=== PATIENT | female | born 1955 | race Caucasian/White ===

== ENCOUNTER → 2017-02-24 | Outpatient (CLI) | payer BC ==
[2017-02-24 14:37] LABS: BLOOD UREA NITROGEN 15 MG/DL (7-18); BUN/CREATININE RATIO 18; CREATININE SERUM 0.82 MG/DL (0.60-1.30); GFR ESTIMATED > 60
== END ==
LOC: LAB 13:50
PROVIDERS: ATTEND Nurse Practitioner Family
DX: D49.2 Neoplasm of unspecified behavior of bone, soft tissue, and skin (principal)
CPT/HCPCS: 36415; 82565; 84520

== ENCOUNTER → 2017-02-25 | Outpatient (CLI) | payer BC ==
[~2017-02-25] MED LIST: IOHEXOL 350 MG/ML 100 ML (OMNIPAQUE 350) VIAL IV ONE; NS 100 ML (IVPB) BAG IV ONE
[2017-02-25] MEDS: CATHETER FLUSH 10 ML SYR IV PRN ×2 (11:09→12:24)
--- NOTE | 2017-02-25 14:45 | Diagnostic Imaging Report ---
PROCEDURE: CT chest, abdomen, and pelvis with contrast. TECHNIQUE: Multiple contiguous axial images were obtained through the chest, abdomen, and pelvis after the administration of intravenous contrast. INDICATION: Known left pelvic mass. Evaluate for primary cancer. COMPARISON: Outside MRI from 02/14/2017. CT CHEST FINDINGS: There are numerous bilateral round pulmonary nodules compatible with metastases. These range in size from 0.3 cm to 1.7 cm. No endoluminal lesion in the trachea or central bronchi. No pulmonic consolidation. Visualized thyroid is normal. No supraclavicular or axillary lymphadenopathy. Enlarged lower right paratracheal lymph node measuring 1.4 cm. Calcified left hilar lymph nodes are compatible with remote granulomatous infection. There is a small pericardial effusion. Heart is mildly enlarged. Normal-caliber thoracic aorta. No focal osseous lesion in the thoracic spine to suggest skeletal metastasis. No focal lesion within the sternum. IMPRESSION: 1. Numerous bilateral pulmonary nodules are compatible with metastases from renal cancer. 2. Enlarged metastatic lymph node within the mediastinum. 3. Small pericardial effusion. CT ABDOMEN AND PELVIS FINDINGS: There is a very large exophytic and solid left renal mass measuring 9.3 x 7.4 x 7.8 cm. It has central low attenuation indicative of tumor necrosis. There is no direct invasion of the right renal vein or IVC. No left-sided renal mass or obstructive uropathy. Destructive soft tissue mass within the left iliac wing measures 9.2 x 8.0 x 8.4 cm. It is likely an osseous metastasis from the renal cancer. Liver, spleen, and pancreas are normal. Left adrenal enhancing 1.8 x 1.4 cm mass is present. No bowel obstruction. There are a few borderline enlarged rowena hepatis lymph nodes, the largest measuring 1.1 x 0.7 cm. No enlarged retroperitoneal lymph nodes. There are numerous conspicuous lymph nodes along the left external iliac chain, with the largest measuring 1.6 x 0.6 cm. Normal-caliber abdominal aorta. IMPRESSION: 1. Very large exophytic and centrally necrotic right renal tumor is most compatible with primary renal cell carcinoma. No direct invasion of the IVC or vena cava. 2. Heterogeneous and destructive soft tissue mass centered within the left ilium is likely a solitary osseous metastasis from the renal cancer. 3. 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 4. There are numerous borderline enlarged upper abdominal and pelvic lymph nodes which may represent metastatic lymph nodes. Dictated by: Dictated on workstation # [id number]
--- NOTE | 2017-02-25 15:54 | Diagnostic Imaging Report ---
INDICATION: Left hip pain after fall. COMPARISON: CT chest, abdomen, and pelvis performed earlier same day. TECHNIQUE: Anterior and posterior scintigraphic images of the whole body were obtained after the intravenous injection of 25.1 mCi of Tc-99m MDP. FINDINGS: There is a region of mixed focal increased and decreased uptake in the left frontotemporal region of the calvarium. 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 No foci of increased radiopharmaceutical activity. IMPRESSION: 1. Area of mixed increased and decreased radiopharmaceutical activity within the left frontotemporal region is suspicious for osseous metastasis. CT of the head without contrast is advised to further evaluate the calvarium. 2. Left iliac tumor has decreased activity on bone scan, which is compatible with a hypervascular renal metastasis. Dictated by: Dictated on workstation # [id number]
== END ==
LOC: CARD 10:54
PROVIDERS: ATTEND Nurse Practitioner Family
DX: D49.2 Neoplasm of unspecified behavior of bone, soft tissue, and skin (principal); E27.9 Disorder of adrenal gland, unspecified; D49.511 Neoplasm of unspecified behavior of right kidney
CPT/HCPCS: 71260; 74177; 78306

== ENCOUNTER → 2017-03-01 | Outpatient (CLI) | payer BC ==
--- NOTE | 2017-03-01 11:21 | Diagnostic Imaging Report ---
PROCEDURE: CT head without contrast. TECHNIQUE: Multiple contiguous axial images were obtained through the brain without the use of intravenous contrast. INDICATION: Swelling along the left forehead area. History of metastatic renal cell carcinoma. FINDINGS: There is an osteolytic metastatic mass seen in the left frontal region measuring 4.9 x 2.8 cm with associated central calcifications or remnant of the erosions in the skull. The mass has a mild mass effect upon the left frontal lobe with no significant edema. Another lytic lesion measuring 1 cm to the right of the midline posteriorly at the parietal occipital junction area is also seen and is presumably related to another metastasis. There is no intracranial hemorrhage. The lateral ventricles are normal in size. No extra-axial fluid collection is seen. The visualized portions of the paranasal sinuses and orbits appear grossly unremarkable. IMPRESSION: A 4.9 cm destructive mass in the left frontal region of the skull projecting into the intracranial cavity with a mild mass effect upon the adjacent left frontal lobe suggestive of metastatic disease. There is also suggestion of 1 cm metastasis in the right occipital parietal region. Report was faxed and called to office of Dr. Whitehead by angelique at 11:22 am. Dictated by: Dictated on workstation # [id number]
== END ==
LOC: RAD 10:36
PROVIDERS: ATTEND Family Medicine
DX: R22.0 Localized swelling, mass and lump, head (principal); Z85.528 Personal history of other malignant neoplasm of kidney
CPT/HCPCS: 70450

== ENCOUNTER → 2017-03-14 | Day surgery (SDC) | payer BC ==
[~2017-03-14] MED LIST changes: +HYDR12.56 PO; +HYDROcodone/APAP 5 MG/325 MG (LORTAB) TAB PO PRN; +IBUPROFEN TABLET 200 MG TAB PO ONE; -IOHEXOL 350 MG/ML 100 ML (OMNIPAQUE 350) VIAL IV ONE; +IRBE1TAB65 PO; +LIDOCAINE 1% INJ 20 ML (XYLOCAINE) VIAL INJ ONE; +LIDOCAINE 1% INJ 20 ML (XYLOCAINE) VIAL ONE; +METF500T4 PO; -NS 100 ML (IVPB) BAG IV ONE; +fentaNYL INJECTION 100 MCG/2 ML AMP ONE
[2017-03-14] MEDS: fentaNYL INJECTION 100 MCG/2 ML AMP IVP PRN ×2 (10:16→10:28)
== END | disposition home or self-care (01) ==
DX: C64.1 Malignant neoplasm of right kidney, except renal pelvis (principal); E11.9 Type 2 diabetes mellitus without complications; Z79.899 Other long term (current) drug therapy

== ENCOUNTER 2017-04-07 05:38 | Outpatient (CLI) | payer BC ==
[~2017-04-07] VITALS: Ht 167.6 cm; Wt 76.2 kg
[~2017-04-07 05:38] MED LIST changes: -HYDROcodone/APAP 5 MG/325 MG (LORTAB) TAB PO PRN; -IBUPROFEN TABLET 200 MG TAB PO ONE; -LIDOCAINE 1% INJ 20 ML (XYLOCAINE) VIAL INJ ONE; -LIDOCAINE 1% INJ 20 ML (XYLOCAINE) VIAL ONE; -fentaNYL INJECTION 100 MCG/2 ML AMP ONE
[2017-04-08] MEDS ORDERED: HYDR-3820 PO (11:49)
== END 2017-04-07 15:41 ==
LOC: PREOP 05:38
PROVIDERS: ATTEND Surgery
DX: Z01.818 Encounter for other preprocedural examination (principal); C64.1 Malignant neoplasm of right kidney, except renal pelvis; C79.51 Secondary malignant neoplasm of bone

== ENCOUNTER 2017-04-08 09:31 | Day surgery (SDC) | payer BC ==
--- NOTE | 2017-04-07 12:12 | History & Physicial ---
History of Present Illness History of Present Illness Reason for visit/HPI To have an Vguhnm-a-Yfrx placed, in anticipation of chemotherapy to manage metastatic renal cell carcinoma Date of Admission April 08, 2017 Date Seen by Provider: Apr 07, 2017 Time Seen by Provider: 12:28 I consulted on this patient on 04/07/17 12:06 Attending Physician Avni Frias MD Admitting Physician Wil Whitehead DO Consult Allergies and Home Medications Allergies Coded Allergies: Penicillins (Verified Allergy, Unknown, 03/14/17) Sulfa (Sulfonamide Antibiotics) (Verified Allergy, Unknown, 03/14/17) erythromycin base (Verified Allergy, Unknown, 03/14/17) Home Medications Hydrochlorothiazide 12.5 Mg Tablet, 12.5 MG PO DAILY, (Reported) Irbesartan/Hydrochlorothiazide 1 Each Tablet, 1 EACH PO DAILY, (Reported) Metformin HCl 500 Mg Tablet, 500 MG PO BID, (Reported) Past Cpxjuhu-Mosyks-Lorsfa Hx Patient Social History Employed/Student: student, part-time Surgeries Surgeries: Section, Tonsillectomy Respiratory Hx Respiratory Disorders: No Cardiovascular Hx Cardiovascular Disorders: Yes Cardiac Disorders: Hypertension Neurological Hx Neurological Disorders: No Endocrine Hx Endocrine Disorders: Yes Endocrine Disorders: Diabetes, Non-Insulin dep Cancer Hx Cancer: Yes Cancer: Kidney Psychosocial Hx Psychiatric Problems: No Family Medical History Significant Family History: Cancer Constitutional: malaise EENTM: no symptoms reported Respiratory: no symptoms reported Cardiovascular: no symptoms reported Gastrointestinal: no symptoms reported Genitourinary: see HPI : No Musculoskeletal: back pain, joint pain, muscle pain Skin: no symptoms reported Physical Exam Vital Signs Capillary Refill : General Appearance: No Apparent Distress HEENT: Normal ENT Inspection Neck: Normal Inspection Respiratory: Lungs Clear Cardiovascular: Regular Rate, Rhythm Gastrointestinal: Non Tender, Soft Neurologic/Psychiatric: Alert, Oriented x3 Assessment/Plan Assessment and Plan Patient with metastatic renal cell carcinoma. 4 Athdtn-a-Wvsf placement to facilitate chemotherapy. Details of the procedure, complications of hematoma, malfunction of the catheter requiring replacement etc. reviewed. Problems: AVNI FRIAS MD Apr 07, 2017 12:12
[~2017-04-08] VITALS: Ht 167.6 cm; Wt 76.2 kg
--- OUTSIDE RECORDS SUMMARY | 2017-04-08 09:35 | XMS REPORT | Continuity of Care Document ---
Author Author [facility] Organization [facility] Address Unknown Phone Unavailable Allergies Active Description Code Type Severity Reaction Onset Reported/Identified Relationship to Patient Clinical Status Yes No Allergy Information Available [id number] Drug Allergy Unknown N/A 02/25/2017 Yes erythromycin base [id number] Drug Allergy Unknown N/A 03/14/2017 Yes Penicillins [id number] Drug Allergy Unknown N/A 03/14/2017 Yes Sulfa (Sulfonamide Antibiotics) [id number] Drug Allergy Unknown N/A 03/14/2017 Medications Problems Date Dx Coded Attending Type Code Diagnosis Diagnosed By 09/03/2015 WILDA KHAN MD Ot Z12.31 08/10/2016 BRITNI BARRIGA MD R Ot M25.552 PAIN IN LEFT HIP 08/27/2016 BRITNI BARRIGA MD R Ot Z12.31 ENCNTR SCREEN MAMMOGRAM FOR MALIGNANT NE 08/27/2016 BRITNI BARRIGA MD Ot Z12.31 ENCNTR SCREEN MAMMOGRAM FOR MALIGNANT NE 09/08/2016 BRITNI BARRIGA MD R Ot Z12.31 ENCNTR SCREEN MAMMOGRAM FOR MALIGNANT NE 02/23/2017 BRITNI BARRIGA MD R Ot Z12.31 ENCNTR SCREEN MAMMOGRAM FOR MALIGNANT NE 02/23/2017 BRITNI BARRIGA MD Ot M25.552 PAIN IN LEFT HIP 03/02/2017 JADE NG DO L Ot R22.0 LOCALIZED SWELLING, MASS AND LUMP, HEAD 03/02/2017 JADE NG DO L Ot Z85.528 PERSONAL HISTORY OF OTHER MALIGNANT NEOP 03/09/2017 BENJAMIN AUGUSTIN APRN Ot D49.2 NEOPLASM OF UNSP BEHAVIOR OF BONE, SOFT 03/15/2017 JULIUS PRINGLE Ot E11.9 TYPE 2 DIABETES MELLITUS WITHOUT COMPLIC 03/15/2017 JULIUS PRINGLE Ot N28.89 OTHER SPECIFIED DISORDERS OF KIDNEY AND 03/15/2017 PINO, BOBAN N Ot Z79.899 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 03/16/2017 PINO, BOBAN N Ot E11.9 TYPE 2 DIABETES MELLITUS WITHOUT COMPLIC 03/16/2017 PINO, BOBAN N Ot N28.89 OTHER SPECIFIED DISORDERS OF KIDNEY AND 03/16/2017 PINO, BOBAN N Ot Z79.899 OTHER JAIL (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 THERAPY 03/16/2017 PINO BOBAN N Ot E11.9 TYPE 2 DIABETES MELLITUS WITHOUT COMPLIC 03/16/2017 PINO, BOBAN N Ot N28.89 OTHER SPECIFIED DISORDERS OF KIDNEY AND 03/16/2017 PINO, BOBAN N Ot Z79.899 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 2017 BENJAMIN AUGUSTIN OXIDATION ENGINEER Ot D49.2 NEOPLASM OF UNSP BEHAVIOR OF BONE, SOFT 2017 BENJAMIN AUGUSTIN OXIDATION ENGINEER Ot D49.511 NEOPLASM OF UNSPECIFIED BEHAVIOR OF RIGH 2017 BENJAMIN AUGUSTIN OXIDATION ENGINEER Ot E27.9 DISORDER OF ADRENAL GLAND, UNSPECIFIED 2017 COS DOPELONNT L Ot R22.0 LOCALIZED SWELLING, MASS AND LUMP, HEAD 2017 COS DOPELONNT L Ot Z85.528 PERSONAL HISTORY OF OTHER MALIGNANT NEOP 03/22/2017 PINO, BOBAN N Ot C64.1 MALIGNANT NEOPLASM OF RIGHT KIDNEY, EXCE 03/22/2017 PINO BOBAN N Ot E11.9 TYPE 2 DIABETES MELLITUS WITHOUT COMPLIC 03/22/2017 PINO BOBAN N Ot Z79.899 OTHER JAIL (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 THERAPY 03/23/2017 PINO BOBAN N Ot C64.1 MALIGNANT NEOPLASM OF RIGHT KIDNEY, EXCE 03/23/2017 PINO BOBAN N Ot E11.9 TYPE 2 DIABETES MELLITUS WITHOUT COMPLIC 03/23/2017 PINO, BOBAN N Ot Z79.899 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 03/25/2017 PINO BOBAN N Ot C64.1 MALIGNANT NEOPLASM OF RIGHT KIDNEY, EXCE 03/25/2017 PINO BOBAN N Ot E11.9 TYPE 2 DIABETES MELLITUS WITHOUT COMPLIC 03/25/2017 PINO, BOBAN N Ot Z79.899 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 03/28/2017 PINO, BOBAN N Ot C64.1 MALIGNANT NEOPLASM OF RIGHT KIDNEY, EXCE 03/28/2017 PINOJULIUS N Ot E11.9 TYPE 2 DIABETES MELLITUS WITHOUT COMPLIC 03/28/2017 PINOJULIUS N Ot Z79.899 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 03/30/2017 JULIUS PRINGLE N Ot C64.1 MALIGNANT NEOPLASM OF RIGHT KIDNEY, EXCE 03/30/2017 PINOJULIUS N Ot E11.9 TYPE 2 DIABETES MELLITUS WITHOUT COMPLIC 03/30/2017 PINOJULIUS N Ot Z79.899 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 03/31/2017 PINOJULIUS N Ot C64.1 MALIGNANT NEOPLASM OF RIGHT KIDNEY, EXCE 03/31/2017 PINOJULIUS N Ot E11.9 TYPE 2 DIABETES MELLITUS WITHOUT COMPLIC 03/31/2017 PINOJULIUS N Ot Z79.899 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 04/05/2017 JULIUS PRINGLE N Ot C64.1 MALIGNANT NEOPLASM OF RIGHT KIDNEY, EXCE 04/05/2017 PINOJULIUS N Ot E11.9 TYPE 2 DIABETES MELLITUS WITHOUT COMPLIC 04/05/2017 PINOJULIUS N Ot Z79.899 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 04/06/2017 JULIUS PRINGLE N Ot C64.1 MALIGNANT NEOPLASM OF RIGHT KIDNEY, EXCE 04/06/2017 PINOJULIUS N Ot E11.9 TYPE 2 DIABETES MELLITUS WITHOUT COMPLIC 04/06/2017 PINOJULIUS N Ot Z79.899 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 Procedures Results Test Result Range [id number] - 02/24/17 14:08 Serum or plasma urea nitrogen measurement (mass/volume) 15 mg/dL 7-18 Serum or plasma creatinine measurement (mass/volume) 0.82 mg /dL 0.60-1.30 Serum or plasma urea nitrogen/creatinine mass ratio 18 NRG Serum or plasma creatinine measurement with calculation of estimated glomerular filtration rate > NRG Complete blood count (CBC) with automated white blood cell (WBC) differential - 03/14/17 09:05 Blood leukocytes automated count (number/volume) 6.2 10*3/ uL 4.3-11.0 Blood erythrocytes automated count (number/volume) 4.04 10*6 /uL 4.35-5.85 Venous blood hemoglobin measurement (mass/volume) 11.0 g/dL 11.5-16.0 Blood hematocrit (volume fraction) 34 % 35-52 Automated erythrocyte mean corpuscular volume 85 [foz_us] 80-99 Automated erythrocyte mean corpuscular hemoglobin (mass per erythrocyte) 27 pg 25-34 Automated erythrocyte mean corpuscular hemoglobin concentration measurement ( mass/volume) 32 g/dL 32-36 Automated erythrocyte distribution width ratio 14.1 % 10.0-14.5 Automated blood platelet count (count/volume) 249 10*3/uL 130-400 Automated blood platelet mean volume measurement 9.1 [foz_us ] 7.4-10.4 Automated blood neutrophils/100 leukocytes 71 % 42-75 Automated blood lymphocytes/100 leukocytes 20 % 12-44 Blood monocytes/100 leukocytes 7 % 0-12 Automated blood eosinophils/100 leukocytes 1 % 0-10 Automated blood basophils/100 leukocytes 0 % 0-10 Blood neutrophils automated count (number/volume) 4.4 10*3 1.8-7.8 Blood lymphocytes automated count (number/volume) 1.2 10*3 1.0-4.0 Blood monocytes automated count (number/volume) 0.4 10*3 0.0-1.0 Automated eosinophil count 0.1 10*3/uL 0.0-0.3 Automated blood basophil count (count/volume) 0.0 10*3/uL 0.0-0.1 PT panel in platelet poor plasma by coagulation assay - 03/14/17 09:05 Prothrombin time (PT) in platelet poor plasma by coagulation assay 13.5 s 12.2-14.7 INR in platelet poor plasma or blood by coagulation assay 1.1 0.8-1.4 Activated partial thromboplastin time (aPTT) in platelet poor plasma bycoagulation assay - 03/14/17 09:05 Activated partial thromboplastin time (aPTT) in platelet poor plasma bycoagulation assay 29 s 24-35 Encounters ACCT No. Visit Date/Time Discharge Status Pt. Type Provider Facility Loc./Unit Complaint [id number] 08/15/2015 14:33:00 2014 23:59:59 [facility] Outpatient BILL JHA, WILDA [facility] [id number] 03/12/2014 14:04:00 2013 23:59:59 CLS Outpatient [id number] 04/08/2017 11:00:00 PEN Preadbreanne FRIAS MD, AVNI Jonas [facility] SDC KIDNEY CA/LUNG CA/BONE CA [id number] 04/04/2017 14:27:00 ACT Outpatient JULIUS PRINGLE [facility] ONC [id number] 03/14/2017 08:27:00 ACT Outpatient JULIUS PRINGLE [facility] RAD LT RENAL MASS N28.89 [id number] 03/01/2017 10:36:00 ACT Outpatient JADE NG DO [facility] RAD ALFREDO METASTIC LESION CALVARIUM [id number] 02/25/2017 11:00:00 Document Registration [id number] 02/25/2017 10:54:00 ACT Outpatient BENJAMIN AUGUSTIN OXIDATION ENGINEER [facility] CARD BONE TUMOR-PRIMARY [id number] 02/24/2017 13:50:00 ACT Outpatient BENJAMIN AUGUSTIN OXIDATION ENGINEER [facility] LAB D49.2 [id number] 08/26/2016 13:14:00 ACT Outpatient BRITNI BARRIGA MD [facility] RAD SCREENING [id number] 08/09/2016 09:36:00 ACT Outpatient BRITNI BARRIGA MD [facility] RAD PERSISTENT PAIN LT HIP
--- OUTSIDE RECORDS SUMMARY | 2017-04-08 09:35 | XMS REPORT | Continuity of Care Document ---
Author Author [facility] Organization [facility] Address Unknown Phone Unavailable Care Team Providers Care Sales Agent Financial Report Service Name Role Phone Wil Whitehead PCP [phone] Source Comments Some departments are not documenting in the electronic medical record. If you do not see the information that you expected, contact Release of Information in the Health Information Management department at [phone] for further assistance in locating additional records.[facility] Active Allergies and Adverse Reactions Allergen Noted Date Severity Reactions Comments Codeine 02/18/2017 Medium VOMITING Any codeine related medication Erythromycin 02/18/2017 Medium RASH, SEE COMMENTS rash and stomach issues Hydrocodone 02/18/2017 Medium VOMITING Penicillin G 02/18/2017 Medium RASH Percocet 02/18/2017 Medium VOMITING Sulfa (Sulfonamide 02/18/2017 Low SEE COMMENTS patient cannot remember Antibiotics) reaction Current Medications Prescription Sig. Disp. Refills Start End Date Status Date hydroCHLOROthiazide Take 25 mg by mouth every Active (HYDRODIURIL) 25 mg morning. tablet irbesartan-hydrochlorothi Take 1 Tab by mouth Active azide (AVALIDE) 150-12.5 daily. mg tablet metFORMIN (GLUCOPHAGE) Take 500 mg by mouth Active 500 mg tablet twice daily with meals. traMADol (ULTRAM) 50 mg Take 1-2 Tabs by mouth 36 Tab 0 02/19/20 Active tablet every 6 hours as needed 17 for Pain. Active Problems Not on file Most Recent Encounters Date Type Specialty Providers Description 03/14/2017 Hospital Robbie Mora MD Soft tissue tumor Encounter 03/14/2017 Surgery Robbie Mora MD Canceled JENNIFER CUT, POSSIBLE OPEN BIOPSY LEFT PELVIC MASS 03/07/2017 Ancillary Radiology Outpatient, Radiologist Diagnosis unknown Orders (Primary Dx) 03/04/2017 Telephone Oncology Robbie Mora MD Results 03/04/2017 Orders Only Oncology Lakshmi Richardson RN Bone tumor 03/01/2017 Hospital Radiology Encounter 02/28/2017 Ancillary Radiology Outpatient, Radiologist Diagnosis unknown Orders (Primary Dx) 02/25/2017 Hospital Radiology Encounter 02/25/2017 Hospital Radiology Encounter 02/25/2017 Ancillary Radiology Outpatient, Radiologist Diagnosis unknown Orders (Primary Dx) 02/24/2017 Telephone Oncology Robbie Mora MD Test 02/23/2017 Prep for Case Oncology Robbie Mora MD Soft tissue tumor (Primary Dx) 02/22/2017 Ancillary Radiology Outpatient, Radiologist Diagnosis unknown Orders (Primary Dx) 02/18/2017 Office Visit Oncology Robbie Mora MD Bone tumor ( Primary Dx) 02/18/2017 Ancillary Radiology Outpatient, Radiologist Diagnosis unknown Orders (Primary Dx) 02/14/2017 Hospital Radiology Encounter 02/14/2017 Hospital Radiology Encounter Social History Tobacco Use Types Packs/Day Years Used Date Never Smoker Smokeless Tobacco: Never Used Alcohol Use Drinks/Week oz/Week Comments No 0 Standard 0.0 drinks or equivalent Last Filed Vital Signs Vital Sign Reading Time Taken Blood Pressure 182/67 02/18/2017 2:02 PM CDT Pulse 99 02/18/2017 2:02 PM CDT Temperature 36.3 C (97.4 F) 02/18/2017 2:02 PM CDT Respiratory Rate 16 02/18/2017 2:02 PM CDT Height 1.676 m (5' 6") 02/28/2017 2:36 PM CDT Weight 78.926 kg (174 lb) 02/28/2017 2:36 PM CDT Body Mass Index 28.1 02/28/2017 2:36 PM CDT Oxygen Saturation 99% 02/18/2017 2:02 PM CDT Plan of Care Health Maintenance Due Date Last Done Comments Hepatitis C Screening 1955 Physical (Comprehensive) 1960 Exam Pertussis Vaccine 1964 Tetanus Vaccine 1970 Cervical Cancer Screening 1974 Breast Cancer Screening 1993 Colorectal Cancer 2003 Screening Shingles Vaccine 2013 Influenza Vaccine 05/27/2017 Results from Last 3 Months * CT HEAD EXTERNAL IMAGING (03/01/2017) Narrative This order has been auto finalized and does not contain a result. * NM BONE SCAN EXTERNAL IMAGING (02/25/2017 12:15 AM) Narrative This order has been auto finalized and does not contain a result. * CT ABD/PELV W CONTRAST (02/25/2017) * CT CHEST W CONTRAST (02/25/2017) * NM BONE SCAN WHOLEBODY (02/25/2017) * CT CHEST/ABD/PEL EXTERNAL IMAGING (02/25/2017) Narrative This order has been auto finalized and does not contain a result. * GENERAL RAD LOWER EXT EXTERNAL IMAGING (02/14/2017 12:15 AM) Narrative This order has been auto finalized and does not contain a result. * MRI LOWER EXT EXTERNAL IMAGING (02/14/2017) Narrative This order has been auto finalized and does not contain a result.
[2017-04-08] MEDS ORDERED: BUP/EPI 0.25% 1:200,000 (MARCAINE) 10 ML VIAL IJ ONE ×2 (09:49→11:01)
[2017-04-08] MEDS ORDERED: HEParin (CENTRAL IV FLUSH) 500 UNIT/5 ML SYR ONE (09:49)
[2017-04-08] MEDS ORDERED: LIDOCAINE PF 2% 5 ML (XYLOCAINE) VIAL ONE (09:56)
[2017-04-08] MEDS ORDERED: proPOfol 200 MG/20 ML (DIPRIVAN) VIAL IV ONE (09:56)
[2017-04-08] MEDS ORDERED: fentaNYL INJECTION 100 MCG/2 ML AMP ONE ×2 (09:56→11:07)
[2017-04-08] MEDS ORDERED: LACTATED RINGERS 1,000 ML IV ONE (09:56)
[2017-04-08] MEDS ORDERED: ONDANSETRON 4 MG/2 ML (SDV) Z0FRAN ONE ×2 (09:56→13:07)
[2017-04-08] MEDS ORDERED: MIDAZOLAM 2 MG/2 ML (VERSED) VIAL ONE (09:56)
[2017-04-08] MEDS ORDERED: SEVOFLURANE (ULTANE) 15 ML INHAL SOLN ONE ×3 (09:56→11:03)
[2017-04-08 10:13] VITALS: BP 157/74
--- NOTE | 2017-04-08 10:26 | Progress Note-Pre Operative ---
Pre-Operative Progress Note H&P Reviewed The H&P was reviewed, patient examined and no changes noted. Date Seen by Provider: Apr 08, 2017 Time Seen by Provider: 10:25 Date H&P Reviewed: Apr 08, 2017 Time H&P Reviewed: : Pre-Operative Diagnosis: metastatic renal cell carcinoma AVNI FRIAS MD Apr 08, 2017 10:26 am
[2017-04-08] MEDS ORDERED: ceFAZolin 2 GM/50 ML NS 50 ML ONE (10:29)
[2017-04-08] MEDS ORDERED: ONDANSETRON 4 MG/2 ML (SDV) Z0FRAN IVP PRN (11:45)
--- NOTE | 2017-04-08 11:48 | Operative Report ---
Operative Report Date of Procedure/Surgery Apr 08, 2017 Surgeon (s) AVNI FRIAS MD Diamond Grader (s): Not applicable Post-Operative Diagnosis Same Procedure Performed Azirat-x-Qfhg placement Description of Procedure Anesthesia Type: General Estimated blood loss (mL): Minimal Specimen(s) collected/removed None Description of the Procedure Indication for procedure: This lady is due to receive systemic therapy to address metastatic renal cell carcinoma. To facilitate this, an Ualotx-m-Loem was felt to be appropriate. Informed consent was obtained after reviewing the operative details and complications of hematoma, infection of the pocket and malfunction of the catheter requiring replacement Description of procedure: She was placed supine on the operative table and general anesthesia induced using a laryngeal mask airway. A gram of Ancef was administered intravenously as prophylaxis against wound infection. Sequential compression devices were placed around her legs, to minimize the risk of venous thrombosis Neck and upper chest were prepared and draped in the usual sterile manner. Right internal jugular vein was localized using at 12 MHz ultrasound probe and a floppy guidewire introduced into the heart, under fluoroscopy. A subcutaneous pocket was created over the infra-follicular fossa and the Toni catheter brought into the neck, in a retrograde fashion. It was then advanced into the heart, under fluoroscopy, using the peel-away sheath. The catheter was then pulled back to the superior vena cava under fluoroscopy and subsequently connected to the Yifhwm-c-Siur, that had been primed with heparinized saline. I was able to aspirate and flush the system without any difficulty. The port was then secured to the pectoralis tissue using 2-0 Prolene sutures. Incision was closed using 3-0 Vicryl for the subcutaneous tissue and 4-0 Vicryl for skin, in a subcuticular fashion. 0.25 percent Marcaine with epinephrine infiltrated along the incision both pre-emptively and at the conclusion of the operation. She tolerated the procedure well, was extubated in the operating room and taken to the recovery room in a stable condition. [place], sponges and instruments were correct at the end of the operation Findings of the Procedure See operative report Allergies and Home Medications Allergies Coded Allergies: Penicillins (Verified Allergy, Unknown, 04/07/17) Sulfa (Sulfonamide Antibiotics) (Verified Allergy, Unknown, 04/07/17) erythromycin base (Verified Allergy, Unknown, 04/07/17) Home Medications Hydrochlorothiazide 12.5 Mg Tablet, 12.5 MG PO DAILY, (Reported) Irbesartan/Hydrochlorothiazide 1 Each Tablet, 1 EACH PO DAILY, (Reported) Metformin HCl 500 Mg Tablet, 500 MG PO BID, (Reported) AVNI FRIAS MD Apr 08, 2017 11:48 am
[2017-04-08] MEDS ORDERED: HYDR-3820 PO (11:49)
--- NOTE | 2017-04-08 11:49 | Discharge Inst-Simple/Standard ---
Discharge Inst-Standard Discharge Medications New, Converted or Re-Newed RX: RX on Chart Patient Instructions/Follow Up Plan of Care/Instructions/FU: Dressings off in 48 hours. May use the port Activity as Tolerated: Yes Discharge Diet: No Restrictions AVNI FRIAS MD Apr 08, 2017 11:49 am
--- NOTE | 2017-04-08 11:53 | Diagnostic Imaging Report ---
Intraoperative view of the chest. INDICATION: Port placement in the OR by Dr. Bunch. FLUOROSCOPY TIME: 4 seconds. IMPRESSION: Provided images demonstrate the port catheter with the tip at the proximal right atrium level. Dictated by: Dictated on workstation # [id number]
[2017-04-08] MEDS ORDERED: morphine INJ 10 MG/ML 1ML (SYR OR VIAL) ONE (11:56)
[2017-04-08] MEDS: morphine INJ 10 MG/ML 1ML (SYR OR VIAL) IVP PRN ×2 (12:04→12:19)
[2017-04-08 12:35] VITALS: BP 153/85
[2017-04-08 13:05] VITALS: BP 149/72
[2017-04-08] MEDS ORDERED: ONDANSETRON 4 MG/2 ML (SDV) Z0FRAN IVP ONE (13:15)
[2017-04-08] MEDS ORDERED: ACETAMINOPHEN 500 MG TAB (TYLENOL) PO ONE (13:15)
[2017-04-08 13:35] VITALS: BP 151/77
[2017-04-08 15:10] VITALS: BP 153/85
[2017-04-08] MEDS ORDERED: LACTATED RINGERS 1,000 ML IV PRN (16:53)
== END 2017-04-08 15:10 | disposition home or self-care (01) ==
LOC: SDC 09:31
PROVIDERS: ATTEND Surgery
DX: C64.1 Malignant neoplasm of right kidney, except renal pelvis (principal); C79.51 Secondary malignant neoplasm of bone; I10 Essential (primary) hypertension; E11.9 Type 2 diabetes mellitus without complications; Z79.84 Long term (current) use of oral hypoglycemic drugs; Z79.899 Other long term (current) drug therapy
CPT/HCPCS: 82962; 87081

== ENCOUNTER 2017-06-13 13:53 | Outpatient (RCR) | payer BC ==
[2017-03-21 11:12] LABS: BASOPHILS % (AUTO) 0 % (0-10); EOSINOPHILS # (AUTO) 0.1 10^3/uL (0.0-0.3); EOSINOPHILS % (AUTO) 1 % (0-10); LYMPHOCYTES # (AUTO) 1.6 X 10^3 (1.0-4.0); LYMPHOCYTES % (AUTO) 22 % (12-44); MEAN CORPUSCULAR HEMOGLOBIN 28 PG (25-34); MEAN CORPUSCULAR HGB CONC 33 G/DL (32-36); MEAN CORPUSCULAR VOLUME 85 FL (80-99); MEAN PLATELET VOLUME 8.8 FL (7.4-10.4); MONOCYTES # (AUTO) 0.4 X 10^3 (0.0-1.0); MONOCYTES % (AUTO) 6 % (0-12); NEUTROPHILS # (AUTO) 4.9 X 10^3 (1.8-7.8); NEUTROPHILS % (AUTO) 71 % (42-75); PLATELET COUNT 297 10^3/uL (130-400); RED CELL DISTRIBUTION WIDTH 14.2 % (10.0-14.5); WHITE BLOOD COUNT 6.9 10^3/uL (4.3-11.0)
[2017-03-21 11:41] LABS: ALANINE AMINOTRANSFERASE 17 U/L (0-55); ALBUMIN 4.1 GM/DL (3.2-4.5); ANION GAP 11 MMOL/L (5-14); ASPARTATE AMINO TRANSFERASE 15 U/L (5-34); BILIRUBIN,TOTAL 0.7 MG/DL (0.1-1.0); BLOOD UREA NITROGEN 11 MG/DL (7-18); BUN/CREATININE RATIO 13 (0-20); CALCIUM 11.6 MG/DL (8.5-10.1); CARBON DIOXIDE 28 MMOL/L (21-32); CHLORIDE 100 MMOL/L (98-107); CREATININE SERUM 0.83 MG/DL (0.60-1.30); GFR ESTIMATED > 60; GLUCOSE 214 MG/DL (70-105); HEMOLYSIS 2 (-100-29); ICTERUS 0.6 (-100-1.9); LACTATE DEHYDROGENASE 130 U/L (125-220); LIPEMIA 4 (-100-49); POTASSIUM 3.7 MMOL/L (3.6-5.0); SODIUM 139 MMOL/L (135-145)
[2017-04-04 15:39] LABS: BASOPHILS % (AUTO) 0 % (0-10); EOSINOPHILS % (AUTO) 1 % (0-10); LYMPHOCYTES # (AUTO) 1.3 X 10^3 (1.0-4.0); LYMPHOCYTES % (AUTO) 18 % (12-44); MEAN CORPUSCULAR HEMOGLOBIN 27 PG (25-34); MEAN CORPUSCULAR HGB CONC 32 G/DL (32-36); MEAN CORPUSCULAR VOLUME 85 FL (80-99); MEAN PLATELET VOLUME 8.8 FL (7.4-10.4); MONOCYTES # (AUTO) 0.5 X 10^3 (0.0-1.0); MONOCYTES % (AUTO) 7 % (0-12); NEUTROPHILS # (AUTO) 5.1 X 10^3 (1.8-7.8); NEUTROPHILS % (AUTO) 74 % (42-75); PLATELET COUNT 239 10^3/uL (130-400); RED BLOOD COUNT 3.94 10^6/uL (4.35-5.85); RED CELL DISTRIBUTION WIDTH 14.2 % (10.0-14.5)
[2017-04-04 16:02] LABS: ALANINE AMINOTRANSFERASE 17 U/L (0-55); ANION GAP 9 MMOL/L (5-14); ASPARTATE AMINO TRANSFERASE 16 U/L (5-34); BILIRUBIN,TOTAL 0.9 MG/DL (0.1-1.0); BLOOD UREA NITROGEN 10 MG/DL (7-18); BUN/CREATININE RATIO 13; CALCIUM 11.1 MG/DL (8.5-10.1); CARBON DIOXIDE 27 MMOL/L (21-32); CHLORIDE 103 MMOL/L (98-107); CREATININE SERUM 0.78 MG/DL (0.60-1.30); GFR ESTIMATED > 60; GLUCOSE 178 MG/DL (70-105); LACTATE DEHYDROGENASE 143 U/L (125-220); POTASSIUM 3.6 MMOL/L (3.6-5.0); SODIUM 139 MMOL/L (135-145); TOTAL PROTEIN 7.5 GM/DL (6.4-8.2)
[2017-04-11 14:37] LABS: BASOPHILS % (AUTO) 0 % (0-10); EOSINOPHILS # (AUTO) 0.1 10^3/uL (0.0-0.3); EOSINOPHILS % (AUTO) 1 % (0-10); LYMPHOCYTES # (AUTO) 1.3 X 10^3 (1.0-4.0); LYMPHOCYTES % (AUTO) 22 % (12-44); MEAN CORPUSCULAR HEMOGLOBIN 27 PG (25-34); MEAN CORPUSCULAR HGB CONC 32 G/DL (32-36); MEAN CORPUSCULAR VOLUME 85 FL (80-99); MEAN PLATELET VOLUME 9.2 FL (7.4-10.4); MONOCYTES # (AUTO) 0.5 X 10^3 (0.0-1.0); MONOCYTES % (AUTO) 8 % (0-12); NEUTROPHILS # (AUTO) 4.2 X 10^3 (1.8-7.8); NEUTROPHILS % (AUTO) 69 % (42-75); PLATELET COUNT 169 10^3/uL (130-400); RED BLOOD COUNT 4.02 10^6/uL (4.35-5.85); RED CELL DISTRIBUTION WIDTH 14.1 % (10.0-14.5); WHITE BLOOD COUNT 6.1 10^3/uL (4.3-11.0)
[2017-04-11 14:59] LABS: ANION GAP 13 MMOL/L (5-14); BLOOD UREA NITROGEN 7 MG/DL (7-18); BUN/CREATININE RATIO 10; CALCIUM 9.9 MG/DL (8.5-10.1); CARBON DIOXIDE 25 MMOL/L (21-32); CHLORIDE 100 MMOL/L (98-107); CREATININE SERUM 0.72 MG/DL (0.60-1.30); GFR ESTIMATED > 60; GLUCOSE 125 MG/DL (70-105); POTASSIUM 3.4 MMOL/L (3.6-5.0); SODIUM 138 MMOL/L (135-145)
[2017-04-18 14:18] LABS: BASOPHILS % (AUTO) 0 % (0-10); EOSINOPHILS # (AUTO) 0.1 10^3/uL (0.0-0.3); EOSINOPHILS % (AUTO) 1 % (0-10); LYMPHOCYTES # (AUTO) 1.5 X 10^3 (1.0-4.0); LYMPHOCYTES % (AUTO) 26 % (12-44); MEAN CORPUSCULAR HEMOGLOBIN 27 PG (25-34); MEAN CORPUSCULAR HGB CONC 32 G/DL (32-36); MEAN CORPUSCULAR VOLUME 83 FL (80-99); MEAN PLATELET VOLUME 9.5 FL (7.4-10.4); MONOCYTES # (AUTO) 0.5 X 10^3 (0.0-1.0); MONOCYTES % (AUTO) 9 % (0-12); NEUTROPHILS # (AUTO) 3.6 X 10^3 (1.8-7.8); NEUTROPHILS % (AUTO) 64 % (42-75); PLATELET COUNT 172 10^3/uL (130-400); RED BLOOD COUNT 4.45 10^6/uL (4.35-5.85); RED CELL DISTRIBUTION WIDTH 13.8 % (10.0-14.5); WHITE BLOOD COUNT 5.6 10^3/uL (4.3-11.0)
[2017-04-18 14:44] LABS: ANION GAP 12 MMOL/L (5-14); BLOOD UREA NITROGEN 15 MG/DL (7-18); BUN/CREATININE RATIO 17; CALCIUM 9.7 MG/DL (8.5-10.1); CARBON DIOXIDE 24 MMOL/L (21-32); CHLORIDE 96 MMOL/L (98-107); CREATININE SERUM 0.87 MG/DL (0.60-1.30); GFR ESTIMATED > 60; GLUCOSE 271 MG/DL (70-105); POTASSIUM 3.4 MMOL/L (3.6-5.0); SODIUM 132 MMOL/L (135-145)
[2017-04-25 14:22] LABS: BASOPHILS % (AUTO) 0 % (0-10); EOSINOPHILS # (AUTO) 0.1 10^3/uL (0.0-0.3); EOSINOPHILS % (AUTO) 2 % (0-10); LYMPHOCYTES # (AUTO) 1.5 X 10^3 (1.0-4.0); LYMPHOCYTES % (AUTO) 30 % (12-44); MEAN CORPUSCULAR HEMOGLOBIN 27 PG (25-34); MEAN CORPUSCULAR HGB CONC 33 G/DL (32-36); MEAN CORPUSCULAR VOLUME 81 FL (80-99); MEAN PLATELET VOLUME 9.2 FL (7.4-10.4); MONOCYTES # (AUTO) 0.5 X 10^3 (0.0-1.0); MONOCYTES % (AUTO) 9 % (0-12); NEUTROPHILS % (AUTO) 59 % (42-75); PLATELET COUNT 175 10^3/uL (130-400); RED CELL DISTRIBUTION WIDTH 13.4 % (10.0-14.5)
[2017-04-25 14:46] LABS: ANION GAP 14 MMOL/L (5-14); BLOOD UREA NITROGEN 12 MG/DL (7-18); BUN/CREATININE RATIO 16; CALCIUM 9.9 MG/DL (8.5-10.1); CARBON DIOXIDE 22 MMOL/L (21-32); CHLORIDE 96 MMOL/L (98-107); CREATININE SERUM 0.73 MG/DL (0.60-1.30); GFR ESTIMATED > 60; GLUCOSE 163 MG/DL (70-105); POTASSIUM 3.5 MMOL/L (3.6-5.0); SODIUM 132 MMOL/L (135-145)
[2017-05-02 13:12] LABS: BASOPHILS % (AUTO) 0 % (0-10); EOSINOPHILS # (AUTO) 0.1 10^3/uL (0.0-0.3); EOSINOPHILS % (AUTO) 2 % (0-10); LYMPHOCYTES # (AUTO) 1.6 X 10^3 (1.0-4.0); LYMPHOCYTES % (AUTO) 29 % (12-44); MEAN CORPUSCULAR HEMOGLOBIN 27 PG (25-34); MEAN CORPUSCULAR HGB CONC 34 G/DL (32-36); MEAN CORPUSCULAR VOLUME 80 FL (80-99); MEAN PLATELET VOLUME 9.3 FL (7.4-10.4); MONOCYTES # (AUTO) 0.5 X 10^3 (0.0-1.0); MONOCYTES % (AUTO) 9 % (0-12); NEUTROPHILS # (AUTO) 3.2 X 10^3 (1.8-7.8); NEUTROPHILS % (AUTO) 60 % (42-75); PLATELET COUNT 186 10^3/uL (130-400); RED BLOOD COUNT 4.21 10^6/uL (4.35-5.85); RED CELL DISTRIBUTION WIDTH 13.5 % (10.0-14.5); WHITE BLOOD COUNT 5.4 10^3/uL (4.3-11.0)
[2017-05-02 13:38] LABS: ALBUMIN 4.1 GM/DL (3.2-4.5); BILIRUBIN,TOTAL 0.6 MG/DL (0.1-1.0); CREATININE SERUM 0.95 MG/DL (0.60-1.30); POTASSIUM 3.6 MMOL/L (3.6-5.0); TOTAL PROTEIN 7.9 GM/DL (6.4-8.2)
[2017-05-09 13:52] LABS: BASOPHILS % (AUTO) 0 % (0-10); EOSINOPHILS # (AUTO) 0.1 10^3/uL (0.0-0.3); EOSINOPHILS % (AUTO) 1 % (0-10); LYMPHOCYTES # (AUTO) 1.4 X 10^3 (1.0-4.0); LYMPHOCYTES % (AUTO) 23 % (12-44); MEAN CORPUSCULAR HGB CONC 33 G/DL (32-36); MEAN CORPUSCULAR VOLUME 79 FL (80-99); MEAN PLATELET VOLUME 9.3 FL (7.4-10.4); MONOCYTES # (AUTO) 0.6 X 10^3 (0.0-1.0); MONOCYTES % (AUTO) 10 % (0-12); NEUTROPHILS % (AUTO) 65 % (42-75); PLATELET COUNT 182 10^3/uL (130-400); RED BLOOD COUNT 4.08 10^6/uL (4.35-5.85); RED CELL DISTRIBUTION WIDTH 13.7 % (10.0-14.5); WHITE BLOOD COUNT 6.2 10^3/uL (4.3-11.0)
[2017-05-09 13:57] LABS: MEAN CORPUSCULAR HEMOGLOBIN 26 PG (25-34)
[2017-05-09 14:14] LABS: ANION GAP 14 MMOL/L (5-14); BLOOD UREA NITROGEN 20 MG/DL (7-18); BUN/CREATININE RATIO 22; CALCIUM 9.8 MG/DL (8.5-10.1); CARBON DIOXIDE 22 MMOL/L (21-32); CHLORIDE 97 MMOL/L (98-107); CREATININE SERUM 0.92 MG/DL (0.60-1.30); GFR ESTIMATED > 60; GLUCOSE 286 MG/DL (70-105); POTASSIUM 3.3 MMOL/L (3.6-5.0); SODIUM 133 MMOL/L (135-145)
[2017-05-16 14:19] LABS: BASOPHILS % (AUTO) 0 % (0-10); EOSINOPHILS # (AUTO) 0.1 10^3/uL (0.0-0.3); EOSINOPHILS % (AUTO) 1 % (0-10); LYMPHOCYTES # (AUTO) 1.5 X 10^3 (1.0-4.0); LYMPHOCYTES % (AUTO) 28 % (12-44); MEAN CORPUSCULAR HEMOGLOBIN 27 PG (25-34); MEAN CORPUSCULAR HGB CONC 34 G/DL (32-36); MEAN CORPUSCULAR VOLUME 79 FL (80-99); MEAN PLATELET VOLUME 9.2 FL (7.4-10.4); MONOCYTES # (AUTO) 0.5 X 10^3 (0.0-1.0); MONOCYTES % (AUTO) 10 % (0-12); NEUTROPHILS # (AUTO) 3.1 X 10^3 (1.8-7.8); NEUTROPHILS % (AUTO) 60 % (42-75); PLATELET COUNT 179 10^3/uL (130-400); RED CELL DISTRIBUTION WIDTH 13.8 % (10.0-14.5); WHITE BLOOD COUNT 5.1 10^3/uL (4.3-11.0)
[2017-05-16 14:45] LABS: ANION GAP 12 MMOL/L (5-14); BLOOD UREA NITROGEN 14 MG/DL (7-18); BUN/CREATININE RATIO 17; CALCIUM 9.7 MG/DL (8.5-10.1); CARBON DIOXIDE 25 MMOL/L (21-32); CHLORIDE 97 MMOL/L (98-107); CREATININE SERUM 0.81 MG/DL (0.60-1.30); GFR ESTIMATED > 60; GLUCOSE 259 MG/DL (70-105); POTASSIUM 3.4 MMOL/L (3.6-5.0); SODIUM 134 MMOL/L (135-145)
[2017-05-23 14:03] LABS: BASOPHILS % (AUTO) 0 % (0-10); EOSINOPHILS # (AUTO) 0.1 10^3/uL (0.0-0.3); EOSINOPHILS % (AUTO) 1 % (0-10); LYMPHOCYTES # (AUTO) 1.4 X 10^3 (1.0-4.0); LYMPHOCYTES % (AUTO) 26 % (12-44); MEAN CORPUSCULAR HEMOGLOBIN 26 PG (25-34); MEAN CORPUSCULAR HGB CONC 33 G/DL (32-36); MEAN CORPUSCULAR VOLUME 79 FL (80-99); MEAN PLATELET VOLUME 9.3 FL (7.4-10.4); MONOCYTES # (AUTO) 0.5 X 10^3 (0.0-1.0); MONOCYTES % (AUTO) 8 % (0-12); NEUTROPHILS # (AUTO) 3.4 X 10^3 (1.8-7.8); NEUTROPHILS % (AUTO) 64 % (42-75); PLATELET COUNT 172 10^3/uL (130-400); RED BLOOD COUNT 4.03 10^6/uL (4.35-5.85); RED CELL DISTRIBUTION WIDTH 13.5 % (10.0-14.5); WHITE BLOOD COUNT 5.4 10^3/uL (4.3-11.0)
[2017-05-23 14:22] LABS: ANION GAP 12 MMOL/L (5-14); BLOOD UREA NITROGEN 14 MG/DL (7-18); BUN/CREATININE RATIO 17; CALCIUM 9.6 MG/DL (8.5-10.1); CARBON DIOXIDE 23 MMOL/L (21-32); CHLORIDE 100 MMOL/L (98-107); CREATININE SERUM 0.82 MG/DL (0.60-1.30); GFR ESTIMATED > 60; GLUCOSE 321 MG/DL (70-105); POTASSIUM 3.5 MMOL/L (3.6-5.0); SODIUM 135 MMOL/L (135-145)
[2017-05-31 14:09] LABS: BASOPHILS % (AUTO) 0 % (0-10); EOSINOPHILS # (AUTO) 0.1 10^3/uL (0.0-0.3); EOSINOPHILS % (AUTO) 1 % (0-10); LYMPHOCYTES # (AUTO) 1.4 X 10^3 (1.0-4.0); LYMPHOCYTES % (AUTO) 24 % (12-44); MEAN CORPUSCULAR HEMOGLOBIN 26 PG (25-34); MEAN CORPUSCULAR HGB CONC 33 G/DL (32-36); MEAN CORPUSCULAR VOLUME 78 FL (80-99); MEAN PLATELET VOLUME 9.4 FL (7.4-10.4); MONOCYTES # (AUTO) 0.6 X 10^3 (0.0-1.0); MONOCYTES % (AUTO) 11 % (0-12); NEUTROPHILS # (AUTO) 3.6 X 10^3 (1.8-7.8); NEUTROPHILS % (AUTO) 64 % (42-75); PLATELET COUNT 201 10^3/uL (130-400); RED BLOOD COUNT 4.08 10^6/uL (4.35-5.85); RED CELL DISTRIBUTION WIDTH 13.5 % (10.0-14.5); WHITE BLOOD COUNT 5.7 10^3/uL (4.3-11.0)
[2017-05-31 14:31] LABS: ALBUMIN 4.1 GM/DL (3.2-4.5); BILIRUBIN,TOTAL 0.7 MG/DL (0.1-1.0); CREATININE SERUM 0.98 MG/DL (0.60-1.30); POTASSIUM 3.2 MMOL/L (3.6-5.0); TOTAL PROTEIN 7.9 GM/DL (6.4-8.2)
[2017-06-06 14:18] LABS: BASOPHILS % (AUTO) 0 % (0-10); EOSINOPHILS # (AUTO) 0.1 10^3/uL (0.0-0.3); EOSINOPHILS % (AUTO) 1 % (0-10); LYMPHOCYTES # (AUTO) 1.5 X 10^3 (1.0-4.0); LYMPHOCYTES % (AUTO) 19 % (12-44); MEAN CORPUSCULAR HEMOGLOBIN 26 PG (25-34); MEAN CORPUSCULAR HGB CONC 33 G/DL (32-36); MEAN CORPUSCULAR VOLUME 79 FL (80-99); MEAN PLATELET VOLUME 9.2 FL (7.4-10.4); MONOCYTES # (AUTO) 0.5 X 10^3 (0.0-1.0); MONOCYTES % (AUTO) 6 % (0-12); NEUTROPHILS # (AUTO) 5.7 X 10^3 (1.8-7.8); NEUTROPHILS % (AUTO) 74 % (42-75); PLATELET COUNT 232 10^3/uL (130-400); RED BLOOD COUNT 4.07 10^6/uL (4.35-5.85); RED CELL DISTRIBUTION WIDTH 13.3 % (10.0-14.5); WHITE BLOOD COUNT 7.7 10^3/uL (4.3-11.0)
[2017-06-06 14:34] LABS: ANION GAP 12 MMOL/L (5-14); BLOOD UREA NITROGEN 16 MG/DL (7-18); BUN/CREATININE RATIO 19; CALCIUM 9.7 MG/DL (8.5-10.1); CARBON DIOXIDE 25 MMOL/L (21-32); CHLORIDE 97 MMOL/L (98-107); CREATININE SERUM 0.85 MG/DL (0.60-1.30); GFR ESTIMATED > 60; GLUCOSE 319 MG/DL (70-105); POTASSIUM 3.4 MMOL/L (3.6-5.0); SODIUM 134 MMOL/L (135-145)
[~2017-06-13] VITALS: Ht 165.1 cm; Wt 73.5 kg
[~2017-06-13 13:53] MED LIST changes: +DENOSUMAB 120 MG/1.7 ML (XGEVA) SQ SCH; +HYDR-3820 PO; +NS IV 500 ML (CANCER CENTER) IV SCH; +ONDANSETRON MDV (CANCER CENTER 8 MG, DEXAMETHASONE INJ (CANCER CTR) 4 MG in NS (IVPB) C... IV SCH; +TEMSIROLIMUS 25 MG in NORMAL SALINE (CANCER CENTER) 250 ML IV SCH
[2017-06-13 14:15] LABS: BASOPHILS % (AUTO) 0 % (0-10); EOSINOPHILS # (AUTO) 0.1 10^3/uL (0.0-0.3); EOSINOPHILS % (AUTO) 1 % (0-10); LYMPHOCYTES # (AUTO) 1.3 X 10^3 (1.0-4.0); LYMPHOCYTES % (AUTO) 24 % (12-44); MEAN CORPUSCULAR HEMOGLOBIN 26 PG (25-34); MEAN CORPUSCULAR HGB CONC 34 G/DL (32-36); MEAN CORPUSCULAR VOLUME 76 FL (80-99); MONOCYTES # (AUTO) 0.7 X 10^3 (0.0-1.0); MONOCYTES % (AUTO) 13 % (0-12); NEUTROPHILS # (AUTO) 3.2 X 10^3 (1.8-7.8); NEUTROPHILS % (AUTO) 61 % (42-75); PLATELET COUNT 219 10^3/uL (130-400); RED BLOOD COUNT 3.65 10^6/uL (4.35-5.85); RED CELL DISTRIBUTION WIDTH 13.9 % (10.0-14.5); WHITE BLOOD COUNT 5.2 10^3/uL (4.3-11.0)
[2017-06-13 14:39] LABS: ANION GAP 11 MMOL/L (5-14); BLOOD UREA NITROGEN 13 MG/DL (7-18); BUN/CREATININE RATIO 16; CARBON DIOXIDE 26 MMOL/L (21-32); CHLORIDE 94 MMOL/L (98-107); CREATININE SERUM 0.83 MG/DL (0.60-1.30); GFR ESTIMATED > 60; GLUCOSE 185 MG/DL (70-105); SODIUM 131 MMOL/L (135-145)
== END 2017-06-19 | disposition home or self-care (01) ==
LOC: ONC 13:53
PROVIDERS: ATTEND Internal Medicine Hematology & Oncology
DX: Z51.11 Encounter for antineoplastic chemotherapy (principal); C64.1 Malignant neoplasm of right kidney, except renal pelvis; C79.51 Secondary malignant neoplasm of bone; E11.9 Type 2 diabetes mellitus without complications; I10 Essential (primary) hypertension; Z79.84 Long term (current) use of oral hypoglycemic drugs; Z79.899 Other long term (current) drug therapy
CPT/HCPCS: 36415; 36591; 80048; 80053; 82728; 83540; 83615; 85025; 96375; 96413; 99214

== ENCOUNTER 2017-06-20 13:48 | Outpatient (RCR) | payer BC ==
[2017-06-20 14:04] LABS: BASOPHILS % (AUTO) 0 % (0-10); EOSINOPHILS # (AUTO) 0.1 10^3/uL (0.0-0.3); EOSINOPHILS % (AUTO) 1 % (0-10); LYMPHOCYTES # (AUTO) 1.8 X 10^3 (1.0-4.0); LYMPHOCYTES % (AUTO) 25 % (12-44); MEAN CORPUSCULAR HEMOGLOBIN 26 PG (25-34); MEAN CORPUSCULAR HGB CONC 33 G/DL (32-36); MEAN CORPUSCULAR VOLUME 79 FL (80-99); MEAN PLATELET VOLUME 8.8 FL (7.4-10.4); MONOCYTES # (AUTO) 0.6 X 10^3 (0.0-1.0); MONOCYTES % (AUTO) 8 % (0-12); NEUTROPHILS # (AUTO) 4.7 X 10^3 (1.8-7.8); NEUTROPHILS % (AUTO) 66 % (42-75); PLATELET COUNT 282 10^3/uL (130-400); RED BLOOD COUNT 3.59 10^6/uL (4.35-5.85); RED CELL DISTRIBUTION WIDTH 13.9 % (10.0-14.5); WHITE BLOOD COUNT 7.2 10^3/uL (4.3-11.0)
[2017-06-20 14:20] LABS: ANION GAP 11 MMOL/L (5-14); BLOOD UREA NITROGEN 17 MG/DL (7-18); BUN/CREATININE RATIO 21; CALCIUM 9.9 MG/DL (8.5-10.1); CARBON DIOXIDE 24 MMOL/L (21-32); CHLORIDE 99 MMOL/L (98-107); GFR ESTIMATED > 60; GLUCOSE 219 MG/DL (70-105); POTASSIUM 3.6 MMOL/L (3.6-5.0); SODIUM 134 MMOL/L (135-145)
== END 2017-06-23 11:27 | disposition home or self-care (01) ==
LOC: ONC 13:48
PROVIDERS: ATTEND Internal Medicine Hematology & Oncology
DX: Z51.11 Encounter for antineoplastic chemotherapy (principal); C64.1 Malignant neoplasm of right kidney, except renal pelvis; E11.9 Type 2 diabetes mellitus without complications; Z79.899 Other long term (current) drug therapy
CPT/HCPCS: 36591; 80048; 85025; 96375; 96413

== ENCOUNTER → 2017-06-23 | Outpatient (CLI) | payer BC ==
[~2017-06-23] MED LIST changes: +BARIUM SUSPENSION 2.1% (VANILLA SILQ) 450 ML PO ONE; +CATHETER FLUSH 10 ML SYR IV PRN; -DENOSUMAB 120 MG/1.7 ML (XGEVA) SQ SCH; +IOHEXOL 350 MG/ML 100 ML (OMNIPAQUE 350) VIAL IV ONE; +NS 100 ML (IVPB) BAG IV ONE; -NS IV 500 ML (CANCER CENTER) IV SCH; -ONDANSETRON MDV (CANCER CENTER 8 MG, DEXAMETHASONE INJ (CANCER CTR) 4 MG in NS (IVPB) C... IV SCH; -TEMSIROLIMUS 25 MG in NORMAL SALINE (CANCER CENTER) 250 ML IV SCH
--- NOTE | 2017-06-23 14:25 | Diagnostic Imaging Report ---
PROCEDURE: CT chest with contrast, CT abdomen and pelvis with and without contrast. TECHNIQUE: Pre and post intravenous contrast axial imaging of the abdomen and pelvis and post contrast axial imaging of the chest were performed. INDICATION: Renal cell carcinoma. 100 mL of Omnipaque-350 is administered intravenously. COMPARISON: 02/25/2017. FINDINGS: CT chest: There are multiple pulmonary nodules seen up to 1.3 cm in the right lung apex and 1.5 cm in the inferior lingula. Multiple other subcentimeter nodules in both lungs are seen without significant change. No significant consolidation. There are calcified granulomas in the left hilar and infrahilar region. Mediastinal enlarged lymph nodes in the right paratracheal region measuring up to 1.7 cm are noticed which appear minimally more prominent compared to the previous study. It is perhaps within measurement variation however rather than a true significant enlargement. No axillary lymphadenopathy is seen. The heart size is mildly enlarged. There is a small pericardial effusion. The osseous structures demonstrate no destructive mass. CT abdomen and pelvis: The liver, the pancreas, and the gallbladder appear unremarkable. The spleen is not enlarged with calcified granulomas seen. There is an adrenal nodule measuring 2.4 cm in size. This is minimally larger compared to a prior measurements of 2 cm. There are adrenal nodules seen as well on the right side measuring up to 1.7 cm compared to 1.3 cm on the previous exam. The right renal mass measures 8.8 x 7.3 cm compared to 9.3 x 7.5 cm on the previous study, [id number] decrease in size. There is slight prominence of the renal collecting system seen bilaterally not significantly changed from the previous study. The abdominal aorta is normal in caliber. No para-aortic significantly enlarged lymph node is seen. The right renal vein is patent with no evidence of a tumor thrombus. There is a large destructive mass measuring 8.6 x 8.7 cm centered around the left iliac bone with extension into the surrounding soft tissues. This is slightly decreased in size when compared to the prior measurements of 9.2 x 8.1 cm. There are few diverticula seen in the sigmoid colon. No diverticulitis. The appendix is normal. No significant free fluid or fluid collection in the abdomen or pelvis is seen. Degenerative changes in the lower lumbar spine seen. IMPRESSION: CT chest: 1. Stable pulmonary metastasis. 2. Minimally more prominent right paratracheal enlarged lymph node measuring up to 1.7 cm on the current exam. CT abdomen and pelvis: 1. There is a mild decrease in the size of the right renal mass and the left iliac bone metastasis. 2. Mild increase in the size of bilateral adrenal metastasis. Dictated by: Dictated on workstation # [id number]
--- NOTE | 2017-06-23 16:29 | Diagnostic Imaging Report ---
Whole body bone scan. Technique: After the intravenous administration of 27.3 mCi of Technetium 99m MDP, whole body delayed phase bone scan images were obtained with lateral views of the head and neck and the chest regions. Indication: Renal cell carcinoma. COMPARISON: Comparison bone scan of 02/25/2017. Findings: There is again seen a rim of mild to moderate increased activity in the left frontal region. This correlates with bone metastasis seen on CT scan of the head in the skull dated 03/01/2017. There is a mild increased area of activity seen within the distal right femoral shaft which could relate to metastasis. No metastatic lesions in the axial skeleton is detected. Bilateral renal activity and bladder activity seen. IMPRESSION: 1. Stable appearance of left skull metastasis in the frontal region. 2. Mild activity in the distal right femur concerning for a new metastatic lesion. Correlation with right femur radiographs can be helpful. Dictated by: Dictated on workstation # [id number]
== END ==
LOC: CARD 11:48
PROVIDERS: ATTEND Internal Medicine Hematology & Oncology
DX: Z01.89 Encounter for other specified special examinations (principal); C64.1 Malignant neoplasm of right kidney, except renal pelvis; C79.51 Secondary malignant neoplasm of bone; C79.71 Secondary malignant neoplasm of right adrenal gland; C79.72 Secondary malignant neoplasm of left adrenal gland; C78.01 Secondary malignant neoplasm of right lung; C78.02 Secondary malignant neoplasm of left lung
CPT/HCPCS: 71260; 74178; 78306

== ENCOUNTER 2017-07-18 12:44 | Outpatient (RCR) | payer BC ==
[2017-06-27 14:37] LABS: BASOPHILS % (AUTO) 0 % (0-10); EOSINOPHILS # (AUTO) 0.1 10^3/uL (0.0-0.3); EOSINOPHILS % (AUTO) 1 % (0-10); LYMPHOCYTES # (AUTO) 1.4 X 10^3 (1.0-4.0); LYMPHOCYTES % (AUTO) 24 % (12-44); MEAN CORPUSCULAR HEMOGLOBIN 26 PG (25-34); MEAN CORPUSCULAR HGB CONC 33 G/DL (32-36); MEAN CORPUSCULAR VOLUME 79 FL (80-99); MEAN PLATELET VOLUME 9.1 FL (7.4-10.4); MONOCYTES # (AUTO) 0.6 X 10^3 (0.0-1.0); MONOCYTES % (AUTO) 10 % (0-12); NEUTROPHILS # (AUTO) 3.8 X 10^3 (1.8-7.8); NEUTROPHILS % (AUTO) 65 % (42-75); PLATELET COUNT 270 10^3/uL (130-400); RED BLOOD COUNT 3.64 10^6/uL (4.35-5.85); RED CELL DISTRIBUTION WIDTH 14.3 % (10.0-14.5); WHITE BLOOD COUNT 5.9 10^3/uL (4.3-11.0)
[2017-06-27 14:53] LABS: ALANINE AMINOTRANSFERASE 18 U/L (0-55); ANION GAP 11 MMOL/L (5-14); ASPARTATE AMINO TRANSFERASE 15 U/L (5-34); BILIRUBIN,TOTAL 0.5 MG/DL (0.1-1.0); BLOOD UREA NITROGEN 17 MG/DL (7-18); BUN/CREATININE RATIO 20; CALCIUM 9.4 MG/DL (8.5-10.1); CARBON DIOXIDE 23 MMOL/L (21-32); CHLORIDE 100 MMOL/L (98-107); CREATININE SERUM 0.83 MG/DL (0.60-1.30); GFR ESTIMATED > 60; GLUCOSE 326 MG/DL (70-105); LACTATE DEHYDROGENASE 195 U/L (125-220); POTASSIUM 3.8 MMOL/L (3.6-5.0); SODIUM 134 MMOL/L (135-145); TOTAL PROTEIN 7.8 GM/DL (6.4-8.2)
[2017-07-04 14:14] LABS: BASOPHILS % (AUTO) 0 % (0-10); EOSINOPHILS # (AUTO) 0.1 10^3/uL (0.0-0.3); EOSINOPHILS % (AUTO) 1 % (0-10); LYMPHOCYTES # (AUTO) 1.5 X 10^3 (1.0-4.0); LYMPHOCYTES % (AUTO) 24 % (12-44); MEAN CORPUSCULAR HEMOGLOBIN 26 PG (25-34); MEAN CORPUSCULAR HGB CONC 33 G/DL (32-36); MEAN CORPUSCULAR VOLUME 78 FL (80-99); MONOCYTES # (AUTO) 0.6 X 10^3 (0.0-1.0); MONOCYTES % (AUTO) 10 % (0-12); NEUTROPHILS % (AUTO) 65 % (42-75); PLATELET COUNT 243 10^3/uL (130-400); RED BLOOD COUNT 3.66 10^6/uL (4.35-5.85); RED CELL DISTRIBUTION WIDTH 14.6 % (10.0-14.5); WHITE BLOOD COUNT 6.2 10^3/uL (4.3-11.0)
[2017-07-04 14:29] LABS: ANION GAP 10 MMOL/L (5-14); BLOOD UREA NITROGEN 15 MG/DL (7-18); BUN/CREATININE RATIO 19; CALCIUM 9.8 MG/DL (8.5-10.1); CARBON DIOXIDE 25 MMOL/L (21-32); CHLORIDE 99 MMOL/L (98-107); CREATININE SERUM 0.78 MG/DL (0.60-1.30); GFR ESTIMATED > 60; GLUCOSE 172 MG/DL (70-105); POTASSIUM 3.4 MMOL/L (3.6-5.0); SODIUM 134 MMOL/L (135-145)
[2017-07-11 14:22] LABS: BASOPHILS % (AUTO) 1 % (0-10); EOSINOPHILS # (AUTO) 0.1 10^3/uL (0.0-0.3); EOSINOPHILS % (AUTO) 2 % (0-10); LYMPHOCYTES # (AUTO) 1.7 X 10^3 (1.0-4.0); LYMPHOCYTES % (AUTO) 29 % (12-44); MEAN CORPUSCULAR HEMOGLOBIN 26 PG (25-34); MEAN CORPUSCULAR HGB CONC 33 G/DL (32-36); MEAN CORPUSCULAR VOLUME 79 FL (80-99); MEAN PLATELET VOLUME 9.3 FL (7.4-10.4); MONOCYTES # (AUTO) 0.4 X 10^3 (0.0-1.0); MONOCYTES % (AUTO) 7 % (0-12); NEUTROPHILS # (AUTO) 3.7 X 10^3 (1.8-7.8); NEUTROPHILS % (AUTO) 62 % (42-75); PLATELET COUNT 232 10^3/uL (130-400); RED BLOOD COUNT 3.72 10^6/uL (4.35-5.85); RED CELL DISTRIBUTION WIDTH 14.8 % (10.0-14.5); WHITE BLOOD COUNT 5.9 10^3/uL (4.3-11.0)
[2017-07-11 14:46] LABS: ANION GAP 12 MMOL/L (5-14); BLOOD UREA NITROGEN 14 MG/DL (7-18); BUN/CREATININE RATIO 18; CALCIUM 9.6 MG/DL (8.5-10.1); CARBON DIOXIDE 23 MMOL/L (21-32); CHLORIDE 102 MMOL/L (98-107); GFR ESTIMATED > 60; GLUCOSE 169 MG/DL (70-105); POTASSIUM 3.4 MMOL/L (3.6-5.0); SODIUM 137 MMOL/L (135-145)
[~2017-07-18 12:44] MED LIST changes: -BARIUM SUSPENSION 2.1% (VANILLA SILQ) 450 ML PO ONE; -CATHETER FLUSH 10 ML SYR IV PRN; +DENOSUMAB 120 MG/1.7 ML (XGEVA) SQ SCH; -IOHEXOL 350 MG/ML 100 ML (OMNIPAQUE 350) VIAL IV ONE; -NS 100 ML (IVPB) BAG IV ONE; +NS IV 500 ML (CANCER CENTER) IV SCH; +ONDANSETRON MDV (CANCER CENTER 8 MG, DEXAMETHASONE INJ (CANCER CTR) 4 MG in NS (IVPB) C... IV SCH; +TEMSIROLIMUS 25 MG in NORMAL SALINE (CANCER CENTER) 250 ML IV SCH
[2017-07-18 13:16] LABS: BASOPHILS % (AUTO) 0 % (0-10); EOSINOPHILS # (AUTO) 0.1 10^3/uL (0.0-0.3); EOSINOPHILS % (AUTO) 2 % (0-10); LYMPHOCYTES # (AUTO) 1.4 X 10^3 (1.0-4.0); LYMPHOCYTES % (AUTO) 24 % (12-44); MEAN CORPUSCULAR HEMOGLOBIN 26 PG (25-34); MEAN CORPUSCULAR HGB CONC 33 G/DL (32-36); MEAN CORPUSCULAR VOLUME 78 FL (80-99); MONOCYTES # (AUTO) 0.5 X 10^3 (0.0-1.0); MONOCYTES % (AUTO) 8 % (0-12); NEUTROPHILS # (AUTO) 3.7 X 10^3 (1.8-7.8); NEUTROPHILS % (AUTO) 65 % (42-75); PLATELET COUNT 226 10^3/uL (130-400); RED BLOOD COUNT 3.82 10^6/uL (4.35-5.85); RED CELL DISTRIBUTION WIDTH 14.9 % (10.0-14.5); WHITE BLOOD COUNT 5.6 10^3/uL (4.3-11.0)
[2017-07-18 13:32] LABS: ANION GAP 9 MMOL/L (5-14); BLOOD UREA NITROGEN 13 MG/DL (7-18); BUN/CREATININE RATIO 15; CALCIUM 9.8 MG/DL (8.5-10.1); CARBON DIOXIDE 26 MMOL/L (21-32); CHLORIDE 97 MMOL/L (98-107); CREATININE SERUM 0.84 MG/DL (0.60-1.30); GFR ESTIMATED > 60; GLUCOSE 349 MG/DL (70-105); POTASSIUM 3.6 MMOL/L (3.6-5.0); SODIUM 132 MMOL/L (135-145)
[2017-07-27 14:03] LABS: BASOPHILS % (AUTO) 0 % (0-10); EOSINOPHILS # (AUTO) 0.1 10^3/uL (0.0-0.3); EOSINOPHILS % (AUTO) 2 % (0-10); LYMPHOCYTES # (AUTO) 1.4 X 10^3 (1.0-4.0); LYMPHOCYTES % (AUTO) 27 % (12-44); MEAN CORPUSCULAR HEMOGLOBIN 26 PG (25-34); MEAN CORPUSCULAR HGB CONC 33 G/DL (32-36); MEAN CORPUSCULAR VOLUME 78 FL (80-99); MEAN PLATELET VOLUME 9.1 FL (7.4-10.4); MONOCYTES # (AUTO) 0.5 X 10^3 (0.0-1.0); MONOCYTES % (AUTO) 10 % (0-12); NEUTROPHILS # (AUTO) 3.1 X 10^3 (1.8-7.8); NEUTROPHILS % (AUTO) 61 % (42-75); PLATELET COUNT 217 10^3/uL (130-400); RED BLOOD COUNT 3.68 10^6/uL (4.35-5.85); RED CELL DISTRIBUTION WIDTH 14.9 % (10.0-14.5)
[2017-07-27 14:24] LABS: ALANINE AMINOTRANSFERASE 14 U/L (0-55); ANION GAP 11 MMOL/L (5-14); ASPARTATE AMINO TRANSFERASE 18 U/L (5-34); BILIRUBIN,TOTAL 0.5 MG/DL (0.1-1.0); BLOOD UREA NITROGEN 11 MG/DL (7-18); BUN/CREATININE RATIO 14; CALCIUM 10.3 MG/DL (8.5-10.1); CARBON DIOXIDE 24 MMOL/L (21-32); CHLORIDE 102 MMOL/L (98-107); CREATININE SERUM 0.78 MG/DL (0.60-1.30); GFR ESTIMATED > 60; GLUCOSE 159 MG/DL (70-105); LACTATE DEHYDROGENASE 196 U/L (125-220); POTASSIUM 3.5 MMOL/L (3.6-5.0); SODIUM 137 MMOL/L (135-145); TOTAL PROTEIN 7.1 GM/DL (6.4-8.2)
== END 2017-07-26 12:31 | disposition home or self-care (01) ==
LOC: ONC 12:44
PROVIDERS: ATTEND Internal Medicine Hematology & Oncology
DX: Z51.11 Encounter for antineoplastic chemotherapy (principal); C64.1 Malignant neoplasm of right kidney, except renal pelvis; C79.51 Secondary malignant neoplasm of bone; C79.72 Secondary malignant neoplasm of left adrenal gland; C78.01 Secondary malignant neoplasm of right lung; C78.02 Secondary malignant neoplasm of left lung; D64.9 Anemia, unspecified
CPT/HCPCS: 36591; 80048; 80053; 83615; 85025; 96375; 96413

== ENCOUNTER 2017-08-15 13:31 | Outpatient (RCR) | payer BC ==
[2017-07-27 14:03] LABS: BASOPHILS % (AUTO) 0 % (0-10); EOSINOPHILS # (AUTO) 0.1 10^3/uL (0.0-0.3); EOSINOPHILS % (AUTO) 2 % (0-10); LYMPHOCYTES # (AUTO) 1.4 X 10^3 (1.0-4.0); LYMPHOCYTES % (AUTO) 27 % (12-44); MEAN CORPUSCULAR HEMOGLOBIN 26 PG (25-34); MEAN CORPUSCULAR HGB CONC 33 G/DL (32-36); MEAN CORPUSCULAR VOLUME 78 FL (80-99); MEAN PLATELET VOLUME 9.1 FL (7.4-10.4); MONOCYTES # (AUTO) 0.5 X 10^3 (0.0-1.0); MONOCYTES % (AUTO) 10 % (0-12); NEUTROPHILS # (AUTO) 3.1 X 10^3 (1.8-7.8); NEUTROPHILS % (AUTO) 61 % (42-75); PLATELET COUNT 217 10^3/uL (130-400); RED BLOOD COUNT 3.68 10^6/uL (4.35-5.85); RED CELL DISTRIBUTION WIDTH 14.9 % (10.0-14.5)
[2017-07-27 14:24] LABS: ALANINE AMINOTRANSFERASE 14 U/L (0-55); ANION GAP 11 MMOL/L (5-14); ASPARTATE AMINO TRANSFERASE 18 U/L (5-34); BILIRUBIN,TOTAL 0.5 MG/DL (0.1-1.0); BLOOD UREA NITROGEN 11 MG/DL (7-18); BUN/CREATININE RATIO 14; CALCIUM 10.3 MG/DL (8.5-10.1); CARBON DIOXIDE 24 MMOL/L (21-32); CHLORIDE 102 MMOL/L (98-107); CREATININE SERUM 0.78 MG/DL (0.60-1.30); GFR ESTIMATED > 60; GLUCOSE 159 MG/DL (70-105); LACTATE DEHYDROGENASE 196 U/L (125-220); POTASSIUM 3.5 MMOL/L (3.6-5.0); SODIUM 137 MMOL/L (135-145); TOTAL PROTEIN 7.1 GM/DL (6.4-8.2)
[2017-08-02 14:09] LABS: BASOPHILS % (AUTO) 0 % (0-10); EOSINOPHILS # (AUTO) 0.1 10^3/uL (0.0-0.3); EOSINOPHILS % (AUTO) 1 % (0-10); LYMPHOCYTES # (AUTO) 1.2 X 10^3 (1.0-4.0); LYMPHOCYTES % (AUTO) 21 % (12-44); MEAN CORPUSCULAR HEMOGLOBIN 26 PG (25-34); MEAN CORPUSCULAR HGB CONC 33 G/DL (32-36); MEAN CORPUSCULAR VOLUME 78 FL (80-99); MONOCYTES # (AUTO) 0.5 X 10^3 (0.0-1.0); MONOCYTES % (AUTO) 8 % (0-12); NEUTROPHILS # (AUTO) 4.1 X 10^3 (1.8-7.8); NEUTROPHILS % (AUTO) 70 % (42-75); PLATELET COUNT 253 10^3/uL (130-400); RED BLOOD COUNT 3.72 10^6/uL (4.35-5.85); RED CELL DISTRIBUTION WIDTH 14.9 % (10.0-14.5); WHITE BLOOD COUNT 5.9 10^3/uL (4.3-11.0)
[2017-08-02 14:33] LABS: ANION GAP 13 MMOL/L (5-14); BLOOD UREA NITROGEN 13 MG/DL (7-18); BUN/CREATININE RATIO 17; CALCIUM 9.7 MG/DL (8.5-10.1); CARBON DIOXIDE 22 MMOL/L (21-32); CHLORIDE 105 MMOL/L (98-107); CREATININE SERUM 0.77 MG/DL (0.60-1.30); GFR ESTIMATED > 60; GLUCOSE 152 MG/DL (70-105); POTASSIUM 3.4 MMOL/L (3.6-5.0); SODIUM 140 MMOL/L (135-145)
[2017-08-08 14:15] LABS: BASOPHILS % (AUTO) 0 % (0-10); EOSINOPHILS # (AUTO) 0.1 10^3/uL (0.0-0.3); EOSINOPHILS % (AUTO) 2 % (0-10); LYMPHOCYTES # (AUTO) 1.4 X 10^3 (1.0-4.0); LYMPHOCYTES % (AUTO) 25 % (12-44); MEAN CORPUSCULAR HEMOGLOBIN 25 PG (25-34); MEAN CORPUSCULAR HGB CONC 32 G/DL (32-36); MEAN CORPUSCULAR VOLUME 79 FL (80-99); MEAN PLATELET VOLUME 9.4 FL (7.4-10.4); MONOCYTES # (AUTO) 0.4 X 10^3 (0.0-1.0); MONOCYTES % (AUTO) 8 % (0-12); NEUTROPHILS # (AUTO) 3.7 X 10^3 (1.8-7.8); NEUTROPHILS % (AUTO) 66 % (42-75); PLATELET COUNT 219 10^3/uL (130-400); RED BLOOD COUNT 3.64 10^6/uL (4.35-5.85); RED CELL DISTRIBUTION WIDTH 14.8 % (10.0-14.5); WHITE BLOOD COUNT 5.6 10^3/uL (4.3-11.0)
[2017-08-08 14:43] LABS: ANION GAP 10 MMOL/L (5-14); BLOOD UREA NITROGEN 11 MG/DL (7-18); BUN/CREATININE RATIO 14; CALCIUM 9.5 MG/DL (8.5-10.1); CARBON DIOXIDE 24 MMOL/L (21-32); CHLORIDE 103 MMOL/L (98-107); CREATININE SERUM 0.79 MG/DL (0.60-1.30); GFR ESTIMATED > 60; GLUCOSE 190 MG/DL (70-105); POTASSIUM 3.4 MMOL/L (3.6-5.0); SODIUM 137 MMOL/L (135-145)
[~2017-08-15] VITALS: Ht 165.1 cm; Wt 73.0 kg
[2017-08-15 13:46] LABS: BASOPHILS % (AUTO) 0 % (0-10); EOSINOPHILS # (AUTO) 0.1 10^3/uL (0.0-0.3); EOSINOPHILS % (AUTO) 1 % (0-10); LYMPHOCYTES # (AUTO) 1.5 X 10^3 (1.0-4.0); LYMPHOCYTES % (AUTO) 28 % (12-44); MEAN CORPUSCULAR HEMOGLOBIN 25 PG (25-34); MEAN CORPUSCULAR HGB CONC 33 G/DL (32-36); MEAN CORPUSCULAR VOLUME 77 FL (80-99); MEAN PLATELET VOLUME 9.1 FL (7.4-10.4); MONOCYTES # (AUTO) 0.5 X 10^3 (0.0-1.0); MONOCYTES % (AUTO) 10 % (0-12); NEUTROPHILS # (AUTO) 3.4 X 10^3 (1.8-7.8); NEUTROPHILS % (AUTO) 61 % (42-75); PLATELET COUNT 210 10^3/uL (130-400); RED BLOOD COUNT 3.86 10^6/uL (4.35-5.85); RED CELL DISTRIBUTION WIDTH 14.6 % (10.0-14.5); WHITE BLOOD COUNT 5.5 10^3/uL (4.3-11.0)
[2017-08-15 14:04] LABS: ANION GAP 12 MMOL/L (5-14); BLOOD UREA NITROGEN 15 MG/DL (7-18); BUN/CREATININE RATIO 19; CALCIUM 9.8 MG/DL (8.5-10.1); CARBON DIOXIDE 24 MMOL/L (21-32); CHLORIDE 100 MMOL/L (98-107); CREATININE SERUM 0.79 MG/DL (0.60-1.30); GFR ESTIMATED > 60; GLUCOSE 123 MG/DL (70-105); POTASSIUM 3.6 MMOL/L (3.6-5.0); SODIUM 136 MMOL/L (135-145)
[2017-08-22 14:30] LABS: BASOPHILS % (AUTO) 0 % (0-10); EOSINOPHILS # (AUTO) 0.1 10^3/uL (0.0-0.3); EOSINOPHILS % (AUTO) 2 % (0-10); LYMPHOCYTES # (AUTO) 1.2 X 10^3 (1.0-4.0); LYMPHOCYTES % (AUTO) 26 % (12-44); MEAN CORPUSCULAR HEMOGLOBIN 26 PG (25-34); MEAN CORPUSCULAR HGB CONC 33 G/DL (32-36); MEAN CORPUSCULAR VOLUME 79 FL (80-99); MEAN PLATELET VOLUME 9.2 FL (7.4-10.4); MONOCYTES # (AUTO) 0.4 X 10^3 (0.0-1.0); MONOCYTES % (AUTO) 9 % (0-12); NEUTROPHILS # (AUTO) 2.8 X 10^3 (1.8-7.8); NEUTROPHILS % (AUTO) 63 % (42-75); PLATELET COUNT 217 10^3/uL (130-400); RED BLOOD COUNT 3.61 10^6/uL (4.35-5.85); RED CELL DISTRIBUTION WIDTH 14.6 % (10.0-14.5); WHITE BLOOD COUNT 4.5 10^3/uL (4.3-11.0)
[2017-08-22 14:49] LABS: ALANINE AMINOTRANSFERASE 12 U/L (0-55); ANION GAP 9 MMOL/L (5-14); ASPARTATE AMINO TRANSFERASE 15 U/L (5-34); BILIRUBIN,TOTAL 0.3 MG/DL (0.1-1.0); BLOOD UREA NITROGEN 14 MG/DL (7-18); BUN/CREATININE RATIO 16; CARBON DIOXIDE 28 MMOL/L (21-32); CHLORIDE 104 MMOL/L (98-107); CREATININE SERUM 0.87 MG/DL (0.60-1.30); GFR ESTIMATED > 60; GLUCOSE 155 MG/DL (70-105); LACTATE DEHYDROGENASE 204 U/L (125-220); POTASSIUM 3.8 MMOL/L (3.6-5.0); SODIUM 141 MMOL/L (135-145); TOTAL PROTEIN 7.6 GM/DL (6.4-8.2)
== END 2017-08-22 17:09 | disposition home or self-care (01) ==
LOC: ONC 13:31
PROVIDERS: ATTEND Internal Medicine Hematology & Oncology
DX: Z51.11 Encounter for antineoplastic chemotherapy (principal); C64.1 Malignant neoplasm of right kidney, except renal pelvis; C79.51 Secondary malignant neoplasm of bone; C79.72 Secondary malignant neoplasm of left adrenal gland; C78.01 Secondary malignant neoplasm of right lung; C78.02 Secondary malignant neoplasm of left lung; D64.9 Anemia, unspecified
CPT/HCPCS: 36591; 80048; 80053; 83615; 85025; 96375; 96413

== ENCOUNTER → 2017-09-13 | Outpatient (CLI) | payer BC ==
[~2017-09-13] MED LIST changes: +BARIUM SUSPENSION 2.1% (VANILLA SILQ) 450 ML PO ONE; +CATHETER FLUSH 10 ML SYR IV PRN; -DENOSUMAB 120 MG/1.7 ML (XGEVA) SQ SCH; +IOHEXOL 350 MG/ML 100 ML (OMNIPAQUE 350) VIAL IV ONE; +NS 100 ML (IVPB) BAG IV ONE; -NS IV 500 ML (CANCER CENTER) IV SCH; -ONDANSETRON MDV (CANCER CENTER 8 MG, DEXAMETHASONE INJ (CANCER CTR) 4 MG in NS (IVPB) C... IV SCH; -TEMSIROLIMUS 25 MG in NORMAL SALINE (CANCER CENTER) 250 ML IV SCH
--- NOTE | 2017-09-13 14:33 | Diagnostic Imaging Report ---
PROCEDURE: CT chest, abdomen, and pelvis with contrast. TECHNIQUE: Multiple contiguous axial images were obtained through the chest, abdomen, and pelvis after the administration of intravenous contrast. INDICATION: Renal cell carcinoma. 100 mL of Omnipaque 350 is administered intravenously. FINDINGS: CT CHEST: There is a 2.2 cm right paratracheal lymph node and a 1.5 cm right suprahilar nodule compatible with lymph node metastasis. There are numerous pulmonary nodules, mainly within the lower lobes and mid lung zones compatible with metastases. These are up to 1.4 cm in the left lung base. No significant change is seen in these nodules. No definite new nodule is identified. Calcified granuloma adjacent to the descending aorta is again noted measuring 2.5 cm without change. There is a small pericardial effusion. No pleural effusion. The heart size is borderline enlarged. The thoracic aorta is normal in caliber. There is an infusion port with the tip at the cavoatrial junction. No axillary lymphadenopathy is seen. The osseous structures demonstrate no suspicious mass. CT ABDOMEN AND PELVIS: Large exophytic enhancing mass measuring 7.5 x 8.6 cm is seen. This is stable when compared to 06/23/2017 exam. There is mild right hydronephrosis which appears to be secondary to compression of the proximal ureter by the renal mass. The kidneys, however, demonstrate symmetric enhancement and excretion in the remaining normal parenchyma. The abdominal aorta is normal in caliber. No significant para-aortic lymphadenopathy. 2.5 cm left adrenal mass appears minimally more prominent compared to the previous exam. The right adrenal nodule measuring 1.6 cm is not significantly changed. The liver, the gallbladder, and the pancreas appear unremarkable. The uterus and adnexa appear unremarkable. No bowel obstruction. There is diverticulosis. No diverticulitis. In the pelvis, there is a mass again demonstrated measuring 8.7 x 9 cm in maximum axial dimensions and 9.3 cm craniocaudally compared to 8.7 x 8.6 x 9 cm on the previous exam. This is destructive to the upper aspect of the left iliac bone and involves the adjacent soft tissues. IMPRESSION: CT CHEST: 1. Unchanged numerous pulmonary metastases. 2. Unchanged right paratracheal and right suprahilar lymph node metastases. CT ABDOMEN AND PELVIS: 1. Stable large right renal mass compressing the proximal right ureter resulting in mild hydronephrosis. 2. Minimal enlargement in the left iliac bone mass. 3. Stable bilateral adrenal metastasis. Dictated by: Dictated on workstation # [id number]
--- NOTE | 2017-09-13 14:48 | Diagnostic Imaging Report ---
Whole body bone scan. Technique: After the intravenous administration of 26.3 mCi of Technetium 99m MDP, whole body delayed phase bone scan images were obtained with lateral views of the head and neck and the chest regions. Indication: Renal cell carcinoma. Findings: The previously seen left skull metastasis is associated with only mild increased uptake in its periphery and with central area of photopenia in the left frontal region. The previously seen questioned area of metastasis in the distal right femur is again noted with faint mild activity. This remains nonspecific. Also photopenia involving the left iliac bone compatible with metastasis is noted. No significant osteoblastic component is seen. There is prominent excretion related activity in the right renal pelvis secondary to partial obstruction by the renal mass as indicated on CT scan. IMPRESSION: Bone metastases seen in the left side of the skull and the left iliac bone without change. Minimal increased activity in the distal right femur may relate to a small focus of metastasis as well. No new lesion is identified. Dictated by: Dictated on workstation # [id number]
== END ==
LOC: CARD 10:44
PROVIDERS: ATTEND Internal Medicine Hematology & Oncology
DX: C64.1 Malignant neoplasm of right kidney, except renal pelvis (principal); C79.51 Secondary malignant neoplasm of bone; C78.00 Secondary malignant neoplasm of unspecified lung
CPT/HCPCS: 71260; 74177; 78306

== ENCOUNTER 2017-10-10 09:15 | Outpatient (RCR) | payer BC ==
[2017-08-29 13:41] LABS: BASOPHILS % (AUTO) 0 % (0-10); EOSINOPHILS # (AUTO) 0.1 10^3/uL (0.0-0.3); EOSINOPHILS % (AUTO) 2 % (0-10); HEMATOCRIT 29 % (35-52); HEMOGLOBIN 9.7 G/DL (11.5-16.0); LYMPHOCYTES # (AUTO) 1.2 X 10^3 (1.0-4.0); LYMPHOCYTES % (AUTO) 26 % (12-44); MEAN CORPUSCULAR HEMOGLOBIN 26 PG (25-34); MEAN CORPUSCULAR HGB CONC 33 G/DL (32-36); MEAN CORPUSCULAR VOLUME 78 FL (80-99); MEAN PLATELET VOLUME 9.2 FL (7.4-10.4); MONOCYTES # (AUTO) 0.4 X 10^3 (0.0-1.0); MONOCYTES % (AUTO) 8 % (0-12); NEUTROPHILS % (AUTO) 63 % (42-75); PLATELET COUNT 231 10^3/uL (130-400); RED BLOOD COUNT 3.75 10^6/uL (4.35-5.85); RED CELL DISTRIBUTION WIDTH 14.9 % (10.0-14.5); WHITE BLOOD COUNT 4.7 10^3/uL (4.3-11.0)
[2017-08-29 13:57] LABS: BUN/CREATININE RATIO 15; CALCIUM 9.5 MG/DL (8.5-10.1); CARBON DIOXIDE 26 MMOL/L (21-32); CHLORIDE 104 MMOL/L (98-107); GFR ESTIMATED > 60; GLUCOSE 187 MG/DL (70-105); POTASSIUM 3.8 MMOL/L (3.6-5.0); SODIUM 140 MMOL/L (135-145)
[2017-09-05 13:32] LABS: BASOPHILS % (AUTO) 0 % (0-10); EOSINOPHILS # (AUTO) 0.1 10^3/uL (0.0-0.3); EOSINOPHILS % (AUTO) 2 % (0-10); HEMATOCRIT 31 % (35-52); LYMPHOCYTES # (AUTO) 1.3 X 10^3 (1.0-4.0); LYMPHOCYTES % (AUTO) 25 % (12-44); MEAN CORPUSCULAR HEMOGLOBIN 25 PG (25-34); MEAN CORPUSCULAR HGB CONC 33 G/DL (32-36); MEAN CORPUSCULAR VOLUME 78 FL (80-99); MEAN PLATELET VOLUME 8.9 FL (7.4-10.4); MONOCYTES # (AUTO) 0.5 X 10^3 (0.0-1.0); MONOCYTES % (AUTO) 9 % (0-12); NEUTROPHILS # (AUTO) 3.3 X 10^3 (1.8-7.8); NEUTROPHILS % (AUTO) 64 % (42-75); PLATELET COUNT 219 10^3/uL (130-400); RED BLOOD COUNT 3.95 10^6/uL (4.35-5.85); RED CELL DISTRIBUTION WIDTH 14.4 % (10.0-14.5); WHITE BLOOD COUNT 5.2 10^3/uL (4.3-11.0)
[2017-09-05 13:50] LABS: BUN/CREATININE RATIO 17; CALCIUM 9.7 MG/DL (8.5-10.1); CARBON DIOXIDE 25 MMOL/L (21-32); CHLORIDE 102 MMOL/L (98-107); CREATININE SERUM 0.72 MG/DL (0.60-1.30); GFR ESTIMATED > 60; GLUCOSE 120 MG/DL (70-105); POTASSIUM 3.5 MMOL/L (3.6-5.0); SODIUM 138 MMOL/L (135-145)
[2017-09-12 14:32] LABS: BASOPHILS % (AUTO) 0 % (0-10); EOSINOPHILS # (AUTO) 0.1 10^3/uL (0.0-0.3); EOSINOPHILS % (AUTO) 2 % (0-10); HEMATOCRIT 31 % (35-52); HEMOGLOBIN 10.3 G/DL (11.5-16.0); LYMPHOCYTES # (AUTO) 1.2 X 10^3 (1.0-4.0); LYMPHOCYTES % (AUTO) 24 % (12-44); MEAN CORPUSCULAR HEMOGLOBIN 25 PG (25-34); MEAN CORPUSCULAR HGB CONC 33 G/DL (32-36); MEAN CORPUSCULAR VOLUME 77 FL (80-99); MEAN PLATELET VOLUME 9.2 FL (7.4-10.4); MONOCYTES # (AUTO) 0.5 X 10^3 (0.0-1.0); MONOCYTES % (AUTO) 10 % (0-12); NEUTROPHILS # (AUTO) 3.3 X 10^3 (1.8-7.8); NEUTROPHILS % (AUTO) 64 % (42-75); PLATELET COUNT 216 10^3/uL (130-400); RED BLOOD COUNT 4.08 10^6/uL (4.35-5.85); RED CELL DISTRIBUTION WIDTH 14.3 % (10.0-14.5); WHITE BLOOD COUNT 5.2 10^3/uL (4.3-11.0)
[2017-09-12 15:00] LABS: BUN/CREATININE RATIO 18; CALCIUM 9.6 MG/DL (8.5-10.1); CARBON DIOXIDE 26 MMOL/L (21-32); CHLORIDE 101 MMOL/L (98-107); CREATININE SERUM 0.72 MG/DL (0.60-1.30); GFR ESTIMATED > 60; GLUCOSE 142 MG/DL (70-105); POTASSIUM 3.3 MMOL/L (3.6-5.0); SODIUM 137 MMOL/L (135-145)
[2017-09-12 15:52] LABS: MAGNESIUM 1.7 MG/DL (1.8-2.4)
[2017-09-21 08:22] LABS: BASOPHILS % (AUTO) 0 % (0-10); EOSINOPHILS # (AUTO) 0.1 10^3/uL (0.0-0.3); EOSINOPHILS % (AUTO) 2 % (0-10); HEMATOCRIT 32 % (35-52); HEMOGLOBIN 10.6 G/DL (11.5-16.0); LYMPHOCYTES # (AUTO) 1.2 X 10^3 (1.0-4.0); LYMPHOCYTES % (AUTO) 25 % (12-44); MEAN CORPUSCULAR HEMOGLOBIN 25 PG (25-34); MEAN CORPUSCULAR HGB CONC 33 G/DL (32-36); MEAN CORPUSCULAR VOLUME 77 FL (80-99); MEAN PLATELET VOLUME 9.2 FL (7.4-10.4); MONOCYTES # (AUTO) 0.5 X 10^3 (0.0-1.0); MONOCYTES % (AUTO) 11 % (0-12); NEUTROPHILS # (AUTO) 2.9 X 10^3 (1.8-7.8); NEUTROPHILS % (AUTO) 62 % (42-75); PLATELET COUNT 225 10^3/uL (130-400); RED BLOOD COUNT 4.17 10^6/uL (4.35-5.85); RED CELL DISTRIBUTION WIDTH 14.5 % (10.0-14.5); WHITE BLOOD COUNT 4.7 10^3/uL (4.3-11.0)
[2017-09-21 08:40] LABS: ALANINE AMINOTRANSFERASE 15 U/L (0-55); ALKALINE PHOSPHATASE 61 U/L (40-136); BILIRUBIN,TOTAL 0.4 MG/DL (0.1-1.0); BUN/CREATININE RATIO 13; CALCIUM 9.9 MG/DL (8.5-10.1); CARBON DIOXIDE 24 MMOL/L (21-32); CHLORIDE 105 MMOL/L (98-107); CREATININE SERUM 0.79 MG/DL (0.60-1.30); GFR ESTIMATED > 60; GLUCOSE 137 MG/DL (70-105); POTASSIUM 3.9 MMOL/L (3.6-5.0); SODIUM 140 MMOL/L (135-145); TOTAL PROTEIN 7.6 GM/DL (6.4-8.2)
[2017-09-27 14:31] LABS: BASOPHILS % (AUTO) 0 % (0-10); EOSINOPHILS # (AUTO) 0.1 10^3/uL (0.0-0.3); EOSINOPHILS % (AUTO) 2 % (0-10); HEMATOCRIT 32 % (35-52); HEMOGLOBIN 10.4 G/DL (11.5-16.0); LYMPHOCYTES # (AUTO) 1.4 X 10^3 (1.0-4.0); LYMPHOCYTES % (AUTO) 25 % (12-44); MEAN CORPUSCULAR HEMOGLOBIN 25 PG (25-34); MEAN CORPUSCULAR HGB CONC 33 G/DL (32-36); MEAN CORPUSCULAR VOLUME 77 FL (80-99); MEAN PLATELET VOLUME 8.8 FL (7.4-10.4); MONOCYTES # (AUTO) 0.5 X 10^3 (0.0-1.0); MONOCYTES % (AUTO) 9 % (0-12); NEUTROPHILS # (AUTO) 3.5 X 10^3 (1.8-7.8); NEUTROPHILS % (AUTO) 64 % (42-75); PLATELET COUNT 219 10^3/uL (130-400); RED BLOOD COUNT 4.13 10^6/uL (4.35-5.85); RED CELL DISTRIBUTION WIDTH 14.6 % (10.0-14.5); WHITE BLOOD COUNT 5.5 10^3/uL (4.3-11.0)
[2017-09-27 14:47] LABS: BUN/CREATININE RATIO 18; CALCIUM 9.7 MG/DL (8.5-10.1); CARBON DIOXIDE 25 MMOL/L (21-32); CHLORIDE 102 MMOL/L (98-107); CREATININE SERUM 0.74 MG/DL (0.60-1.30); GFR ESTIMATED > 60; GLUCOSE 162 MG/DL (70-105); POTASSIUM 3.6 MMOL/L (3.6-5.0); SODIUM 138 MMOL/L (135-145)
[2017-10-03 13:50] LABS: HEMATOCRIT 35 % (35-52); HEMOGLOBIN 10.4 G/DL (11.5-16.0); MEAN CORPUSCULAR HEMOGLOBIN 24 PG (25-34); MEAN CORPUSCULAR HGB CONC 30 G/DL (32-36); MEAN CORPUSCULAR VOLUME 81 FL (80-99); PLATELET COUNT 220 10^3/uL (130-400); RED BLOOD COUNT 4.25 10^6/uL (4.35-5.85); RED CELL DISTRIBUTION WIDTH 14.9 % (10.0-14.5); WHITE BLOOD COUNT 5.5 10^3/uL (4.3-11.0)
[2017-10-03 13:51] LABS: BASOPHILS % (AUTO) 0 % (0-10); EOSINOPHILS # (AUTO) 0.1 10^3/uL (0.0-0.3); EOSINOPHILS % (AUTO) 2 % (0-10); LYMPHOCYTES # (AUTO) 1.4 X 10^3 (1.0-4.0); LYMPHOCYTES % (AUTO) 25 % (12-44); MEAN PLATELET VOLUME 9.6 FL (7.4-10.4); MONOCYTES # (AUTO) 0.6 X 10^3 (0.0-1.0); MONOCYTES % (AUTO) 11 % (0-12); NEUTROPHILS # (AUTO) 3.4 X 10^3 (1.8-7.8); NEUTROPHILS % (AUTO) 62 % (42-75)
[2017-10-03 14:12] LABS: BUN/CREATININE RATIO 18; CALCIUM 9.5 MG/DL (8.5-10.1); CARBON DIOXIDE 23 MMOL/L (21-32); CHLORIDE 102 MMOL/L (98-107); CREATININE SERUM 0.77 MG/DL (0.60-1.30); GFR ESTIMATED > 60; GLUCOSE 134 MG/DL (70-105); POTASSIUM 3.7 MMOL/L (3.6-5.0); SODIUM 138 MMOL/L (135-145)
[~2017-10-10 09:15] MED LIST changes: -BARIUM SUSPENSION 2.1% (VANILLA SILQ) 450 ML PO ONE; -CATHETER FLUSH 10 ML SYR IV PRN; +DENOSUMAB 120 MG/1.7 ML (XGEVA) SQ SCH; -IOHEXOL 350 MG/ML 100 ML (OMNIPAQUE 350) VIAL IV ONE; -NS 100 ML (IVPB) BAG IV ONE; +NS IV 500 ML (CANCER CENTER) IV SCH; +ONDANSETRON MDV (CANCER CENTER 8 MG, DEXAMETHASONE INJ (CANCER CTR) 4 MG in D5W 50 ML I... IV SCH; +ONDANSETRON MDV (CANCER CENTER 8 MG, DEXAMETHASONE INJ (CANCER CTR) 4 MG in NS (IVPB) C... IV SCH; +TEMSIROLIMUS 25 MG in NORMAL SALINE (CANCER CENTER) 250 ML IV SCH
[2017-10-10 09:57] LABS: BASOPHILS % (AUTO) 1 % (0-10); EOSINOPHILS # (AUTO) 0.1 10^3/uL (0.0-0.3); EOSINOPHILS % (AUTO) 2 % (0-10); HEMATOCRIT 33 % (35-52); HEMOGLOBIN 11.3 G/DL (11.5-16.0); LYMPHOCYTES # (AUTO) 1.2 X 10^3 (1.0-4.0); LYMPHOCYTES % (AUTO) 26 % (12-44); MEAN CORPUSCULAR HEMOGLOBIN 26 PG (25-34); MEAN CORPUSCULAR HGB CONC 34 G/DL (32-36); MEAN CORPUSCULAR VOLUME 75 FL (80-99); MEAN PLATELET VOLUME 9.8 FL (7.4-10.4); MONOCYTES # (AUTO) 0.3 X 10^3 (0.0-1.0); MONOCYTES % (AUTO) 7 % (0-12); NEUTROPHILS # (AUTO) 2.9 X 10^3 (1.8-7.8); NEUTROPHILS % (AUTO) 64 % (42-75); PLATELET COUNT 186 10^3/uL (130-400); RED BLOOD COUNT 4.43 10^6/uL (4.35-5.85); RED CELL DISTRIBUTION WIDTH 14.3 % (10.0-14.5); WHITE BLOOD COUNT 4.5 10^3/uL (4.3-11.0)
[2017-10-10 10:15] LABS: BUN/CREATININE RATIO 17; CALCIUM 9.8 MG/DL (8.5-10.1); CARBON DIOXIDE 23 MMOL/L (21-32); CHLORIDE 101 MMOL/L (98-107); CREATININE SERUM 0.81 MG/DL (0.60-1.30); GFR ESTIMATED > 60; GLUCOSE 273 MG/DL (70-105); POTASSIUM 3.8 MMOL/L (3.6-5.0); SODIUM 136 MMOL/L (135-145)
== END 2017-10-17 11:37 | disposition home or self-care (01) ==
LOC: ONC 09:15
PROVIDERS: ATTEND Internal Medicine Hematology & Oncology
DX: Z51.11 Encounter for antineoplastic chemotherapy (principal); C64.1 Malignant neoplasm of right kidney, except renal pelvis; C79.51 Secondary malignant neoplasm of bone; C79.72 Secondary malignant neoplasm of left adrenal gland; C78.01 Secondary malignant neoplasm of right lung; C78.02 Secondary malignant neoplasm of left lung; D64.9 Anemia, unspecified
CPT/HCPCS: 36591; 80048; 80053; 83615; 83735; 85025; 96372; 96375; 96413; 99213

== ENCOUNTER → 2017-12-12 | Outpatient (CLI) | payer BC ==
[~2017-12-12] MED LIST changes: +BARIUM SUSPENSION 2.1% (VANILLA SILQ) 450 ML PO ONE; +CATHETER FLUSH 10 ML SYR IV PRN; -DENOSUMAB 120 MG/1.7 ML (XGEVA) SQ SCH; +IOHEXOL 350 MG/ML 100 ML (OMNIPAQUE 350) VIAL IV ONE; +NS 100 ML (IVPB) BAG IV ONE; -NS IV 500 ML (CANCER CENTER) IV SCH; -ONDANSETRON MDV (CANCER CENTER 8 MG, DEXAMETHASONE INJ (CANCER CTR) 4 MG in D5W 50 ML I... IV SCH; -ONDANSETRON MDV (CANCER CENTER 8 MG, DEXAMETHASONE INJ (CANCER CTR) 4 MG in NS (IVPB) C... IV SCH; -TEMSIROLIMUS 25 MG in NORMAL SALINE (CANCER CENTER) 250 ML IV SCH
--- NOTE | 2017-12-12 10:31 | Diagnostic Imaging Report ---
PROCEDURE: CT chest with contrast, CT abdomen and pelvis with and without contrast. TECHNIQUE: Pre and post intravenous contrast axial imaging of the abdomen and pelvis and post contrast axial imaging of the chest were performed. INDICATION: Renal cell carcinoma. COMPARISON: Compared 09/13/2017. FINDINGS: CHEST: Right paratracheal adenopathy measures today 2.9 x 2.6 cm in maximal dimension previously 3.3 x 2.1 cm along the same axis. Slice localization likely accounts for the subtle change. An irregular node right superior pulmonary hilum measuring 1.5 cm is unchanged. Small pericardial effusion is unchanged. Innumerable bilateral soft tissue density pulmonary parenchymal metastatic foci did not appear convincingly changed. No pleural effusion. No destructive osseous lesion. There is no pneumothorax. No findings of pneumonia. ABDOMEN AND PELVIS: Bilateral adrenal metastases measure slightly larger. The left today 2.7 cm, previously 2.5 cm. The right today 1.9 cm, previously 1.6 cm. Right renal mass measures 8.8 x 7.6 cm today, previously 8.6 x 7.5 cm. Effacement and distortion of the left extrarenal pelvis and ureteropelvic junction results in mild upstream hydronephrosis. This is unchanged. The left kidney was without mass. The spleen is negative. No liver mass identified. No bile duct dilatation. The pancreas is unremarkable. There is patency of the bilateral renal veins. Large destructive lesion epicenter left innominate bone has a soft tissue mass measuring slightly larger at 9.8 x 8.0 cm. When measured along the same axis, previous dimensions were 9.4 x 7.8 cm. No new bony lesion is found. There is no ascites. There is no bowel obstruction. The uterus, adnexa and urinary bladder unremarkable. No inguinal or iliac chain adenopathy. IMPRESSION: CHEST: There is no appreciable change in extensive pulmonary parenchymal metastasis, paratracheal adenopathy and right superior pulmonary hilar adenopathy. ABDOMEN: Increasing size of bilateral adrenal metastases, primary right renal mass is larger than on prior and its mass effect results in unchanged mild right-sided hydronephrosis. Patency of the renal vein and cava is maintained and there is no liver metastasis evident. PELVIS: Increased size of the soft tissue mass associated with large destructive metastatic lesion epicenter left innominate bone. No new pelvic metastasis. Dictated by: Dictated on workstation # [id number]
== END ==
LOC: RAD 07:57
PROVIDERS: ATTEND Internal Medicine Hematology & Oncology
DX: C64.1 Malignant neoplasm of right kidney, except renal pelvis (principal); C77.1 Secondary and unspecified malignant neoplasm of intrathoracic lymph nodes; C79.51 Secondary malignant neoplasm of bone; C79.72 Secondary malignant neoplasm of left adrenal gland
CPT/HCPCS: 71260; 74178

== ENCOUNTER 2017-12-20 13:19 | Outpatient (RCR) | payer BC ==
[2017-09-27 14:31] LABS: BASOPHILS % (AUTO) 0 % (0-10); EOSINOPHILS # (AUTO) 0.1 10^3/uL (0.0-0.3); EOSINOPHILS % (AUTO) 2 % (0-10); HEMATOCRIT 32 % (35-52); HEMOGLOBIN 10.4 G/DL (11.5-16.0); LYMPHOCYTES # (AUTO) 1.4 X 10^3 (1.0-4.0); LYMPHOCYTES % (AUTO) 25 % (12-44); MEAN CORPUSCULAR HEMOGLOBIN 25 PG (25-34); MEAN CORPUSCULAR HGB CONC 33 G/DL (32-36); MEAN CORPUSCULAR VOLUME 77 FL (80-99); MEAN PLATELET VOLUME 8.8 FL (7.4-10.4); MONOCYTES # (AUTO) 0.5 X 10^3 (0.0-1.0); MONOCYTES % (AUTO) 9 % (0-12); NEUTROPHILS # (AUTO) 3.5 X 10^3 (1.8-7.8); NEUTROPHILS % (AUTO) 64 % (42-75); PLATELET COUNT 219 10^3/uL (130-400); RED BLOOD COUNT 4.13 10^6/uL (4.35-5.85); RED CELL DISTRIBUTION WIDTH 14.6 % (10.0-14.5); WHITE BLOOD COUNT 5.5 10^3/uL (4.3-11.0)
[2017-09-27 14:47] LABS: BUN/CREATININE RATIO 18; CALCIUM 9.7 MG/DL (8.5-10.1); CARBON DIOXIDE 25 MMOL/L (21-32); CHLORIDE 102 MMOL/L (98-107); CREATININE SERUM 0.74 MG/DL (0.60-1.30); GFR ESTIMATED > 60; GLUCOSE 162 MG/DL (70-105); POTASSIUM 3.6 MMOL/L (3.6-5.0); SODIUM 138 MMOL/L (135-145)
[2017-10-03 13:50] LABS: HEMATOCRIT 35 % (35-52); HEMOGLOBIN 10.4 G/DL (11.5-16.0); MEAN CORPUSCULAR HEMOGLOBIN 24 PG (25-34); MEAN CORPUSCULAR HGB CONC 30 G/DL (32-36); MEAN CORPUSCULAR VOLUME 81 FL (80-99); PLATELET COUNT 220 10^3/uL (130-400); RED BLOOD COUNT 4.25 10^6/uL (4.35-5.85); RED CELL DISTRIBUTION WIDTH 14.9 % (10.0-14.5); WHITE BLOOD COUNT 5.5 10^3/uL (4.3-11.0)
[2017-10-03 13:51] LABS: BASOPHILS % (AUTO) 0 % (0-10); EOSINOPHILS # (AUTO) 0.1 10^3/uL (0.0-0.3); EOSINOPHILS % (AUTO) 2 % (0-10); LYMPHOCYTES # (AUTO) 1.4 X 10^3 (1.0-4.0); LYMPHOCYTES % (AUTO) 25 % (12-44); MEAN PLATELET VOLUME 9.6 FL (7.4-10.4); MONOCYTES # (AUTO) 0.6 X 10^3 (0.0-1.0); MONOCYTES % (AUTO) 11 % (0-12); NEUTROPHILS # (AUTO) 3.4 X 10^3 (1.8-7.8); NEUTROPHILS % (AUTO) 62 % (42-75)
[2017-10-03 14:12] LABS: BUN/CREATININE RATIO 18; CALCIUM 9.5 MG/DL (8.5-10.1); CARBON DIOXIDE 23 MMOL/L (21-32); CHLORIDE 102 MMOL/L (98-107); CREATININE SERUM 0.77 MG/DL (0.60-1.30); GFR ESTIMATED > 60; GLUCOSE 134 MG/DL (70-105); POTASSIUM 3.7 MMOL/L (3.6-5.0); SODIUM 138 MMOL/L (135-145)
[2017-10-10 09:57] LABS: BASOPHILS % (AUTO) 1 % (0-10); EOSINOPHILS # (AUTO) 0.1 10^3/uL (0.0-0.3); EOSINOPHILS % (AUTO) 2 % (0-10); HEMATOCRIT 33 % (35-52); HEMOGLOBIN 11.3 G/DL (11.5-16.0); LYMPHOCYTES # (AUTO) 1.2 X 10^3 (1.0-4.0); LYMPHOCYTES % (AUTO) 26 % (12-44); MEAN CORPUSCULAR HEMOGLOBIN 26 PG (25-34); MEAN CORPUSCULAR HGB CONC 34 G/DL (32-36); MEAN CORPUSCULAR VOLUME 75 FL (80-99); MEAN PLATELET VOLUME 9.8 FL (7.4-10.4); MONOCYTES # (AUTO) 0.3 X 10^3 (0.0-1.0); MONOCYTES % (AUTO) 7 % (0-12); NEUTROPHILS # (AUTO) 2.9 X 10^3 (1.8-7.8); NEUTROPHILS % (AUTO) 64 % (42-75); PLATELET COUNT 186 10^3/uL (130-400); RED BLOOD COUNT 4.43 10^6/uL (4.35-5.85); RED CELL DISTRIBUTION WIDTH 14.3 % (10.0-14.5); WHITE BLOOD COUNT 4.5 10^3/uL (4.3-11.0)
[2017-10-10 10:15] LABS: BUN/CREATININE RATIO 17; CALCIUM 9.8 MG/DL (8.5-10.1); CARBON DIOXIDE 23 MMOL/L (21-32); CHLORIDE 101 MMOL/L (98-107); CREATININE SERUM 0.81 MG/DL (0.60-1.30); GFR ESTIMATED > 60; GLUCOSE 273 MG/DL (70-105); POTASSIUM 3.8 MMOL/L (3.6-5.0); SODIUM 136 MMOL/L (135-145)
[2017-10-18 13:52] LABS: BASOPHILS % (AUTO) 0 % (0-10); EOSINOPHILS # (AUTO) 0.1 10^3/uL (0.0-0.3); EOSINOPHILS % (AUTO) 1 % (0-10); HEMATOCRIT 32 % (35-52); HEMOGLOBIN 10.8 G/DL (11.5-16.0); LYMPHOCYTES # (AUTO) 1.5 X 10^3 (1.0-4.0); LYMPHOCYTES % (AUTO) 28 % (12-44); MEAN CORPUSCULAR HEMOGLOBIN 26 PG (25-34); MEAN CORPUSCULAR HGB CONC 34 G/DL (32-36); MEAN CORPUSCULAR VOLUME 75 FL (80-99); MEAN PLATELET VOLUME 8.9 FL (7.4-10.4); MONOCYTES # (AUTO) 0.5 X 10^3 (0.0-1.0); MONOCYTES % (AUTO) 9 % (0-12); NEUTROPHILS # (AUTO) 3.3 X 10^3 (1.8-7.8); NEUTROPHILS % (AUTO) 61 % (42-75); PLATELET COUNT 194 10^3/uL (130-400); RED BLOOD COUNT 4.24 10^6/uL (4.35-5.85); RED CELL DISTRIBUTION WIDTH 14.3 % (10.0-14.5); WHITE BLOOD COUNT 5.4 10^3/uL (4.3-11.0)
[2017-10-18 14:11] LABS: ALANINE AMINOTRANSFERASE 19 U/L (0-55); ALBUMIN 4.1 GM/DL (3.2-4.5); ALKALINE PHOSPHATASE 71 U/L (40-136); BILIRUBIN,TOTAL 0.3 MG/DL (0.1-1.0); BUN/CREATININE RATIO 17; CALCIUM 9.9 MG/DL (8.5-10.1); CARBON DIOXIDE 22 MMOL/L (21-32); CHLORIDE 101 MMOL/L (98-107); CREATININE SERUM 0.71 MG/DL (0.60-1.30); GFR ESTIMATED > 60; GLUCOSE 120 MG/DL (70-105); POTASSIUM 3.7 MMOL/L (3.6-5.0); SODIUM 137 MMOL/L (135-145); TOTAL PROTEIN 7.6 GM/DL (6.4-8.2)
[2017-10-26 14:37] LABS: BASOPHILS % (AUTO) 1 % (0-10); EOSINOPHILS # (AUTO) 0.1 10^3/uL (0.0-0.3); EOSINOPHILS % (AUTO) 1 % (0-10); HEMATOCRIT 30 % (35-52); HEMOGLOBIN 10.1 G/DL (11.5-16.0); LYMPHOCYTES # (AUTO) 1.1 X 10^3 (1.0-4.0); LYMPHOCYTES % (AUTO) 25 % (12-44); MEAN CORPUSCULAR HEMOGLOBIN 26 PG (25-34); MEAN CORPUSCULAR HGB CONC 34 G/DL (32-36); MEAN CORPUSCULAR VOLUME 76 FL (80-99); MEAN PLATELET VOLUME 8.9 FL (7.4-10.4); MONOCYTES # (AUTO) 0.5 X 10^3 (0.0-1.0); MONOCYTES % (AUTO) 11 % (0-12); NEUTROPHILS # (AUTO) 2.8 X 10^3 (1.8-7.8); NEUTROPHILS % (AUTO) 63 % (42-75); PLATELET COUNT 213 10^3/uL (130-400); RED BLOOD COUNT 3.94 10^6/uL (4.35-5.85); RED CELL DISTRIBUTION WIDTH 14.3 % (10.0-14.5); WHITE BLOOD COUNT 4.4 10^3/uL (4.3-11.0)
[2017-10-26 14:56] LABS: BUN/CREATININE RATIO 18; CALCIUM 9.5 MG/DL (8.5-10.1); CARBON DIOXIDE 25 MMOL/L (21-32); CHLORIDE 102 MMOL/L (98-107); CREATININE SERUM 0.74 MG/DL (0.60-1.30); GFR ESTIMATED > 60; GLUCOSE 166 MG/DL (70-105); POTASSIUM 3.6 MMOL/L (3.6-5.0); SODIUM 138 MMOL/L (135-145)
[2017-11-02 14:10] LABS: BASOPHILS % (AUTO) 0 % (0-10); EOSINOPHILS # (AUTO) 0.1 10^3/uL (0.0-0.3); EOSINOPHILS % (AUTO) 2 % (0-10); HEMATOCRIT 30 % (35-52); LYMPHOCYTES # (AUTO) 1.3 X 10^3 (1.0-4.0); LYMPHOCYTES % (AUTO) 24 % (12-44); MEAN CORPUSCULAR HEMOGLOBIN 25 PG (25-34); MEAN CORPUSCULAR HGB CONC 33 G/DL (32-36); MEAN CORPUSCULAR VOLUME 76 FL (80-99); MONOCYTES # (AUTO) 0.4 X 10^3 (0.0-1.0); MONOCYTES % (AUTO) 8 % (0-12); NEUTROPHILS # (AUTO) 3.6 X 10^3 (1.8-7.8); NEUTROPHILS % (AUTO) 66 % (42-75); PLATELET COUNT 209 10^3/uL (130-400); RED BLOOD COUNT 3.95 10^6/uL (4.35-5.85); RED CELL DISTRIBUTION WIDTH 14.4 % (10.0-14.5); WHITE BLOOD COUNT 5.5 10^3/uL (4.3-11.0)
[2017-11-02 14:31] LABS: BUN/CREATININE RATIO 16; CALCIUM 9.5 MG/DL (8.5-10.1); CARBON DIOXIDE 23 MMOL/L (21-32); CHLORIDE 102 MMOL/L (98-107); CREATININE SERUM 0.82 MG/DL (0.60-1.30); GFR ESTIMATED > 60; GLUCOSE 134 MG/DL (70-105); POTASSIUM 3.8 MMOL/L (3.6-5.0); SODIUM 137 MMOL/L (135-145)
[2017-11-08 14:17] LABS: BASOPHILS % (AUTO) 0 % (0-10); EOSINOPHILS # (AUTO) 0.1 10^3/uL (0.0-0.3); EOSINOPHILS % (AUTO) 2 % (0-10); HEMATOCRIT 31 % (35-52); HEMOGLOBIN 10.6 G/DL (11.5-16.0); LYMPHOCYTES # (AUTO) 1.3 X 10^3 (1.0-4.0); LYMPHOCYTES % (AUTO) 26 % (12-44); MEAN CORPUSCULAR HEMOGLOBIN 26 PG (25-34); MEAN CORPUSCULAR HGB CONC 34 G/DL (32-36); MEAN CORPUSCULAR VOLUME 75 FL (80-99); MEAN PLATELET VOLUME 8.8 FL (7.4-10.4); MONOCYTES # (AUTO) 0.4 X 10^3 (0.0-1.0); MONOCYTES % (AUTO) 9 % (0-12); NEUTROPHILS % (AUTO) 63 % (42-75); PLATELET COUNT 192 10^3/uL (130-400); RED BLOOD COUNT 4.13 10^6/uL (4.35-5.85); RED CELL DISTRIBUTION WIDTH 14.4 % (10.0-14.5); WHITE BLOOD COUNT 4.8 10^3/uL (4.3-11.0)
[2017-11-08 14:37] LABS: BUN/CREATININE RATIO 18; CALCIUM 9.8 MG/DL (8.5-10.1); CARBON DIOXIDE 22 MMOL/L (21-32); CHLORIDE 101 MMOL/L (98-107); CREATININE SERUM 0.82 MG/DL (0.60-1.30); GFR ESTIMATED > 60; GLUCOSE 204 MG/DL (70-105); POTASSIUM 3.7 MMOL/L (3.6-5.0); SODIUM 137 MMOL/L (135-145)
[2017-11-16 13:43] LABS: BASOPHILS % (AUTO) 0 % (0-10); EOSINOPHILS % (AUTO) 1 % (0-10); HEMATOCRIT 31 % (35-52); HEMOGLOBIN 10.7 G/DL (11.5-16.0); LYMPHOCYTES # (AUTO) 1.4 X 10^3 (1.0-4.0); LYMPHOCYTES % (AUTO) 26 % (12-44); MEAN CORPUSCULAR HEMOGLOBIN 25 PG (25-34); MEAN CORPUSCULAR HGB CONC 34 G/DL (32-36); MEAN CORPUSCULAR VOLUME 74 FL (80-99); MEAN PLATELET VOLUME 9.2 FL (7.4-10.4); MONOCYTES # (AUTO) 0.5 X 10^3 (0.0-1.0); MONOCYTES % (AUTO) 9 % (0-12); NEUTROPHILS # (AUTO) 3.4 X 10^3 (1.8-7.8); NEUTROPHILS % (AUTO) 64 % (42-75); PLATELET COUNT 201 10^3/uL (130-400); RED BLOOD COUNT 4.21 10^6/uL (4.35-5.85); RED CELL DISTRIBUTION WIDTH 14.5 % (10.0-14.5); WHITE BLOOD COUNT 5.3 10^3/uL (4.3-11.0)
[2017-11-16 14:06] LABS: ALANINE AMINOTRANSFERASE 13 U/L (0-55); ALBUMIN 4.2 GM/DL (3.2-4.5); ALKALINE PHOSPHATASE 66 U/L (40-136); BILIRUBIN,TOTAL 0.5 MG/DL (0.1-1.0); BUN/CREATININE RATIO 20; CALCIUM 10.2 MG/DL (8.5-10.1); CARBON DIOXIDE 21 MMOL/L (21-32); CHLORIDE 101 MMOL/L (98-107); GFR ESTIMATED > 60; GLUCOSE 135 MG/DL (70-105); POTASSIUM 3.6 MMOL/L (3.6-5.0); SODIUM 137 MMOL/L (135-145); TOTAL PROTEIN 7.8 GM/DL (6.4-8.2)
[2017-11-22 13:56] LABS: BASOPHILS % (AUTO) 0 % (0-10); EOSINOPHILS # (AUTO) 0.1 10^3/uL (0.0-0.3); EOSINOPHILS % (AUTO) 1 % (0-10); HEMATOCRIT 30 % (35-52); HEMOGLOBIN 10.1 G/DL (11.5-16.0); LYMPHOCYTES # (AUTO) 1.3 X 10^3 (1.0-4.0); LYMPHOCYTES % (AUTO) 23 % (12-44); MEAN CORPUSCULAR HEMOGLOBIN 26 PG (25-34); MEAN CORPUSCULAR HGB CONC 34 G/DL (32-36); MEAN CORPUSCULAR VOLUME 76 FL (80-99); MEAN PLATELET VOLUME 9.1 FL (7.4-10.4); MONOCYTES # (AUTO) 0.4 X 10^3 (0.0-1.0); MONOCYTES % (AUTO) 7 % (0-12); NEUTROPHILS # (AUTO) 3.8 X 10^3 (1.8-7.8); NEUTROPHILS % (AUTO) 68 % (42-75); PLATELET COUNT 224 10^3/uL (130-400); RED BLOOD COUNT 3.92 10^6/uL (4.35-5.85); RED CELL DISTRIBUTION WIDTH 14.3 % (10.0-14.5); WHITE BLOOD COUNT 5.6 10^3/uL (4.3-11.0)
[2017-11-22 14:13] LABS: BUN/CREATININE RATIO 20; CALCIUM 9.5 MG/DL (8.5-10.1); CARBON DIOXIDE 24 MMOL/L (21-32); CHLORIDE 102 MMOL/L (98-107); CREATININE SERUM 0.75 MG/DL (0.60-1.30); GFR ESTIMATED > 60; GLUCOSE 178 MG/DL (70-105); POTASSIUM 3.6 MMOL/L (3.6-5.0); SODIUM 136 MMOL/L (135-145)
[2017-11-29 13:44] LABS: BASOPHILS % (AUTO) 0 % (0-10); EOSINOPHILS # (AUTO) 0.1 10^3/uL (0.0-0.3); EOSINOPHILS % (AUTO) 2 % (0-10); HEMATOCRIT 30 % (35-52); HEMOGLOBIN 10.3 G/DL (11.5-16.0); LYMPHOCYTES # (AUTO) 1.3 X 10^3 (1.0-4.0); LYMPHOCYTES % (AUTO) 23 % (12-44); MEAN CORPUSCULAR HEMOGLOBIN 26 PG (25-34); MEAN CORPUSCULAR HGB CONC 34 G/DL (32-36); MEAN CORPUSCULAR VOLUME 76 FL (80-99); MEAN PLATELET VOLUME 8.9 FL (7.4-10.4); MONOCYTES # (AUTO) 0.5 X 10^3 (0.0-1.0); MONOCYTES % (AUTO) 9 % (0-12); NEUTROPHILS # (AUTO) 3.6 X 10^3 (1.8-7.8); NEUTROPHILS % (AUTO) 66 % (42-75); PLATELET COUNT 209 10^3/uL (130-400); RED CELL DISTRIBUTION WIDTH 14.8 % (10.0-14.5); WHITE BLOOD COUNT 5.4 10^3/uL (4.3-11.0)
[2017-11-29 14:00] LABS: BUN/CREATININE RATIO 22; CALCIUM 9.6 MG/DL (8.5-10.1); CARBON DIOXIDE 21 MMOL/L (21-32); CHLORIDE 102 MMOL/L (98-107); CREATININE SERUM 0.79 MG/DL (0.60-1.30); GFR ESTIMATED > 60; GLUCOSE 166 MG/DL (70-105); POTASSIUM 3.7 MMOL/L (3.6-5.0); SODIUM 137 MMOL/L (135-145)
[2017-12-06 13:28] LABS: BASOPHILS % (AUTO) 0 % (0-10); EOSINOPHILS # (AUTO) 0.1 10^3/uL (0.0-0.3); EOSINOPHILS % (AUTO) 2 % (0-10); HEMATOCRIT 31 % (35-52); HEMOGLOBIN 10.3 G/DL (11.5-16.0); LYMPHOCYTES # (AUTO) 1.2 X 10^3 (1.0-4.0); LYMPHOCYTES % (AUTO) 21 % (12-44); MEAN CORPUSCULAR HEMOGLOBIN 25 PG (25-34); MEAN CORPUSCULAR HGB CONC 33 G/DL (32-36); MEAN CORPUSCULAR VOLUME 76 FL (80-99); MONOCYTES # (AUTO) 0.5 X 10^3 (0.0-1.0); MONOCYTES % (AUTO) 9 % (0-12); NEUTROPHILS # (AUTO) 3.8 X 10^3 (1.8-7.8); NEUTROPHILS % (AUTO) 68 % (42-75); PLATELET COUNT 218 10^3/uL (130-400); RED BLOOD COUNT 4.08 10^6/uL (4.35-5.85); RED CELL DISTRIBUTION WIDTH 14.6 % (10.0-14.5); WHITE BLOOD COUNT 5.7 10^3/uL (4.3-11.0)
[2017-12-06 13:51] LABS: BUN/CREATININE RATIO 19; CALCIUM 10.2 MG/DL (8.5-10.1); CARBON DIOXIDE 26 MMOL/L (21-32); CHLORIDE 103 MMOL/L (98-107); GFR ESTIMATED > 60; GLUCOSE 173 MG/DL (70-105); POTASSIUM 3.9 MMOL/L (3.6-5.0); SODIUM 138 MMOL/L (135-145)
[2017-12-14 08:17] LABS: BASOPHILS % (AUTO) 1 % (0-10); EOSINOPHILS # (AUTO) 0.1 10^3/uL (0.0-0.3); EOSINOPHILS % (AUTO) 2 % (0-10); HEMATOCRIT 31 % (35-52); HEMOGLOBIN 10.1 G/DL (11.5-16.0); LYMPHOCYTES % (AUTO) 23 % (12-44); MEAN CORPUSCULAR HEMOGLOBIN 26 PG (25-34); MEAN CORPUSCULAR HGB CONC 33 G/DL (32-36); MEAN CORPUSCULAR VOLUME 77 FL (80-99); MEAN PLATELET VOLUME 9.2 FL (7.4-10.4); MONOCYTES # (AUTO) 0.6 X 10^3 (0.0-1.0); MONOCYTES % (AUTO) 13 % (0-12); NEUTROPHILS # (AUTO) 2.8 X 10^3 (1.8-7.8); NEUTROPHILS % (AUTO) 63 % (42-75); PLATELET COUNT 249 10^3/uL (130-400); RED BLOOD COUNT 3.96 10^6/uL (4.35-5.85); RED CELL DISTRIBUTION WIDTH 14.6 % (10.0-14.5); WHITE BLOOD COUNT 4.4 10^3/uL (4.3-11.0)
[2017-12-14 08:38] LABS: ALBUMIN 4.3 GM/DL (3.2-4.5); BILIRUBIN,TOTAL 0.4 MG/DL (0.1-1.0); CALCIUM 9.1 MG/DL (8.5-10.1); CREATININE SERUM 1.2 MG/DL (0.60-1.30); POTASSIUM 3.5 MMOL/L (3.6-5.0); TOTAL PROTEIN 7.9 GM/DL (6.4-8.2)
[~2017-12-20] VITALS: Ht 165.1 cm; Wt 70.3 kg
[~2017-12-20 13:19] MED LIST changes: -BARIUM SUSPENSION 2.1% (VANILLA SILQ) 450 ML PO ONE; -CATHETER FLUSH 10 ML SYR IV PRN; +CYANOCOBALAMIN INJ 1000 MCG/ML (CANCER CENTER) ONE; +DENOSUMAB 120 MG/1.7 ML (XGEVA) SQ SCH; -IOHEXOL 350 MG/ML 100 ML (OMNIPAQUE 350) VIAL IV ONE; -NS 100 ML (IVPB) BAG IV ONE; +NS IV 500 ML (CANCER CENTER) 500 ML ONE; +NS IV 500 ML (CANCER CENTER) IV SCH; +ONDANSETRON MDV (CANCER CENTER 8 MG, DEXAMETHASONE INJ (CANCER CTR) 4 MG in D5W 50 ML I... IV SCH; +TEMSIROLIMUS 25 MG in NORMAL SALINE (CANCER CENTER) 250 ML IV SCH
[2017-12-20 13:54] LABS: BASOPHILS % (AUTO) 0 % (0-10); EOSINOPHILS # (AUTO) 0.1 10^3/uL (0.0-0.3); EOSINOPHILS % (AUTO) 1 % (0-10); HEMATOCRIT 29 % (35-52); HEMOGLOBIN 9.8 G/DL (11.5-16.0); LYMPHOCYTES # (AUTO) 1.2 X 10^3 (1.0-4.0); LYMPHOCYTES % (AUTO) 20 % (12-44); MEAN CORPUSCULAR HEMOGLOBIN 25 PG (25-34); MEAN CORPUSCULAR HGB CONC 34 G/DL (32-36); MEAN CORPUSCULAR VOLUME 75 FL (80-99); MEAN PLATELET VOLUME 8.9 FL (7.4-10.4); MONOCYTES # (AUTO) 0.5 X 10^3 (0.0-1.0); MONOCYTES % (AUTO) 8 % (0-12); NEUTROPHILS # (AUTO) 4.5 X 10^3 (1.8-7.8); NEUTROPHILS % (AUTO) 71 % (42-75); PLATELET COUNT 284 10^3/uL (130-400); RED BLOOD COUNT 3.87 10^6/uL (4.35-5.85); RED CELL DISTRIBUTION WIDTH 14.3 % (10.0-14.5); WHITE BLOOD COUNT 6.4 10^3/uL (4.3-11.0)
[2017-12-20 14:10] LABS: CALCIUM 10.7 MG/DL (8.5-10.1); CREATININE SERUM 1.7 MG/DL (0.60-1.30); POTASSIUM 3.8 MMOL/L (3.6-5.0)
== END 2017-12-26 | disposition home or self-care (01) ==
LOC: ONC 13:19
PROVIDERS: ATTEND Internal Medicine Hematology & Oncology
DX: Z51.11 Encounter for antineoplastic chemotherapy (principal); C64.1 Malignant neoplasm of right kidney, except renal pelvis; C79.51 Secondary malignant neoplasm of bone; C79.72 Secondary malignant neoplasm of left adrenal gland; C78.01 Secondary malignant neoplasm of right lung; C78.02 Secondary malignant neoplasm of left lung; D64.9 Anemia, unspecified
CPT/HCPCS: 36591; 80048; 80053; 83615; 85025; 96375; 96413

== ENCOUNTER 2018-03-01 08:50 | Outpatient (RCR) | payer BC ==
[2017-12-27 13:52] LABS: BASOPHILS % (AUTO) 0 % (0-10); EOSINOPHILS # (AUTO) 0.1 10^3/uL (0.0-0.3); EOSINOPHILS % (AUTO) 1 % (0-10); HEMATOCRIT 28 % (35-52); HEMOGLOBIN 9.5 G/DL (11.5-16.0); LYMPHOCYTES # (AUTO) 1.3 X 10^3 (1.0-4.0); LYMPHOCYTES % (AUTO) 20 % (12-44); MEAN CORPUSCULAR HEMOGLOBIN 25 PG (25-34); MEAN CORPUSCULAR HGB CONC 34 G/DL (32-36); MEAN CORPUSCULAR VOLUME 75 FL (80-99); MEAN PLATELET VOLUME 9.2 FL (7.4-10.4); MONOCYTES # (AUTO) 0.5 X 10^3 (0.0-1.0); MONOCYTES % (AUTO) 7 % (0-12); NEUTROPHILS # (AUTO) 4.4 X 10^3 (1.8-7.8); NEUTROPHILS % (AUTO) 71 % (42-75); PLATELET COUNT 234 10^3/uL (130-400); RED BLOOD COUNT 3.79 10^6/uL (4.35-5.85); RED CELL DISTRIBUTION WIDTH 14.2 % (10.0-14.5); WHITE BLOOD COUNT 6.3 10^3/uL (4.3-11.0)
[2017-12-27 14:13] LABS: CALCIUM 10.9 MG/DL (8.5-10.1); CREATININE SERUM 1.34 MG/DL (0.60-1.30); POTASSIUM 3.9 MMOL/L (3.6-5.0)
[2018-01-03 13:41] LABS: BASOPHILS % (AUTO) 0 % (0-10); EOSINOPHILS # (AUTO) 0.1 10^3/uL (0.0-0.3); EOSINOPHILS % (AUTO) 1 % (0-10); HEMATOCRIT 27 % (35-52); HEMOGLOBIN 9.1 G/DL (11.5-16.0); LYMPHOCYTES # (AUTO) 1.1 X 10^3 (1.0-4.0); LYMPHOCYTES % (AUTO) 20 % (12-44); MEAN CORPUSCULAR HEMOGLOBIN 25 PG (25-34); MEAN CORPUSCULAR HGB CONC 34 G/DL (32-36); MEAN CORPUSCULAR VOLUME 75 FL (80-99); MEAN PLATELET VOLUME 9.1 FL (7.4-10.4); MONOCYTES # (AUTO) 0.5 X 10^3 (0.0-1.0); MONOCYTES % (AUTO) 9 % (0-12); NEUTROPHILS # (AUTO) 3.8 X 10^3 (1.8-7.8); NEUTROPHILS % (AUTO) 70 % (42-75); PLATELET COUNT 235 10^3/uL (130-400); RED BLOOD COUNT 3.58 10^6/uL (4.35-5.85); RED CELL DISTRIBUTION WIDTH 14.3 % (10.0-14.5); WHITE BLOOD COUNT 5.5 10^3/uL (4.3-11.0)
[2018-01-03 13:59] LABS: CALCIUM 9.7 MG/DL (8.5-10.1); CREATININE SERUM 1.24 MG/DL (0.60-1.30); POTASSIUM 3.5 MMOL/L (3.6-5.0)
[2018-01-11 09:09] LABS: BASOPHILS % (AUTO) 0 % (0-10); EOSINOPHILS # (AUTO) 0.1 10^3/uL (0.0-0.3); EOSINOPHILS % (AUTO) 1 % (0-10); HEMATOCRIT 25 % (35-52); HEMOGLOBIN 8.4 G/DL (11.5-16.0); LYMPHOCYTES # (AUTO) 0.9 X 10^3 (1.0-4.0); LYMPHOCYTES % (AUTO) 18 % (12-44); MEAN CORPUSCULAR HEMOGLOBIN 26 PG (25-34); MEAN CORPUSCULAR HGB CONC 33 G/DL (32-36); MEAN CORPUSCULAR VOLUME 77 FL (80-99); MEAN PLATELET VOLUME 8.6 FL (7.4-10.4); MONOCYTES # (AUTO) 0.4 X 10^3 (0.0-1.0); MONOCYTES % (AUTO) 7 % (0-12); NEUTROPHILS # (AUTO) 3.6 X 10^3 (1.8-7.8); NEUTROPHILS % (AUTO) 74 % (42-75); PLATELET COUNT 228 10^3/uL (130-400); RED BLOOD COUNT 3.28 10^6/uL (4.35-5.85); RED CELL DISTRIBUTION WIDTH 15.2 % (10.0-14.5); WHITE BLOOD COUNT 4.9 10^3/uL (4.3-11.0)
[2018-01-11 09:27] LABS: ALBUMIN 4.1 GM/DL (3.2-4.5); BILIRUBIN,TOTAL 0.4 MG/DL (0.1-1.0); CALCIUM 9.4 MG/DL (8.5-10.1); CREATININE SERUM 0.96 MG/DL (0.60-1.30); POTASSIUM 3.7 MMOL/L (3.6-5.0); TOTAL PROTEIN 7.3 GM/DL (6.4-8.2)
[2018-01-18 14:12] LABS: BASOPHILS % (AUTO) 0 % (0-10); EOSINOPHILS # (AUTO) 0.1 10^3/uL (0.0-0.3); EOSINOPHILS % (AUTO) 2 % (0-10); HEMATOCRIT 26 % (35-52); HEMOGLOBIN 8.6 G/DL (11.5-16.0); LYMPHOCYTES # (AUTO) 0.9 X 10^3 (1.0-4.0); LYMPHOCYTES % (AUTO) 22 % (12-44); MEAN CORPUSCULAR HEMOGLOBIN 26 PG (25-34); MEAN CORPUSCULAR HGB CONC 34 G/DL (32-36); MEAN CORPUSCULAR VOLUME 77 FL (80-99); MEAN PLATELET VOLUME 8.9 FL (7.4-10.4); MONOCYTES # (AUTO) 0.4 X 10^3 (0.0-1.0); MONOCYTES % (AUTO) 11 % (0-12); NEUTROPHILS # (AUTO) 2.7 X 10^3 (1.8-7.8); NEUTROPHILS % (AUTO) 65 % (42-75); PLATELET COUNT 234 10^3/uL (130-400); RED BLOOD COUNT 3.33 10^6/uL (4.35-5.85); RED CELL DISTRIBUTION WIDTH 15.1 % (10.0-14.5); WHITE BLOOD COUNT 4.2 10^3/uL (4.3-11.0)
[2018-01-18 14:39] LABS: CALCIUM 9.6 MG/DL (8.5-10.1); CREATININE SERUM 1.19 MG/DL (0.60-1.30); POTASSIUM 3.7 MMOL/L (3.6-5.0)
[2018-01-24 13:24] LABS: BASOPHILS % (AUTO) 0 % (0-10); EOSINOPHILS # (AUTO) 0.1 10^3/uL (0.0-0.3); EOSINOPHILS % (AUTO) 1 % (0-10); HEMATOCRIT 27 % (35-52); HEMOGLOBIN 8.7 G/DL (11.5-16.0); LYMPHOCYTES # (AUTO) 0.9 X 10^3 (1.0-4.0); LYMPHOCYTES % (AUTO) 20 % (12-44); MEAN CORPUSCULAR HEMOGLOBIN 25 PG (25-34); MEAN CORPUSCULAR HGB CONC 33 G/DL (32-36); MEAN CORPUSCULAR VOLUME 77 FL (80-99); MEAN PLATELET VOLUME 8.9 FL (7.4-10.4); MONOCYTES # (AUTO) 0.4 X 10^3 (0.0-1.0); MONOCYTES % (AUTO) 9 % (0-12); NEUTROPHILS # (AUTO) 3.3 X 10^3 (1.8-7.8); NEUTROPHILS % (AUTO) 70 % (42-75); PLATELET COUNT 222 10^3/uL (130-400); RED BLOOD COUNT 3.47 10^6/uL (4.35-5.85); RED CELL DISTRIBUTION WIDTH 14.9 % (10.0-14.5); WHITE BLOOD COUNT 4.7 10^3/uL (4.3-11.0)
[2018-01-24 13:38] LABS: BUN/CREATININE RATIO 19; CALCIUM 9.9 MG/DL (8.5-10.1); CARBON DIOXIDE 24 MMOL/L (21-32); CHLORIDE 101 MMOL/L (98-107); CREATININE SERUM 0.83 MG/DL (0.60-1.30); GFR ESTIMATED > 60; GLUCOSE 145 MG/DL (70-105); POTASSIUM 3.7 MMOL/L (3.6-5.0); SODIUM 138 MMOL/L (135-145)
[2018-01-31 13:29] LABS: BASOPHILS % (AUTO) 0 % (0-10); EOSINOPHILS # (AUTO) 0.1 10^3/uL (0.0-0.3); EOSINOPHILS % (AUTO) 2 % (0-10); HEMATOCRIT 27 % (35-52); HEMOGLOBIN 8.9 G/DL (11.5-16.0); LYMPHOCYTES # (AUTO) 0.8 X 10^3 (1.0-4.0); LYMPHOCYTES % (AUTO) 23 % (12-44); MEAN CORPUSCULAR HEMOGLOBIN 25 PG (25-34); MEAN CORPUSCULAR HGB CONC 33 G/DL (32-36); MEAN CORPUSCULAR VOLUME 76 FL (80-99); MONOCYTES # (AUTO) 0.4 X 10^3 (0.0-1.0); MONOCYTES % (AUTO) 12 % (0-12); NEUTROPHILS # (AUTO) 2.4 X 10^3 (1.8-7.8); NEUTROPHILS % (AUTO) 64 % (42-75); PLATELET COUNT 231 10^3/uL (130-400); RED BLOOD COUNT 3.53 10^6/uL (4.35-5.85); WHITE BLOOD COUNT 3.7 10^3/uL (4.3-11.0)
[2018-01-31 13:50] LABS: BUN/CREATININE RATIO 17; CALCIUM 9.8 MG/DL (8.5-10.1); CARBON DIOXIDE 26 MMOL/L (21-32); CHLORIDE 100 MMOL/L (98-107); CREATININE SERUM 0.92 MG/DL (0.60-1.30); GFR ESTIMATED > 60; GLUCOSE 129 MG/DL (70-105); POTASSIUM 3.4 MMOL/L (3.6-5.0); SODIUM 138 MMOL/L (135-145)
[2018-02-08 08:54] LABS: BASOPHILS % (AUTO) 1 % (0-10); EOSINOPHILS # (AUTO) 0.1 10^3/uL (0.0-0.3); EOSINOPHILS % (AUTO) 1 % (0-10); HEMATOCRIT 27 % (35-52); LYMPHOCYTES # (AUTO) 0.8 X 10^3 (1.0-4.0); LYMPHOCYTES % (AUTO) 19 % (12-44); MEAN CORPUSCULAR HEMOGLOBIN 25 PG (25-34); MEAN CORPUSCULAR HGB CONC 34 G/DL (32-36); MEAN CORPUSCULAR VOLUME 75 FL (80-99); MEAN PLATELET VOLUME 8.7 FL (7.4-10.4); MONOCYTES # (AUTO) 0.4 X 10^3 (0.0-1.0); MONOCYTES % (AUTO) 10 % (0-12); NEUTROPHILS # (AUTO) 2.9 X 10^3 (1.8-7.8); NEUTROPHILS % (AUTO) 69 % (42-75); PLATELET COUNT 230 10^3/uL (130-400); RED BLOOD COUNT 3.56 10^6/uL (4.35-5.85); RED CELL DISTRIBUTION WIDTH 14.9 % (10.0-14.5); WHITE BLOOD COUNT 4.2 10^3/uL (4.3-11.0)
[2018-02-08 09:10] LABS: ALANINE AMINOTRANSFERASE 8 U/L (0-55); ALBUMIN 4.3 GM/DL (3.2-4.5); ALKALINE PHOSPHATASE 60 U/L (40-136); BILIRUBIN,TOTAL 0.5 MG/DL (0.1-1.0); BUN/CREATININE RATIO 19; CARBON DIOXIDE 22 MMOL/L (21-32); CHLORIDE 100 MMOL/L (98-107); CREATININE SERUM 0.88 MG/DL (0.60-1.30); GFR ESTIMATED > 60; GLUCOSE 167 MG/DL (70-105); POTASSIUM 3.5 MMOL/L (3.6-5.0); SODIUM 137 MMOL/L (135-145)
[2018-02-15 09:15] LABS: BASOPHILS % (AUTO) 0 % (0-10); EOSINOPHILS # (AUTO) 0.1 10^3/uL (0.0-0.3); EOSINOPHILS % (AUTO) 1 % (0-10); HEMATOCRIT 25 % (35-52); HEMOGLOBIN 8.2 G/DL (11.5-16.0); LYMPHOCYTES % (AUTO) 22 % (12-44); MEAN CORPUSCULAR HEMOGLOBIN 25 PG (25-34); MEAN CORPUSCULAR HGB CONC 33 G/DL (32-36); MEAN CORPUSCULAR VOLUME 76 FL (80-99); MEAN PLATELET VOLUME 8.8 FL (7.4-10.4); MONOCYTES # (AUTO) 0.4 X 10^3 (0.0-1.0); MONOCYTES % (AUTO) 8 % (0-12); NEUTROPHILS # (AUTO) 3.2 X 10^3 (1.8-7.8); NEUTROPHILS % (AUTO) 69 % (42-75); PLATELET COUNT 222 10^3/uL (130-400); RED BLOOD COUNT 3.23 10^6/uL (4.35-5.85); RED CELL DISTRIBUTION WIDTH 14.5 % (10.0-14.5); WHITE BLOOD COUNT 4.6 10^3/uL (4.3-11.0)
[2018-02-15 09:35] LABS: BUN/CREATININE RATIO 17; CALCIUM 9.7 MG/DL (8.5-10.1); CARBON DIOXIDE 25 MMOL/L (21-32); CHLORIDE 100 MMOL/L (98-107); CREATININE SERUM 0.86 MG/DL (0.60-1.30); GFR ESTIMATED > 60; GLUCOSE 114 MG/DL (70-105); POTASSIUM 3.4 MMOL/L (3.6-5.0); SODIUM 138 MMOL/L (135-145)
[2018-02-22 09:08] LABS: BASOPHILS % (AUTO) 1 % (0-10); EOSINOPHILS % (AUTO) 1 % (0-10); HEMATOCRIT 25 % (35-52); HEMOGLOBIN 8.3 G/DL (11.5-16.0); LYMPHOCYTES # (AUTO) 0.7 X 10^3 (1.0-4.0); LYMPHOCYTES % (AUTO) 19 % (12-44); MEAN CORPUSCULAR HEMOGLOBIN 25 PG (25-34); MEAN CORPUSCULAR HGB CONC 34 G/DL (32-36); MEAN CORPUSCULAR VOLUME 76 FL (80-99); MEAN PLATELET VOLUME 8.8 FL (7.4-10.4); MONOCYTES # (AUTO) 0.5 X 10^3 (0.0-1.0); MONOCYTES % (AUTO) 12 % (0-12); NEUTROPHILS # (AUTO) 2.5 X 10^3 (1.8-7.8); NEUTROPHILS % (AUTO) 67 % (42-75); PLATELET COUNT 199 10^3/uL (130-400); RED BLOOD COUNT 3.26 10^6/uL (4.35-5.85); RED CELL DISTRIBUTION WIDTH 14.6 % (10.0-14.5); WHITE BLOOD COUNT 3.7 10^3/uL (4.3-11.0)
[2018-02-22 09:32] LABS: BUN/CREATININE RATIO 13; CARBON DIOXIDE 25 MMOL/L (21-32); CHLORIDE 101 MMOL/L (98-107); CREATININE SERUM 0.77 MG/DL (0.60-1.30); GFR ESTIMATED > 60; GLUCOSE 117 MG/DL (70-105); POTASSIUM 3.3 MMOL/L (3.6-5.0); SODIUM 138 MMOL/L (135-145)
[~2018-03-01] VITALS: Ht 165.1 cm; Wt 71.7 kg
[~2018-03-01 08:50] MED LIST changes: -CYANOCOBALAMIN INJ 1000 MCG/ML (CANCER CENTER) ONE; -METF500T4 PO; +METF500T5 PO; -NS IV 500 ML (CANCER CENTER) 500 ML ONE; +ONDANSETRON MDV (CANCER CENTER 8 MG, DEXAMETHASONE INJ (CANCER CTR) 4 MG in NS (IVPB) C... IV SCH
[2018-03-01 09:19] LABS: BASOPHILS % (AUTO) 0 % (0-10); EOSINOPHILS # (AUTO) 0.1 10^3/uL (0.0-0.3); EOSINOPHILS % (AUTO) 2 % (0-10); HEMATOCRIT 26 % (35-52); HEMOGLOBIN 9.1 G/DL (11.5-16.0); LYMPHOCYTES # (AUTO) 0.8 X 10^3 (1.0-4.0); LYMPHOCYTES % (AUTO) 19 % (12-44); MEAN CORPUSCULAR HEMOGLOBIN 26 PG (25-34); MEAN CORPUSCULAR HGB CONC 35 G/DL (32-36); MEAN CORPUSCULAR VOLUME 75 FL (80-99); MEAN PLATELET VOLUME 8.8 FL (7.4-10.4); MONOCYTES # (AUTO) 0.4 X 10^3 (0.0-1.0); MONOCYTES % (AUTO) 9 % (0-12); NEUTROPHILS % (AUTO) 70 % (42-75); PLATELET COUNT 232 10^3/uL (130-400); RED BLOOD COUNT 3.52 10^6/uL (4.35-5.85); RED CELL DISTRIBUTION WIDTH 14.1 % (10.0-14.5); WHITE BLOOD COUNT 4.3 10^3/uL (4.3-11.0)
[2018-03-01 09:39] LABS: BUN/CREATININE RATIO 12; CALCIUM 10.3 MG/DL (8.5-10.1); CARBON DIOXIDE 24 MMOL/L (21-32); CHLORIDE 99 MMOL/L (98-107); CREATININE SERUM 0.74 MG/DL (0.60-1.30); GFR ESTIMATED > 60; GLUCOSE 125 MG/DL (70-105); POTASSIUM 3.8 MMOL/L (3.6-5.0); SODIUM 133 MMOL/L (135-145)
== END 2018-03-27 | disposition home or self-care (01) ==
LOC: ONC 08:50
PROVIDERS: ATTEND Internal Medicine Hematology & Oncology
DX: Z51.11 Encounter for antineoplastic chemotherapy (principal); C64.1 Malignant neoplasm of right kidney, except renal pelvis; C79.51 Secondary malignant neoplasm of bone; C79.72 Secondary malignant neoplasm of left adrenal gland; C78.01 Secondary malignant neoplasm of right lung; C78.02 Secondary malignant neoplasm of left lung; D50.9 Iron deficiency anemia, unspecified; E11.9 Type 2 diabetes mellitus without complications; I10 Essential (primary) hypertension; Z79.84 Long term (current) use of oral hypoglycemic drugs; Z79.899 Other long term (current) drug therapy
CPT/HCPCS: 36591; 80048; 80053; 82728; 83540; 83615; 85025; 96372; 96375; 96413

== ENCOUNTER → 2018-06-16 | Outpatient (CLI) | payer MEDICARE, OTHER ==
[~2018-06-16] MED LIST changes: -DENOSUMAB 120 MG/1.7 ML (XGEVA) SQ SCH; +IOHEXOL 350 MG/ML 100 ML (OMNIPAQUE 350) VIAL IV ONE; +METF-397 PO; -METF500T5 PO; +NS 250 ML (IVPB) BAG IV ONE; -NS IV 500 ML (CANCER CENTER) IV SCH; -ONDANSETRON MDV (CANCER CENTER 8 MG, DEXAMETHASONE INJ (CANCER CTR) 4 MG in D5W 50 ML I... IV SCH; -ONDANSETRON MDV (CANCER CENTER 8 MG, DEXAMETHASONE INJ (CANCER CTR) 4 MG in NS (IVPB) C... IV SCH; -TEMSIROLIMUS 25 MG in NORMAL SALINE (CANCER CENTER) 250 ML IV SCH
--- NOTE | 2018-06-16 11:31 | Diagnostic Imaging Report ---
PROCEDURE: CT chest, abdomen, and pelvis with contrast. TECHNIQUE: Multiple contiguous axial images were obtained through the chest, abdomen, and pelvis after the administration of intravenous contrast. INDICATION: Malignant neoplasm of kidney. The previous CT chest, abdomen and pelvis exam of 03/20/2018 noted a large 9.2 x 8.0 cm mass arising from the right kidney. That mass is again evident although it has decreased in size and now measures 6.3 x 7.0 cm. The previous study also identified bilateral adrenal masses. The left adrenal mass measured 3.3 x 3.1 cm while the right adrenal mass was estimated to be 1.7 x 2.5 cm. On this study, the left adrenal mass has decreased in size and now measures 1.5 x 1.6 cm. The right adrenal gland mass is slightly smaller as well measuring 1.2 x 2.1 cm as opposed to 1.7 x 2.5 cm previously. The previous exam also identified a destructive mass involving the left ilium. This measured 9.5 x 10.6 cm. That mass is now estimated to be 5.3 x 7.8 cm. The overall appearance of the abdomen and pelvis has not changed significantly otherwise. No new abnormality has developed. On the prior exam, there were multiple pulmonary nodules involving both lungs as well as mediastinal and right hilar adenopathy. On this study the pulmonary nodules have essentially resolved. The largest remaining pulmonary nodules measures 0.6 x 0.7 cm and is in the anterior aspect of the left midlung (image 29 of 120). There are few small subcentimeter nodules in both lungs. The mediastinal and right hilar adenopathy has also diminished significantly. The largest remaining node is in the right pretracheal area and measures 0.9 x 1.5 cm. The lungs are generally clear otherwise. There is no sign of failure, pneumonia or pleural effusion. The heart is enlarged but stable in size. The aorta is not abnormally dilated. The pulmonary arteries were not optimally opacified but there is no definite defect to suggest pulmonary embolus. There is no obvious breast mass. The bone windows show no sign of a fracture or of a destructive lesion aside from the mass eroding the left ilium. IMPRESSION: 1. The appearance of the chest, abdomen and pelvis has improved since the prior exam. Specifically, the right renal mass and bilateral adrenal masses and the destructive mass involving the left ilium have decreased in size. The pulmonary nodules seen previously have also diminished significantly and the mediastinal and right hilar adenopathy noted on the prior exam has essentially resolved. 2. There is no acute abnormality of the chest, abdomen or pelvis. Dictated by: Dictated on workstation # [id number]
== END ==
LOC: RAD 07:34
PROVIDERS: ATTEND Physician Assistant
DX: C64.9 Malignant neoplasm of unspecified kidney, except renal pelvis (principal)
CPT/HCPCS: 71260; 74177

== ENCOUNTER → 2018-06-16 | Outpatient (CLI) | payer MEDICARE, OTHER ==
[~2018-06-16] MED LIST changes: -IOHEXOL 350 MG/ML 100 ML (OMNIPAQUE 350) VIAL IV ONE; -NS 250 ML (IVPB) BAG IV ONE
--- NOTE | 2018-06-16 13:40 | Diagnostic Imaging Report ---
EXAMINATION: Nuclear medicine Bone scan. INDICATION: Malignant neoplasm of kidney, pain to left knee. FINDINGS: This study was performed following administration of 26.7 mCi of 99m-technetium MDP. Anterior and posterior whole-body images were obtained as well as spot films of the skull and ribs in the lateral projection. The recent whole-body bone scan of 03/20/2018 raised the question of photopenia overlying the left frontal bone. On this exam, there is now a fair-sized rim-enhancing lesion in this area. There is also a small area of increased uptake just to the left of midline on the posterior image. These findings should be considered secondary to metastatic disease until proven otherwise. I would recommend that either CT or MRI be performed for further study. The area of photopenia involving the left iliac bone seen previously is again evident and no different. There is no new abnormal uptake within the osseous structures to suggest metastatic disease. There is no abnormality in the region of the left hip to indicate an acute or subacute fracture either. Both kidneys do show excretion of the radiotracer. IMPRESSION: 1. In the interval since the prior exam, abnormal uptake has developed in the left frontal region and in the left occipital bone just to the right of midline. These findings should be considered secondary to neoplastic disease until proven otherwise. Recommendations as above. 2. The overall appearance of the whole body bone scan is otherwise stable. There is no acute bony abnormality identified either. Dictated by: Dictated on workstation # [id number]
== END ==
LOC: CARD 12:00
PROVIDERS: ATTEND Physician Assistant
DX: C64.9 Malignant neoplasm of unspecified kidney, except renal pelvis (principal)
CPT/HCPCS: 78306

== ENCOUNTER → 2018-10-07 | Outpatient (CLI) | payer MEDICARE, OTHER ==
[2018-10-07 19:45] LABS: HEMOGLOBIN 7.8 G/DL (11.5-16.0); MEAN PLATELET VOLUME 8.6 FL (7.4-10.4); RED BLOOD COUNT 2.57 10^6/uL (4.35-5.85); RED CELL DISTRIBUTION WIDTH 13.8 % (10.0-14.5); WHITE BLOOD COUNT 7.8 10^3/uL (4.3-11.0)
[2018-10-07 20:00] LABS: CALCIUM 9.3 MG/DL (8.5-10.1); CREATININE SERUM 1.42 MG/DL (0.60-1.30); POTASSIUM 3.8 MMOL/L (3.6-5.0)
== END ==
LOC: LAB 19:25
PROVIDERS: ATTEND Family Medicine
DX: C64.1 Malignant neoplasm of right kidney, except renal pelvis (principal)
CPT/HCPCS: 36415; 80048; 85027

== ENCOUNTER 2020-05-12 09:37 | Outpatient (RCR) | payer MEDICARE, OTHER ==
[~2020-05-12 09:37] MED LIST changes: +ACHYD1T PO; -HYDR-3820 PO
[2020-05-12 09:40] VITALS: BP 168/90
[2020-05-12] MEDS ORDERED: HEParin (CENTRAL IV FLUSH) 500 UNIT/5 ML SYR ONE (09:52)
[2020-05-12] MEDS ORDERED: HEParin (CENTRAL IV FLUSH) 500 UNIT/5 ML SYR IV ONE (10:15)
== END 2020-08-10 | disposition home or self-care (01) ==
LOC: SDC 09:37
PROVIDERS: ATTEND Specialist
DX: Z45.2 Encounter for adjustment and management of vascular access device (principal); C64.1 Malignant neoplasm of right kidney, except renal pelvis
CPT/HCPCS: 96523

== ENCOUNTER → 2020-06-04 | Outpatient (CLI) | payer MEDICARE, OTHER | END | disposition home or self-care (01) | LOC: PREOP 05:50 | PROVIDERS: ATTEND Surgery | DX: Z01.818 Encounter for other preprocedural examination (principal) ==

== ENCOUNTER 2020-09-08 05:31 | Outpatient (RCR) | payer MEDICARE, OTHER ==
[~2020-09-08] VITALS: Ht 167.7 cm; Wt 81.8 kg
[~2020-09-08 05:31] MED LIST changes: +FEXO180T84 PO; +LEVO75CA5 PO
== END 2020-09-08 09:55 | disposition home or self-care (01) ==
LOC: PREOP 05:31
PROVIDERS: ATTEND Surgery
DX: Z01.812 Encounter for preprocedural laboratory examination (principal); Z20.828 Contact with and (suspected) exposure to other viral communicable diseases
CPT/HCPCS: 87635

== ENCOUNTER 2020-09-10 09:02 | Day surgery (SDC) | payer MEDICARE, OTHER ==
--- NOTE | 2020-09-04 08:17 | HISTORY AND PHYSICAL ---
DATE OF SERVICE: DATE OF ADMISSION: 09/10/2020. PROCEDURE DATE: 09/10/2020. ATTENDING PRIMARY CARE PHYSICIAN: Dr. Cindy Valle. HISTORY OF PRESENT ILLNESS: This is a 65-year-old female, who we had seen to have her implantable Groshong catheter removed, which was done on 05/27/2020. 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 She underwent neoadjuvant chemotherapy initially with minimal response and underwent immunotherapy with a good response. She then underwent a right radical nephrectomy as well as a left kidney radiofrequency ablation in 09/2017 at the [facility]. Since that time, she has done well. She has had a colonoscopy in the past; however, was many years ago. She does not report any major issues with any diarrhea or constipation as well as no red blood per rectum nor any dark tarry stools. She does not report any family history of colon cancer. PAST MEDICAL HISTORY: Hypertension, diabetes and stage IV right renal cell cancer. PAST SURGICAL HISTORY: Right radical nephrectomy, left kidney radiofrequency ablation 09/2017, section in 1984 and tonsillectomy in 1957. FAMILY HISTORY: Father with leukemia and hypertension. SOCIAL HISTORY: Negative for smoking, negative for alcohol. ALLERGIES: SULFA, ERYTHROMYCIN and PENICILLIN. REVIEW OF SYSTEMS: This is a well-nourished female in no acute distress. She is not experiencing any shortness of breath or difficulty breathing. No chest pain, palpitations or diaphoresis. No nausea, vomiting or abdominal pain. No diarrhea or constipation. No red blood per rectum. No dark tarry stools. No fever or chills. No recent inadvertent weight loss. All other review of systems is negative. PHYSICAL EXAMINATION: VITAL SIGNS: Stable. Current weight is 195 pounds at 5 feet 6 inches. CHEST: Clear. Good breath sounds bilaterally. HEART: Regular and no murmurs. EXTREMITIES: No lower extremity edema. Negative Homans sign. HEENT: No scleral icterus. NECK: No cervical lymphadenopathy. ABDOMEN: Soft, nontender and nondistended. No palpable masses. No hernias identified. SKIN: Warm, dry and pink. ASSESSMENT AND PLAN: A 65-year-old female, who is in need of a screening colonoscopy with a personal history of stage IV right renal cell cancer. At this time, we will proceed with scheduling her for a screening colonoscopy. Job ID: [id number] DocumentID: [id number] Dictated Date: 09/03/2020 09:56:42 Contact Agent Date: 09/03/2020 10:26:05 Dictated By: DALIA ESTEVES APRN
[2020-09-10] VITALS (16 sets, daily range): BP systolic 105–186; BP diastolic 55–96
[~2020-09-10] VITALS: Ht 167.7 cm; Wt 81.8 kg
[2020-09-10] MEDS ORDERED: LIDOCAINE JELLY 2% 6 ML SYRINGE MM PRN (09:15)
[2020-09-10] MEDS ORDERED: MIDAZOLAM 5 MG/5 ML (VERSED) VIAL IV ONE (09:15)
[2020-09-10] MEDS ORDERED: NS IV 500 ML 500 ML IV PRN (09:15)
[2020-09-10] MEDS ORDERED: fentaNYL INJECTION 100 MCG/2 ML AMP IVP ONE (09:15)
[2020-09-10] MEDS ORDERED: LACTATED RINGERS 0 ML IV ONE (09:25)
[2020-09-10] MEDS ORDERED: NS IV 500 ML 500 ML ONE (09:26)
[2020-09-10] MEDS ORDERED: LIDOCAINE JELLY 2% 6 ML SYRINGE ONE (10:11)
[2020-09-10] MEDS ORDERED: MIDAZOLAM 5 MG/5 ML (VERSED) VIAL ONE ×2 (10:11→10:12)
[2020-09-10] MEDS ORDERED: fentaNYL INJECTION 100 MCG/2 ML AMP ONE ×2 (10:11)
--- NOTE | 2020-09-10 11:14 | Conscious Sedation/ASA ---
Conscious Sedation Pre-Proced Time 11:00 ASA Score 2 For ASA 3 and 4: Consider anesthesia and medical clearance. Also, for patients with a history of failed moderate sedation consider anesthesia. Airway Lungs Heart ASA score ASA 1: a normal healthy patient ASA 2: a patient with a mild systemic disease (mid diabetes, controlled hypertension, obesity ASA 3: a patient with a severe systemic disease that limits activity (angina, COPD, prior Myocardial infarction) ASA 4: a patient with an incapacitating disease that is a constant threat to life (CHF, renal failure) ASA 5: a moribund patient not expected to survive 24 hrs. (ruptured aneurysm) ASA 6: a declared brain- patient whose organs are being harvested. For emergent operations, add the letter E after the classification Mallampati Classification Grade 2 Sedation Plan Analgesia, Amnesia, Plan communicated to team members, Discussed options with patient/fam, Discussed risks with patient/fam The patient is an appropriate candidate to undergo the planned procedure, sedation, and anesthesia. The patient immediately re-assessed prior to indication. SARAH BETH MENDOZA MD Sep 10, 2020 11:14
[2020-09-10] MEDS ORDERED: ACETAMINOPHEN 325 MG TABLET PO PRN (11:15)
[2020-09-10] MEDS ORDERED: HYDROcodone/APAP 5 MG/325 MG (LORTAB) TAB PO PRN (11:15)
[2020-09-10] MEDS ORDERED: morphine INJ 10 MG/ML 1ML (SYR OR VIAL) IVP PRN ×2 (11:15)
[2020-09-10] MEDS ORDERED: ONDANSETRON 4 MG/2 ML (SDV) Z0FRAN IVP PRN (11:15)
--- NOTE | 2020-09-10 11:15 | Progress Note-Pre Operative ---
Pre-Operative Progress Note H&P Reviewed The H&P was reviewed, patient examined and no changes noted. Date Seen by Provider: Sep 10, 2020 Time Seen by Provider: 11:00 Date H&P Reviewed: Sep 10, 2020 Time H&P Reviewed: 11:00 Pre-Operative Diagnosis: screening SARAH BETH Reaves MD Sep 10, 2020 11:15
--- NOTE | 2020-09-10 11:16 | Discharge Inst-Surgical ---
D/C Lap Instructions-REJI Follow Up Appt in 2 weeks Activity as tolerated High Fiber Diet 25g or more per day Avoid Alcohol, Caffeine, Spicy [place] and Acid foods. Drink 64 fluid oz or more of fluids per day. Symptoms to Report: Fever over 101 degree F, Nausea/Vomiting If any problems/questions: Contact your physician or go to Emergency Room SARAH BETH MENDOZA MD Sep 10, 2020 11:16
--- NOTE | 2020-09-10 11:51 | Progress Note-Post Operative ---
Post-Operative Progess Note Surgeon (s)/Transfer Pumper (s) Surgeon SARAH BETH MENDOZA MD Transfer Pumper: none Pre-Operative Diagnosis screening colo Post-Operative Diagnosis mild chronic ext and int hemorrhoids. Procedure & Operative Findings Date of Procedure 09/10/20 Procedure Performed/Findings colonoscopy Anesthesia Type cs Estimated Blood Loss Estimated blood loss (mL): minimal Specimens/Packing Specimens Removed none SARAH BETH MENDOZA MD Sep 10, 2020 11:51
--- NOTE | 2020-09-10 18:45 | OPERATIVE REPORT ---
DATE OF SERVICE: 09/10/2020 ATTENDING PRIMARY CARE PHYSICIAN: Cindy Valle MD. PREOPERATIVE DIAGNOSIS: Screening colonoscopy with history of stage IV metastatic right renal cell cancer. POSTOPERATIVE DIAGNOSIS: Mild chronic stage II external and internal hemorrhoids and the remainder of the rectum and colon were normal. PROCEDURE PERFORMED: Colonoscopy. SURGEON: Sarah Beth Mendoza MD. ANESTHESIA: Conscious sedation. ESTIMATED BLOOD LOSS: Minimal. FINDINGS: Same as postoperative diagnosis. DISPOSITION: The patient tolerated the procedure well. INDICATIONS FOR PROCEDURE: The patient is a 65-year-old female known to us. We had removed her Groshong implantable catheter in May 2020. 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 She underwent neoadjuvant chemotherapy initially with minimal response and then underwent immunotherapy with a very good response. She then underwent a right radical nephrectomy as well as a left kidney radiofrequency ablation in 09/2017 at [facility]. Since that time, she has done well. She is in need of a screening colonoscopy. She states that she is otherwise doing well, does not report any major issues with diarrhea nor constipation as well as no red blood per rectum nor any dark tarry stools. She also does not report any family history of colon cancer. DESCRIPTION OF PROCEDURE: The patient was brought to the endoscopy suite and laid in the left lateral decubitus position. After adequate IV pain and sedative medications and conscious sedation anesthesia, a digital rectal examination was performed, which revealed mild chronic stage II external and internal hemorrhoids, not actively edematous nor inflamed and no bleeding. Normal sphincter tone was noted and there were no palpable masses. The endoscope was then intubated to the anus and rectum gently insufflated. The endoscope was then advanced to the valves of Cazares of the rectum with no polyps or any neoplasms identified. We then proceeded through the sigmoid colon, where no diverticulosis was identified. The endoscope was then advanced to the remainder of the descending, transverse and ascending colon into the cecum. These segments were normal. There were no polyps or any neoplasms identified throughout the colon or rectum. The endoscope was then slowly withdrawn while taking a second look and suctioning of residual air with no additional findings. The patient tolerated the procedure well. We will recommend continued medical management with a high fiber diet with at least 25 grams of fiber daily as well as significant amounts of water to promote soft stools on a daily basis. It is her choice , due to her history of cancer, she may proceed with followup colonoscopies every five years or if she becomes symptomatic. Job ID: [id number] DocumentID: [id number] Dictated Date: 09/10/2020 11:51:14 Art Teacher Date: 09/10/2020 18:43:49 Dictated By: SARAH BETH MENDOZA MD
== END 2020-09-10 13:10 | disposition home or self-care (01) ==
LOC: ENDO 09:02
PROVIDERS: ATTEND Surgery
DX: Z12.11 Encounter for screening for malignant neoplasm of colon (principal); K64.1 Second degree hemorrhoids; C64.9 Malignant neoplasm of unspecified kidney, except renal pelvis; C79.70 Secondary malignant neoplasm of unspecified adrenal gland; C79.00 Secondary malignant neoplasm of unspecified kidney and renal pelvis; C78.00 Secondary malignant neoplasm of unspecified lung; C79.51 Secondary malignant neoplasm of bone; I10 Essential (primary) hypertension; E11.9 Type 2 diabetes mellitus without complications; Z79.899 Other long term (current) drug therapy; Z88.0 Allergy status to penicillin; Z88.2 Allergy status to sulfonamides; Z88.1 Allergy status to other antibiotic agents; Z92.21 Personal history of antineoplastic chemotherapy; Z85.528 Personal history of other malignant neoplasm of kidney; Z80.6 Family history of leukemia
CPT/HCPCS: G0121 ×2; 82962

== ENCOUNTER → 2021-02-18 | Outpatient (CLI) | payer MEDICARE, OTHER ==
[~2021-02-18] MED LIST changes: +GADOBUTROL 10 MMOL/10 ML (GADAVIST) VIAL IV ONE
--- NOTE | 2021-02-19 12:19 | Diagnostic Imaging Report ---
PROCEDURE: MRI left joint lower extremity with and without contrast. TECHNIQUE: Multiplanar, multisequence pre and post contrast-enhanced MRI of the left lower extremity was accomplished. INDICATION: Renal cell carcinoma. COMPARISON: CT chest, abdomen and pelvis from 03/20/2018 and 06/16/2018. FINDINGS: The large destructive soft tissue mass located in left iliac wing has increased in size since most recent CT of 06/16/2018, but is similar in size to examination of 03/20/2018. On today's examination, this measures 9.4 x 9.4 x 5.4 cm. It has some mild heterogeneous enhancement showed with the mass. There is complete destruction of the majority of left iliac wing, although the ossific origins of the sartorius and rectus abdominis are not destroyed at this time. No pathologic fracture. There is also some T2 hyperintense enhancing edema within the left distal iliopsoas muscle which may be due to peritumoral edema and/or invasion. Within the remainder the pelvis there is no new osseous lesion present. No osteonecrosis of femoral heads. No regional lymphadenopathy. Numerous subcentimeter inguinal lymph nodes are present and likely reactive in nature. No features of diverticulitis. No free pelvic fluid. The left femur maintains normal marrow signal without metastasis or focal lesion. Below the level of the hip, the majority the musculature of the lower leg is normal. No regional lymphadenopathy. IMPRESSION: 1. Large soft tissue metastasis in the left iliac wing causes near complete destruction of left iliac wing. The origin of the sartorius and rectus femoris are not completely destroyed at this time. 2. Enhancing edema within the distal iliopsoas tendon may be due to direct tumor invasion. 3. No additional soft tissue or skeletal metastases in the pelvis or left femur. Dictated by: Dictated on workstation # [id number]
--- NOTE | 2021-02-19 12:20 | Diagnostic Imaging Report ---
PROCEDURE: MRI left lower extremity with and without contrast. TECHNIQUE: Multiplanar, multisequence pre and post contrast-enhanced MRI of the left pelvis, left hip and left thigh was accomplished. INDICATION: Renal cell carcinoma. COMPARISON: CT chest, abdomen and pelvis from 03/20/2018 and 06/16/2018. FINDINGS: The large destructive soft tissue mass located in left iliac wing has increased in size since most recent CT of 06/16/2018, but is similar in size to examination of 03/20/2018. On today's examination, this measures 9.4 x 9.4 x 5.4 cm. It has some mild heterogeneous enhancement showed with the mass. There is complete destruction of the majority of left iliac wing, although the ossific origins of the sartorius and rectus abdominis are not destroyed at this time. No pathologic fracture. There is also some T2 hyperintense enhancing edema within the left distal iliopsoas muscle which may be due to peritumoral edema and/or invasion. Within the remainder the pelvis there is no new osseous lesion present. No osteonecrosis of femoral heads. No regional lymphadenopathy. Numerous subcentimeter inguinal lymph nodes are present and likely reactive in nature. No features of diverticulitis. No free pelvic fluid. The left femur maintains normal marrow signal without metastasis or focal lesion. Below the level of the hip, the majority the musculature of the lower leg is normal. No regional lymphadenopathy. IMPRESSION: 1. Large soft tissue metastasis in the left iliac wing causes near complete destruction of left iliac wing. The origin of the sartorius and rectus femoris are not completely destroyed at this time. 2. Enhancing edema within the distal iliopsoas tendon may be due to direct tumor invasion. 3. No additional soft tissue or skeletal metastases in the pelvis or left femur. Dictated by: Dictated on workstation # [id number]
== END ==
LOC: RAD 15:22
PROVIDERS: ATTEND Family Medicine
DX: C41.9 Malignant neoplasm of bone and articular cartilage, unspecified (principal); C64.9 Malignant neoplasm of unspecified kidney, except renal pelvis
CPT/HCPCS: 73720; 73723

== ENCOUNTER → 2021-04-20 | Outpatient (CLI) | payer MEDICARE, OTHER ==
[~2021-04-20] MED LIST changes: +CATHETER FLUSH 10 ML SYR IV PRN; -GADOBUTROL 10 MMOL/10 ML (GADAVIST) VIAL IV ONE
[2021-04-20 12:05] LABS: ALBUMIN 4.4 GM/DL (3.2-4.5)
[2021-04-20 12:06] LABS: POTASSIUM 4.8 MMOL/L (3.6-5.0)
[2021-04-20 12:07] LABS: CALCIUM 9.5 MG/DL (8.5-10.1)
[2021-04-20 12:08] LABS: TOTAL PROTEIN 8.1 GM/DL (6.4-8.2)
[2021-04-20 12:10] LABS: BILIRUBIN,TOTAL 0.3 MG/DL (0.1-1.0)
[2021-04-20 12:12] LABS: CREATININE SERUM 1.86 MG/DL (0.60-1.30)
--- NOTE | 2021-04-20 18:36 | Diagnostic Imaging Report ---
PROCEDURE: CT chest, abdomen, and pelvis without contrast. TECHNIQUE: Multiple contiguous axial images were obtained through the chest, abdomen, and pelvis without the use of intravenous contrast. Auto Exposure Controls were utilized during the CT exam to meet ALARA standards for radiation dose reduction. INDICATION: Metastatic renal cell carcinoma. COMPARISON: Exam is compared with study 06/16/2018. FINDINGS: CHEST: There is a tiny 5 mm juxtapleural nodule in the right lung associated with the minor fissure. This may be minimally larger than on prior, but this in part is likely reflective of slice localization. It is favored to reflect a benign intramammary lymph node, and there are no suspicious lung masses or findings felt suggestive of pulmonary parenchymal involvement by metastatic disease. Cardiomegaly is present with increasing pericardial effusion which along the right heart border now measures 13 mm. The densely benign calcified nodule in the left lower lung adherent to the posterior pericardium and inferior pulmonary hilum is unchanged. Coronary atherosclerotic vascular calcifications are chronic. Thoracic aorta is nonaneurysmal. No suspicious lymph nodes in the john, mediastinum, or axillae. No suspicious lytic or sclerotic thoracic bony lesion. No chest wall mass. ABDOMEN AND PELVIS: Since the previous, there has been interval right nephrectomy with no mass or fluid collection within the nephrectomy bed. However, a hyperdense mass effect has developed in the mid third of the left renal cortex measuring roughly 5.0 x 4.4 cm. When the previous contrast-enhanced exam is reviewed, this area appeared completely normal on the previous. Therefore, it is doubtful that this is owing to a complex hemorrhagic cyst having developed and is felt more suspicious for a solid mass. If this patient cannot tolerate iodinated contrast, sonographic interrogation recommended to assess its solid versus complex cystic character. As an alternative, contrast-enhanced abdominal MRI may be of benefit. Again, newly developed left renal cell carcinoma is suspected. The left adrenal nodularity present on the prior has resolved. I cannot identify the right adrenal which may be surgically absent. There is a tiny gallstone near the gallbladder neck. No secondary findings of acute cholecystitis. The liver parenchyma shows some scattered benign granulomatous foci, but no suspicious mass. Spleen is normal in size. Pancreas appeared negative. The aorta is nonaneurysmal. The lytic expansile destructive lesion in the left iliac bone once again identified. Its soft tissue component has increased in size and thickness. The soft tissue element measures axial dimensions 11.1 x 6.1 cm, previously 7.8 x 5.2 cm. No new suspected bony lesion. IMPRESSION: CHEST: Small but enlarging pericardial effusion with similar cardiomegaly. Interfissural nodule on the right, likely intramammary lymph node. No convincing evidence for soft tissue metastatic disease to the chest with unchanged right ninth rib lesion. ABDOMEN: 1. Interval right nephrectomy and likely adrenalectomy. New mass at midpole left kidney, 5 cm maximal, suspicious for newly developed left renal cell carcinoma. Correlative contrast-enhanced MR abdomen versus sonographic interrogation, however, recommended as it is conceivable but less likely that this reflects a large complex hemorrhagic cyst. 2. Resolution of previous left adrenal mass. 3. Soft tissue component associated with destructive left iliac bone lesion has enlarged. No new bony metastatic deposit suspected. Dictated by: Dictated on workstation # [id number]
--- NOTE | 2021-04-20 19:28 | Diagnostic Imaging Report ---
INDICATION: Left hip pain. Compared with whole-body bone scan 06/16/[address] performed earlier this same date. TECHNIQUE: This patient received intravenous dose of 24.2 mCi technetium 99 MDP FINDINGS: Abnormal uptake elevated along the inferior margins of the known expansile lytic lesion in the left innominate bone is once again identified. The uptake appears more pronounced than on prior and sonographically as well as at CT this lesion has increased. The right kidney is intervally surgically absent. The left kidney sonographically was unobstructed. Sternomanubrium, spine, calvarium, ribs and extremities unremarkable. We note interval resolution of previous abnormal calvarial uptake. IMPRESSION: Lytic lesion left iliac bone shows enlargement of its destruction and soft tissue component at earlier CT. Sonographically, this shows more conspicuous elevated uptake along its inferior margin. Resolution of abnormal calvarial uptake. No new sites. The remaining structures stable and unremarkable aside from interval right nephrectomy. Dictated by: Dictated on workstation # [id number]
== END ==
LOC: CARD 12:00
PROVIDERS: ATTEND Specialist
DX: N28.89 Other specified disorders of kidney and ureter (principal); E27.9 Disorder of adrenal gland, unspecified; M89.9 Disorder of bone, unspecified; C64.1 Malignant neoplasm of right kidney, except renal pelvis; Z90.5 Acquired absence of kidney
CPT/HCPCS: 71250; 74176; 78306; 80053; A9503; 36415

== ENCOUNTER → 2021-07-02 | Outpatient (CLI) | payer MEDICARE, OTHER ==
[~2021-07-02] MED LIST changes: +HOLD METFORMIN - RECEIVED CONTRAST 20 ML VIAL IV SCH; +IOHEXOL 350 MG/ML 100 ML (OMNIPAQUE 350) VIAL IV ONE; +NS 100 ML (IVPB) BAG IV ONE
--- NOTE | 2021-07-02 15:39 | Diagnostic Imaging Report ---
PROCEDURE: CT head with and without contrast. TECHNIQUE: Multiple contiguous axial images were obtained through the brain before and after the administration of intravenous contrast. Auto Exposure Controls were utilized during the CT exam to meet ALARA standards for radiation dose reduction. INDICATION: Fall, hit back of head. History of bone cancer removed from the left frontal region. COMPARISON: CT head without contrast 03/01/2017. FINDINGS: No intracranial hemorrhage, mass effect, hydrocephalus or extra-axial fluid collections. No CT evidence of a territorial infarction. No abnormal intracranial enhancement. No fractures. Thinning of the left frontal calvarium is presumably related to the reported history of postoperative change. The visualized paranasal sinuses and mastoids are clear. IMPRESSION: 1. No acute intracranial CT findings. 2. No abnormal intracranial enhancement. Voicemail message left at [phone] at 03:38 PM 07/02/2021/cb Dictated by: Dictated on workstation # [id number]
== END ==
LOC: RAD 13:58
PROVIDERS: ATTEND Internal Medicine Hematology & Oncology
DX: D49.519 Neoplasm of unspecified behavior of unspecified kidney (principal); R26.89 Other abnormalities of gait and mobility; Z85.830 Personal history of malignant neoplasm of bone; W19.XXXA Unspecified fall, initial encounter
CPT/HCPCS: 70470

== ENCOUNTER 2021-07-06 09:31 | Outpatient (RCR) | payer MEDICARE, OTHER ==
[2021-05-14 14:02] LABS: BASOPHILS % (AUTO) 1 % (0-10); EOSINOPHILS # (AUTO) 0.2 10^3/uL (0.0-0.3); EOSINOPHILS % (AUTO) 5 % (0-10); HEMATOCRIT 34 % (35-52); HEMOGLOBIN 10.9 g/dL (11.5-16.0); LYMPHOCYTES # (AUTO) 0.5 10^3/uL (1.0-4.0); LYMPHOCYTES % (AUTO) 12 % (12-44); MEAN CORPUSCULAR HEMOGLOBIN 30 pg (25-34); MEAN CORPUSCULAR HGB CONC 32 g/dL (32-36); MEAN CORPUSCULAR VOLUME 94 fL (80-99); MEAN PLATELET VOLUME 8.6 fL (9.0-12.2); MONOCYTES # (AUTO) 0.5 10^3/uL (0.0-1.0); MONOCYTES % (AUTO) 11 % (0-12); NEUTROPHILS # (AUTO) 2.9 10^3/uL (1.8-7.8); NEUTROPHILS % (AUTO) 71 % (42-75); PLATELET COUNT 198 10^3/uL (130-400); WHITE BLOOD COUNT 4.1 10^3/uL (4.3-11.0)
[2021-05-14 14:22] LABS: ALBUMIN 4.3 GM/DL (3.2-4.5); BILIRUBIN,TOTAL 0.3 MG/DL (0.1-1.0); CALCIUM 11.1 MG/DL (8.5-10.1); CREATININE SERUM 1.49 MG/DL (0.60-1.30); POTASSIUM 4.6 MMOL/L (3.6-5.0)
[2021-06-24 15:29] LABS: BASOPHILS % (AUTO) 0 % (0-10); EOSINOPHILS # (AUTO) 0.1 10^3/uL (0.0-0.3); EOSINOPHILS % (AUTO) 2 % (0-10); HEMATOCRIT 37 % (35-52); HEMOGLOBIN 12.5 g/dL (11.5-16.0); LYMPHOCYTES # (AUTO) 0.5 X 10^3 (1.0-4.0); LYMPHOCYTES % (AUTO) 7 % (12-44); MEAN CORPUSCULAR HEMOGLOBIN 30 pg (25-34); MEAN CORPUSCULAR HGB CONC 34 g/dL (32-36); MEAN CORPUSCULAR VOLUME 87 fL (80-99); MEAN PLATELET VOLUME 8.5 fL (9.0-12.2); MONOCYTES # (AUTO) 0.6 X 10^3 (0.0-1.0); MONOCYTES % (AUTO) 8 % (0-12); NEUTROPHILS # (AUTO) 5.9 X 10^3 (1.8-7.8); NEUTROPHILS % (AUTO) 82 % (42-75); PLATELET COUNT 173 10^3/uL (130-400); WHITE BLOOD COUNT 7.2 10^3/uL (4.3-11.0)
[2021-06-24 15:47] LABS: CALCIUM 9.9 MG/DL (8.5-10.1); CREATININE SERUM 1.51 MG/DL (0.60-1.30)
[2021-06-24 16:10] LABS: ATYPICAL LYMPHOCYTES 1 %; EOSINOPHILS % (MANUAL) 1 %; LYMPHOCYTES % (MANUAL) 9 %; MICROCYTOSIS SLIGHT; MONOCYTES % (MANUAL) 13 %; NEUTROPHILS % (MANUAL) 76 %; POLYCHROMASIA SLIGHT
[2021-06-30 15:04] LABS: BILIRUBIN,URINE NEGATIVE (NEGATIVE); CLARITY,URINE CLEAR; COLOR,URINE YELLOW; GLUCOSE, URINE (UA) NEGATIVE (NEGATIVE); KETONES,URINE NEGATIVE (NEGATIVE); LEUKOCYTE ESTERASE ,URINE 1+ (NEGATIVE); NITRITE,URINE NEGATIVE (NEGATIVE); PROTEIN,URINE 2+ (NEGATIVE)
[2021-06-30 15:11] LABS: BACTERIA,URINE NEGATIVE /HPF; RENAL EPITHELIAL CELLS,URINE 0-2 /HPF; SQUAMOUS EPITHELIAL CELL,UR 0-2 /HPF
[~2021-07-06] VITALS: Ht 170.2 cm; Wt 86.2 kg
[~2021-07-06 09:31] MED LIST changes: -CATHETER FLUSH 10 ML SYR IV PRN; -HOLD METFORMIN - RECEIVED CONTRAST 20 ML VIAL IV SCH; -IOHEXOL 350 MG/ML 100 ML (OMNIPAQUE 350) VIAL IV ONE; -NS 100 ML (IVPB) BAG IV ONE; +NS IV 1000 ML (CANCER CTR) IV SCH; +PEMBROLIZUMAB 200 MG in NS (IVPB) CANCER CENTER 50 ML IV SCH
[2021-07-06 10:07] LABS: BASOPHILS % (AUTO) 0 % (0-10); EOSINOPHILS # (AUTO) 0.1 10^3/uL (0.0-0.3); EOSINOPHILS % (AUTO) 2 % (0-10); HEMATOCRIT 33 % (35-52); HEMOGLOBIN 10.8 g/dL (11.5-16.0); LYMPHOCYTES # (AUTO) 0.4 10^3/uL (1.0-4.0); LYMPHOCYTES % (AUTO) 6 % (12-44); MEAN CORPUSCULAR HEMOGLOBIN 29 pg (25-34); MEAN CORPUSCULAR HGB CONC 32 g/dL (32-36); MEAN CORPUSCULAR VOLUME 91 fL (80-99); MEAN PLATELET VOLUME 8.6 fL (9.0-12.2); MONOCYTES # (AUTO) 0.4 10^3/uL (0.0-1.0); MONOCYTES % (AUTO) 6 % (0-12); NEUTROPHILS # (AUTO) 5.9 10^3/uL (1.8-7.8); NEUTROPHILS % (AUTO) 86 % (42-75); PLATELET COUNT 232 10^3/uL (130-400); WHITE BLOOD COUNT 6.9 10^3/uL (4.3-11.0)
[2021-07-06 10:52] LABS: ALBUMIN 3.8 GM/DL (3.2-4.5); BILIRUBIN,TOTAL 0.4 MG/DL (0.1-1.0); CALCIUM 9.5 MG/DL (8.5-10.1); CREATININE SERUM 1.53 MG/DL (0.60-1.30); POTASSIUM 4.4 MMOL/L (3.6-5.0); TOTAL PROTEIN 7.5 GM/DL (6.4-8.2)
== END 2021-07-22 | disposition home or self-care (01) ==
LOC: ONC 09:31
PROVIDERS: ATTEND Nurse Practitioner Adult Health
DX: Z51.11 Encounter for antineoplastic chemotherapy (principal); Z51.0 Encounter for antineoplastic radiation therapy; C64.9 Malignant neoplasm of unspecified kidney, except renal pelvis; C79.51 Secondary malignant neoplasm of bone; G89.3 Neoplasm related pain (acute) (chronic)
CPT/HCPCS: 77300; 77301; 77334; 77338; G0463; 36415; 77290; 77336; 77386; 80048; 80053; 81000; 83615; 84443; 85007; 85025; 85027; 87088; 96360; 96413; 99204; 99213; 99214

== ENCOUNTER 2021-09-07 09:06 | Outpatient (RCR) | payer MEDICARE, OTHER ==
[2021-07-27 09:27] LABS: BASOPHILS % (AUTO) 1 % (0-10); EOSINOPHILS # (AUTO) 0.2 10^3/uL (0.0-0.3); EOSINOPHILS % (AUTO) 3 % (0-10); HEMATOCRIT 33 % (35-52); HEMOGLOBIN 10.5 g/dL (11.5-16.0); LYMPHOCYTES # (AUTO) 0.5 10^3/uL (1.0-4.0); LYMPHOCYTES % (AUTO) 8 % (12-44); MEAN CORPUSCULAR HEMOGLOBIN 29 pg (25-34); MEAN CORPUSCULAR HGB CONC 32 g/dL (32-36); MEAN CORPUSCULAR VOLUME 91 fL (80-99); MEAN PLATELET VOLUME 8.9 fL (9.0-12.2); MONOCYTES # (AUTO) 0.4 10^3/uL (0.0-1.0); MONOCYTES % (AUTO) 7 % (0-12); NEUTROPHILS # (AUTO) 4.3 10^3/uL (1.8-7.8); NEUTROPHILS % (AUTO) 80 % (42-75); PLATELET COUNT 246 10^3/uL (130-400); WHITE BLOOD COUNT 5.4 10^3/uL (4.3-11.0)
[2021-07-27 10:04] LABS: ALBUMIN 4.1 GM/DL (3.2-4.5); BILIRUBIN,TOTAL 0.4 MG/DL (0.1-1.0); CALCIUM 9.5 MG/DL (8.5-10.1); CREATININE SERUM 1.64 MG/DL (0.60-1.30); POTASSIUM 4.5 MMOL/L (3.6-5.0); TOTAL PROTEIN 7.9 GM/DL (6.4-8.2)
[2021-08-17 09:45] LABS: BASOPHILS % (AUTO) 0 % (0-10); EOSINOPHILS # (AUTO) 0.2 10^3/uL (0.0-0.3); EOSINOPHILS % (AUTO) 3 % (0-10); HEMATOCRIT 31 % (35-52); HEMOGLOBIN 10.4 g/dL (11.5-16.0); LYMPHOCYTES # (AUTO) 0.5 X 10^3 (1.0-4.0); LYMPHOCYTES % (AUTO) 10 % (12-44); MEAN CORPUSCULAR HEMOGLOBIN 30 pg (25-34); MEAN CORPUSCULAR HGB CONC 33 g/dL (32-36); MEAN CORPUSCULAR VOLUME 89 fL (80-99); MEAN PLATELET VOLUME 8.8 fL (9.0-12.2); MONOCYTES # (AUTO) 0.4 X 10^3 (0.0-1.0); MONOCYTES % (AUTO) 7 % (0-12); NEUTROPHILS # (AUTO) 4.2 X 10^3 (1.8-7.8); NEUTROPHILS % (AUTO) 79 % (42-75); PLATELET COUNT 252 10^3/uL (130-400); WHITE BLOOD COUNT 5.3 10^3/uL (4.3-11.0)
[2021-08-17 10:19] LABS: ALBUMIN 4.1 GM/DL (3.2-4.5); BILIRUBIN,TOTAL 0.3 MG/DL (0.1-1.0); CALCIUM 9.8 MG/DL (8.5-10.1); CREATININE SERUM 1.75 MG/DL (0.60-1.30); POTASSIUM 4.6 MMOL/L (3.6-5.0)
[2021-09-07 10:09] LABS: BASOPHILS % (AUTO) 1 % (0-10); EOSINOPHILS # (AUTO) 0.2 10^3/uL (0.0-0.3); EOSINOPHILS % (AUTO) 3 % (0-10); HEMATOCRIT 35 % (35-52); HEMOGLOBIN 11.3 g/dL (11.5-16.0); LYMPHOCYTES # (AUTO) 0.5 10^3/uL (1.0-4.0); LYMPHOCYTES % (AUTO) 9 % (12-44); MEAN CORPUSCULAR HEMOGLOBIN 29 pg (25-34); MEAN CORPUSCULAR HGB CONC 32 g/dL (32-36); MEAN CORPUSCULAR VOLUME 90 fL (80-99); MEAN PLATELET VOLUME 8.7 fL (9.0-12.2); MONOCYTES # (AUTO) 0.4 10^3/uL (0.0-1.0); MONOCYTES % (AUTO) 6 % (0-12); NEUTROPHILS # (AUTO) 4.6 10^3/uL (1.8-7.8); NEUTROPHILS % (AUTO) 81 % (42-75); PLATELET COUNT 234 10^3/uL (130-400); WHITE BLOOD COUNT 5.6 10^3/uL (4.3-11.0)
[2021-09-07 10:46] LABS: ALBUMIN 4.1 GM/DL (3.2-4.5); BILIRUBIN,TOTAL 0.4 MG/DL (0.1-1.0); CALCIUM 9.7 MG/DL (8.5-10.1); CREATININE SERUM 1.78 MG/DL (0.60-1.30); POTASSIUM 4.5 MMOL/L (3.6-5.0)
== END 2021-09-25 | disposition home or self-care (01) ==
LOC: ONC 09:06
PROVIDERS: ATTEND Internal Medicine Hematology & Oncology
DX: Z51.11 Encounter for antineoplastic chemotherapy (principal); C64.9 Malignant neoplasm of unspecified kidney, except renal pelvis; C79.51 Secondary malignant neoplasm of bone; Z98.890 Other specified postprocedural states; Z79.899 Other long term (current) drug therapy
CPT/HCPCS: 80053; 83615; 84443; 85025; 96413; G0463; 36415; 96411

== ENCOUNTER 2021-09-28 09:26 | Outpatient (RCR) | payer MEDICARE, OTHER ==
[2021-09-28 09:19] LABS: BASOPHILS % (AUTO) 0 % (0-10); EOSINOPHILS # (AUTO) 0.1 10^3/uL (0.0-0.3); EOSINOPHILS % (AUTO) 2 % (0-10); HEMATOCRIT 37 % (35-52); HEMOGLOBIN 12.2 g/dL (11.5-16.0); LYMPHOCYTES # (AUTO) 0.7 10^3/uL (1.0-4.0); LYMPHOCYTES % (AUTO) 11 % (12-44); MEAN CORPUSCULAR HEMOGLOBIN 29 pg (25-34); MEAN CORPUSCULAR HGB CONC 33 g/dL (32-36); MEAN CORPUSCULAR VOLUME 89 fL (80-99); MEAN PLATELET VOLUME 8.6 fL (9.0-12.2); MONOCYTES # (AUTO) 0.4 10^3/uL (0.0-1.0); MONOCYTES % (AUTO) 7 % (0-12); NEUTROPHILS # (AUTO) 4.6 10^3/uL (1.8-7.8); NEUTROPHILS % (AUTO) 78 % (42-75); PLATELET COUNT 205 10^3/uL (130-400); WHITE BLOOD COUNT 5.9 10^3/uL (4.3-11.0)
[2021-09-28 09:35] LABS: ALBUMIN 4.3 GM/DL (3.2-4.5); BILIRUBIN,TOTAL 0.4 MG/DL (0.1-1.0); CREATININE SERUM 1.92 MG/DL (0.60-1.30); POTASSIUM 4.7 MMOL/L (3.6-5.0); TOTAL PROTEIN 8.4 GM/DL (6.4-8.2)
[2021-10-14] MEDS ORDERED: IRBE150T23 PO (10:11)
[2021-10-14] MEDS ORDERED: LEVO88TA68 PO (10:11)
[2021-10-14] MEDS ORDERED: METF-399 PO (10:11)
[2021-10-14] MEDS ORDERED: AMLO-251 PO (10:11)
[2021-10-15] MEDS ORDERED: ACHD5005 PO (09:52)
== END 2021-10-26 | disposition home or self-care (01) ==
LOC: ONC 09:26
PROVIDERS: ATTEND Internal Medicine Hematology & Oncology
DX: Z51.11 Encounter for antineoplastic chemotherapy (principal); C64.9 Malignant neoplasm of unspecified kidney, except renal pelvis; C79.51 Secondary malignant neoplasm of bone; Z98.890 Other specified postprocedural states; Z79.899 Other long term (current) drug therapy
CPT/HCPCS: 80053; 83615; 84443; 85025; 96413; G0463; 36415; 99213

== ENCOUNTER 2021-10-14 09:55 | Outpatient (CLI) | payer MEDICARE, OTHER ==
[~2021-10-14] VITALS: Ht 167.6 cm; Wt 87.5 kg
[~2021-10-14 09:55] MED LIST changes: -NS IV 1000 ML (CANCER CTR) IV SCH; -PEMBROLIZUMAB 200 MG in NS (IVPB) CANCER CENTER 50 ML IV SCH
[2021-10-14] MEDS ORDERED: LEVO88TA68 PO (10:11)
[2021-10-14] MEDS ORDERED: IRBE150T23 PO (10:11)
[2021-10-14] MEDS ORDERED: AMLO-251 PO (10:11)
[2021-10-14] MEDS ORDERED: METF-399 PO (10:11)
[2021-10-15] MEDS ORDERED: ACHD5005 PO (09:52)
== END 2021-10-14 10:45 | disposition home or self-care (01) ==
LOC: PREOP 09:55
PROVIDERS: ATTEND Surgery
DX: Z01.818 Encounter for other preprocedural examination (principal)

== ENCOUNTER 2021-10-15 08:17 | Day surgery (SDC) | payer MEDICARE, OTHER ==
[2021-10-15] VITALS (8 sets, daily range): BP systolic 123–174; BP diastolic 68–98
[~2021-10-15] VITALS: Ht 167.6 cm; Wt 87.5 kg
[~2021-10-15 08:17] MED LIST changes: +AMLO-251 PO; +IRBE150T23 PO; +LEVO88TA68 PO; +METF-399 PO
[2021-10-15] MEDS ORDERED: CLINDAMYCIN 600 MG/50 ML IVPB 50 ML IV ONE (08:30)
[2021-10-15] MEDS ORDERED: HEParin (CENTRAL IV FLUSH) 500 UNIT/5 ML SYR ONE (08:53)
[2021-10-15] MEDS ORDERED: LIDOCAINE/EPI 1%-1:200,000 (XYLOCAINE) 30 ML VIAL ONE (08:53)
[2021-10-15] MEDS ORDERED: 0.9% SODIUM CHLORIDE PF INJ 20 ML VIAL ONE (08:53)
[2021-10-15] MEDS ORDERED: LACTATED RINGERS 1,000 ML IV PRN (09:00)
--- NOTE | 2021-10-15 09:48 | Progress Note-Pre Operative ---
Pre-Operative Progress Note H&P Reviewed The H&P was reviewed, patient examined and no changes noted. Date Seen by Provider: Oct 15, 2021 Time Seen by Provider: 09:45 Date H&P Reviewed: Oct 15, 2021 Time H&P Reviewed: 09:40 Pre-Operative Diagnosis: Metastatic renal cell cancer DALIA ESTEVES APRN Oct 15, 2021 09:48
[2021-10-15] MEDS ORDERED: ACHD5005 PO (09:52)
--- NOTE | 2021-10-15 09:52 | Discharge Inst-Surgical ---
D/C Lap Instructions-KIDO Reconcile Patient Problems Problems Reviewed?: Yes New, Converted, or Re-Newed RX: RX on Chart Follow Up Appt as needed Activity as tolerated No driving for 24 hours No driving while on pain medications Regular Diet Symptoms to Report: Fever over 101 degree F, Nausea/Vomiting Infection Signs and Symptoms to report: Increased redness, Foul odor of wound, Increased drainage Bathing instructions: May shower Operative Area Clean/Dry; Keep incision clean/dry If any problems/questions: Contact your physician or go to Emergency Room DALIA ESTEVES APRN Oct 15, 2021 09:52
[2021-10-15] MEDS ORDERED: fentaNYL INJ 100 MCG/2 ML AMP IVP PRN (10:00)
[2021-10-15] MEDS ORDERED: ACETAMINOPHEN 325 MG TABLET PO PRN (10:00)
[2021-10-15] MEDS ORDERED: ONDANSETRON 4 MG/2 ML (SDV) Z0FRAN IVP PRN ×2 (10:00→12:15)
[2021-10-15] MEDS ORDERED: HYDROcodone/APAP 5 MG/325 MG (LORTAB) TAB PO ONE (10:00)
[2021-10-15] MEDS ORDERED: PROPOFOL INJECTION 50 ML IV ONE (10:53)
[2021-10-15] MEDS ORDERED: ONDANSETRON 4 MG/2 ML (SDV) Z0FRAN ONE (10:53)
[2021-10-15] MEDS ORDERED: MIDAZOLAM 2 MG/2 ML (VERSED) VIAL ONE (10:53)
[2021-10-15] MEDS ORDERED: ceFAZolin INJECTION 2,000 MG ONE (11:11)
[2021-10-15] MEDS: ceFAZolin INJECTION 1,000 MG VIAL IV ONE (11:13)
[2021-10-15] MEDS ORDERED: proPOfol 200 MG/20 ML (DIPRIVAN) VIAL IV ONE (11:43)
--- NOTE | 2021-10-15 11:55 | Progress Note-Post Operative ---
Post-Operative Progess Note Surgeon (s)/Hospital Mortician (s) Surgeon SARAH BETH MENDOZA MD Hospital Mortician: andrea bowen MANAGER BUSINESS MANAGEMENT Pre-Operative Diagnosis Metastatic renal cell cancer Post-Operative Diagnosis same Procedure & Operative Findings Date of Procedure 10/15/21 Procedure Performed/Findings left subclavian groshong implantable catheter under flouroscopy. Anesthesia Type mac with local Estimated Blood Loss Estimated blood loss (mL): minimal Specimens/Packing Specimens Removed none SARAH BETH MENDOZA MD Oct 15, 2021 11:55
--- NOTE | 2021-10-15 12:07 | Anesthesia-General Post-Op ---
MAC Patient Condition Mental Status/LOC: Same as Preop Cardiovascular: Satisfactory Nausea/Vomiting: Absent Respiratory: Satisfactory Pain: Controlled Complications: Absent Post Op Complications Complications None Follow Up Care/Instructions Patient Instructions None needed. Anesthesiology Discharge Order Discharge Order Patient is doing well, no complaints, stable vital signs, no apparent adverse anesthesia problems. No complications reported per nursing. YESICA LEDEZMA CRNA Oct 15, 2021 12:07
[2021-10-15] MEDS ORDERED: MEPERIDINE (DEMEROL) INJ 50 MG/ML IVP ONE (12:15)
[2021-10-15] MEDS: morphine INJ 10 MG/ML 1ML (SYR OR VIAL) IVP ONE ×2 (12:17→12:22)
[2021-10-15] MEDS ORDERED: morphine INJ 10 MG/ML 1ML (SYR OR VIAL) ONE (12:19)
--- NOTE | 2021-10-15 12:20 | Diagnostic Imaging Report ---
INDICATION: Postop Port-A-Cath placement. Frontal chest obtained at 12:00 p.m. FINDINGS: There is cardiomegaly. Port-A-Cath is seen over the left chest with catheter tip overlying the SVC. There is no pneumothorax or pleural fluid or focal infiltrate. Calcified node in the retrocardiac region appears unchanged from CT of 04/20/2021. IMPRESSION: Cardiomegaly. New Port-A-Cath in place. No pneumothorax or pleural fluid or focal infiltrate. Dictated by: Dictated on workstation # [id number]
--- NOTE | 2021-10-15 12:28 | Diagnostic Imaging Report ---
INDICATION: Groshong catheter placement. TIME OF EXAM: 11:46 AM Fluoroscopy was provided in the OR during Groshong catheter placement. A single image was obtained. 41 seconds of fluoroscopic time was utilized. A single image shows a catheter with tip overlying SVC. IMPRESSION: Fluoroscopy for Groshong catheter placement. Dictated by: Dictated on workstation # [id number]
--- NOTE | 2021-10-15 14:17 | OPERATIVE REPORT ---
DATE OF SERVICE: 10/15/2021 ATTENDING PRIMARY CARE PHYSICIAN: Cindy Valle MD. PREOPERATIVE DIAGNOSIS: Metastatic right renal cell cancer. POSTOPERATIVE DIAGNOSIS: Metastatic right renal cell cancer. PROCEDURE PERFORMED: Placement of left subclavian Groshong implantable catheter under fluoroscopy. SURGEON: Sarah Beth Mendoza MD. ANESTHESIA: Monitored anesthesia care with local. ESTIMATED BLOOD LOSS: Minimal. FINDINGS: Catheter tip at superior vena caval - right atrial junction. DISPOSITION: The patient tolerated the procedure well. INDICATIONS FOR PROCEDURE: The patient is a 66-year-old female, who was found to have a metastatic right renal cell cancer with metastasis to the contralateral kidney and adrenal gland. She underwent a radical right nephrectomy as well as underwent chemotherapy and immunotherapy. She did well for several years; however, did develop some pain in the left hip and was found to have a metastatic deposit. She is back on immunotherapy and has been receiving this; however, at this point, it does have poor peripheral venous circulation and will require a Groshong implantable catheter. DESCRIPTION OF PROCEDURE: The patient was brought to the operating room and laid supine on the table. After adequate IV pain and sedative medications and monitored anesthesia care, the patient's chest and neck were prepped and draped in a standard surgical fashion. A 1% lidocaine with epinephrine was used to anesthetize the left subclavian region. The patient was then placed in Trendelenburg position and the left subclavian vein was then cannulated withdrawing the venous blood. The guidewire was then inserted under fluoroscopy. The cannulating needle was removed and a skin incision was made using a 15 blade. The dilator and sheath were then introduced over the guidewire and the dilator and guidewire were then removed and the Groshong catheter was placed through the sheath until this catheter tip was at the superior vena caval - right atrial junction. The sheath was then removed. The inner wire within the catheter was removed, the catheter cut down to size and port placed onto the catheter. The chest reservoir was then created by extending the skin incision laterally using a 15 blade. A plane between the subcutaneous fat and the anterior pectoralis fascia was then created using blunt dissection as well as electrocautery with visualization of good hemostasis. The port was then placed into the reservoir and sutured to the anterior pectoralis fascia using 3-0 Vicryl interrupted sutures. The subcutaneous tissue was then reapproximated with the same suture and the skin was closed using 4-0 Monocryl running subcuticular suture. Wound was then cleaned and covered with Dermabond. The patient tolerated the procedure well. We will start IV. We will get a post-procedure chest x-ray once confirmation of placement, the port may be accessed and used any time. Job ID: [id number] DocumentID: [id number] Dictated Date: 10/15/2021 12:07:46 Soccer Commentator Date: 10/15/2021 14:16:50 Dictated By: SARAH BETH MENDOZA MD
== END 2021-10-15 13:53 | disposition home or self-care (01) ==
LOC: SDC 08:17
PROVIDERS: ATTEND Surgery
DX: C64.1 Malignant neoplasm of right kidney, except renal pelvis (principal); C79.71 Secondary malignant neoplasm of right adrenal gland; C79.51 Secondary malignant neoplasm of bone; C78.00 Secondary malignant neoplasm of unspecified lung; C79.02 Secondary malignant neoplasm of left kidney and renal pelvis; I10 Essential (primary) hypertension; E11.9 Type 2 diabetes mellitus without complications; E03.9 Hypothyroidism, unspecified; Z90.5 Acquired absence of kidney; Z79.84 Long term (current) use of oral hypoglycemic drugs; Z79.899 Other long term (current) drug therapy
CPT/HCPCS: 36561; 71045; 76000; 82947; 87081; C1788

== ENCOUNTER → 2021-11-10 | Outpatient (CLI) | payer MEDICARE, OTHER ==
[~2021-11-10] MED LIST changes: +ACHD5005 PO
--- NOTE | 2021-11-10 15:28 | Diagnostic Imaging Report ---
Nuclear medicine bone scan INDICATION: Hip pain This study was performed following administration of 26.2 mCi of 99m technetium MDP. Anterior and posterior whole body images were obtained. The previous nuclear medicine bone scan performed on 04/20/2021 noted abnormal uptake along the inferior margin of the known expansile lytic lesion involving the left innominate bone. On this exam, there does not appear to be as intense uptake along the inferior margin of the lytic lesion than was seen on the prior exam. The prominent lytic lesion itself does not appear to have changed significantly in size. There is no other abnormal uptake to suggest neoplastic disease. As noted on the prior exam, there is excretion of the radiotracer by the solitary left kidney. IMPRESSION: 1. The large lytic lesion involving the left innominate bone seen previously is again evident. However, there is less uptake on the inferior margin of the lesion than on the prior study. 2. There is no new area of abnormal uptake to suggest neoplastic disease. Dictated by: Dictated on workstation # [id number]
== END ==
LOC: CARD 11:00
PROVIDERS: ATTEND Nurse Practitioner Adult Health
DX: C80.1 Malignant (primary) neoplasm, unspecified (principal); C79.51 Secondary malignant neoplasm of bone
CPT/HCPCS: 78306; A9503

== ENCOUNTER 2021-12-14 18:29 | Emergency (ER) | payer MEDICARE, OTHER ==
[~2021-12-14] VITALS: Ht 167 cm; Wt 77.1 kg
[2021-12-14 18:49] VITALS: BP 139/84
[2021-12-14] MEDS ORDERED: HYDROmorphone 2 MG/ML VIAL (DILAUDID) IV ONE (19:00)
--- NOTE | 2021-12-14 19:09 | ED Hip Pain/Injury ---
General Chief Complaint: Hip/Pelvic Problems Stated Complaint: PAIN Nursing Triage Note: PT PRESENTS TO ED WITH COMPLAINT OF L HIP PAIN X 2 DAYS. PT DENIES ANY RCENT FALL OR INJURY. Source: patient Exam Limitations: no limitations History of Present Illness Date Seen by Provider: Dec 14, 2021 Time Seen by Provider: 19:05 Initial Comments To ER with reports of left hip pain for 2 to 3 days. She has a history of renal cell carcinoma treated with chemotherapy in 2018. She then had a recurrence in volving the left hip and was transition to immunotherapy which had a good response. She follows with Dr. Plasencia locally and had some scans about 2 weeks ago which showed the left hip lesion to be improving or at least stable she states. She states that the bone in that area had collapsed. She called Dr. Plasencia and he recommended to be evaluated to make sure the pelvis had not fractured. She denies any falls or injuries but reports pain that has increased significantly. The pain does not radiate down either of her legs no loss of bowel or bladder control or saddle anesthesia. No fevers. She states when she is in a seated position she has no pain. However when she stands up she has a lot of pain. She had some old morphine tablets at home from her initial diagnosis 4 years ago which she took and they helped a little. Timing/Duration: constant Severity: moderate Location: pelvis Modifying Factors: Worse With Movement Associated Symptoms: denies symptoms Allergies and Home Medications Allergies Coded Allergies: Penicillins (Verified Allergy, Unknown, 10/15/21) Sulfa (Sulfonamide Antibiotics) (Verified Allergy, Unknown, 10/15/21) codeine (Verified Allergy, Unknown, 10/15/21) erythromycin base (Verified Allergy, Unknown, 10/15/21) Patient Home Medication List Home Medication List Reviewed: Yes Amlodipine Besylate (Amlodipine Besylate) 10 Mg Tablet, 10 MG PO DAILY, (Reported) Entered as Reported by: KAVON POSADAS on 10/14/21 1011 Hydrocodone/Acetaminophen (Hydrocodone-Acetamin 5-325 mg) 1 Each Tablet, 1 TAB PO Q4H PRN for PAIN-MODERATE (5-7) Prescribed by: DALIA ESTVEES on 10/15/21 0952 Irbesartan (Irbesartan) 150 Mg Tablet, 150 MG PO HS, (Reported) Entered as Reported by: KAVON POSADAS on 10/14/21 1011 Levothyroxine Sodium (Euthyrox) 88 Mcg Tablet, 88 MCG PO DAILY, (Reported) Entered as Reported by: KAVON POSADAS on 10/14/21 1011 Metformin HCl (Metformin HCl) 1,000 Mg Tablet, 1,000 MG PO BID, (Reported) Entered as Reported by: KAVON POSADAS on 10/14/21 1011 Review of Systems Constitutional: see HPI EENTM: see HPI Respiratory: no symptoms reported Cardiovascular: no symptoms reported Genitourinary: no symptoms reported Musculoskeletal: see HPI, back pain Skin: no symptoms reported Psychiatric/Neurological: No Symptoms Reported Past Spmzobu-Ctibsf-Iapdwg Hx Patient Social History Tobacco Use?: No Substance use?: No Alcohol Use?: Yes Alcohol Frequency: Rarely Pt feels they are or have been: No Immunizations Up To Date First/Initial COVID19 Vaccinat: yes Second COVID19 Vaccination Chandan: yes Third COVID19 Vaccination Date: yes Seasonal Allergies Seasonal Allergies: Yes Past Medical History Surgery/Hospitalization HX: SX: C-SEC, TONSILS, R KIDNEY REMOVED, L KIDNEY ABLATION PMH: KIDNEY CA, HTN Surgeries: Yes (kidney ablation, breast bx, port placed and removed) Section, Nephrectomy, Tonsillectomy Respiratory: No Cardiac: Yes Hypertension Neurological: No Reproductive Disorders: No Sexually Transmitted Disease: No HIV/AIDS: No Genitourinary: Yes (kidney ca) Gastrointestinal: No Musculoskeletal: No Endocrine: Yes Hypothyroidsim, Diabetes, Non-Insulin dep HEENT: Yes Loss of Vision: Bilateral Hearing Impairment: Denies Cancer: Yes Bone, Lung, Kidney What Type of Treatment Did You: Chemotherapy, Surgical Intervention Psychosocial: No Integumentary: Yes (MILD ON SCALP) Psoriasis Blood Disorders: No Adverse Reaction/Blood Tranf: No (N/A) Family Medical History Cancer Physical Exam Vital Signs Vital Signs - First Documented 12/14/21 18:49 Temp 36.6 Pulse 89 Resp 18 B/P (MAP) 139/84 (102) Capillary Refill : Less Than 3 Seconds Height, Weight, BMI Height: 5'6.00" Weight: 168lbs. 0.0oz. 76.590549jw; 27.00 BMI Method: General Appearance: No Apparent Distress, WD/WN Neck: Full Range of Motion, Normal Inspection Respiratory: Normal Breath Sounds, No Accessory Muscle Use, No Respiratory Distress Gastrointestinal: Normal Bowel Sounds, Non Tender, Soft Back: Normal Inspection, Vertebral Tenderness Extremity: Normal Capillary Refill, Normal Inspection Neurologic/Psychiatric: Alert, Oriented x3 Progress/Results/Core Measures Results/Orders Lab Results Laboratory Tests Test 12/14/21 19:40 Range/Units White Blood Count 6.7 4.3-11.0 10^3/uL Red Blood Count 4.05 3.80-5.11 10^6/uL Hemoglobin 11.8 11.5-16.0 g/dL Hematocrit 36 35-52 % Mean Corpuscular Volume 89 80-99 fL Mean Corpuscular Hemoglobin 29 25-34 pg Mean Corpuscular Hemoglobin Concent 33 32-36 g/dL Red Cell Distribution Width 14.7 H 10.0-14.5 % Platelet Count 232 130-400 10^3/uL Mean Platelet Volume 9.3 9.0-12.2 fL Immature Granulocyte % (Auto) 0 % Neutrophils (%) (Auto) 77 H 42-75 % Lymphocytes (%) (Auto) 10 L 12-44 % Monocytes (%) (Auto) 9 0-12 % Eosinophils (%) (Auto) 4 0-10 % Basophils (%) (Auto) 0 0-10 % Neutrophils # (Auto) 5.2 1.8-7.8 10^3/uL Lymphocytes # (Auto) 0.7 L 1.0-4.0 10^3/uL Monocytes # (Auto) 0.6 0.0-1.0 10^3/uL Eosinophils # (Auto) 0.2 0.0-0.3 10^3/uL Basophils # (Auto) 0.0 0.0-0.1 10^3/uL Immature Granulocyte # (Auto) 0.0 0.0-0.1 10^3/uL Sodium Level 136 135-145 MMOL/L Potassium Level 4.1 3.6-5.0 MMOL/L Chloride Level 107 98-107 MMOL/L Carbon Dioxide Level 15 L 21-32 MMOL/L Anion Gap 14 5-14 MMOL/L Blood Urea Nitrogen 39 H 7-18 MG/DL Creatinine 2.39 H 0.60-1.30 MG/DL Estimat Glomerular Filtration Rate 22 BUN/Creatinine Ratio 16 Glucose Level 163 H 70-105 MG/DL Calcium Level 9.0 8.5-10.1 MG/DL Corrected Calcium 9.2 8.5-10.1 MG/DL Total Bilirubin 0.6 0.1-1.0 MG/DL Aspartate Amino Transf (AST/SGOT) 27 5-34 U/L Alanine Aminotransferase (ALT/SGPT) 25 0-55 U/L Alkaline Phosphatase 83 40-136 U/L Total Protein 7.5 6.4-8.2 GM/DL Albumin 3.7 3.2-4.5 GM/DL My Orders Orders - DENAE RYAN APRN Cbc With Automated Diff (12/14/21 18:50) Comprehensive Metabolic Panel (12/14/21 18:50) Ed Iv/Invasive Line Start (12/14/21 18:50) Hydromorphone Injection (Dilaudid Inject (12/14/21 19:00) Ct Pelvis Wo (12/14/21 18:50) Lactated Ringers (Lr 1000 Ml Iv Solution (12/14/21 20:15) Medications Given in ED Current Medications Medications Dose Ordered Sig/Terry Route Start Time Stop Time Status Last Admin Dose Admin Hydromorphone HCl 0.5 mg ONCE ONCE IV 12/14/21 19:00 12/14/21 19:01 DC 12/14/21 19:39 0.5 MG Vital Signs/I&O 12/14/21 18:49 Temp 36.6 Pulse 89 Resp 18 B/P (MAP) 139/84 (102) Blood Pressure Mean: 102 Departure Communication (Admissions) 2039-She has been ambulatory with the use of a walker the Dr. Galeana gave her. I did speak with him and he would like to have her use oral morphine 15 mg tablets using 1/2-1 whole tablet every 4-6 hours as needed for pain. Patient states this has worked best for her in the past as she is intolerant to oxycodone and hydrocodone. He also like to have her start some MiraLAX. I then spoke with Dr. Arciniega from orthopedics to see if there is anything surgically that can be done to fix this fracture though given the lytic lesion I do not know that there is any place where you could put a plate or screw. He agrees this is not anything that could be treated surgically. Weightbearing as tolerated continue to ambulate with walker. NAME: ALVIN TAYLOR [facility] REC#: [id number] PT STATUS: REG ER : 1955 PHYSICIAN: DENAE RYAN APRN ADMIT DATE: 12/14/21/ER Draft Date of Exam:12/14/21 CT PELVIS WO EXAMINATION: CT pelvis without intravenous contrast. TECHNIQUE: Multiple contiguous axial images were obtained through the pelvis without the administration of intravenous contrast. All CT scans use one or more of the following dose optimizing techniques: automated exposure control, MA and/or KvP adjustment based on patient size and exam type or iterative reconstruction. HISTORY: Left hip pain COMPARISON: 04/20/2020 FINDINGS: Visualized portions of the kidneys are normal. There is no hydronephrosis. Urinary bladder is normal. Visualized bowel is normal in caliber without obstruction or inflammation. No free fluid or air. No pelvic lymphadenopathy. Aorta is normal in caliber without aneurysm. The left iliac lesion is decreased in size measuring 7.5 x 1.9 cm, previously 11.1 x 6.1 cm. There is a pathologic fracture of the left ilium. IMPRESSION: 1. Decrease in size of left iliac lesion, but there is a new pathologic fracture through the left iliac wing. Dictated on workstation # [id number] Dict: 12/14/212011 Trans: 12/14/212016 [facility] [id number] Interpreted by: SAMMY RITTER MD Electronically signed by: Impression Primary Impression: Fracture of left iliac wing Qualified Codes: S32.302A - Unspecified fracture of left ilium, initial encounter for closed fracture Additional Impression: Pathologic fracture Qualified Codes: M84.550A - Pathological fracture in neoplastic disease, pelvis, initial encounter for fracture Disposition: 01 HOME, SELF-CARE Condition: Stable Departure-Patient Inst. Decision time for Depature: 20:40 Referrals: JADE NG DO (PCP/Family) Primary Care Physician Patient Instructions: Pelvic Fracture Add. Discharge Instructions: 1. Continue to use the walker when walking. Call Dr. Plasencia for follow-up. R eturn to ER for any concerns such as intolerable pain. The pain medication is known to be very constipating so it would be a good idea to start taking some Colace hyaj-oiy-ttrhroj stool softeners or MiraLAX. All discharge instructions reviewed with patient and/or family. Voiced understanding. Scripts Morphine Sulfate (Morphine Sulfate IR Tablet) 15 Mg Tablet 7.5 MG PO Q4H PRN for PAIN-MODERATE (5-7) for 7 Days, #20 TAB Prov: DENAE RYAN APRN 12/14/21 Images Torso/Trunk 1 - Other-See Progress Note DENAE RYAN APRN Dec 14, 2021 19:09
[2021-12-14 19:53] LABS: BASOPHILS % (AUTO) 0 % (0-10); EOSINOPHILS # (AUTO) 0.2 10^3/uL (0.0-0.3); EOSINOPHILS % (AUTO) 4 % (0-10); HEMATOCRIT 36 % (35-52); HEMOGLOBIN 11.8 g/dL (11.5-16.0); LYMPHOCYTES # (AUTO) 0.7 10^3/uL (1.0-4.0); LYMPHOCYTES % (AUTO) 10 % (12-44); MEAN CORPUSCULAR HEMOGLOBIN 29 pg (25-34); MEAN CORPUSCULAR HGB CONC 33 g/dL (32-36); MEAN CORPUSCULAR VOLUME 89 fL (80-99); MEAN PLATELET VOLUME 9.3 fL (9.0-12.2); MONOCYTES # (AUTO) 0.6 10^3/uL (0.0-1.0); MONOCYTES % (AUTO) 9 % (0-12); NEUTROPHILS # (AUTO) 5.2 10^3/uL (1.8-7.8); NEUTROPHILS % (AUTO) 77 % (42-75); PLATELET COUNT 232 10^3/uL (130-400); WHITE BLOOD COUNT 6.7 10^3/uL (4.3-11.0)
[2021-12-14 20:09] LABS: ALBUMIN 3.7 GM/DL (3.2-4.5); BILIRUBIN,TOTAL 0.6 MG/DL (0.1-1.0); CREATININE SERUM 2.39 MG/DL (0.60-1.30); POTASSIUM 4.1 MMOL/L (3.6-5.0); TOTAL PROTEIN 7.5 GM/DL (6.4-8.2)
[2021-12-14] MEDS ORDERED: LACTATED RINGERS 1,000 ML IV SCH (20:15)
--- NOTE | 2021-12-14 20:17 | Diagnostic Imaging Report ---
EXAMINATION: CT pelvis without intravenous contrast. TECHNIQUE: Multiple contiguous axial images were obtained through the pelvis without the administration of intravenous contrast. All CT scans use one or more of the following dose optimizing techniques: automated exposure control, MA and/or KvP adjustment based on patient size and exam type or iterative reconstruction. HISTORY: Left hip pain COMPARISON: 04/20/2020 FINDINGS: Visualized portions of the kidneys are normal. There is no hydronephrosis. Urinary bladder is normal. Visualized bowel is normal in caliber without obstruction or inflammation. No free fluid or air. No pelvic lymphadenopathy. Aorta is normal in caliber without aneurysm. The left iliac lesion is decreased in size measuring 7.5 x 1.9 cm, previously 11.1 x 6.1 cm. There is a pathologic fracture of the left ilium. IMPRESSION: 1. Decrease in size of left iliac lesion, but there is a new pathologic fracture through the left iliac wing. Dictated by: Dictated on workstation # [id number]
[2021-12-14] MEDS ORDERED: MORP15TA PO (20:44)
[2021-12-14] MEDS ORDERED: morphine IMMEDIATE RELEASE 15 MG TABLET PO SCH (20:45)
[2021-12-14] MEDS ORDERED: HEParin (CENTRAL IV FLUSH) 500 UNIT/5 ML SYR IV ONE (21:45)
== END 2021-12-14 22:00 | disposition home or self-care (01) ==
LOC: EDUNIT# 18:29 → ER 18:32
DX: C49.22 Malignant neoplasm of connective and soft tissue of left lower limb, including hip (principal); S32.302A Unspecified fracture of left ilium, initial encounter for closed fracture; M84.550A Pathological fracture in neoplastic disease, pelvis, initial encounter for fracture; X58.XXXA Exposure to other specified factors, initial encounter
CPT/HCPCS: 36415; 72192; 80053; 85025; 96374

== ENCOUNTER 2021-12-20 20:01 | Emergency (ER) | payer MEDICARE, OTHER ==
[~2021-12-20] VITALS: Ht 167.7 cm; Wt 79.4 kg
[~2021-12-20 20:01] MED LIST changes: +MORP15TA PO
[2021-12-20] MEDS ORDERED: LIDOCAINE 1% INJ 30 ML (XYLOCAINE) VIAL INJ ONE (23:00)
[2021-12-20] MEDS ORDERED: CEPHALEXIN 250 MG (KEFLEX) CAP PO ONE (23:00)
[2021-12-20] MEDS ORDERED: morphine IMMEDIATE RELEASE 15 MG TABLET PO ONE (23:00)
--- NOTE | 2021-12-20 23:00 | ED Lower Extremity ---
General Chief Complaint: Lower Extremity Stated Complaint: R TOENAIL RIPPED UP; BLEEDING; PAIN Nursing Triage Note: Pt per WC with c/o right great toe pain rating 10/10. Toenail raised up from nailbed, slight amount of blood noted. Pt states she stubbed her toe on her new walker at 0515 this morning and again at 1900. Reports taking 15 mg Morphine at 1900 with minimal relief. Family with pt reports that pt has kidney cancer with one kidney removed and broke right hip one week ago r/t cancer. Family voices concern that pt lives alone. Pt has appt to see ortho tomorrow and another cancer treatment appointment on Tuesday. Source: patient Exam Limitations: no limitations History of Present Illness Date Seen by Provider: Dec 20, 2021 Time Seen by Provider: 22:45 Initial Comments Patient presents ER by private conveyance from home with chief complaint about an hour or 2 before she arrived she had stubbed her toe on her right foot of her great toe into the walker and ripped the nail upwards. It did not completely dislocate. She is having some significant increased pain. She typically takes 15 mg morphine every 4 hours orally and immediate release. She is on chemotherapy for renal cell carcinoma. Did not fall or hit her head. Patient states she has follow-up on Tuesday or Tuesday with Dr. Guadalupe for her toenail. Allergies and Home Medications Allergies Coded Allergies: Penicillins (Verified Allergy, Unknown, 10/15/21) Sulfa (Sulfonamide Antibiotics) (Verified Allergy, Unknown, 10/15/21) codeine (Verified Allergy, Unknown, 10/15/21) erythromycin base (Verified Allergy, Unknown, 10/15/21) Patient Home Medication List Home Medication List Reviewed: Yes Amlodipine Besylate (Amlodipine Besylate) 10 Mg Tablet, 10 MG PO DAILY, (Reported) Entered as Reported by: KAVON POSADAS on 10/14/21 1011 Hydrocodone/Acetaminophen (Hydrocodone-Acetamin 5-325 mg) 1 Each Tablet, 1 TAB PO Q4H PRN for PAIN-MODERATE (5-7) Prescribed by: DALIA ESTEVES on 10/15/21 0952 Irbesartan (Irbesartan) 150 Mg Tablet, 150 MG PO HS, (Reported) Entered as Reported by: KAVON POSADAS on 10/14/21 1011 Levothyroxine Sodium (Euthyrox) 88 Mcg Tablet, 88 MCG PO DAILY, (Reported) Entered as Reported by: KAVON POSADAS on 10/14/21 1011 Metformin HCl (Metformin HCl) 1,000 Mg Tablet, 1,000 MG PO BID, (Reported) Entered as Reported by: KAVON POSADAS on 10/14/21 1011 Morphine Sulfate (Morphine Sulfate IR Tablet) 15 Mg Tablet, 7.5 MG PO Q4H PRN for PAIN-MODERATE (5-7) Prescribed by: DENAE RYAN on 12/14/212044 Review of Systems Constitutional: No chills, No diaphoresis EENTM: No ear discharge, No ear pain Respiratory: No cough, No phlegm, No short of breath Cardiovascular: No chest pain, No palpitations Gastrointestinal: No abdominal pain, No nausea, No vomiting Genitourinary: No discharge, No dysuria Musculoskeletal: see HPI All Other Systems Reviewed Negative Unless Noted: Yes Past Xzqgtyx-Gutohl-Uqzehi Hx Patient Social History Tobacco Use?: No Use of E-Cig and/or Vaping dev: No Substance use?: No Alcohol Use?: No Pt feels they are or have been: No Immunizations Up To Date First/Initial COVID19 Vaccinat: yes Second COVID19 Vaccination Chandan: yes Third COVID19 Vaccination Date: yes Seasonal Allergies Seasonal Allergies: Yes Past Medical History Surgery/Hospitalization HX: SX: C-SEC, TONSILS, R KIDNEY REMOVED, L KIDNEY ABLATION PMH: KIDNEY CA, HTN pathological fracture to right hip x 1 week Surgeries: Yes (kidney ablation, breast bx, port placed and removed) Section, Nephrectomy, Tonsillectomy Respiratory: No Cardiac: Yes Hypertension Neurological: No Reproductive Disorders: No Sexually Transmitted Disease: No HIV/AIDS: No Genitourinary: Yes (kidney ca) Gastrointestinal: No Musculoskeletal: No Endocrine: Yes Hypothyroidsim, Diabetes, Non-Insulin dep HEENT: Yes Loss of Vision: Bilateral Hearing Impairment: Denies Cancer: Yes Bone, Lung, Kidney What Type of Treatment Did You: Chemotherapy, Surgical Intervention Psychosocial: No Integumentary: Yes (MILD ON SCALP) Psoriasis Blood Disorders: No Adverse Reaction/Blood Tranf: No (N/A) Family Medical History Cancer Physical Exam Vital Signs Vital Signs - First Documented 12/20/21 21:06 Temp 35.2 Pulse 99 Resp 18 Pulse Ox 97 O2 Delivery Room Air Capillary Refill : Height, Weight, BMI Height: 5'6.00" Weight: 168lbs. 0.0oz. 76.629565ti; 28.00 BMI Method: General Appearance: WD/WN, mild distress HEENT: PERRL/EOMI, pharynx normal Neck: full range of motion, normal inspection Cardiovascular: normal peripheral pulses, regular rate, rhythm Respiratory: no respiratory distress, no accessory muscle use Gastrointestinal: normal bowel sounds, non tender Feet: right foot other (Right great toe at a 90 degree angle cuticles still seems to be intact. Hemostatic. Range of motion intact.) Procedures/Interventions Progress Digital block using 1% lidocaine 2.5 cc total to the right great toe using the standard fashion. We cleaned the toe with chlorhexidine and sterile saline and then wiped down with alcohol before injecting using a 25-gauge 1-1/2 inch needle. Patient gathered good anesthesia of her toes so we replaced the nail in its anatomic position and sutured it with 2 simple interrupted 4-0 nylon sutures bilaterally and a third suture at the distal tip of the toe.. Difficulty putting the needle through the distal medial portion of the toenail so he had to anchor it through the medial portion of the toenail however get access. Patient tolerated procedure well. Minimal blood loss. No foreign debris. The nailbed was thoroughly cleansed with chlorhexidine and sterile saline and flushed prior to closing. Progress/Results/Core Measures Results/Orders My Orders Orders - LYLY CASTELLANOS Lidocaine 1% Inj 30 Ml (Xylocaine 1% Inj (12/20/21 23:00) Morphine Immediate Release Tab (Morphine (12/20/21 23:00) Cephalexin Capsule (Keflex Capsule) (12/20/21 23:00) Medications Given in ED Current Medications Medications Dose Ordered Sig/Terry Route Start Time Stop Time Status Last Admin Dose Admin Cephalexin HCl 500 mg ONCE ONCE PO 12/20/21 23:00 12/20/21 23:01 DC 12/20/21 23:13 500 MG Lidocaine HCl USE 2.1 ML TO DILUTE 1 GM ROCEPH... ONCE ONCE INJ 12/20/21 23:00 12/20/21 23:01 DC 12/20/21 23:13 30 ML Morphine Sulfate 30 mg ONCE ONCE PO 12/20/21 23:00 12/20/21 23:01 DC 12/20/21 23:13 30 MG Vital Signs/I&O 12/20/21 21:06 Temp 35.2 Pulse 99 Resp 18 B/P (MAP) Pulse Ox 97 O2 Delivery Room Air Progress Progress Note : Time: 22:59 Progress Note Plan to clean flush and close and stitch in place. We will do a local block for pain. She would like some morphine so we have ordered 30 mg of morphine IR. Keflex antibiotics. Departure Impression Primary Impression: Avulsion of toenail of right foot Disposition: HOME, SELF-CARE Condition: Stable Departure-Patient Inst. Referrals: JOYA PHELPS DO (PCP/Family) Primary Care Physician ROLAND GUADALUPE DPM Patient Instructions: Toe Injury (DC) Add. Discharge Instructions: If we can keep the toenail in place there is a good chance you will retain the toenail. It may take a year or 2 for it to grow back out normally. Follow-up with Dr. Guadalupe next week for reexamination of your toenail. Cefdinir twice a day to prevent infection for a week. Keep the wound of the toe clean with regular soap and water only. Do not use peroxide, alcohol, iodine as this will delay wound healing. Return to your doctor or the ER for fever, increasing redness going up the foot or leg, purulent discharge from the wound. All discharge instructions reviewed with patient and/or family. Voiced u nderstanding. Scripts [morphine] 15 mg No Conflict Check 15-30 MG PO Q4H PRN for pain for 5 Days, #50 TAB 0 Refills Prov: LYLY CASTELLANOS 12/20/21 Cefdinir (Cefdinir) 300 Mg Capsule 300 MG PO BID for 7 Days, #14 CAP 0 Refills Prov: LYLY CASTELLANOS 12/20/21 Copy Copies To 1: JULIUS PRINGLE; JOYA PHELPS DO; ROLAND GUADALUPE DPM, TITUS J Dec 20, 2021 23:00
[2021-12-20] MEDS ORDERED: CEFD300C3 PO (23:50)
[2021-12-20] MEDS ORDERED: morphine PO (23:50)
== END 2021-12-21 00:12 | disposition home or self-care (01) ==
LOC: EDUNIT# 20:01 → ER 20:05
DX: S91.201A Unspecified open wound of right great toe with damage to nail, initial encounter (principal); W22.8XXA Striking against or struck by other objects, initial encounter
CPT/HCPCS: 99281

== ENCOUNTER → 2022-02-19 | Outpatient (CLI) | payer MEDICARE, OTHER ==
[~2022-02-19] MED LIST changes: +CEFD300C3 PO; +morphine PO
--- NOTE | 2022-02-19 16:02 | Diagnostic Imaging Report ---
Exam: Nuclear medicine whole body bone scan. Date: February 19, 2022. Indication: 66-year-old female, history of clear cell carcinoma of the right kidney. Evaluation for bone metastasis. Comparison: Full body bone scan November 10, 2021. CT pelvis December 14, 2021. CT chest, abdomen and pelvis April 20, 2021. Findings: A 24.7 mCi of technetium labeled MDP radiotracer was administered. Delayed subsequent whole-body bone scan images were subsequently obtained. It should be noted that renal malignancy bone metastasis may not necessarily be radiotracer avid on nuclear medicine bone scan. There are likely degenerative related areas of radiotracer uptake at the lower lumbar spine. The right kidney is absent. There is loss of normal radiotracer uptake in the region of the left side of the pelvis and left iliac bone. This correlates with an aggressive expansile destructive lesion involving the left iliac bone on prior CT pelvis on December 14, 2021. There is also a pathologic fracture of the left iliac bone. There is no additional convincing radiotracer avid or clearly photopenic bone lesion. Impression: 1. Nuclear medicine bone scan is limited in sensitivity for detection of renal malignancy metastasis. 2. Relative photopenia in the left iliac bone correlating with a destructive lesion of the left iliac bone with pathologic fracture seen on recent comparison CT imaging compatible with site of metastatic disease. 3. No clearly identified additional radiotracer avid or photopenic lesion. Dictated by: Dictated on workstation # [id number]
== END ==
LOC: CARD 11:00
PROVIDERS: ATTEND Nurse Practitioner Adult Health
DX: Z51.11 Encounter for antineoplastic chemotherapy (principal); C64.1 Malignant neoplasm of right kidney, except renal pelvis; C79.51 Secondary malignant neoplasm of bone; E03.8 Other specified hypothyroidism
CPT/HCPCS: 78306; A9503

== ENCOUNTER → 2022-05-14 | Outpatient (CLI) | payer MEDICARE, OTHER ==
--- NOTE | 2022-05-14 18:56 | Diagnostic Imaging Report ---
INDICATION: Renal cell malignancy. COMPARISON: Exam is compared with whole body bone scan dated 02/19/2022. TECHNIQUE: Patient received intravenous dose of 25.3 mCi technetium-99m MDP. After three hours, whole body planar imaging performed. Comparison performed in same fashion. FINDINGS: Distortion and abnormal photopenia in the left iliac bone are unchanged from prior, reportedly a site of known metastasis. No scintigraphically avid lesion or hotspot is found. No interval change. Excretion of radiopharmacy by the solitary left kidney persists. IMPRESSION: Distortive changes and photopenia in the left iliac bone at the site of known metastatic deposit. No hot lesion or appreciable new photopenic defect. Dictated by: Dictated on workstation # [id number]
== END ==
LOC: CARD 10:48
PROVIDERS: ATTEND Internal Medicine Hematology & Oncology
DX: C64.1 Malignant neoplasm of right kidney, except renal pelvis (principal); C79.51 Secondary malignant neoplasm of bone; C79.70 Secondary malignant neoplasm of unspecified adrenal gland
CPT/HCPCS: 78306; A9503

== ENCOUNTER → 2022-08-02 | Outpatient (CLI) | payer MEDICARE, OTHER ==
--- NOTE | 2022-08-02 16:56 | Diagnostic Imaging Report ---
Exam: Nuclear medicine whole body bone scan. Date: August 02, 2022. Indication: 67-year-old female, history of renal cell carcinoma. Evaluation for bone metastasis. Comparison: Nuclear medicine whole body bone scan May 14, 2022. Findings: 21.7 mCi of technetium labeled MDP radiotracer was administered. Delayed subsequent whole body bone scan images were subsequently obtained. The right kidney is absent. There is radiotracer activity in the left pelvis which is also present on the prior study. There is no additional identified radiotracer avid lesion. It should be noted that renal cell bone metastasis may not necessarily be radiotracer avid. Impression: 1. Radiotracer avid lesion in the left side of the pelvis which is consistent with site of previously noted bone metastasis. 2. No new radiotracer avid lesion is identified. Dictated by: Dictated on workstation # [id number]
== END ==
LOC: CARD 11:36
PROVIDERS: ATTEND Nurse Practitioner Adult Health
DX: Z51.12 Encounter for antineoplastic immunotherapy (principal); N18.30 Chronic kidney disease, stage 3 unspecified; C79.51 Secondary malignant neoplasm of bone; C79.70 Secondary malignant neoplasm of unspecified adrenal gland; Z85.528 Personal history of other malignant neoplasm of kidney
CPT/HCPCS: 78306; A9503

== ENCOUNTER → 2022-10-26 | Outpatient (CLI) | payer MEDICARE, OTHER ==
--- NOTE | 2022-10-26 17:18 | Diagnostic Imaging Report ---
Indication: Renal cell carcinoma. Patient was administered 24.8 mCi technetium 99m MDP intravenously and whole-body imaging was performed after a three-hour delay. Correlation is made with prior whole body bone scan from 08/02/2022. The right kidney appears surgically absent. There is normal uptake of activity by the axial and appendicular skeleton. There is uptake by the left kidney with excretion to the urinary bladder. Area of uptake in the left hemipelvis appears similar to prior exam. No new foci of abnormal tracer accumulation are identified. IMPRESSION: Stable whole-body bone scan again demonstrating some mild uptake in the left hemipelvis, similar to prior study. Dictated by: Dictated on workstation # [id number]
== END ==
LOC: CARD 10:31
PROVIDERS: ATTEND Nurse Practitioner Adult Health
DX: C64.1 Malignant neoplasm of right kidney, except renal pelvis (principal); C79.51 Secondary malignant neoplasm of bone; C79.70 Secondary malignant neoplasm of unspecified adrenal gland
CPT/HCPCS: 78306; A9503

== ENCOUNTER 2023-03-17 16:08 | Inpatient (IN) | payer MEDICARE, OTHER ==
[~2023-03-17] VITALS: Ht 167 cm; Wt 87.7 kg
--- NOTE | 2023-03-17 16:26 | ED Dyspnea ---
General Stated Complaint: SOA Source of Information: Patient Exam Limitations: No Limitations (KENDALL DE JESUS) History of Present Illness Date Seen by Provider: Mar 17, 2023 Time Seen by Provider: 16:23 Initial Comments Patient is a 68-year-old female with a history of hypertension, renal cell carcinoma who presents ED with URI symptoms. She reports symptoms started on Tuesday with nasal congestion, sinus pressure and headache. Went to urgent care diagnosed with sinus infection and prescribed Keflex. She did have a cough as well as that time. Cough started to get worse for a few days with brownish sputum production. After taking antibiotic for 2 days coughing and sputum production improved. She started feeling short of breath yesterday with which occurs with sitting and with walking. Denies history of COPD, asthma or smoking. No history of CHF or coronary artery disease. Reports leg swelling over the past few months. She does take Keytruda every 3 weeks for her renal cell carcinoma. She denies of any specific chest pain but states she is having difficulty taking a deep breath. She reports head pain and sinus pressure. She did take Sudafed without much improvement. Denies of any recent travels or surgeries. Denies any fever, chills, bodies, nausea, vomiting, diarrhea (KENDALL DE JESUS) Allergies and Home Medications Allergies Coded Allergies: Penicillins (Verified Allergy, Unknown, 10/15/21) Sulfa (Sulfonamide Antibiotics) (Verified Allergy, Unknown, 10/15/21) codeine (Verified Allergy, Unknown, 10/15/21) erythromycin base (Verified Allergy, Unknown, 10/15/21) Patient Home Medication List Home Medication List Reviewed: Yes (KENDALL DE JESUS) Amlodipine Besylate (Amlodipine Besylate) 10 Mg Tablet, 10 MG PO DAILY, (Reported) Entered as Reported by: KAVON POSADAS on 10/14/21 1011 Last Action: Reviewed Axitinib (Inlyta) 1 Mg Tablet, 2 MG PO BID, (Reported) Entered as Reported by: JOSH LEGGETT on 03/18/23 1131 Last Action: Reviewed Cephalexin (Cephalexin) 500 Mg Capsule, 500 MG PO TID, (Reported) Entered as Reported by: JOSH LEGGETT on 03/18/23 1131 Last Action: Reviewed Cetirizine HCl (Cetirizine HCl) 10 Mg Tablet, 10 MG PO DAILY, (Reported) Entered as Reported by: JOSH LEGGETT on 03/18/231130 Last Action: Reviewed Furosemide (Furosemide) 20 Mg Tablet, 20 MG PO DAILY PRN for EDEMA, (Reported) Entered as Reported by: JOSH LEGGETT on 03/18/231130 Last Action: Reviewed Irbesartan (Irbesartan) 150 Mg Tablet, 150 MG PO BID, (Reported) Entered as Reported by: KAVON POSADAS on 10/14/21 101 Last Action: Reviewed Levothyroxine Sodium (Levothyroxine Sodium) 125 Mcg Tablet, 125 MCG PO DAILY, (Reported) Entered as Reported by: JOSH LEGGETT on 03/18/231130 Last Action: Reviewed Metformin HCl (Metformin HCl ER) 500 Mg Tab.er.24h, 500 MG PO BID, (Reported) Entered as Reported by: JOSH LEGGETT on 03/18/231130 Last Action: Reviewed Pembrolizumab (Keytruda) 100 Mg/4 Ml (25 Mg/Ml) Vial, 200 MG IV EVERY 3 WEEKS, (Reported) Entered as Reported by: JOSH LEGGETT on 03/18/231130 Last Action: Reviewed Discontinued Medications Cefdinir (Cefdinir) 300 Mg Capsule, 300 MG PO BID Discontinued Reason: No Longer Taking Prescribed by: LYLY CASTELLANOS on 12/20/21 6680 Last Action: Discontinued Hydrocodone/Acetaminophen (Hydrocodone-Acetamin 5-325 mg) 1 Each Tablet, 1 TAB PO Q4H PRN for PAIN-MODERATE (5-7) Discontinued Reason: No Longer Taking Prescribed by: DALIA ESTEVES on 10/15/21 2516 Last Action: Discontinued Levothyroxine Sodium (Euthyrox) 88 Mcg Tablet, 88 MCG PO DAILY, (Reported) Discontinued Reason: No Longer Taking Entered as Reported by: KAVON POSADAS on 10/14/21 101 Last Action: Discontinued Levothyroxine Sodium (Euthyrox) 125 Mcg Tablet, 125 MCG PO DAILY, (Reported) Discontinued Reason: Duplicate Order Entered as Reported by: JOSH LEGGETT on 03/18/231130 Last Action: Discontinued Metformin HCl (Metformin HCl) 1,000 Mg Tablet, 1,000 MG PO BID, (Reported) Discontinued Reason: No Longer Taking Entered as Reported by: KAVON POSADAS on 10/14/21 1011 Last Action: Discontinued Morphine Sulfate (Morphine Sulfate IR Tablet) 15 Mg Tablet, 7.5 MG PO Q4H PRN for PAIN-MODERATE (5-7) Discontinued Reason: No Longer Taking Prescribed by: DENAE RYAN on 12/14/215 Last Action: Discontinued [morphine] 15 mg , 15-30 MG PO Q4H PRN for pain Discontinued Reason: No Longer Taking Prescribed by: LYLY CASTELLANOS on 12/20/21 2350 Last Action: Discontinued Review of Systems Review of Systems Constitutional: No chills, No diaphoresis EENTM: No ear pain, No blurred vision Respiratory: cough, short of breath Cardiovascular: No chest pain, No Hx of Intervention Gastrointestinal: No abdominal pain, No diarrhea, No nausea, No vomiting Genitourinary: No decreased output, No discharge, No dysuria, No frequency Musculoskeletal: No back pain, No joint pain Skin: No change in color, No change in hair/nails (KENDALL DE JESUS) All Other Systems Reviewed Negative Unless Noted: Yes (KENDALL DE JESUS) Past Anhkkcx-[id number]-Qgbuof Hx Immunizations Up To Date First/Initial COVID19 Vaccinat: yes Second COVID19 Vaccination Chandan: yes Third COVID19 Vaccination Date: yes (KENDALL DE JESUS) Seasonal Allergies Seasonal Allergies: Yes (KENDALL DE JESUS) Past Medical History Surgery/Hospitalization HX: SX: C-SEC, TONSILS, R KIDNEY REMOVED, L KIDNEY ABLATION PMH: KIDNEY CA, HTN pathological fracture to right hip x 1 week Surgeries: Yes (kidney ablation, breast bx, port placed and removed) Section, Nephrectomy, Tonsillectomy Respiratory: No Cardiac: Yes Hypertension Neurological: No Reproductive Disorders: No Sexually Transmitted Disease: No HIV/AIDS: No Genitourinary: Yes (kidney ca) Gastrointestinal: No Musculoskeletal: No Endocrine: Yes Hypothyroidsim, Diabetes, Non-Insulin dep HEENT: Yes Loss of Vision: Bilateral Hearing Impairment: Denies Cancer: Yes Bone, Lung, Kidney What Type of Treatment Did You: Chemotherapy, Surgical Intervention Psychosocial: No Integumentary: Yes (MILD ON SCALP) Psoriasis Blood Disorders: No Adverse Reaction/Blood Tranf: No (N/A) (KENDALL DE JESUS) Family Medical History Cancer (KENDALL DE JESUS) Physical Exam Vital Signs Vital Signs - First Documented 03/17/23 16:08 Temp 37.7 Pulse 101 Resp 18 B/P (MAP) 134/92 (106) Pulse Ox 100 O2 Delivery Room Air (ORQUIDEA JC MD) Vital Signs Capillary Refill : (KENDALL DE JESUS) Height, Weight, BMI Height: 5'6.00" Weight: 168lbs. 0.0oz. [id number]; 28.00 BMI Method: General Appearance: No Apparent Distress, WD/WN HEENT: PERRL/EOMI, TMs Normal, Normal ENT Inspection, Pharynx Normal Neck: Full Range of Motion, Normal Inspection, Non Tender, Supple Respiratory: Chest Non Tender, Lungs Clear, Normal Breath Sounds, No Accessory Muscle Use, No Respiratory Distress Cardiovascular: No Edema, No Gallop, No JVD, No Murmur, Tachycardia Gastrointestinal: Normal Bowel Sounds, No Organomegaly, No Pulsatile Mass, Non Tender, Soft Extremity: Normal Capillary Refill, Normal Inspection, Normal Range of Motion, Non Tender Neurologic/Psychiatric: Alert, Oriented x3, No Motor/Sensory Deficits, Normal Mood/Affect, 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-XII Norm as Tested Skin: Normal Color, Warm/Dry (KENDALL DE JESUS) Focused Exam Lactate Level 03/17/23 16:39: Lactic Acid Level 1.42 (ORQUIDEA JC MD) Lactic Acid Level Laboratory Tests Test 03/17/23 16:39 Lactic Acid Level 1.42 MMOL/L (0.50-2.00) (ORQUIDEA JC MD) Progress/Results/Core Measures Results/Orders Lab Results Laboratory Tests Test 03/17/23 16:24 03/17/23 16:39 03/17/23 20:34 Range/Units Influenza Type A (RT-PCR) Not Detected Not Detecte Influenza Type B (RT-PCR) Not Detected Not Detecte SARS-CoV-2 RNA (RT-PCR) Not Detected Not Detecte White Blood Count 9.5 4.3-11.0 10^3/uL Red Blood Count 4.51 3.80-5.11 10^6/uL Hemoglobin 12.3 11.5-16.0 g/dL Hematocrit 39 35-52 % Mean Corpuscular Volume 87 80-99 fL Mean Corpuscular Hemoglobin 27 25-34 pg Mean Corpuscular Hemoglobin Concent 31 L 32-36 g/dL Red Cell Distribution Width 17.9 H 10.0-14.5 % Platelet Count 371 130-400 10^3/uL Mean Platelet Volume 9.2 9.0-12.2 fL Immature Granulocyte % (Auto) 1 % Neutrophils (%) (Auto) 84 H 42-75 % Lymphocytes (%) (Auto) 7 L 12-44 % Monocytes (%) (Auto) 5 0-12 % Eosinophils (%) (Auto) 3 0-10 % Basophils (%) (Auto) 0 0-10 % Neutrophils # (Auto) 8.0 H 1.8-7.8 10^3/uL Lymphocytes # (Auto) 0.6 L 1.0-4.0 10^3/uL Monocytes # (Auto) 0.5 0.0-1.0 10^3/uL Eosinophils # (Auto) 0.3 0.0-0.3 10^3/uL Basophils # (Auto) 0.0 0.0-0.1 10^3/uL Immature Granulocyte # (Auto) 0.1 0.0-0.1 10^3/uL Neutrophils % (Manual) 89 % Lymphocytes % (Manual) 5 % Monocytes % (Manual) 4 % Eosinophils % (Manual) 1 % Band Neutrophils 1 % Platelet Estimate NORMAL Poikilocytosis SLIGHT Prothrombin Time 13.7 12.2-14.7 SEC INR Comment 1.0 0.8-1.4 Activated Partial Thromboplast Time 32 24-35 SEC D-Dimer 1.28 H 0.00-0.49 UG/ML Sodium Level 135 135-145 MMOL/L Potassium Level 4.3 3.6-5.0 MMOL/L Chloride Level 110 H 98-107 MMOL/L Carbon Dioxide Level 15 L 21-32 MMOL/L Anion Gap 10 5-14 MMOL/L Blood Urea Nitrogen 31 H 7-18 MG/DL Creatinine 1.94 H 0.60-1.30 MG/DL Estimat Glomerular Filtration Rate 27 BUN/Creatinine Ratio 16 Glucose Level 140 H 70-105 MG/DL Lactic Acid Level 1.42 0.50-2.00 MMOL/L Calcium Level 8.6 8.5-10.1 MG/DL Corrected Calcium 8.8 8.5-10.1 MG/DL Total Bilirubin 0.3 0.1-1.0 MG/DL Aspartate Amino Transf (AST/SGOT) 30 5-34 U/L Alanine Aminotransferase (ALT/SGPT) 28 0-55 U/L Alkaline Phosphatase 142 H 40-136 U/L Troponin I 0.195 H 0.181 H <0.028 NG/ML B-Type Natriuretic Peptide 821.3 H <100.0 PG/ML Total Protein 7.7 6.4-8.2 GM/DL Albumin 3.7 3.2-4.5 GM/DL (ORQUIDEA JC MD) Micro Results Microbiology 03/17/23 Blood Culture - Preliminary, Resulted No growth 03/17/23 Blood Culture - Preliminary, Resulted No growth (ORQUIDEA JC MD) Vital Signs/I&O 03/17/23 16:08 Temp 37.7 Pulse 101 Resp 18 B/P (MAP) 134/92 (106) Pulse Ox 100 O2 Delivery Room Air (ORQUIDEA JC MD) Comment Sinus tachycardia, possible right ventricular hypertrophy, very minimal ST elevation in lead III. No reciprocal changes. QRS duration 118 MS, QTc 398 MS. (KENDALL DE JESUS) Departure Communication (PCP) Reviewed previous ER visits, H&P, lab testing. Patient with a solitary kidney. History of renal cell carcinoma. She receives Keytruda every 3 weeks. Diagnosed with sinus infection earlier this week placed on Keflex but without much improvement. Patient was not hypoxic. She was slightly tachycardic. Sepsis protocol was initiated. Patient hematology unremarkable. Chemistry showed stable chronic kidney disease creatinine 1.94, GFR 27. Troponin 0.195. Chest x-ray concerning for pulmonary edema versus pneumonia. Normal lactic acid. She reports bilateral leg swelling for the past couple months with edema bilateral lower extremity. Denies of any specific chest pain or lower extremity pain. She had a slight elevated D-dimer. She is not a candidate for CT angio of the chest secondary to her chronic kidney disease and solitary kidney. She did receive albuterol treatment with some improvement. She does not require oxygen. She does appear anxious. No known cardiac history. Turn for NSTEMI versus PE versus pneumonia versus CHF. Patient was discussed with Dr. Spencer ball worker on-call. Recommended bedside echo. Echo was performed that showed a reduced ejection fraction. Recommended a VQ scan which was ordered. Recommended 80 mg IV Lasix and Lovenox renal dose which was given 80 mg. Patient was started on Rocephin. Patient did receive 324 baby aspirin. Patient was discussed with Dr. Neil who accepted patient to the ICU. Patient may r equire further cardiac catheterization per cardiology. Continue with serial troponins. May need transfer where there is nephrology services. COVID influenza negative. (KENDALL DE JESUS) Impression Primary Impression: Pneumonia Additional Impressions: CHF (congestive heart failure) CKD (chronic kidney disease) Elevated troponin Acute respiratory failure Qualified Codes: J96.01 - Acute respiratory failure with hypoxia Disposition: ADMITTED INPATIENT Condition: Stable Admissions Decision to Admit Reason: Admit from ER (General) Decision to Admit/Date: Mar 17, 2023 Time/Decision to Admit Time: 21:37 (KENDALL DE JESUS) Departure-Patient Inst. Referrals: JOYA PHELPS DO (PCP/Family) Primary Care Physician ATTENDING PHYSICIAN NOTE: I was physically present as attending physician in the emergency department during the care of this patient, but I was not directly involved in the decision making or delivery of care for this patient. (ORQUIDEA JC MD) KENDALL DE JESUS Mar 17, 2023 16:25 ORQUIDEA JC MD Mar 20, 2023 00:31
[2023-03-17] MEDS ORDERED: NS IV 1000 ML 1,000 ML IV SCH (16:30)
[2023-03-17] MEDS ORDERED: RT-ALBUTEROL SULF 2.5 MG/3 ML PRE-MIX VIAL INH ONE (16:30)
--- NOTE | 2023-03-17 16:45 | Diagnostic Imaging Report ---
EXAMINATION: Chest 1 view HISTORY: Short of breath COMPARISON: 10/15/2021 FINDINGS: There are moderate bilateral interstitial and airspace opacities. No pleural effusion or pneumothorax. Heart is mildly enlarged. IMPRESSION: 1. Moderate bilateral interstitial and airspace opacities favored to represent edema but possibly pneumonia as well. Dictated by: Dictated on workstation # [id number]
[2023-03-17 16:50] LABS: BASOPHILS % (AUTO) 0 % (0-10); EOSINOPHILS # (AUTO) 0.3 10^3/uL (0.0-0.3); EOSINOPHILS % (AUTO) 3 % (0-10); HEMATOCRIT 39 % (35-52); HEMOGLOBIN 12.3 g/dL (11.5-16.0); LYMPHOCYTES # (AUTO) 0.6 10^3/uL (1.0-4.0); LYMPHOCYTES % (AUTO) 7 % (12-44); MEAN CORPUSCULAR HEMOGLOBIN 27 pg (25-34); MEAN CORPUSCULAR HGB CONC 31 g/dL (32-36); MEAN CORPUSCULAR VOLUME 87 fL (80-99); MEAN PLATELET VOLUME 9.2 fL (9.0-12.2); MONOCYTES # (AUTO) 0.5 10^3/uL (0.0-1.0); MONOCYTES % (AUTO) 5 % (0-12); NEUTROPHILS % (AUTO) 84 % (42-75); PLATELET COUNT 371 10^3/uL (130-400); WHITE BLOOD COUNT 9.5 10^3/uL (4.3-11.0)
[2023-03-17] MEDS ORDERED: cefTRIAXone IV/IM 1,000 MG in NS (IVPB) 50 ML IV STA (16:51)
[2023-03-17 17:00] LABS: ALBUMIN 3.7 GM/DL (3.2-4.5)
[2023-03-17 17:01] LABS: POTASSIUM 4.3 MMOL/L (3.6-5.0)
[2023-03-17 17:02] LABS: CALCIUM 8.6 MG/DL (8.5-10.1)
[2023-03-17 17:03] LABS: PROTHROMBIN TIME PATIENT 13.7 SEC (12.2-14.7); TOTAL PROTEIN 7.7 GM/DL (6.4-8.2)
[2023-03-17 17:05] LABS: BILIRUBIN,TOTAL 0.3 MG/DL (0.1-1.0)
[2023-03-17 17:07] LABS: CREATININE SERUM 1.94 MG/DL (0.60-1.30)
[2023-03-17 17:23] LABS: BAND NEUTROPHILS 1 %; EOSINOPHILS % (MANUAL) 1 %; LYMPHOCYTES % (MANUAL) 5 %; MONOCYTES % (MANUAL) 4 %; NEUTROPHILS % (MANUAL) 89 %; PLATELET ESTIMATE NORMAL; POIKILOCYTOSIS SLIGHT
[2023-03-17] MEDS ORDERED: ASPIRIN 81 MG CHEW (CHILDREN'S ASA) PO ONE (18:30)
[2023-03-17] MEDS ORDERED: PHARMACY TO DOSE IM SCH (19:15)
--- NOTE | 2023-03-17 19:23 | Consultation-Cardiology ---
HPI-Cardiology Cardiology Consultation: Date of Consultation 03/17/23 Date of Admission Attending Physician Naren Thomas DO Admitting Physician Admitting Physician: Attending Physician: Consulting Physician Sumi KIM MD HPI: Time Seen by a Provider: 19:15 Chief Complaint: Shortness of breath This is a 68-year-old lady who has history of hypertension, hypothyroidism, renal cell cancer. She has history of nephrectomy and is on chemotherapy for renal cell cancer. She denies any significant cardiac history. According to her she has been having lower extremity swelling for the last 2 months. An ultrasound was done which did not show any DVT 2 months ago. Recently she has been having upper respiratory tract symptoms and has been given oral antibiotics. 2 days ago she developed worsening of her shortness of breath. Productive sputum. According to the patient when she is very short of breath, she will have chest tightness as well. During my history and examination, she denied having any chest discomfort, chest pain or chest tightness. She was visibly short of breath and while speaking to me her oxygen saturation dropped into the 80s. Saturations gradually came up into the 90s. She denies active smoking. She denies having a history of COPD. Review of Systems-Cardiology Review of Systems Constitutional: no symptoms reported Eyes: no symptoms reported Ears/Nose/Throat: nasal drainage Respiratory: shortness of breath Cardiovascular: edema, other (Tachycardia) Gastrointestinal: no symptoms reported Genitourinary: no symptoms reported Musculoskeletal: no symptoms reported Skin: no symptoms reported Psychiatric/Neurological: no symptoms reported Hematologic: no symptoms reported All Other Systems Reviewed Negative Unless Noted: Yes [id number]-Ygtbiv Hx Patient Social History Alcohol Use?: No Past Medical History PMH As described under Assessment. Allergies and Home Medications Allergies Coded Allergies: Penicillins (Verified Allergy, Unknown, 10/15/21) Sulfa (Sulfonamide Antibiotics) (Verified Allergy, Unknown, 10/15/21) codeine (Verified Allergy, Unknown, 10/15/21) erythromycin base (Verified Allergy, Unknown, 10/15/21) Patient Home Medication List Home Medication List Reviewed: Yes Amlodipine Besylate (Amlodipine Besylate) 10 Mg Tablet, 10 MG PO DAILY, (Reported) Entered as Reported by: KAVON POSADAS on 10/14/21 1011 Cefdinir (Cefdinir) 300 Mg Capsule, 300 MG PO BID Prescribed by: LYLY CASTELLANOS on 12/20/212349 Hydrocodone/Acetaminophen (Hydrocodone-Acetamin 5-325 mg) 1 Each Tablet, 1 TAB PO Q4H PRN for PAIN-MODERATE (5-7) Prescribed by: DALIA ESTEVES on 10/15/21 0952 Irbesartan (Irbesartan) 150 Mg Tablet, 150 MG PO HS, (Reported) Entered as Reported by: KAVON POSADAS on 10/14/21 1011 Levothyroxine Sodium (Euthyrox) 88 Mcg Tablet, 88 MCG PO DAILY, (Reported) Entered as Reported by: KAVON POSADAS on 10/14/21 1011 Metformin HCl (Metformin HCl) 1,000 Mg Tablet, 1,000 MG PO BID, (Reported) Entered as Reported by: KAVON POSADAS on 10/14/21 1011 Morphine Sulfate (Morphine Sulfate IR Tablet) 15 Mg Tablet, 7.5 MG PO Q4H PRN for PAIN-MODERATE (5-7) Prescribed by: DENAE RYAN on 12/14/212044 [morphine] 15 mg , 15-30 MG PO Q4H PRN for pain Prescribed by: LYLY CASTELLANOS on 12/20/212349 Exam Vital Signs Vital Signs Date Time Temp Pulse Resp B/P (MAP) Pulse Ox O2 Delivery O2 Flow Rate FiO2 03/17/23 16:08 37.7 101 18 134/92 (106) 100 Room Air Physical Exam In mild respiratory distress. Respiratory examination: Decreased air entry bilaterally. CVS: Tachycardic. Mild pedal edema. Labs Laboratory Tests Test 03/17/23 16:24 03/17/23 16:39 Range/Units Influenza Type A (RT-PCR) Not Detected Not Detecte Influenza Type B (RT-PCR) Not Detected Not Detecte SARS-CoV-2 RNA (RT-PCR) Not Detected Not Detecte White Blood Count 9.5 4.3-11.0 10^3/uL Red Blood Count 4.51 3.80-5.11 10^6/uL Hemoglobin 12.3 11.5-16.0 g/dL Hematocrit 39 35-52 % Mean Corpuscular Volume 87 80-99 fL Mean Corpuscular Hemoglobin 27 25-34 pg Mean Corpuscular Hemoglobin Concent 31 L 32-36 g/dL Red Cell Distribution Width 17.9 H 10.0-14.5 % Platelet Count 371 130-400 10^3/uL Mean Platelet Volume 9.2 9.0-12.2 fL Immature Granulocyte % (Auto) 1 % Neutrophils (%) (Auto) 84 H 42-75 % Lymphocytes (%) (Auto) 7 L 12-44 % Monocytes (%) (Auto) 5 0-12 % Eosinophils (%) (Auto) 3 0-10 % Basophils (%) (Auto) 0 0-10 % Neutrophils # (Auto) 8.0 H 1.8-7.8 10^3/uL Lymphocytes # (Auto) 0.6 L 1.0-4.0 10^3/uL Monocytes # (Auto) 0.5 0.0-1.0 10^3/uL Eosinophils # (Auto) 0.3 0.0-0.3 10^3/uL Basophils # (Auto) 0.0 0.0-0.1 10^3/uL Immature Granulocyte # (Auto) 0.1 0.0-0.1 10^3/uL Neutrophils % (Manual) 89 % Lymphocytes % (Manual) 5 % Monocytes % (Manual) 4 % Eosinophils % (Manual) 1 % Band Neutrophils 1 % Platelet Estimate NORMAL Poikilocytosis SLIGHT Prothrombin Time 13.7 12.2-14.7 SEC INR Comment 1.0 0.8-1.4 Activated Partial Thromboplast Time 32 24-35 SEC D-Dimer 1.28 H 0.00-0.49 UG/ML Sodium Level 135 135-145 MMOL/L Potassium Level 4.3 3.6-5.0 MMOL/L Chloride Level 110 H 98-107 MMOL/L Carbon Dioxide Level 15 L 21-32 MMOL/L Anion Gap 10 5-14 MMOL/L Blood Urea Nitrogen 31 H 7-18 MG/DL Creatinine 1.94 H 0.60-1.30 MG/DL Estimat Glomerular Filtration Rate 27 BUN/Creatinine Ratio 16 Glucose Level 140 H 70-105 MG/DL Lactic Acid Level 1.42 0.50-2.00 MMOL/L Calcium Level 8.6 8.5-10.1 MG/DL Corrected Calcium 8.8 8.5-10.1 MG/DL Total Bilirubin 0.3 0.1-1.0 MG/DL Aspartate Amino Transf (AST/SGOT) 30 5-34 U/L Alanine Aminotransferase (ALT/SGPT) 28 0-55 U/L Alkaline Phosphatase 142 H 40-136 U/L Troponin I 0.195 H <0.028 NG/ML B-Type Natriuretic Peptide 821.3 H <100.0 PG/ML Total Protein 7.7 6.4-8.2 GM/DL Albumin 3.7 3.2-4.5 GM/DL ECG Impression ECG Initial ECG Rhythm: S.Tach Comment Low voltage. No clear evidence of ST elevation. Isolated half millimeter ST elevation possibly in lead III. S1, Q3, inverted T3 noted A/P-Cardiology Assessment/Admission Diagnosis Acute respiratory failure, Chronic kidney disease, S/p nephrectomy, Renal cell cancer, Hypertension, Hypothyroidism Positive D-dimer, Positive BNP, Positive troponin Plan Acute respiratory failure with desaturation and the patient with sinus tachycardia, renal cell cancer. Need to rule out pulmonary embolism. Radiology is declining to do CT angio due to single kidney and a creatinine of 1.94. ER team is considering VQ scan. Also renal dose Lovenox for possible PE will be given. Differential include pneumonia, acute congestive heart failure. Chronic kidney disease due to single kidney. Renal cell cancer: renal cell carcinoma is known hypercoagulable state with high incidence of DVT and PE. High suspicion of PE. Positive D-dimer Acute respiratory failure could be secondary to pneumonia. Will defer to the primary team. Could also be due to acute congestive heart failure. Elevated BNP. However patients with chronic kidney disease also have elevated BNP. We will request an echocardiogram. Low voltage EKG: Will rule out pericardial effusion with echo. Occasional chest tightness in the last 2 days. When I saw the patient she was n ot having any chest pain, discomfort or chest tightness. Half a millimeter ST changes noted on lead III alone. Not diagnostic of acute DE. Troponin borderline positive; however could be positive due to kidney disease, respiratory failure, congestive heart failure. Echocardiogram to rule out wall motion abnormalities. Complicated patient. At least 30 minutes was spent taking care of this patient. Sumi KIM MD Mar 17, 2023 19:23
[2023-03-17] MEDS: ENOXAPARIN 80 MG/0.8 ML (LOVENOX) SYR SC SCH (19:29)
[2023-03-17] MEDS ORDERED: FUROSEMIDE 40 MG/4 ML INJ (LASIX) IVP ONE (20:30)
[2023-03-17] MEDS ORDERED: diphenhydrAMINE 25 MG TAB (BENADRYL) PO PRN (22:45)
[2023-03-17] MEDS ORDERED: MILK OF MAGNESIA 400 MG/5 ML 30 ML UDC PO PRN (22:45)
[2023-03-17] MEDS ORDERED: ANTACID SUSP 30 ML UDC (MYLANTA) PO PRN (22:45)
[2023-03-17] MEDS ORDERED: CALCIUM CARBONATE 500 MG (TUMS) TAB.CHEW PO PRN (22:45)
[2023-03-17] MEDS ORDERED: ONDANSETRON 4 MG/2 ML (SDV) Z0FRAN IV PRN (22:45)
[2023-03-17] MEDS ORDERED: diphenhydrAMINE 50 MG/ML INJ (BENADRYL) IVP PRN (22:45)
[2023-03-17] MEDS ORDERED: cefTRIAXone IV/IM 1,000 MG in NS (IVPB) 50 ML IV SCH (22:45)
[2023-03-17] MEDS ORDERED: ACETAMINOPHEN 325 MG TABLET PO PRN (22:45)
[2023-03-17] MEDS ORDERED: BISACODYL 10 MG SUPP (DULCOLAX) PR PRN (22:45)
[2023-03-17] MEDS ORDERED: HYDROmorphone 2 MG/ML VIAL (DILAUDID) IV PRN (22:45)
[2023-03-17] MEDS ORDERED: ONDANSETRON 4 MG (ZOFRAN) ORAL DISSOLVE TAB PO PRN (22:45)
[2023-03-17] MEDS ORDERED: MELATONIN 3 MG TABLET PO PRN (22:45)
[2023-03-17] MEDS ORDERED: polyethylene glycoL POWDER 17 GM (MIRALAX) PACK PO PRN (22:45)
[2023-03-17] MEDS ORDERED: LACTULOSE SYRUP 10GM/15ML (ENULOSE) 30ML UDC PO PRN (22:45)
[2023-03-17] MEDS ORDERED: NS IV 500 ML 500 ML IV PRN (22:45)
[2023-03-17] MEDS ORDERED: AZITHROMYCIN INJECTION 500 MG in NS (IVPB) 250 ML IV ONE (22:45)
--- NOTE | 2023-03-17 23:15 | Tele-ICU Consult ---
History of Present Illness History of Present Illness Date Seen by Provider: Mar 17, 2023 Time Seen by Provider: 23:10 History of Present Illness eICU admit note 68 yo F admitted for increasing SOB, SpO2 in 80's. She is getting chemo for renal cell Ca, s/p nephrectomy. Has had lower extremity swelling for last 2 months. Flu and Covid serology negative Cr 1.94, CTA not done to r/o pul emb V/Q scan looks normal to me. CXR shows interstitial opacities. Started on IV azithromycin and Rocephin Now on RA with SpO2 97%, LA 1.41 trop 0.195, repeat about same, BNP up at 821- given 80 mg IVP Lasix in ED with good UO Had echo, small pericardial effusion, mod reduction in LVEF, EKG shows poor "R" wave progression and low voltage Allergies and Home Medications Allergies Coded Allergies: Penicillins (Verified Allergy, Unknown, 10/15/21) Sulfa (Sulfonamide Antibiotics) (Verified Allergy, Unknown, 10/15/21) codeine (Verified Allergy, Unknown, 10/15/21) erythromycin base (Verified Allergy, Unknown, 10/15/21) Home Medications Amlodipine Besylate 10 Mg Tablet, 10 MG PO DAILY, (Reported) Cefdinir 300 Mg Capsule, 300 MG PO BID Prescribed by: LYLY CASTELLANOS on 12/20/212349 Hydrocodone/Acetaminophen 1 Each Tablet, 1 TAB PO Q4H PRN for PAIN-MODERATE (5- 7) Prescribed by: DALIA ESTEVES on 10/15/21 0952 Irbesartan 150 Mg Tablet, 150 MG PO HS, (Reported) Levothyroxine Sodium 88 Mcg Tablet, 88 MCG PO DAILY, (Reported) Metformin HCl 1,000 Mg Tablet, 1,000 MG PO BID, (Reported) Morphine Sulfate 15 Mg Tablet, 7.5 MG PO Q4H PRN for PAIN-MODERATE (5-7) Prescribed by: DENAE RYAN on 12/14/212044 [morphine] 15 mg , 15-30 MG PO Q4H PRN for pain Prescribed by: LYLY CASTELLANOS on 12/20/212349 Past Medical/Social/Family Hx Patient Social History Tobacco Use?: No Substance use?: No Alcohol Use?: No Immunizations Up To Date First/Initial COVID19 Vaccinat: yes Second COVID19 Vaccination Chandan: yes Current Status Primary Language: Citizen Of [place] Preferred Spoken Language: Citizen Of [place] Implanted or Applied Medical D: Port-a-cath Review of Systems Constitutional: see HPI EENTM: see HPI Respiratory: see HPI Cardiovascular: see HPI Gastrointestinal: see HPI Genitourinary: see HPI Musculoskeletal: see HPI Skin: see HPI Psychiatric/Neurological: See HPI Focused Exam Lactate Level 03/17/23 16:39: Lactic Acid Level 1.42 Height, Weight, BMI Height: 5'6.00" Weight: 168lbs. 0.0oz. 76.567364sg; 28.00 BMI Method: Exam Exam Patient acknowledged, consented, and participated in this virtual visit which was conducted using real time audio/video Vital Signs Date Time Temp Pulse Resp B/P (MAP) Pulse Ox O2 Delivery O2 Flow Rate FiO2 03/17/23 22:30 144/85 97 Room Air 03/17/23 16:08 37.7 101 18 134/92 (106) 100 Room Air Height & Weight Height: 5'6.00" Weight: 168lbs. 0.0oz. 76.442344ia; 28.00 BMI Method: General Appearance: No Apparent Distress, WD/WN HEENT: PERRL/EOMI, TMs Normal, Normal ENT Inspection, Pharynx Normal Neck: Full Range of Motion, Normal Inspection, Non Tender, Supple Respiratory: Chest Non Tender, Lungs Clear, Normal Breath Sounds, No Accessory Muscle Use, No Respiratory Distress, Other (SOB on talking) Cardiovascular: Regular Rate, Rhythm, No Edema, No Gallop, No JVD, No Murmur, Tachycardia Capillary Refill: Less Than 3 Seconds Gastrointestinal: non tender, soft Extremity: Normal Capillary Refill, Normal Inspection, Normal Range of Motion, Non Tender, Pedal Edema Neurologic/Psychiatric: Alert, Oriented x3, No Motor/Sensory Deficits, Normal Mood/Affect, gimp tacker II-XII Norm as Tested Skin: Normal Color, Warm/Dry Results Lab Laboratory Tests 03/17/23 16:39 Assessment/Plan Assessment/Plan CHF, Laisix IV given, will continue, continue abx, monitor trop store sales consultant has seen Has mild CKD, V/Q does not look like pul emb Spoke with rounder and backer: Critically Ill Patient Time spent with patient (mins): 25 JOAQUINA KHANNA MD Mar 17, 2023 23:15
[2023-03-18] MEDS: ALPRAZolam 1 MG (XANAX) TAB PO PRN ×3 (00:21→21:12)
[2023-03-18 02:41] VITALS: BP 119/84
[2023-03-18] MEDS ORDERED: RT-ALBUTEROL SULF 2.5 MG/3 ML PRE-MIX VIAL INH PRN (02:45)
[2023-03-18] MEDS ORDERED: RT-ALBUTEROL SULF 2.5 MG/3 ML PRE-MIX VIAL ONE (02:52)
--- NOTE | 2023-03-18 02:58 | Progress Note ---
Standard Progress Note Progress Notes/Assess & Plan Date Seen by a Provider: Mar 18, 2023 Time Seen by a Provider: 02:57 Progress/Assessment & Plan asks for cough syrup, will give Robitussin DM, Has DM but glu controlled MD CLEMENCIA Mejia JOSEPH K MD Mar 18, 2023 02:58
[2023-03-18] MEDS ORDERED: guaiFENesin/DM (ROBITUSSIN DM) 10 ML UDC ONE (03:04)
[2023-03-18] MEDS: guaiFENesin/DM (ROBITUSSIN DM) 10 ML UDC PO PRN ×4 (03:06→18:05)
[2023-03-18] MEDS ORDERED: RT-ALBUTEROL/IPRATROPIUM 3 ML (DUONEB) VIAL INH PRN (03:15)
[2023-03-18 05:05] LABS: HEMOGLOBIN 11.2 g/dL (11.5-16.0); MEAN CORPUSCULAR HEMOGLOBIN 27 pg (25-34); PLATELET COUNT 291 10^3/uL (130-400)
[2023-03-18 05:06] LABS: BASOPHILS % (AUTO) 1 % (0-10); EOSINOPHILS # (AUTO) 0.2 10^3/uL (0.0-0.3); EOSINOPHILS % (AUTO) 3 % (0-10); HEMATOCRIT 36 % (35-52); LYMPHOCYTES # (AUTO) 0.6 10^3/uL (1.0-4.0); LYMPHOCYTES % (AUTO) 7 % (12-44); MEAN CORPUSCULAR HGB CONC 31 g/dL (32-36); MEAN CORPUSCULAR VOLUME 89 fL (80-99); MEAN PLATELET VOLUME 10.6 fL (9.0-12.2); MONOCYTES # (AUTO) 0.5 10^3/uL (0.0-1.0); MONOCYTES % (AUTO) 5 % (0-12); NEUTROPHILS # (AUTO) 7.2 10^3/uL (1.8-7.8); NEUTROPHILS % (AUTO) 84 % (42-75); WHITE BLOOD COUNT 8.6 10^3/uL (4.3-11.0)
[2023-03-18 05:29] LABS: ALBUMIN 3.4 GM/DL (3.2-4.5); BILIRUBIN,TOTAL 0.4 MG/DL (0.1-1.0); CALCIUM 7.9 MG/DL (8.5-10.1); CREATININE SERUM 1.98 MG/DL (0.60-1.30); POTASSIUM 4.2 MMOL/L (3.6-5.0); TOTAL PROTEIN 6.8 GM/DL (6.4-8.2)
[2023-03-18] MEDS: KCL 20 MEQ TAB (K-DUR) PO SCH (05:33)
[2023-03-18] MEDS: POTASSIUM CL 10MEQ/50ML IVPB 50 ML IV SCH (05:33)
[2023-03-18] MEDS: MAGNESIUM 1 GM/100 ML IVPB 100 ML IV SCH (05:33)
[2023-03-18] MEDS: inSUlin ASPART (NovoLOG) 1 UNIT/0.01 ML (CHARGE PER UNIT) SC SCH ×4 (05:33→22:06)
[2023-03-18 06:57] LABS: PHOSPHORUS 3.5 MG/DL (2.3-4.7)
[2023-03-18 06:59] LABS: MAGNESIUM 2.1 MG/DL (1.6-2.4)
[2023-03-18] MEDS: ASPIRIN E.C. 81 MG (ECOTRIN) TAB PO SCH (07:57)
[2023-03-18] MEDS: DOCUSATE SODIUM 100 MG (COLACE) CAP PO SCH ×2 (07:57→22:05)
[2023-03-18] MEDS: SENNOSIDES 8.6 MG (SENOKOT) TAB PO SCH ×2 (07:58→22:06)
[2023-03-18] MEDS ORDERED: FUROSEMIDE 40 MG/4 ML INJ (LASIX) ONE (09:27)
[2023-03-18] MEDS: RT-ALBUTEROL SULF 2.5 MG/3 ML PRE-MIX VIAL INH SCH ×3 (09:28→21:35)
[2023-03-18] MEDS ORDERED: FUROSEMIDE 40 MG/4 ML INJ (LASIX) IVP ONE (09:30)
--- NOTE | 2023-03-18 10:04 | Diagnostic Imaging Report ---
INDICATION: Hypoxia. Cardiomegaly similar to the prior. Worsened perihilar pulmonary opacities with central distribution favored to reflect increased edema but pneumonia in the appropriate scenario could not be excluded. No convincing pleural fluid volume. No pneumothorax. Left subclavian at the low SVC, stable. IMPRESSION: Similar cardiomegaly but worsened perihilar opacities, likely reflecting increased edema. Dictated by: Dictated on workstation # [id number]
--- NOTE | 2023-03-18 10:33 | Physical Therapy Progress Note ---
Therapy Progress Note Patient reports she is at her baseline with gross motor skills and declined skilled therapy intervention. Per patient, she uses a FWW due to a pathological pelvic fracture. RN notified of patient declined skilled therapy. 1 visit TI PEREZ PT Mar 18, 2023 10:33
--- NOTE | 2023-03-18 11:24 | Cardiology Progress Note ---
Cardiology SOAP Progress Note Subjective: Still short of breath. Objective: I&O/Vital Signs 03/18/23 03/18/23 03/18/23 03/18/23 00:00 00:00 00:56 01:00 Pulse 99 100 Resp 21 B/P (MAP) 98/72 (81) Pulse Ox 97 94 88 O2 Delivery Nasal Cannula Nasal Cannula Nasal Cannula O2 Flow Rate 2.00 2.00 4.00 03/18/23 03/18/23 03/18/23 03/18/23 01:00 01:35 02:00 02:41 Temp 37.0 Pulse 97 90 100 Resp 28 27 B/P (MAP) 102/70 (81) 103/70 (81) Pulse Ox 93 94 96 O2 Delivery Nasal Cannula Nasal Cannula O2 Flow Rate 4.00 4.00 FiO2 28 03/18/23 03/18/23 03/18/23 03/18/23 02:45 02:55 03:00 03:05 Temp 36.6 Pulse 99 Resp 28 B/P (MAP) 117/77 (90) Pulse Ox 94 97 94 O2 Delivery Nasal Cannula Nasal Cannula Nasal Cannula O2 Flow Rate 4.00 4.00 4.00 03/18/23 03/18/23 03/18/23 03/18/23 03:49 04:00 04:55 05:00 Temp 36.4 Pulse 99 95 Resp 15 25 24 B/P (MAP) 109/73 (85) 109/81 (90) Pulse Ox 96 97 95 O2 Delivery Nasal Cannula Nasal Cannula Nasal Cannula O2 Flow Rate 4.00 2.00 2.00 03/18/23 03/18/23 03/18/23 03/18/23 06:00 07:00 07:00 07:53 Temp 36.4 Pulse 90 95 94 Resp 27 29 B/P (MAP) 111/80 (90) 113/84 (91) Pulse Ox 95 95 O2 Delivery Nasal Cannula Nasal Cannula O2 Flow Rate 2.00 2.00 03/18/23 03/18/23 03/18/23 03/18/23 07:59 08:00 08:00 09:00 Pulse 101 96 Resp 37 28 B/P (MAP) 119/74 (89) 99/67 (76) Pulse Ox 97 100 97 96 O2 Delivery Nasal Cannula Nasal Cannula Nasal Cannula Nasal Cannula O2 Flow Rate 1.00 1.00 1.00 1.00 03/18/23 03/18/23 03/18/23 03/18/23 09:28 09:42 10:00 11:00 Pulse 108 111 Resp 31 31 B/P (MAP) 129/82 (94) 114/82 (93) Pulse Ox 97 98 98 O2 Delivery Nasal Cannula Nasal Cannula Nasal Cannula Nasal Cannula O2 Flow Rate 1.00 2.00 2.00 2.00 03/18/23 00:00 Intake Total 1050 ml Balance 1050 ml Weight (Pounds): 168 Weight (Ounces): 0.0 Weight (Calculated Kilograms): 76.815900 Constitutional: apparent distress Respiratory: accessory muscle use, respiratory distress, rhonchi Cardiovascular: regular rate-rhythm, tachycardia Gastrointestional: soft Extremities: pedal edema Neurologic/Psychiatric: no motor/sensory deficits, alert, normal mood/affect, oriented x 3 Skin: normal color Results/Procedures: Labs Laboratory Tests 03/17/23 16:24: Influenza Type A (RT-PCR) Not Detected, Influenza Type B (RT-PCR) Not Detected, SARS-CoV-2 RNA (RT-PCR) Not Detected 03/17/23 16:39: White Blood Count 9.5, Red Blood Count 4.51, Hemoglobin 12.3, Hematocrit 39, Mean Corpuscular Volume 87, Mean Corpuscular Hemoglobin 27, Mean Corpuscular Hemoglobin Concent 31L, Red Cell Distribution Width 17.9H, Platelet Count 371, Mean Platelet Volume 9.2, Immature Granulocyte % (Auto) 1, Neutrophils (%) (Auto) 84H, Lymphocytes (%) (Auto) 7L, Monocytes (%) (Auto) 5, Eosinophils (%) (Auto) 3, Basophils (%) (Auto) 0, Neutrophils # (Auto) 8.0H, Lymphocytes # (Auto) 0.6L, Monocytes # (Auto) 0.5, Eosinophils # (Auto) 0.3, Basophils # (Auto) 0.0, Immature Granulocyte # (Auto) 0.1, Neutrophils % (Manual) 89, Lymphocytes % (Manual) 5, Monocytes % (Manual) 4, Eosinophils % (Manual) 1, Band Neutrophils 1, Platelet Estimate NORMAL, Poikilocytosis SLIGHT, Prothrombin Time 13.7, INR Comment 1.0, Activated Partial Thromboplast Time 32, D-Dimer 1.28H, Sodium Level 135, Potassium Level 4.3, Chloride Level 110H, Carbon Dioxide Level 15L, Anion Gap 10, Blood Urea Nitrogen 31H, Creatinine 1.94H, Estimat Glomerular Filtration Rate 27, BUN/Creatinine Ratio 16, Glucose Level 140H, Lactic Acid Level 1.42, Calcium Level 8.6, Corrected Calcium 8.8, Total Bilirubin 0.3, Aspartate Amino Transf (AST/SGOT) 30, Alanine Aminotransferase (ALT/SGPT) 28, Alkaline Phosphatase 142H, Troponin I 0.195H, B-Type Natriuretic Peptide 821.3H, Total Protein 7.7, Albumin 3.7 03/17/23 20:34: Troponin I 0.181H 03/18/23 04:10: White Blood Count 8.6, Red Blood Count 4.11, Hemoglobin 11.2L, Hematocrit 36, Mean Corpuscular Volume 89, Mean Corpuscular Hemoglobin 27, Mean Corpuscular Hemoglobin Concent 31L, Red Cell Distribution Width 18.2H, Platelet Count 291, Mean Platelet Volume 10.6, Immature Granulocyte % (Auto) 1, Neutrophils (%) (Auto) 84H, Lymphocytes (%) (Auto) 7L, Monocytes (%) (Auto) 5, Eosinophils (%) (Auto) 3, Basophils (%) (Auto) 1, Neutrophils # (Auto) 7.2, Lymphocytes # (Auto) 0.6L, Monocytes # (Auto) 0.5, Eosinophils # (Auto) 0.2, Basophils # (Auto) 0.0, Immature Granulocyte # (Auto) 0.1, Sodium Level 137, Potassium Level 4.2, Chloride Level 113H, Carbon Dioxide Level 11L, Anion Gap 13, Blood Urea Nitrogen 32H, Creatinine 1.98H, Estimat Glomerular Filtration Rate 27, BUN/Creatinine Ratio 16, Glucose Level 133H, Calcium Level 7.9L, Corrected Calcium 8.4L, Total Bilirubin 0.4, Aspartate Amino Transf (AST/SGOT) 28, Alanine Aminotransferase (ALT/SGPT) 24, Alkaline Phosphatase 118, Total Protein 6.8, Albumin 3.4, Percent Immature Platelet Fraction 2.8, Triglycerides Level 214H, Cholesterol Level 243H , LDL Cholesterol Direct 190H, VLDL Cholesterol 43H, HDL Cholesterol 32L 03/18/23 06:47: Phosphorus Level 3.5, Magnesium Level 2.1, Troponin I 0.246H 03/18/23 10:50: Glucometer 142H A/P: Assessment/Dx: Acute respiratory failure, Chronic kidney disease, S/p nephrectomy, Renal cell cancer, Hypertension, Hypothyroidism Positive D-dimer, Positive BNP, Positive troponin Plan: Acute hypoxic respiratory failure, likely due to acute systolic congestive heart failure. On IV Lasix. Still in mild respiratory distress. Continue IV Lasix, watch renal function closely. Patient has renal cell cancer, single kidney, CKD with baseline creatinine close to 2. If any worsening of creatinine, low threshold to transfer to hospital with inpatient dialysis service. Positive troponin, no significant upward trend. Troponin could be positive due to severe chronic kidney disease as well as acute systolic congestive heart fail ure. However coronary artery disease needs to be ruled out in a patient with diabetes, when the patient is more stable from the pulmonary perspective. We will reevaluate tomorrow morning and if the patient is more stable we will consider coronary angiography at 10 AM. I have requested anesthesia support at that point in time. Informed consent for coronary angiography included high risk of dialysis including other risk. Patient agreed with the plan and would like to proceed. Focused Exam Lactate Level 03/17/23 16:39: Lactic Acid Level 1.42 Sumi KIM MD Mar 18, 2023 11:24
[2023-03-18] MEDS ORDERED: PEMB100V IV (11:31)
[2023-03-18] MEDS ORDERED: FURO20TA4 PO (11:31)
[2023-03-18] MEDS ORDERED: LEVO-131 PO (11:31)
[2023-03-18] MEDS ORDERED: METF-865 PO (11:31)
[2023-03-18] MEDS ORDERED: CEPH500C PO (11:31)
[2023-03-18] MEDS ORDERED: CETI10TA17 PO (11:31)
[2023-03-18] MEDS ORDERED: AXIT1TAB PO (11:31)
[2023-03-18] MEDS ORDERED: LEVO125T6 PO (11:31)
--- NOTE | 2023-03-18 11:32 | Diagnostic Imaging Report ---
INDICATION: Shortness of breath. TECHNIQUE: Patient was administered 5.5 mCi of technetium-99m MAA intravenously, and imaging over the chest was performed at multiple obliquities. COMPARISON: Correlation is made with the chest radiograph from earlier same day. FINDINGS: There is fairly homogeneous perfusion to the right lung. There does appear to be a questionable defect in the posterior aspect of the left upper lobe. This is somewhat wedge shaped and pleural based. No other pleural-based perfusion defects are seen. In reviewing the chest radiograph, the patient does have bilateral perihilar and upper lobe pulmonary infiltrates. IMPRESSION: Indeterminate perfusion study demonstrating a defect in the left upper lobe. Patient does have pulmonary infiltrates in bilateral upper lobes on chest radiograph from the same day. A "matched" defect cannot be entirely excluded. Pulmonary embolism cannot be entirely excluded either. Follow-up could be performed. If the patient is able, CT angiography of the chest would be useful. Dictated by: Dictated on workstation # [id number]
--- NOTE | 2023-03-18 12:09 | Tele-ICU Progress Note ---
Subjective Date Seen by a Provider: Mar 18, 2023 Time Seen by a Provider: 12:09 Subjective/Events-last exam (Tele-ICU Physician , Progress Note ) Service provided via interactive audio and video telecommunications E-CARE system to a patient admitted to ICU bed in [facility]. Patient is seen today due to persistent need of ICU care Available chart/ vitals / labs / Images reviewed Video assessment done using teleICU camera, rest of exam as per RN Discussed with RN Events overnight : Afebrile hemodynamically stable Respiratory - I/O = Drips: Pressors- no Hospital course: A/P Acute respiratory failure- [id number] pulm edema, possible infiltrates - PATIENT IN KEYTRUDA- RELATED PNEUMONITIS SHOULD BE CONSIDERED TOO -VQ - low prob for PE -abx , diuresis Possible PNA --IV azithromycin and Rocephin (Flu and Covid serology negative CHF - EF 45% , gr III dst dsfnc - duiuresis with lasix - card follow CKD -stable -S/p nephrectomy - monitor Positive troponin - as per cards - on lovenox full dose - ? possible cath tomorrow Renal CA -getting KEYTRUDA , s/p nephrectomy Lines : , (Central Line Necessity Reviewed) Cotton: OG: Nutrition: Analgesia: Anxiety/ delirium VTE Prophylaxis: estee 80 Stress Ulcer Prophylaxis: ppi Plans in collaboration with bedside consultants and IM MDs. Discussed with RN to reach out if any questions or concerns Case and care daily discussed on multidisciplinary rounds ( RN, PharmD, Patent Litigation Associate , Respiratory Therapy, solid waste collection worker ) A total of 20 minutes of critical care time was devoted to this patient today, required to treat and/or prevent further deterioration of critical care condition ( as above ) . I am remotely monitoring this patient from another state. I am unable to do the bedside exam, and history/physical and pertinent information is taken from other notes in the computer and bedside staff. Sepsis Event Evaluation Height, Weight, BMI Height: 5'6.00" Weight: 168lbs. 0.0oz. 76.571380cc; 31.44 BMI Method: Focused Exam Lactate Level 03/17/23 16:39: Lactic Acid Level 1.42 Exam Exam Patient acknowledged, consented, and participated in this virtual visit which was conducted using real time audio/video Vital Signs Date Time Temp Pulse Resp B/P (MAP) Pulse Ox O2 Delivery O2 Flow Rate FiO2 03/18/23 12:00 105 29 121/68 (91) 97 Nasal Cannula 2.00 03/18/23 11:52 36.3 03/18/23 11:00 111 31 114/82 (93) 98 Nasal Cannula 2.00 03/18/23 10:00 108 31 129/82 (94) 98 Nasal Cannula 2.00 03/18/23 09:42 Nasal Cannula 2.00 03/18/23 09:28 97 Nasal Cannula 1.00 03/18/23 09:00 96 28 99/67 (76) 96 Nasal Cannula 1.00 03/18/23 08:00 97 Nasal Cannula 1.00 03/18/23 08:00 101 37 119/74 (89) 100 Nasal Cannula 1.00 03/18/23 07:59 97 Nasal Cannula 1.00 03/18/23 07:53 36.4 03/18/23 07:00 94 29 113/84 (91) 95 Nasal Cannula 2.00 03/18/23 07:00 95 03/18/23 06:00 90 27 111/80 (90) 95 Nasal Cannula 2.00 03/18/23 05:00 95 24 109/81 (90) 95 Nasal Cannula 2.00 03/18/23 04:55 25 97 Nasal Cannula 2.00 03/18/23 04:00 99 15 109/73 (85) 96 Nasal Cannula 4.00 03/18/23 03:49 36.4 03/18/23 03:05 94 Nasal Cannula 4.00 03/18/23 03:00 99 28 117/77 (90) 97 Nasal Cannula 4.00 03/18/23 02:55 94 Nasal Cannula 4.00 03/18/23 02:45 36.6 03/18/23 02:41 100 96 28 03/18/23 02:00 90 27 103/70 (81) 94 Nasal Cannula 4.00 03/18/23 01:35 37.0 03/18/23 01:00 97 28 102/70 (81) 93 Nasal Cannula 4.00 03/18/23 01:00 100 03/18/23 00:56 88 Nasal Cannula 4.00 03/18/23 00:00 99 21 98/72 (81) 94 Nasal Cannula 2.00 03/18/23 00:00 97 Nasal Cannula 2.00 03/17/23 23:15 100 29 119/84 (96) 96 Nasal Cannula 2.00 03/17/23 23:03 105 03/17/23 23:00 104 37 112/82 (92) 97 Nasal Cannula 2.00 03/17/23 22:45 110 31 117/69 (85) 97 Nasal Cannula 2.00 03/17/23 22:30 110 127/81 (96) 97 Nasal Cannula 2.00 03/17/23 22:30 144/85 97 Room Air 03/17/23 16:08 37.7 101 18 134/92 (106) 100 Room Air I & O 03/18/23 07:00 Intake Total 1655 ml Output Total 450 ml Balance 1205 ml Height & Weight Height: 5'6.00" Weight: 168lbs. 0.0oz. 76.240779tg; 31.44 BMI Method: General Appearance: No Apparent Distress, WD/WN HEENT: PERRL/EOMI, TMs Normal, Normal ENT Inspection, Pharynx Normal Neck: Full Range of Motion, Normal Inspection, Non Tender, Supple Respiratory: Chest Non Tender, Lungs Clear, Normal Breath Sounds, No Accessory Muscle Use, No Respiratory Distress Cardiovascular: No Edema, No Gallop, No JVD, No Murmur, Tachycardia Capillary Refill: Less Than 3 Seconds Gastrointestinal: non tender, soft Extremity: Normal Capillary Refill, Normal Inspection, Normal Range of Motion, Non Tender Neurologic/Psychiatric: Alert, Oriented x3, No Motor/Sensory Deficits, Normal Mood/Affect, gem carver II-XII Norm as Tested Skin: Normal Color, Warm/Dry Results Lab Laboratory Tests 03/17/23 16:39 03/18/23 04:10 Assessment/Plan Assessment/Plan 1 GAGE LEE MD Mar 18, 2023 12:09
--- NOTE | 2023-03-18 12:41 | Occ Therapy Progress Note ---
Therapy Progress Note Patient reports she is at her baseline with gross/fine motor skills, ADLs and declined skilled therapy intervention. Per patient, she uses a FWW due to a pathological pelvic fracture. RN notified of patient declined skilled therapy. HE SOLITARIO OT Mar 18, 2023 12:41
--- NOTE | 2023-03-18 18:34 | History & Physical-Hospitalist ---
History of Present Illness HPI/Chief Complaint Ghazal Babb is a 68 year old female with PMH HTN, T2DM, CKD, history of renal cell carcinoma on Keytruda s/p nephrectomy, who presented with shortness of breath. She has been dealing with a sinus infection. She had headache and nasal congestion. She also reports cough with brown sputum. The cough has resolved. She denies chest pain. She is unable to take a deep breath. She denies nausea and vomiting. She denies fevers. She is upset because she had a birthday republican planned for tonight that has to be cancelled. Source: patient Exam Limitations: no limitations Date Seen 03/18/23 Time Seen by a Provider: 09:40 Attending Physician Naren Thomas DO PCP Admitting Physician: Arina Neil DO Attending Physician: Rhina Diaz MD Referring Physician Date of Admission Mar 18, 2023 at 10:45 Home Medications & Allergies Home Medications Reviewed patient Home Medication Reconciliation performed by pharmacy medication reconciliations lubrication technician and/or nursing. Patients Allergies have been reviewed. Allergies Allergies Coded Allergies Penicillins (Verified Allergy, Unknown, 10/15/21) Sulfa (Sulfonamide Antibiotics) (Verified Allergy, Unknown, 10/15/21) codeine (Verified Allergy, Unknown, 10/15/21) erythromycin base (Verified Allergy, Unknown, 10/15/21) Past Vsvfgbm-Sepglu-Xsrhaz Hx Patient Social History Tobacco Use?: No Substance use?: No Alcohol Use?: No Immunizations Up To Date First/Initial COVID19 Vaccinat: yes Second COVID19 Vaccination Chandan: yes Seasonal Allergies Seasonal Allergies: Yes Current Status status: No status: No Advance Directives: No Communicates: Verbally Primary Language: Sami Preferred Spoken Language: Sami Implanted or Applied Medical D: Port-a-cath Past Medical History Surgeries: Section, Nephrectomy, Tonsillectomy Hypertension Sexually Transmitted Disease: No HIV/AIDS: No Hypothyroidsim, Diabetes, Non-Insulin dep Loss of Vision: Bilateral Hearing Impairment: Denies Bone, Lung, Kidney What Type of Treatment Did You: Chemotherapy, Surgical Intervention Psoriasis Blood Disorders: No Adverse Reaction/Blood Tranf: No (N/A) Family Medical History Cancer Review of Systems Constitutional: malaise Respiratory: cough, short of breath Cardiovascular: no symptoms reported Gastrointestinal: no symptoms reported Physical Exam Physical Exam Vital Signs Vital Signs - First Documented 03/17/23 03/17/23 03/18/23 16:08 22:30 02:41 Temp 37.7 Pulse 101 Resp 18 B/P (MAP) 134/92 (106) Pulse Ox 100 O2 Delivery Room Air O2 Flow Rate 2.00 FiO2 28 Capillary Refill : Less Than 3 Seconds Height, Weight, BMI Height: 5'6.00" Weight: 168lbs. 0.0oz. 76.413798sn; 31.44 BMI Method: General Appearance: Moderate Distress (tachypnea), Obese HEENT: PERRL/EOMI, Pharynx Normal Neck: Normal Inspection, Supple Respiratory: Lungs Clear, Respiratory Distress (tachypnea) Cardiovascular: Regular Rate, Rhythm, No Murmur Gastrointestinal: Normal Bowel Sounds, Non Tender, Soft Extremity: Normal Inspection, Non Tender, No Pedal Edema Neurologic/Psychiatric: Alert, No Motor/Sensory Deficits Skin: Normal Color, Warm/Dry Results Results/Procedures Labs Laboratory Tests 03/17/23 16:39 03/18/23 04:10 Patient resulted labs reviewed. Imaging: Reviewed Imaging Report Assessment/Plan Admission Diagnosis Acute respiratory failure with hypoxia Admission Status: Inpatient Order (span 2 midnights) Reason for Inpatient Admission: IV Lasix IV antibiotics Cardiology evaluation Assessment and Plan Acute respiratory failure with hypoxia Acute HFrEF with diastolic dysfunction Elevated troponin CKD 4 History of nephrectomy Renal cell carcinoma Possible pneumonia Supplemental oxygen as needed Troponin elevated, slightly increasing Cardiology consulted, planning for left heart cath Lasix Rocephin and Azithromycin VQ scan indeterminate Therapeutic Lovenox MAT protocol TeleICU consulted Diagnosis/Problems Diagnosis/Problems (1) Acute respiratory failure Status: Acute Qualifiers: Respiratory failure complication: hypoxia Qualified Codes: J96.01 - Acute respiratory failure with hypoxia (2) CHF (congestive heart failure) Status: Acute Qualifiers: Heart failure type: systolic Heart failure chronicity: acute Qualified Codes: I50.21 - Acute systolic (congestive) heart failure (3) Elevated troponin Status: Acute (4) Pneumonia Status: Acute (5) CKD (chronic kidney disease) Status: Acute Qualifiers: Chronic kidney disease stage: stage 4 (severe) Qualified Codes: N18.4 - Chronic kidney disease, stage 4 (severe) (6) Renal cell cancer Status: Acute Qualifiers: Laterality: unspecified laterality Qualified Codes: C64.9 - Malignant neoplasm of unspecified kidney, except renal pelvis RHINA DIAZ MD Mar 18, 2023 18:34
[2023-03-18] MEDS: ENOXAPARIN 80 MG/0.8 ML (LOVENOX) SYR SC SCH (20:23)
[2023-03-18] MEDS ORDERED: cefTRIAXone IV/IM 1,000 MG in NS (IVPB) 50 ML IV SCH (21:00)
[2023-03-19] MEDS: guaiFENesin/DM (ROBITUSSIN DM) 10 ML UDC PO PRN ×3 (01:01→12:52)
[2023-03-19] MEDS: RT-ALBUTEROL SULF 2.5 MG/3 ML PRE-MIX VIAL INH SCH ×2 (02:25→06:27)
[2023-03-19 04:44] LABS: BASOPHILS % (AUTO) 1 % (0-10); EOSINOPHILS # (AUTO) 0.3 10^3/uL (0.0-0.3); EOSINOPHILS % (AUTO) 4 % (0-10); HEMATOCRIT 33 % (35-52); HEMOGLOBIN 10.5 g/dL (11.5-16.0); LYMPHOCYTES # (AUTO) 0.8 10^3/uL (1.0-4.0); LYMPHOCYTES % (AUTO) 10 % (12-44); MEAN CORPUSCULAR HEMOGLOBIN 28 pg (25-34); MEAN CORPUSCULAR HGB CONC 32 g/dL (32-36); MEAN CORPUSCULAR VOLUME 87 fL (80-99); MEAN PLATELET VOLUME 9.4 fL (9.0-12.2); MONOCYTES # (AUTO) 0.5 10^3/uL (0.0-1.0); MONOCYTES % (AUTO) 6 % (0-12); NEUTROPHILS # (AUTO) 6.2 10^3/uL (1.8-7.8); NEUTROPHILS % (AUTO) 79 % (42-75); PLATELET COUNT 356 10^3/uL (130-400); WHITE BLOOD COUNT 7.8 10^3/uL (4.3-11.0)
[2023-03-19 04:55] LABS: ALBUMIN 3.2 GM/DL (3.2-4.5); POTASSIUM 3.5 MMOL/L (3.6-5.0)
[2023-03-19 04:58] LABS: TOTAL PROTEIN 6.5 GM/DL (6.4-8.2)
[2023-03-19 04:59] LABS: BILIRUBIN,TOTAL 0.2 MG/DL (0.1-1.0)
[2023-03-19 05:01] LABS: CREATININE SERUM 1.97 MG/DL (0.60-1.30); PHOSPHORUS 4.3 MG/DL (2.3-4.7)
[2023-03-19 05:04] LABS: MAGNESIUM 1.9 MG/DL (1.6-2.4)
[2023-03-19] MEDS: POTASSIUM CL 10MEQ/50ML IVPB 50 ML IV SCH (06:14)
[2023-03-19] MEDS: inSUlin ASPART (NovoLOG) 1 UNIT/0.01 ML (CHARGE PER UNIT) SC SCH ×2 (06:15→11:30)
[2023-03-19] MEDS: MAGNESIUM 1 GM/100 ML IVPB 100 ML IV SCH (06:15)
[2023-03-19] MEDS: KCL 20 MEQ TAB (K-DUR) PO SCH (06:15)
[2023-03-19] MEDS: ASPIRIN E.C. 81 MG (ECOTRIN) TAB PO SCH (08:01)
[2023-03-19] MEDS: DOCUSATE SODIUM 100 MG (COLACE) CAP PO SCH (08:02)
[2023-03-19] MEDS: SENNOSIDES 8.6 MG (SENOKOT) TAB PO SCH (08:02)
--- NOTE | 2023-03-19 08:29 | Diagnostic Imaging Report ---
EXAMINATION: Chest 1 view HISTORY: Hypoxia. COMPARISON: 03/17/2023 FINDINGS: Upper lung zone predominant interstitial and airspace opacities are similar to prior exam. Heart is enlarged. There are mitral annular calcifications. No pleural effusion or pneumothorax. IMPRESSION: 1. Unchanged upper lobe predominant interstitial and airspace opacities favored to represent edema. Dictated by: Dictated on workstation # [id number]
[2023-03-19] MEDS ORDERED: AZITHROMYCIN 250 MG TAB (ZITHROMAX) PO SCH (09:00)
[2023-03-19] MEDS ORDERED: fentaNYL INJ 100 MCG/2 ML AMP ONE (09:15)
[2023-03-19] MEDS ORDERED: VERAPAMIL 5 MG/2 ML (CALAN) VIAL IV ONE (09:15)
[2023-03-19] MEDS ORDERED: MIDAZOLAM 5 MG/5 ML (VERSED) VIAL ONE (09:16)
[2023-03-19] MEDS ORDERED: HEParin 1000 UNIT/ML (10ML VIAL) FOR BOLUS ONE (09:16)
[2023-03-19] MEDS ORDERED: proPOfol 200 MG/20 ML (DIPRIVAN) VIAL IV ONE (09:16)
[2023-03-19] MEDS ORDERED: LIDOCAINE 1% INJ 20 ML VIAL ONE (09:16)
[2023-03-19] MEDS ORDERED: HEParin (CATH LAB) 2,000 ML IV ONE (09:17)
[2023-03-19] MEDS ORDERED: NS IV 1000 ML 1,000 ML ONE (09:17)
[2023-03-19] MEDS ORDERED: NITRO DRIP 25000 MCG/D5W 250 ML IV ONE (09:17)
[2023-03-19] MEDS ORDERED: PROPOFOL INJECTION 50 ML IV ONE (09:34)
[2023-03-19] MEDS ORDERED: KETAMINE 50 MG/5 ML SYRINGE ONE (09:34)
--- NOTE | 2023-03-19 09:42 | Tele-ICU Progress Note ---
Subjective Date Seen by a Provider: Mar 19, 2023 Time Seen by a Provider: 09:41 Subjective/Events-last exam (Tele-ICU Physician , Progress Note ) Service provided via interactive audio and video telecommunications E-CARE system to a patient admitted to ICU bed in [facility]. Patient is seen today due to persistent need of ICU care Available chart/ vitals / labs / Images reviewed Video assessment done using teleICU camera, rest of exam as per RN Discussed with RN Events overnight : Afebrile hemodynamically stable Respiratory - 2l I/O = neg 400 Drips: Pressors- no Hospital course: 03/17- 68yo F presented to ER w/ URI, went to urgent care , diagnosed w/ sinus infection and was orescribed w/ antibiotics. 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 possible cath tomorrow Renal CA -getting KEYTRUDA , s/p nephrectomy Lines : perip , (Central Line Necessity Reviewed) Cotton: void OG: Nutrition: Po Analgesia: Anxiety/ delirium VTE Prophylaxis: estee 80 Stress Ulcer Prophylaxis: ppi Plans in collaboration with bedside consultants and IM MDs. Discussed with RN to reach out if any questions or concerns Case and care daily discussed on multidisciplinary rounds ( RN, PharmD, Tow Car Driver , Respiratory Therapy, match up worker ) A total of 20 minutes of critical care time was devoted to this patient today, required to treat and/or prevent further deterioration of critical care condition ( as above ) . I am remotely monitoring this patient from another state. I am unable to do the bedside exam, and history/physical and pertinent information is taken from other notes in the computer and bedside staff. Sepsis Event Evaluation Height, Weight, BMI Height: 5'6.00" Weight: 168lbs. 0.0oz. 76.830520lx; 31.44 BMI Method: Focused Exam Lactate Level 03/17/23 16:39: Lactic Acid Level 1.42 Exam Exam Patient acknowledged, consented, and participated in this virtual visit which was conducted using real time audio/video Vital Signs Date Time Temp Pulse Resp B/P (MAP) Pulse Ox O2 Delivery O2 Flow Rate FiO2 03/19/23 09:00 100 25 115/75 (86) 97 Nasal Cannula 2.00 03/19/23 08:00 100 22 120/82 (90) 96 Nasal Cannula 2.00 03/19/23 07:23 36.2 03/19/23 07:00 101 03/19/23 07:00 102 23 111/77 (88) 95 Nasal Cannula 2.00 03/19/23 06:28 97 Nasal Cannula 1.00 03/19/23 06:00 100 29 113/76 (88) 97 Nasal Cannula 2.00 03/19/23 05:00 96 24 115/77 (90) 97 Nasal Cannula 2.00 03/19/23 04:00 98 28 101/65 (77) 96 Nasal Cannula 2.00 03/19/23 04:00 96 Nasal Cannula 2.00 03/19/23 03:00 104 26 104/65 (78) 95 Nasal Cannula 2.00 03/19/23 02:26 92 Nasal Cannula 1.00 03/19/23 02:00 100 22 104/70 (81) 100 Nasal Cannula 2.00 03/19/23 01:00 101 26 94 Nasal Cannula 2.00 03/19/23 01:00 105 03/19/23 00:00 97 26 106/77 (87) 94 Nasal Cannula 2.00 03/18/23 23:59 96 Nasal Cannula 2.00 03/18/23 23:00 105 27 134/104 (114) 96 Nasal Cannula 2.00 03/18/23 22:00 108 29 123/80 (94) 97 Nasal Cannula 2.00 03/18/23 21:35 95 Nasal Cannula 1.00 03/18/23 21:00 108 29 119/79 (92) 99 Nasal Cannula 2.00 03/18/23 20:00 96 Nasal Cannula 2.00 03/18/23 20:00 107 28 118/80 (93) 99 Nasal Cannula 2.00 03/18/23 19:00 105 29 116/79 (91) 95 Nasal Cannula 2.00 03/18/23 19:00 105 03/18/23 19:00 36.8 03/18/23 18:00 110 25 122/77 (91) Nasal Cannula 2.00 03/18/23 17:00 105 26 Nasal Cannula 2.00 03/18/23 16:00 104 26 90 Nasal Cannula 2.00 03/18/23 16:00 94 Nasal Cannula 2.00 03/18/23 16:00 36.7 Nasal Cannula 2.00 03/18/23 15:00 110 29 () 98 Nasal Cannula 2.00 03/18/23 14:34 98 Room Air 03/18/23 14:00 103 24 132/90 (119) 98 Nasal Cannula 2.00 03/18/23 13:00 104 30 97 Nasal Cannula 2.00 03/18/23 12:30 107 03/18/23 12:00 98 Nasal Cannula 2.00 03/18/23 12:00 105 29 121/68 (91) 97 Nasal Cannula 2.00 03/18/23 11:52 36.3 03/18/23 11:00 111 31 114/82 (93) 98 Nasal Cannula 2.00 03/18/23 10:00 108 31 129/82 (94) 98 Nasal Cannula 2.00 03/18/23 09:42 Nasal Cannula 2.00 I & O 03/19/23 07:00 Intake Total 1475 ml Output Total 2650 ml Balance -1175 ml Height & Weight Height: 5'6.00" Weight: 168lbs. 0.0oz. 76.822844pw; 31.44 BMI Method: General Appearance: Moderate Distress (tachypnea), Obese HEENT: PERRL/EOMI, Pharynx Normal Neck: Normal Inspection, Supple Respiratory: Lungs Clear, Respiratory Distress (tachypnea) Cardiovascular: Regular Rate, Rhythm, No Murmur Capillary Refill: Less Than 3 Seconds Gastrointestinal: non tender, soft Extremity: Normal Inspection, Non Tender, No Pedal Edema Neurologic/Psychiatric: Alert, No Motor/Sensory Deficits Skin: Normal Color, Warm/Dry Results Lab Laboratory Tests 03/17/23 16:39 03/18/23 04:10 03/19/23 04:15 Assessment/Plan Assessment/Plan 1 GAGE LEE MD 24, 2023 09:42
--- NOTE | 2023-03-19 11:07 | Coronary Angiography Report ---
Coronary Angiography Report DATE OF PROCEDURE: 03/19/23 INDICATION: nstemi, acute systolic chf, cardiomyopathy PREOPERATIVE DIAGNOSIS: nstemi, acute systolic chf, cardiomyopathy POSTOPERATIVE DIAGNOSIS: nstemi, acute systolic chf, cardiomyopathy, severe multivessel cad HISTORY: This is a 68-year-old lady who has history of diabetes and chronic k idney disease. She has history of renal cell carcinoma, status post nephrectomy, single kidney. She presented with severe respiratory failure. Reduced LVEF for of around 40% with anterior, apical hypokinesis. Positive troponin. Therefore, the patient was scheduled for coronary angiography. PROCEDURES PERFORMED: 1.Coronary angiography. 2.Left heart catheterization. COMPLICATIONS: None. SPECIMENS: None. ESTIMATED BLOOD LOSS: 10 mL ANESTHESIA: Conscious sedation ANTICOAGULATION: IV heparin CONTRAST: 24 ml FLUOROSCOPY: 3.6 minutes FLOUROSCOPY DOSE: 316 mgy PROCEDURE DETAILS: The patient is a 68 female and was brought to the labor relations consultant after informed consent was taken. All the risks and complications were explained in detail; this included the risk of bleeding, vascular damage, stroke, [place] , dialysis and even . The patient was draped and prepped in the usual sterile fashion. Access was gained in the right radial artery with a 6 [place] sheath. Coronary angiography and left heart catheterization was performed with the [place] catheter. FINDINGS: 1.Left main: Patent. 2.LAD: severe ostial disease. stenosis severity 95%. severe diffuse disease in the mid and distal LAD. 3.Left circumflex artery: first OM is occluded in the mid section. LCX had severe disease in the mid and distal segment. Stenosis severity 80%. 4.RCA: Moderate to severe disease in the mid segment and moderate to severe disease in the distal segment. 5.Left heart catheterization: LV gram not done due to CKD. Aortic pressure 78/53 mmHg. LV pressure 80/5 mmHg. LVEDP 10 mmHg. No gradient across the aortic valve. CONCLUSIONS: Severe multivessel disease. We will transferred to [facility] for further management which includes either CABG or high risk PCI especially with nephrology services due to history of chronic kidney disease and single kidney. Discussed with the patient and son. Lester Spencer MD, FACP, FACC, [facility] Interventional Cardiology Sumi SPENCER MD Mar 19, 2023 11:07
--- NOTE | 2023-03-19 11:42 | Cardiology Progress Note ---
Cardiology SOAP Progress Note Subjective: Improved shortness of breath Objective: I&O/Vital Signs 03/18/23 03/19/23 03/19/23 03/19/23 23:59 00:00 01:00 01:00 Pulse 97 105 101 Resp B/P (MAP) 106/77 (87) Pulse Ox 96 94 94 O2 Delivery Nasal Cannula Nasal Cannula Nasal Cannula O2 Flow Rate 2.00 2.00 2.00 03/19/23 03/19/23 03/19/23 03/19/23 02:00 02:26 03:00 04:00 Pulse 100 104 Resp B/P (MAP) 104/70 (81) 104/65 (78) Pulse Ox 100 92 95 96 O2 Delivery Nasal Cannula Nasal Cannula Nasal Cannula Nasal Cannula O2 Flow Rate 2.00 1.00 2.00 2.00 03/19/23 03/19/23 03/19/23 03/19/23 04:00 05:00 06:00 06:28 Pulse 98 96 100 Resp B/P (MAP) 101/65 (77) 115/77 (90) 113/76 (88) Pulse Ox 96 97 97 97 O2 Delivery Nasal Cannula Nasal Cannula Nasal Cannula Nasal Cannula O2 Flow Rate 2.00 2.00 2.00 1.00 03/19/23 03/19/23 03/19/23 03/19/23 07:00 07:00 07:23 08:00 Temp 36.2 Pulse 102 101 100 Resp B/P (MAP) 111/77 (88) 120/82 (90) Pulse Ox 95 96 O2 Delivery Nasal Cannula Nasal Cannula O2 Flow Rate 2.00 2.00 03/19/23 03/19/23 09:00 11:00 Pulse 100 99 Resp B/P (MAP) 115/75 (86) 106/72 (86) Pulse Ox 97 O2 Delivery Nasal Cannula Nasal Cannula O2 Flow Rate 2.00 2.00 03/19/23 00:00 Intake Total 1100 ml Output Total 1550 ml Balance -450 ml Weight (Pounds): 168 Weight (Ounces): 0.0 Weight (Calculated Kilograms): 76.179604 Constitutional: apparent distress Respiratory: accessory muscle use, respiratory distress, rhonchi Cardiovascular: regular rate-rhythm, tachycardia Gastrointestional: soft Extremities: pedal edema Neurologic/Psychiatric: no motor/sensory deficits, alert, normal mood/affect, oriented x 3 Skin: normal color Results/Procedures: Labs Laboratory Tests 03/18/23 16:06: Glucometer 170H 03/19/23 04:15: White Blood Count 7.8, Red Blood Count 3.81, Hemoglobin 10.5L, Hematocrit 33L, Mean Corpuscular Volume 87, Mean Corpuscular Hemoglobin 28, Mean Corpuscular Hemoglobin Concent 32, Red Cell Distribution Width 18.1H, Platelet Count 356, Mean Platelet Volume 9.4, Immature Granulocyte % (Auto) 1, Neutrophils (%) (Auto) 79H, Lymphocytes (%) (Auto) 10L, Monocytes (%) (Auto) 6, Eosinophils (%) (Auto) 4, Basophils (%) (Auto) 1, Neutrophils # (Auto) 6.2, Lymphocytes # (Auto) 0.8L, Monocytes # (Auto) 0.5, Eosinophils # (Auto) 0.3, Basophils # (Auto) 0.0, Immature Granulocyte # (Auto) 0.1, Sodium Level 137, Potassium Level 3.5L, Chloride Level 110H, Carbon Dioxide Level 15L, Anion Gap 12, Blood Urea Nitrogen 32H, Creatinine 1.97H, Estimat Glomerular Filtration Rate 27, BUN/Creatinine Ratio 16, Glucose Level 126H, Calcium Level 8.0L, Corrected Calcium 8.6, Phosphorus Level 4.3, Magnesium Level 1.9, Total Bilirubin 0.2, Aspartate Amino Transf (AST/SGOT) 24, Alanine Aminotransferase (ALT/SGPT) 22, Alkaline Phosphatase 110, Total Protein 6.5, Albumin 3.2 03/19/23 10:57: Glucometer 113H Microbiology 03/17/23 MRSA Screen - Final, Complete MRSA not isolated 03/17/23 Blood Culture - Preliminary, Resulted No growth A/P: Assessment/Dx: Acute respiratory failure, Chronic kidney disease, S/p nephrectomy, Renal cell cancer, Hypertension, Hypothyroidism Positive D-dimer, Positive BNP, Positive troponin Plan: Acute hypoxic respiratory failure, likely due to acute systolic congestive heart failure. On IV Lasix. Still in mild respiratory distress. Continue IV Lasix, watch renal function closely. Patient has renal cell cancer, single kidney, CKD with baseline creatinine close to 2. If any worsening of creatinine, low threshold to transfer to hospital with inpatient dialysis service. Non-STEMI, s/p coronary angiography with 24 mL contrast. Severe multivessel coronary artery disease. [facility] transfer to [facility] for evaluation of CABG versus high risk PCI. Focused Exam Lactate Level 03/17/23 16:39: Lactic Acid Level 1.42 Sumi KIM MD Mar 19, 2023 11:42
[2023-03-19] MEDS ORDERED: KCL 20 MEQ TAB (K-DUR) PO ONE (12:00)
[2023-03-19] MEDS: ALPRAZolam 1 MG (XANAX) TAB PO PRN (12:52)
--- NOTE | 2023-03-19 12:57 | Anesthesia-General Post-Op ---
MAC Patient Condition Mental Status/LOC: Same as Preop Cardiovascular: Satisfactory Nausea/Vomiting: Absent Respiratory: Satisfactory Pain: Controlled Complications: Absent Post Op Complications Complications None Follow Up Care/Instructions Patient Instructions None needed. Anesthesiology Discharge Order Discharge Order Patient is doing well, no complaints, stable vital signs, no apparent adverse anesthesia problems. No complications reported per nursing. YESICA LEDEZMA CRNA Mar 19, 2023 12:57
--- NOTE | 2023-03-19 14:59 | Discharge Summary ---
Discharge Summary Hospital Course Problems/Dx: (1) Multi-vessel coronary artery stenosis Status: Acute (2) Acute respiratory failure Status: Acute Qualifiers: Qualified Codes: J96.01 - Acute respiratory failure with hypoxia (3) CHF (congestive heart failure) Status: Acute Qualifiers: Qualified Codes: I50.21 - Acute systolic (congestive) heart failure (4) Elevated troponin Status: Acute (5) Pneumonia Status: Acute (6) CKD (chronic kidney disease) Status: Acute Qualifiers: Qualified Codes: N18.4 - Chronic kidney disease, stage 4 (severe) (7) Renal cell cancer Status: Acute Qualifiers: Qualified Codes: C64.9 - Malignant neoplasm of unspecified kidney, except renal pelvis Hospital Course Date of Admission: Mar 18, 2023 at 10:45 Admission Diagnosis : Acute respiratory failure with hypoxia Family Physician/Provider: Naren Thomas DO Date of Discharge: 03/19/23 Discharge Diagnosis: Multi-vessel coronary artery disease Hospital Course: Ghazal Babb is a 68 year old female with PMH HTN, T2DM, CKD 4, renal cell carcinoma s/p nephrectomy on immunotherapy, who presented with shortness of breath. Cardiology was consulted and assisted with her care. She was treated with antibiotics for possible pneumonia. She was found to have an elevated troponin. Her echo showed reduced ejection fraction 40-45%. She had a left heart cath which revealed multi-vessel coronary artery disease. She was transferred to [place] for CABG evaluation vs high risk PCI. Labs and Pending Lab Test: Laboratory Tests 03/18/23 16:06: Glucometer 170H 03/19/23 04:15: White Blood Count 7.8, Red Blood Count 3.81, Hemoglobin 10.5L, Hematocrit 33L, M ellen Corpuscular Volume 87, Mean Corpuscular Hemoglobin 28, Mean Corpuscular Hemoglobin Concent 32, Red Cell Distribution Width 18.1H, Platelet Count 356, Mean Platelet Volume 9.4, Immature Granulocyte % (Auto) 1, Neutrophils (%) (Auto) 79H, Lymphocytes (%) (Auto) 10L, Monocytes (%) (Auto) 6, Eosinophils (%) (Auto) 4, Basophils (%) (Auto) 1, Neutrophils # (Auto) 6.2, Lymphocytes # (Auto) 0.8L, Monocytes # (Auto) 0.5, Eosinophils # (Auto) 0.3, Basophils # (Auto) 0.0, Immature Granulocyte # (Auto) 0.1, Sodium Level 137, Potassium Level 3.5L, Chloride Level 110H, Carbon Dioxide Level 15L, Anion Gap 12, Blood Urea Nitrogen 32H, Creatinine 1.97H, Estimat Glomerular Filtration Rate 27, BUN/Creatinine Ratio 16, Glucose Level 126H, Calcium Level 8.0L, Corrected Calcium 8.6, Phosphorus Level 4.3, Magnesium Level 1.9, Total Bilirubin 0.2, Aspartate Amino Transf (AST/SGOT) 24, Alanine Aminotransferase (ALT/SGPT) 22, Alkaline Phosphatase 110, Total Protein 6.5, Albumin 3.2 03/19/23 10:57: Glucometer 113H Microbiology 03/17/23 MRSA Screen - Final, Complete MRSA not isolated 03/17/23 Blood Culture - Preliminary, Resulted No growth Home Meds Active Reported Cetirizine HCl 10 Mg Tablet 10 Mg PO DAILY Inlyta (Axitinib) 1 Mg Tablet 2 Mg PO BID TAKES 2 (1MG) TABS Metformin HCl ER (Metformin HCl) 500 Mg Tab.er.24h 500 Mg PO BID Levothyroxine Sodium 125 Mcg Tablet 125 Mcg PO DAILY Cephalexin 500 Mg Capsule 500 Mg PO TID FILLED 03-14-2023 #30/10 DAY SUPPLY Furosemide 20 Mg Tablet 20 Mg PO DAILY PRN Keytruda (Pembrolizumab) 100 Mg/4 Ml (25 Mg/Ml) Vial 200 Mg IV EVERY 3 WEEKS Amlodipine Besylate 10 Mg Tablet 10 Mg PO DAILY Irbesartan 150 Mg Tablet 150 Mg PO BID Assessment/Pt Instructions See instructions Discharge Planning: >30 minutes discharge planning Discharge Instructions Discharge Diet: Low Sodium Diet Activity as Tolerated: Yes Consultations Cardiology Discharge Physical Examination Vital Signs Vital Signs Date Time Temp Pulse Resp B/P (MAP) Pulse Ox O2 Delivery O2 Flow Rate FiO2 03/19/23 14:00 103 36 112/68 (83) Nasal Cannula 2.00 03/19/23 13:00 97 03/19/23 11:49 35.9 03/18/23 02:41 28 General Appearance: No Apparent Distress, Obese Respiratory: Lungs Clear, No Respiratory Distress Cardiovascular: Regular Rate, Rhythm, No Murmur Gastrointestinal: Normal Bowel Sounds, Soft Extremity: Normal Inspection, No Pedal Edema Skin: Normal Color, Warm/Dry Neurologic/Psychiatric: Alert, No Motor/Sensory Deficits Allergies: Coded Allergies: Penicillins (Verified Allergy, Unknown, 10/15/21) Sulfa (Sulfonamide Antibiotics) (Verified Allergy, Unknown, 10/15/21) codeine (Verified Allergy, Unknown, 10/15/21) erythromycin base (Verified Allergy, Unknown, 10/15/21) Copy Copies To 1: NAREN THOMAS DO Discharge Summary Date of Admission Mar 18, 2023 at 10:45 Date of Discharge Discharge Date: Mar 19, 2023 Discharge Time: 15:00 Admission Diagnosis Acute respiratory failure with hypoxia Consults/Procedures Consulations Cardiology Procedures Left heart cath Discharge Diagnosis Multi-vessel CAD Acute respiratory failure with hypoxia Acute HFrEF with diastolic dysfunction CKD 4 History of nephrectomy Renal cell carcinoma Possible pneumonia (1) Multi-vessel coronary artery stenosis Status: Acute (2) Acute respiratory failure Status: Acute Qualifiers: Qualified Codes: J96.01 - Acute respiratory failure with hypoxia (3) CHF (congestive heart failure) Status: Acute Qualifiers: Qualified Codes: I50.21 - Acute systolic (congestive) heart failure (4) Elevated troponin Status: Acute (5) Pneumonia Status: Acute (6) CKD (chronic kidney disease) Status: Acute Qualifiers: Qualified Codes: N18.4 - Chronic kidney disease, stage 4 (severe) (7) Renal cell cancer Status: Acute Qualifiers: Qualified Codes: C64.9 - Malignant neoplasm of unspecified kidney, except renal pelvis RHINA DIAZ MD Mar 19, 2023 14:59
== END 2023-03-19 15:15 | disposition short-term general hospital (02) | DRG 280 ==
LOC: EDUNIT# 16:08 → ER 16:09 → INTOOBSV 22:29 → ICU 22:29 → OBSVTOIN 03-18 10:45
PROVIDERS: ADMIT Internal Medicine; ATTEND Internal Medicine
PROC: 4A023N7 Measurement of Cardiac Sampling and Pressure, Left Heart, Percutaneous Approach (ICD-10-PCS; principal; 2023-03-19)
PROC: B2111ZZ Fluoroscopy of Multiple Coronary Arteries using Low Osmolar Contrast (ICD-10-PCS; 2023-03-19)
DX: I13.0 Hypertensive heart and chronic kidney disease with heart failure and stage 1 through stage 4 chronic kidney disease, or unspecified chronic kidney disease (principal); I50.21 Acute systolic (congestive) heart failure; I21.4 Non-ST elevation (NSTEMI) myocardial infarction; J18.9 Pneumonia, unspecified organism; N18.4 Chronic kidney disease, stage 4 (severe); I25.10 Atherosclerotic heart disease of native coronary artery without angina pectoris; Z90.5 Acquired absence of kidney; Z85.528 Personal history of other malignant neoplasm of kidney; Z79.84 Long term (current) use of oral hypoglycemic drugs; Z79.899 Other long term (current) drug therapy; E03.9 Hypothyroidism, unspecified; E11.22 Type 2 diabetes mellitus with diabetic chronic kidney disease; Z85.118 Personal history of other malignant neoplasm of bronchus and lung; Z85.830 Personal history of malignant neoplasm of bone; Z92.21 Personal history of antineoplastic chemotherapy; Z20.822 Contact with and (suspected) exposure to COVID-19; I42.9 Cardiomyopathy, unspecified
CPT/HCPCS: 36415; 71045; 78580; 80053; 80061; 82947; 83605; 83735; 83880; 84100; 84484; 85007; 85025; 85027; 85379; 85610; 85730; 87040; 87081; 87636; 93005; 93306; 93458; 94640; 94664; G0378

== ENCOUNTER 2023-03-22 12:54 | Inpatient (IN) | payer MEDICARE, OTHER ==
[~2023-03-22] VITALS: Ht 167 cm; Wt 96.2 kg
[~2023-03-22 12:54] MED LIST changes: +AXIT1TAB PO; +CEPH500C PO; +CETI10TA17 PO; +FURO20TA4 PO; +LEVO-131 PO; +LEVO125T6 PO; +METF-865 PO; +PEMB100V IV
[2023-03-22] MEDS ORDERED: ONDANSETRON 4 MG/2 ML (SDV) Z0FRAN IVP ONE (13:30)
--- NOTE | 2023-03-22 13:43 | ED Respiratory ---
General Chief Complaint: Respiratory Problems Stated Complaint: SOB Nursing Triage Note: ARRIVED VIA EMS FROM HOME. PT LEFT [facility] FROM [facility] THIS AM AND PULSE OX WAS 80% ROOM AIR WHEN SHE LEFT. PT HAD CARDIAC STENTS PLACED THREE DAYS AGO AND HAD PNEUMONIA X4 DAYS AGO. DAUGHTER STATES SHE HAD A PLATELET TRANSUSION LAST NIGHT. PT ARRIVED WITH A NON REBREATHER. PT HAS HX OF KIDENY CANCER. Source: patient Exam Limitations: no limitations (FELICIANO SHULTZ) History of Present Illness Date Seen by Provider: Mar 22, 2023 Time Seen by Provider: 13:15 Initial Comments Our patient is a 68 yo F who presented to the emergency department with a chief complaint of shortness of breath. She states that she was seen here at [facility] on 03/17 for the same issue and was also experiencing a cough productive of brown mucous as well as a a slight fever,nasal congestion, and headache. Initial lung imaging illustrated bilateral interstitial infiltrates signalling possible pneumonia or edema. Antibiotic treatment was started with Keflex and the patient was admitted to the hospital. On 03/18 her troponin measurements were upward-trending and an echocardiogram illustrated an ejection fraction of 40- 45%. She was then transferred to [place] for possible PCI or CABG procedures. On 03/19, the patient underwent cardiac stent placement as well as a platelet transfusion on the . She decided to exit [place]'s care this morning and return here for further evaluation and treatment. At this time she is still experiencing SOB but she is no longer coughing up sputum. She notes that she is very anxious, nauseous, and weak. She denies chest pain, vomiting, further headache, dizziness, confusion, or any previous occurrences. She is not currently in any pain. Notes that she has a previous history of kidney cancer is treated with immunotherapy for suppression. Timing/Duration: week Prior Episodes/Possible Cause: no prior episodes Associated Symptoms: No chest pain/soreness, No dizziness, No headache; shortness of breath (FELICIANO SHULTZ) Initial Comments Patient was also interviewed and examined by me. The admission to [facility] in [place] was a March 18. She was transferred to [place] due coronary artery disease that required either CABG or high risk PCI. Stenting was performed at [place]. Patient was also treated for pneumonia. Initial antibiotic therapy was with Rocephin, not Keflex as stated above. Patient was frustrated with her care at [place] because the numerous interventions and assessments prevented her from sleeping. She decided to leave the [place] AGAINST MEDICAL ADVICE before stability or discharge could be assured. She left without any oxygen and was taken home by her family. She promptly decompensated there and required EMS transport to the emergency room. She was significantly hypoxic and is on a nonrebreather on arrival. She promptly decompensates her oxygen saturations into the 70s if she removes the nonrebreather. Patient reports she had bilateral lower extremity venous ultrasounds performed earlier today. She is unsure if any imaging was done on her chest for evaluation of PE. She did have a VQ scan performed prior to transfer to [place] which was inconclusive. (ORQUIDEA JC MD) Allergies and Home Medications Allergies Coded Allergies: Penicillins (Verified Allergy, Unknown, 10/15/21) Sulfa (Sulfonamide Antibiotics) (Verified Allergy, Unknown, 10/15/21) codeine (Verified Allergy, Unknown, 10/15/21) erythromycin base (Verified Allergy, Unknown, 10/15/21) Patient Home Medication List Home Medication List Reviewed: Yes (ORQUIDEA JC MD) Amlodipine Besylate (Amlodipine Besylate) 10 Mg Tablet, 10 MG PO DAILY, (Reported) Entered as Reported by: KAVON POSADAS on 10/14/21 1011 Axitinib (Inlyta) 1 Mg Tablet, 2 MG PO BID, (Reported) Entered as Reported by: JOSH LEGGETT on 03/18/23 1131 Cephalexin (Cephalexin) 500 Mg Capsule, 500 MG PO TID, (Reported) Entered as Reported by: JOSH LEGGETT on 03/18/23 1131 Cetirizine HCl (Cetirizine HCl) 10 Mg Tablet, 10 MG PO DAILY, (Reported) Entered as Reported by: JOSH LEGGETT on 03/18/23 1131 Furosemide (Furosemide) 20 Mg Tablet, 20 MG PO DAILY PRN for EDEMA, (Reported) Entered as Reported by: JOSH LEGGETT on 03/18/23 1131 Irbesartan (Irbesartan) 150 Mg Tablet, 150 MG PO BID, (Reported) Entered as Reported by: KAVON POSADAS on 10/14/21 1011 Levothyroxine Sodium (Levothyroxine Sodium) 125 Mcg Tablet, 125 MCG PO DAILY, (Reported) Entered as Reported by: JOSH LEGGETT on 03/18/23 1131 Metformin HCl (Metformin HCl ER) 500 Mg Tab.er.24h, 500 MG PO BID, (Reported) Entered as Reported by: JOSH LEGGETT on 03/18/23 1131 Pembrolizumab (Keytruda) 100 Mg/4 Ml (25 Mg/Ml) Vial, 200 MG IV EVERY 3 WEEKS, (Reported) Entered as Reported by: JOSH LEGGETT on 03/18/23 1131 Discontinued Medications Cefdinir (Cefdinir) 300 Mg Capsule, 300 MG PO BID Discontinued Reason: No Longer Taking Prescribed by: LYLY CASTELLANOS on 12/20/212349 Hydrocodone/Acetaminophen (Hydrocodone-Acetamin 5-325 mg) 1 Each Tablet, 1 TAB PO Q4H PRN for PAIN-MODERATE (5-7) Discontinued Reason: No Longer Taking Prescribed by: ADLIA ESTEVES on 10/15/21 0952 Levothyroxine Sodium (Euthyrox) 88 Mcg Tablet, 88 MCG PO DAILY, (Reported) Discontinued Reason: No Longer Taking Entered as Reported by: KAVON POSADAS on 10/14/21 1011 Levothyroxine Sodium (Euthyrox) 125 Mcg Tablet, 125 MCG PO DAILY, (Reported) Discontinued Reason: Duplicate Order Entered as Reported by: JOSH LEGGETT on 03/18/23 1131 Metformin HCl (Metformin HCl) 1,000 Mg Tablet, 1,000 MG PO BID, (Reported) Discontinued Reason: No Longer Taking Entered as Reported by: KAVON POSADAS on 10/14/21 1011 Morphine Sulfate (Morphine Sulfate IR Tablet) 15 Mg Tablet, 7.5 MG PO Q4H PRN for PAIN-MODERATE (5-7) Discontinued Reason: No Longer Taking Prescribed by: DENAE RYAN on 12/14/212044 [morphine] 15 mg , 15-30 MG PO Q4H PRN for pain Discontinued Reason: No Longer Taking Prescribed by: LYLY CASTELLANOS on 12/20/21 235 Review of Systems Review of Systems Constitutional: No chills, No diaphoresis, No dizziness; fever (slight fever a few days ago), weakness EENTM: no symptoms reported; No blurred vision, No throat pain Respiratory: see HPI; No cough; dyspnea on exertion, short of breath Cardiovascular: see HPI; No chest pain; edema, Hx of Intervention Gastrointestinal: no symptoms reported; No abdominal pain, No constipation, No diarrhea; nausea; No vomiting Genitourinary: no symptoms reported Musculoskeletal: no symptoms reported Skin: no symptoms reported Psychiatric/Neurological: Anxiety; Denies Headache; Weakness Hematologic/Lymphatic: See HPI; Denies Blood Clots Immunological/Allergic: no symptoms reported (FELICIANO SHULTZ) Past Lzxosxc-Accccv-Naourm Hx Patient Social History Tobacco Use?: No Substance use?: No Alcohol Use?: Yes Alcohol Frequency: Once in a while (FELICIANO SHULTZ) Immunizations Up To Date First/Initial COVID19 Vaccinat: yes Second COVID19 Vaccination Chandan: yes Third COVID19 Vaccination Date: yes (FELICIANO SHULTZ) Seasonal Allergies Seasonal Allergies: Yes (FELICIANO SHULTZ) Past Medical History Surgery/Hospitalization HX: SX: C-SEC, TONSILS, R KIDNEY REMOVED, L KIDNEY ABLATION, LT SIDE PORT PMH: KIDNEY CA, HTN pathological fracture to right hip Surgeries: Yes (kidney ablation, breast bx, port placed and removed) Section, Coronary Stent, Nephrectomy, Tonsillectomy Respiratory: No Pneumonia Currently Using CPAP: No Currently Using BIPAP: No Cardiac: Yes Hypertension Neurological: No Reproductive Disorders: No Sexually Transmitted Disease: No HIV/AIDS: No Genitourinary: Yes (kidney ca) Gastrointestinal: No Musculoskeletal: No Endocrine: Yes Hypothyroidsim, Diabetes, Non-Insulin dep HEENT: Yes Loss of Vision: Bilateral Hearing Impairment: Denies Cancer: Yes Bone, Lung, Kidney What Type of Treatment Did You: Chemotherapy, Surgical Intervention Psychosocial: No Integumentary: Yes (MILD ON SCALP) Psoriasis Blood Disorders: No Adverse Reaction/Blood Tranf: No (N/A) (FELICIANO SHULTZ) Family Medical History Cancer (FELICIANO SHULTZ) Physical Exam Vital Signs - First Documented (ORQUIDEA JC MD) Capillary Refill : (FELICIANO SHULTZ) Height: 5'6.00" Weight: 168lbs. 0.0oz. 76.300087sz; 27.00 BMI Method: General Appearance: WD/WN, mild distress HEENT: PERRL/EOMI; No scleral icterus (R), No scleral icterus (L) Neck: non-tender, supple, normal inspection Respiratory: chest non-tender, lungs clear, normal breath sounds, no respiratory distress, no accessory muscle use Cardiovascular: normal peripheral pulses, regular rate, rhythm, no gallop, no JVD, no murmur Gastrointestinal: normal bowel sounds, non tender, soft, no organomegaly Extremities: non-tender, normal inspection, no calf tenderness, normal capillary refill, pedal edema (1+) Neurologic/Psychiatric: alert, oriented x 3 Skin: normal color, warm/dry (FELICIANO SHULTZ) Progress/Results/Core Measures Suspected Sepsis SIRS Temperature: Pulse: 81 Respiratory Rate: 16 Laboratory Tests 03/22/23 14:00: White Blood Count 9.2 Blood Pressure 111 /67 Mean: 82 Laboratory Tests 03/22/23 13:25: Creatinine 1.88H, Total Bilirubin 0.6 03/22/23 14:00: Platelet Count 50L (FELICIANO SHULTZ) Results/Orders Lab Results Laboratory Tests Test 03/22/23 13:25 03/22/23 14:00 03/22/23 14:10 03/22/23 17:35 Range/Units Sodium Level 125 *L 135-145 MMOL/L Potassium Level 5.0 3.6-5.0 MMOL/L Chloride Level 99 98-107 MMOL/L Carbon Dioxide Level 13 L 21-32 MMOL/L Anion Gap 13 5-14 MMOL/L Blood Urea Nitrogen 40 H 7-18 MG/DL Creatinine 1.88 H 0.60-1.30 MG/DL Estimat Glomerular Filtration Rate 28 BUN/Creatinine Ratio 21 Glucose Level 142 H 70-105 MG/DL Calcium Level 7.8 L 8.5-10.1 MG/DL Corrected Calcium 8.1 L 8.5-10.1 MG/DL Magnesium Level 2.2 1.6-2.4 MG/DL Total Bilirubin 0.6 0.1-1.0 MG/DL Aspartate Amino Transf (AST/SGOT) 269 H 5-34 U/L Alanine Aminotransferase (ALT/SGPT) 158 H 0-55 U/L Alkaline Phosphatase 110 40-136 U/L Troponin I 0.300 *H 0.307 *H <0.028 NG/ML C-Reactive Protein High Sensitivity 4.29 H 0.00-0.50 MG/DL Total Protein 6.9 6.4-8.2 GM/DL Albumin 3.6 3.2-4.5 GM/DL Serum Alcohol < 10 <10 MG/DL White Blood Count 9.2 4.3-11.0 10^3/uL Red Blood Count 3.27 L 3.80-5.11 10^6/uL Hemoglobin 9.1 L 11.5-16.0 g/dL Hematocrit 29 L 35-52 % Mean Corpuscular Volume 88 80-99 fL Mean Corpuscular Hemoglobin 28 25-34 pg Mean Corpuscular Hemoglobin Concent 32 32-36 g/dL Red Cell Distribution Width 18.1 H 10.0-14.5 % Platelet Count 50 L 130-400 10^3/uL Mean Platelet Volume 11.5 9.0-12.2 fL Immature Granulocyte % (Auto) 2 % Neutrophils (%) (Auto) 86 H 42-75 % Lymphocytes (%) (Auto) 6 L 12-44 % Monocytes (%) (Auto) 5 0-12 % Eosinophils (%) (Auto) 1 0-10 % Basophils (%) (Auto) 0 0-10 % Neutrophils # (Auto) 7.9 H 1.8-7.8 10^3/uL Lymphocytes # (Auto) 0.6 L 1.0-4.0 10^3/uL Monocytes # (Auto) 0.5 0.0-1.0 10^3/uL Eosinophils # (Auto) 0.1 0.0-0.3 10^3/uL Basophils # (Auto) 0.0 0.0-0.1 10^3/uL Immature Granulocyte # (Auto) 0.2 H 0.0-0.1 10^3/uL Neutrophils % (Manual) 83 % Lymphocytes % (Manual) 7 % Monocytes % (Manual) 7 % Eosinophils % (Manual) 2 % Basophils % (Manual) 0 % Band Neutrophils 1 % Percent Immature Platelet Fraction 8.8 H 0.0-7.6 % Anisocytosis SLIGHT B-Type Natriuretic Peptide 1745.9 H <100.0 PG/ML Urine Color YELLOW Urine Clarity CLEAR Urine pH 5.5 5-9 Urine Specific [place] >=1.030 1.016-1.022 Urine Protein 3+ H NEGATIVE Urine Glucose (UA) NEGATIVE NEGATIVE Urine Ketones NEGATIVE NEGATIVE Urine Nitrite NEGATIVE NEGATIVE Urine Bilirubin NEGATIVE NEGATIVE Urine Urobilinogen 1.0 < = 1.0 MG/DL Urine Leukocyte Esterase NEGATIVE NEGATIVE Urine RBC (Auto) 2+ H NEGATIVE Urine RBC 2-5 H /HPF Urine WBC 0-2 /HPF Urine Squamous Epithelial Cells 2-5 /HPF Urine Crystals NONE /LPF Urine Bacteria FEW H /HPF Urine Casts NONE /LPF Urine Mucus NEGATIVE /LPF Urine Culture Indicated YES Urine Opiates Screen NEGATIVE NEGATIVE Urine Oxycodone Screen NEGATIVE NEGATIVE Urine Methadone Screen NEGATIVE NEGATIVE Urine Propoxyphene Screen NEGATIVE NEGATIVE Urine Barbiturates Screen NEGATIVE NEGATIVE Ur Tricyclic Antidepressants Screen NEGATIVE NEGATIVE Urine Phencyclidine Screen NEGATIVE NEGATIVE Urine Amphetamines Screen NEGATIVE NEGATIVE Urine Methamphetamines Screen NEGATIVE NEGATIVE Urine Benzodiazepines Screen POSITIVE H NEGATIVE Urine Cocaine Screen NEGATIVE NEGATIVE Urine Cannabinoids Screen NEGATIVE NEGATIVE (ORQUIDEA CJ MD) My Orders Orders - ORQUIDEA JC MD Alcohol (03/22/23 13:17) Cbc With Automated Diff (03/22/23 13:17) Comprehensive Metabolic Panel (03/22/23 13:17) Hs C Reactive Protein (03/22/23 13:17) Drug Screen Stat (Urine) (03/22/23 13:17) Magnesium (03/22/23 13:17) Troponin I Maria De Jesus (03/22/23 13:17) Ua Culture If Indicated (03/22/23 13:17) Ed Iv/Invasive Line Start (03/22/23 13:17) Ekg Tracing (03/22/23 13:17) O2 (03/22/23 13:17) Monitor-Rhythm Ecg Trace Only (03/22/23 13:17) Chest 1 View, Ap/Pa Only (03/22/23 13:17) Ondansetron Injection (Zofran Injectio (03/22/23 13:30) Manual Differential (03/22/23 14:00) Urine Culture (03/22/23 14:10) Bnp Daniels (03/22/23 15:06) Albuterol/Ipra Inhalation Soln (Duoneb I (03/22/23 16:00) Svn Small Volume Nebulizer (03/22/23 15:46) Bipap (Bilevel) Set Up (03/22/23 15:46) Lorazepam Injection (Ativan Injection) (03/22/23 17:15) Ed Admission (Communication) (03/22/23 17:25) (ORQUIDEA JC MD) Medications Given in ED Current Medications Medications Dose Ordered Sig/Terry Route Start Time Stop Time Status Last Admin Dose Admin Albuterol/ Ipratropium 3 ml ONCE ONCE INH 03/22/23 16:00 03/22/23 16:01 DC 03/22/23 16:21 3 ML Lorazepam 0.5 mg ONCE ONCE IVP 03/22/23 17:15 03/22/23 17:16 DC 03/22/23 17:16 0.5 MG Ondansetron HCl 8 mg ONCE ONCE IVP 03/22/23 13:30 03/22/23 13:31 DC 03/22/23 13:41 8 MG (ORQUIDEA JC MD) Vital Signs/I&O 03/22/23 03/22/23 03/22/23 03/22/23 13:00 13:00 13:00 16:13 Temp 35.1 Pulse 81 84 Resp 16 26 B/P (MAP) 111/67 (82) Pulse Ox 92 93 93 O2 Delivery Non Rebreather Non Rebreather Non Rebreather O2 Flow Rate 15.00 15.00 80.00 (ORQUIDEA JC MD) Vital Signs/I&O Capillary Refill : (FELICIANO SHULTZ) Blood Pressure Mean: 82 Progress Note #1: Time: 15:57 Progress Note I have interviewed patient and her family and have examined the patient along with Feliciano Fam, MS4. Patient is still requiring high flow oxygen by nonrebreather. She is exhibiting abdominal muscle use with increased work of breathing. DuoNeb treatment along with BiPAP has been ordered. Patient appears to have some heart failure in progress with evidence of congestion on chest x- ray and a BNP of 1700. Labs have been reviewed and interpreted by me. She has notable abnormalities including anemia with hemoglobin of 9.1. Chemistry shows multiple abnormalities including hyponatremia with sodium of 125, elevated transaminases which are a change from prior, and elevated creatinine of 1.88. Troponin was also elevated at 0.3. CRP was modestly elevated at 4. EKG was reviewed. There was no overt ST elevation or depression. QRS complex is abnormal with notching suggestive of block. Progress Note #2: Time: 19:31 Progress Note Patient did not tolerate BiPAP well, even with Ativan. She requested it be removed and RT gave her a break. Dr. Santillan (Hospitalist) and Dr. Soto (Lead Generation Marketing Manager) presented to the ER to evaluate the patient. Admission was arranged. After further consideration by cardiology, there was hesitance to admit her at this facility due to the complexity of her case. (ORQUIDEA JC MD) ECG Initial ECG Impression Date: Mar 22, 2023 Initial ECG Impression Time: 13:23 Initial ECG Rate: 80 Comment Sinus rhythm with no ST elevation or depression. EKG is low voltage. There may be some degree of bundle branch block. No axis deviation noted. (ORQUIDEA JC MD) Diagnostic Imaging Diagonstic Imaging: Xray Plain Films/CT/US/NM/MRI: chest Comments NAME: ALVIN [facility]AYLOR [facility] REC#: [id number] PT STATUS: REG ER : 1955 PHYSICIAN: ORQUIDEA JC MD ADMIT DATE: 03/22/23/ER Signed Date of Exam:03/22/23 CHEST 1 VIEW, AP/PA ONLY INDICATION: Shortness of breath. EXAMINATION: Portable chest at 01:51 p.m. FINDINGS: There is cardiomegaly with pulmonary vascular congestion and right pleural effusion. IMPRESSION: Congestive heart failure. Dictated by: Dictated on workstation # [id number] Dict: 03/22/23 1414 Trans: 03/22/23 1609 [id number] Interpreted by: AMANDO BARRETO MD Electronically signed by: AMANDO BARRETO MD 03/22/23 1609 (ORQUIDEA JC MD) Departure Communication (Admissions) Dr. Santillan (ORQUIDEA JC MD) Impression Primary Impression: CHF (congestive heart failure) Qualified Codes: I50.9 - Heart failure, unspecified Additional Impressions: Acute respiratory failure Qualified Codes: J96.01 - Acute respiratory failure with hypoxia Elevated troponin Medical non-compliance Disposition: ADMITTED INPATIENT Condition: Stable Admissions Decision to Admit Reason: Admit from ER (General) Decision to Admit/Date: Mar 22, 2023 (ORQUIDEA JC MD) Departure-Patient Inst. Referrals: JOYA PHELPS DO (PCP/Family) Primary Care Physician Medical Student Attestation and Attending Note: I have personally interviewed and examined this patient along with Feliciano Shultz MS4. I have reviewed student documentation including history, physical, and assessments. I agree with the documentation except where otherwise noted. Exam: General: Alert, somewhat confused, in mild respiratory distress HEENT: Normocephalic and atraumatic Heart: Regular rate and rhythm without murmur Lungs: Decreased air movement, increased work of breathing with use of abdominal muscles, few crackles in bases Abdomen: Soft, nontender, nondistended, normal bowel sounds Neuropsych: Alert, oriented, no focal deficits Extremities: Mild to moderate edema Skin: Warm and dry without rashes (ORQUIDEA JC MD) FELICIANO SHULTZ Mar 22, 2023 13:43 ORQUIDEA JC MD Mar 22, 2023 16:02
[2023-03-22 13:51] LABS: ALBUMIN 3.6 GM/DL (3.2-4.5); CHLORIDE 99 MMOL/L (98-107)
[2023-03-22 13:52] LABS: CALCIUM 7.8 MG/DL (8.5-10.1)
[2023-03-22 13:53] LABS: GLUCOSE 142 MG/DL (70-105); TOTAL PROTEIN 6.9 GM/DL (6.4-8.2)
[2023-03-22 13:54] LABS: CARBON DIOXIDE 13 MMOL/L (21-32)
[2023-03-22 13:55] LABS: BILIRUBIN,TOTAL 0.6 MG/DL (0.1-1.0)
[2023-03-22 13:57] LABS: ALKALINE PHOSPHATASE 110 U/L (40-136); CREATININE SERUM 1.88 MG/DL (0.60-1.30); GFR ESTIMATED 28
[2023-03-22 13:58] LABS: BUN/CREATININE RATIO 21
[2023-03-22 14:00] LABS: ALANINE AMINOTRANSFERASE 158 U/L (0-55); MAGNESIUM 2.2 MG/DL (1.6-2.4)
[2023-03-22 14:06] LABS: BASOPHILS % (AUTO) 0 % (0-10); EOSINOPHILS # (AUTO) 0.1 10^3/uL (0.0-0.3); EOSINOPHILS % (AUTO) 1 % (0-10); HEMATOCRIT 29 % (35-52); HEMOGLOBIN 9.1 g/dL (11.5-16.0); LYMPHOCYTES # (AUTO) 0.6 10^3/uL (1.0-4.0); LYMPHOCYTES % (AUTO) 6 % (12-44); MEAN CORPUSCULAR HEMOGLOBIN 28 pg (25-34); MEAN CORPUSCULAR HGB CONC 32 g/dL (32-36); MEAN CORPUSCULAR VOLUME 88 fL (80-99); MEAN PLATELET VOLUME 11.5 fL (9.0-12.2); MONOCYTES # (AUTO) 0.5 10^3/uL (0.0-1.0); MONOCYTES % (AUTO) 5 % (0-12); NEUTROPHILS # (AUTO) 7.9 10^3/uL (1.8-7.8); NEUTROPHILS % (AUTO) 86 % (42-75); PLATELET COUNT 50 10^3/uL (130-400); WHITE BLOOD COUNT 9.2 10^3/uL (4.3-11.0)
[2023-03-22 14:12] LABS: SODIUM 125 MMOL/L (135-145)
--- NOTE | 2023-03-22 14:18 | Diagnostic Imaging Report ---
INDICATION: Shortness of breath. EXAMINATION: Portable chest at 01:51 p.m. FINDINGS: There is cardiomegaly with pulmonary vascular congestion and right pleural effusion. IMPRESSION: Congestive heart failure. Dictated by: Dictated on workstation # [id number]
[2023-03-22 14:28] LABS: BAND NEUTROPHILS 1 %; LYMPHOCYTES % (MANUAL) 7 %; MONOCYTES % (MANUAL) 7 %; NEUTROPHILS % (MANUAL) 83 %
[2023-03-22 14:29] LABS: ANISOCYTOSIS SLIGHT; BASOPHILS % (MANUAL) 0 %; EOSINOPHILS % (MANUAL) 2 %
[2023-03-22 14:33] LABS: BILIRUBIN,URINE NEGATIVE (NEGATIVE); CLARITY,URINE CLEAR; COLOR,URINE YELLOW; GLUCOSE, URINE (UA) NEGATIVE (NEGATIVE); KETONES,URINE NEGATIVE (NEGATIVE); LEUKOCYTE ESTERASE ,URINE NEGATIVE (NEGATIVE); NITRITE,URINE NEGATIVE (NEGATIVE); PH,URINE 5.5 (5-9); PROTEIN,URINE 3+ (NEGATIVE)
[2023-03-22 14:39] LABS: AMPHETAMINE SCREEN, URINE NEGATIVE (NEGATIVE); BACTERIA,URINE FEW /HPF; BARBITURATE SCREEN URINE NEGATIVE (NEGATIVE); BENZODIAZEPINES SCREEN URINE POSITIVE (NEGATIVE); CANNABINOID SCREEN, URINE NEGATIVE (NEGATIVE); COCAINE SCREEN URINE NEGATIVE (NEGATIVE); METHADONE STAT NEGATIVE (NEGATIVE); OPIATE SCREEN URINE NEGATIVE (NEGATIVE); OXYCODONE STAT NEGATIVE (NEGATIVE); PROPOXYPHENE STAT NEGATIVE (NEGATIVE); TRICYCLIC ANTIDEPRESSANTS SCRE NEGATIVE (NEGATIVE); WBC,URINE 0-2 /HPF
[2023-03-22] MEDS ORDERED: RT-ALBUTEROL/IPRATROPIUM 3 ML (DUONEB) VIAL INH ONE (16:00)
[2023-03-22 16:13] VITALS: BP 124/61
--- NOTE | 2023-03-22 16:33 | History & Physical-Hospitalist ---
History of Present Illness HPI/Chief Complaint Pt is a 68CF with a PMH who presented to the ER due to shortness of breath. Third due to pneumonia and an NSTEMI. She underwent cath and was ultimately transferred to [place] for CTS evaluation. She was wendy to undergo high risk intervention and 3 stents were placed 2 days ago. She continued being treated for her pneumonia and was found to have thrombocytopenia. Her states he platelets were 3 last night and she was given a transfusion of platelets. Her platelets per report improved to 66 this morning at [place]. She states she was told she was ok to DC by the sheet combining operator so elected to leave AMA. Her daughter states she asked the nurse what she should know taking her home and the nurse told them that her platelets were 66 and her oxygen was 80% on room air. When they got home she was very short of breath and weak and so her daughter called EMS to bring her back to the ER for evaluation. She was found to be in acute hypoxic respiratory failure and required NRB to maintained oxygen saturations. Her platelets here were 50 (356 last week during admission). She was found to have a transaminitis as well though and JAMAR with creatinine of 1.8. Na was 125 and this was normal last week when she was here. Source: patient Date Seen 03/22/23 Time Seen by a Provider: 16:33 Attending Physician Naren Thomas DO PCP Admitting Physician: Attending Physician: Referring Physician Date of Admission Home Medications & Allergies Home Medications Reviewed patient Home Medication Reconciliation performed by pharmacy medication reconciliations aviation safety technician and/or nursing. Patients Allergies have been reviewed. Allergies Allergies Coded Allergies Penicillins (Verified Allergy, Unknown, 10/15/21) Sulfa (Sulfonamide Antibiotics) (Verified Allergy, Unknown, 10/15/21) codeine (Verified Allergy, Unknown, 10/15/21) erythromycin base (Verified Allergy, Unknown, 10/15/21) Past Qfjvmvx-Vkpgiy-Tambny Hx Patient Social History Tobacco Use?: No Substance use?: No Alcohol Use?: Yes Alcohol Frequency: Once in a while Immunizations Up To Date First/Initial COVID19 Vaccinat: yes Second COVID19 Vaccination Chandan: yes Seasonal Allergies Seasonal Allergies: Yes Current Status Primary Language: Tristanian Preferred Spoken Language: Tristanian Past Medical History Surgeries: Section, Coronary Stent, Nephrectomy, Tonsillectomy Pneumonia Currently Using CPAP: No Currently Using BIPAP: No Hypertension Sexually Transmitted Disease: No HIV/AIDS: No Hypothyroidsim, Diabetes, 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 0.0oz. 76.324681ml; 27.00 BMI Method: General Appearance: Anxious, Mild Distress Respiratory: No Accessory Muscle Use, Crackles, Other Cardiovascular: Regular Rate, Rhythm, No Murmur Gastrointestinal: Normal Bowel Sounds, Soft Extremity: No Calf Tenderness, Pedal Edema Neurologic/Psychiatric: Alert, Oriented x3 Results Results/Procedures Labs Laboratory Tests 03/22/23 13:25 03/22/23 14:00 03/22/23 20:34 03/23/23 04:15 Patient resulted labs reviewed. Imaging: Reviewed Imaging Report Imaging [facility]. [place], [place] NAME: ALVIN TAYLOR [facility] REC#: [id number] PT STATUS: REG ER : 1955 PHYSICIAN: ORQUIDEA JC MD ADMIT DATE: 03/22/23/ER Signed Date of Exam:03/22/23 CHEST 1 VIEW, AP/PA ONLY INDICATION: Shortness of breath. EXAMINATION: Portable chest at 01:51 p.m. FINDINGS: There is cardiomegaly with pulmonary vascular congestion and right pleural effusion. IMPRESSION: Congestive heart failure. Dictated by: Dictated on workstation # [id number] Dict: 03/22/23 1414 Trans: 03/22/23 1609 [id number] Interpreted by: AMANDO BARRETO MD Electronically signed by: AMANDO BARRETO MD 03/22/23 1609 Assessment/Plan Admission Diagnosis Acute hypoxic respiratory failure Admission Status: Inpatient Order (span 2 midnights) Reason for Inpatient Admission: see below Assessment and Plan Acute hypoxic respiratory failure CHF exacerbation- acute systolic and diastolic dysfunction CAD with recent NSTEMI and stents CKD - h/o renal cell carcinoma s/p nephrectomy Thrombocytopenia Transaminitis Hyponatremia Reviewed labs and previous echo with patient and family She appears to be heart failure Lasix ordered Cardiology consulted, appreciate recs Attempted to call [place] for records, no answer Request records Discussed with Dr Soto who reviewed her echo, reported as EF of 40% with grade 3 diastolic dysfunction Offered transfer back to [place] but she declined and states she will not go back there, offered transfer to [facility] and daughter actually lives in [facility]- called [facility] to check on bed Patient ultimately elected to admit here and forgo transfer for tonight and see how she is doing in the morning, discussed concerns that she could wo rsen in that time but she states "that won't happen. I'll get better." Confirmed patient is a full code and daughter, Renetta, is decision maker if needed Monitor I/Os (weight gain of ~7kg per estimated weight form last visit) I called and spoke with Dr Badillo with [facility] Continue abx to cover for recent pna I spoke with Dr Hernandez regarding consult for thrombocytopenia and complicating issue of recent stents Ultimately after Dr Hernandez and Dr Soto spoke plan is for Plavix and monitor plts Peripheral smear ordered and HIT ab Discussed with patient and daughter her very complicated situation given multiple conflicting ailments Did not tolerate BiPAP well Breathing tolerably on NRB but satting ~95% when I was in room- work of breathing was satisfactory at the time Diagnosis/Problems Diagnosis/Problems (1) Multi-vessel coronary artery stenosis Status: Acute (2) Pneumonia Status: Acute (3) Acute respiratory failure Status: Acute Qualifiers: Respiratory failure complication: hypoxia Qualified Codes: J96.01 - Acute respiratory failure with hypoxia (4) CHF (congestive heart failure) Status: Acute Qualifiers: Heart failure type: unspecified Heart failure chronicity: unspecified Qualified Codes: I50.9 - Heart failure, unspecified (5) Elevated troponin Status: Acute SULTANA QUIROGA MD Mar 22, 2023 16:33
[2023-03-22] MEDS ORDERED: LORazepam INJ 2 MG/ML (ATIVAN) VIAL IVP ONE (17:15)
--- NOTE | 2023-03-22 18:29 | Consultation-Cardiology ---
HPI-Cardiology Cardiology Consultation: Date of Consultation 03/22/23 Date of Admission Attending Physician Naren Thomas DO Admitting Physician Admitting Physician: Attending Physician: Consulting Physician SANNA SANTORO MD HPI: Time Seen by a Provider: 16:30 Chief Complaint: Severe shortness of breath The patient is well-known to this hospital from recent admissions. She was admitted to this hospital a few days ago with elevated troponin/NSTEMI and subsequently underwent transthoracic echocardiography on 03/17/2023. I have personally reviewed these echo films and feel that the patient's left ventricle ejection fraction is moderately to severely reduced. Moderate mitral regurgitation was also noted. Subsequently, the patient underwent coronary angiography with minimal IV contrast administration (solitary kidney, history of renal cell cancer with baseline creatinine around 2) on 03/19/2023 which showed multivessel coronary artery disease including 95% ostial LAD stenosis, severe mid to distal left circumflex disease and moderate to severe right coronary artery disease. The patient was subsequently transferred to [facility] for decision regarding coronary artery bypass grafting versus high risk multivessel percutaneous intervention. The latter was undertaken, most likely on 03/20/2023. The patient left AGAINST MEDICAL ADVICE this morning from the hospital but subsequently developed dyspnea and presented to [facility] early evening. Here she is in significant respiratory distress. Chest x-ray shows bilateral pulmonary edema consistent with CHF exacerbation. Drop in platelet count to 50,000/mm cube today. Apparently patient has needed platelet transfusions at [facility]. ?HIT. The patient denies chest pain. IMAGING: Chest x-ray 03/22/2023 self reviewed. Bilateral pulmonary edema EKG 03/22/2023 self reviewed. Sinus rhythm at 80 bpm. Wide QRS complex with left bundle branch block pattern. Further interpretation not attempted Cardiac cath 03/19/2023: FINDINGS: 1.Left main: Patent. 2.LAD: severe ostial disease. stenosis severity 95%. severe diffuse disease in the mid and distal LAD. 3.Left circumflex artery: first OM is occluded in the mid section. LCX had severe disease in the mid and distal segment. Stenosis severity 80%. 4.RCA: Moderate to severe disease in the mid segment and moderate to severe disease in the distal segment. 5.Left heart catheterization: LV gram not done due to CKD. Aortic pressure 78/53 mmHg. LV pressure 80/5 mmHg. LVEDP 10 mmHg. No gradient across the aortic valve. CONCLUSIONS: Severe multivessel disease. We will transferred to [facility] for further management which includes either CABG or high risk PCI especially with nephrology services due to history of chronic kidney disease and single kidney. Discussed with the patient and son. TTE 03/17/2023. Images are reviewed. As per my interpretation at least moderately to severely reduced left ventricular ejection fraction. Moderate mitral regurgitation. Wall motion abnormalities consistent with coronary artery disease. Small pericardial effusion without hemodynamic effect. Lung scan 03/17/2023 indeterminate for PE Labs. Hemoglobin 9.1, platelet count 50,000 Serum sodium 125, bicarb 13 BNP 1745 BUN 40 Creatinine 1.88 Trop 0.3 Review of Systems-Cardiology All Other Systems Reviewed Negative Unless Noted: Yes MJK-Jaabsy-Wwlhua Hx Patient Social History Alcohol Use?: Yes Past Medical History PMH As described under Assessment. Allergies and Home Medications Allergies Coded Allergies: Penicillins (Verified Allergy, Unknown, 10/15/21) Sulfa (Sulfonamide Antibiotics) (Verified Allergy, Unknown, 10/15/21) codeine (Verified Allergy, Unknown, 10/15/21) erythromycin base (Verified Allergy, Unknown, 10/15/21) Patient Home Medication List Home Medication List Reviewed: Yes Amlodipine Besylate (Amlodipine Besylate) 10 Mg Tablet, 10 MG PO DAILY, (Reported) Entered as Reported by: KAVON POSADAS on 10/14/21 1011 Axitinib (Inlyta) 1 Mg Tablet, 2 MG PO BID, (Reported) Entered as Reported by: JOSH LEGGETT on 03/18/23 1131 Cephalexin (Cephalexin) 500 Mg Capsule, 500 MG PO TID, (Reported) Entered as Reported by: JOSH LEGGETT on 03/18/23 1131 Cetirizine HCl (Cetirizine HCl) 10 Mg Tablet, 10 MG PO DAILY, (Reported) Entered as Reported by: JOSH LEGGETT on 03/18/23 1131 Furosemide (Furosemide) 20 Mg Tablet, 20 MG PO DAILY PRN for EDEMA, (Reported) Entered as Reported by: JOSH LEGGETT on 03/18/23 1131 Irbesartan (Irbesartan) 150 Mg Tablet, 150 MG PO BID, (Reported) Entered as Reported by: KAVON POSAADS on 10/14/21 1011 Levothyroxine Sodium (Levothyroxine Sodium) 125 Mcg Tablet, 125 MCG PO DAILY, (Reported) Entered as Reported by: JOSH LEGGETT on 03/18/23 1131 Metformin HCl (Metformin HCl ER) 500 Mg Tab.er.24h, 500 MG PO BID, (Reported) Entered as Reported by: JOSH LEGGETT on 03/18/23 1131 Pembrolizumab (Keytruda) 100 Mg/4 Ml (25 Mg/Ml) Vial, 200 MG IV EVERY 3 WEEKS, (Reported) Entered as Reported by: JOSH LEGGETT on 03/18/23 1131 Discontinued Medications Cefdinir (Cefdinir) 300 Mg Capsule, 300 MG PO BID Discontinued Reason: No Longer Taking Prescribed by: LYLY CASTELLANOS on 12/20/212349 Hydrocodone/Acetaminophen (Hydrocodone-Acetamin 5-325 mg) 1 Each Tablet, 1 TAB PO Q4H PRN for PAIN-MODERATE (5-7) Discontinued Reason: No Longer Taking Prescribed by: DALIA ESTEVES on 10/15/21 0952 Levothyroxine Sodium (Euthyrox) 88 Mcg Tablet, 88 MCG PO DAILY, (Reported) Discontinued Reason: No Longer Taking Entered as Reported by: KAVON POSADAS on 10/14/21 1011 Levothyroxine Sodium (Euthyrox) 125 Mcg Tablet, 125 MCG PO DAILY, (Reported) Discontinued Reason: Duplicate Order Entered as Reported by: JOSH LEGGETT on 03/18/23 1131 Metformin HCl (Metformin HCl) 1,000 Mg Tablet, 1,000 MG PO BID, (Reported) Discontinued Reason: No Longer Taking Entered as Reported by: KAVON POSADAS on 10/14/21 1011 Morphine Sulfate (Morphine Sulfate IR Tablet) 15 Mg Tablet, 7.5 MG PO Q4H PRN for PAIN-MODERATE (5-7) Discontinued Reason: No Longer Taking Prescribed by: DENAE RYAN on 12/14/212044 [morphine] 15 mg , 15-30 MG PO Q4H PRN for pain Discontinued Reason: No Longer Taking Prescribed by: LYLY CASTELLANOS on 12/20/212349 Exam Vital Signs Vital Signs Date Time Temp Pulse Resp B/P (MAP) Pulse Ox O2 Delivery O2 Flow Rate FiO2 03/22/23 16:13 84 26 93 80.00 03/22/23 13:00 Non Rebreather 03/22/23 13:00 35.1 111/67 (82) Physical Exam Patient initially placed on bilevel positive airway pressure ventilation but did not tolerate this. Significant respiratory distress Chest. Diffuse wheezing. S1 and S2 regular. No murmur. Mild lower extremity edema. Jugular venous distention difficult to assess due to respiratory distress Neurological examination nonfocal Labs Laboratory Tests Test 03/22/23 13:25 03/22/23 14:00 03/22/23 14:10 Range/Units Sodium Level 125 *L 135-145 MMOL/L Potassium Level 5.0 3.6-5.0 MMOL/L Chloride Level 99 98-107 MMOL/L Carbon Dioxide Level 13 L 21-32 MMOL/L Anion Gap 13 5-14 MMOL/L Blood Urea Nitrogen 40 H 7-18 MG/DL Creatinine 1.88 H 0.60-1.30 MG/DL Estimat Glomerular Filtration Rate 28 BUN/Creatinine Ratio 21 Glucose Level 142 H 70-105 MG/DL Calcium Level 7.8 L 8.5-10.1 MG/DL Corrected Calcium 8.1 L 8.5-10.1 MG/DL Magnesium Level 2.2 1.6-2.4 MG/DL Total Bilirubin 0.6 0.1-1.0 MG/DL Aspartate Amino Transf (AST/SGOT) 269 H 5-34 U/L Alanine Aminotransferase (ALT/SGPT) 158 H 0-55 U/L Alkaline Phosphatase 110 40-136 U/L Troponin I 0.300 *H <0.028 NG/ML C-Reactive Protein High Sensitivity 4.29 H 0.00-0.50 MG/DL Total Protein 6.9 6.4-8.2 GM/DL Albumin 3.6 3.2-4.5 GM/DL Serum Alcohol < 10 <10 MG/DL White Blood Count 9.2 4.3-11.0 10^3/uL Red Blood Count 3.27 L 3.80-5.11 10^6/uL Hemoglobin 9.1 L 11.5-16.0 g/dL Hematocrit 29 L 35-52 % Mean Corpuscular Volume 88 80-99 fL Mean Corpuscular Hemoglobin 28 25-34 pg Mean Corpuscular Hemoglobin Concent 32 32-36 g/dL Red Cell Distribution Width 18.1 H 10.0-14.5 % Platelet Count 50 L 130-400 10^3/uL Mean Platelet Volume 11.5 9.0-12.2 fL Immature Granulocyte % (Auto) 2 % Neutrophils (%) (Auto) 86 H 42-75 % Lymphocytes (%) (Auto) 6 L 12-44 % Monocytes (%) (Auto) 5 0-12 % Eosinophils (%) (Auto) 1 0-10 % Basophils (%) (Auto) 0 0-10 % Neutrophils # (Auto) 7.9 H 1.8-7.8 10^3/uL Lymphocytes # (Auto) 0.6 L 1.0-4.0 10^3/uL Monocytes # (Auto) 0.5 0.0-1.0 10^3/uL Eosinophils # (Auto) 0.1 0.0-0.3 10^3/uL Basophils # (Auto) 0.0 0.0-0.1 10^3/uL Immature Granulocyte # (Auto) 0.2 H 0.0-0.1 10^3/uL Neutrophils % (Manual) 83 % Lymphocytes % (Manual) 7 % Monocytes % (Manual) 7 % Eosinophils % (Manual) 2 % Basophils % (Manual) 0 % Band Neutrophils 1 % Percent Immature Platelet Fraction 8.8 H 0.0-7.6 % Anisocytosis SLIGHT B-Type Natriuretic Peptide 1745.9 H <100.0 PG/ML Urine Color YELLOW Urine Clarity CLEAR Urine pH 5.5 5-9 Urine Specific [place] >=1.030 1.016-1.022 Urine Protein 3+ H NEGATIVE Urine Glucose (UA) NEGATIVE NEGATIVE Urine Ketones NEGATIVE NEGATIVE Urine Nitrite NEGATIVE NEGATIVE Urine Bilirubin NEGATIVE NEGATIVE Urine Urobilinogen 1.0 < = 1.0 MG/DL Urine Leukocyte Esterase NEGATIVE NEGATIVE Urine RBC (Auto) 2+ H NEGATIVE Urine RBC 2-5 H /HPF Urine WBC 0-2 /HPF Urine Squamous Epithelial Cells 2-5 /HPF Urine Crystals NONE /LPF Urine Bacteria FEW H /HPF Urine Casts NONE /LPF Urine Mucus NEGATIVE /LPF Urine Culture Indicated YES Urine Opiates Screen NEGATIVE NEGATIVE Urine Oxycodone Screen NEGATIVE NEGATIVE Urine Methadone Screen NEGATIVE NEGATIVE Urine Propoxyphene Screen NEGATIVE NEGATIVE Urine Barbiturates Screen NEGATIVE NEGATIVE Ur Tricyclic Antidepressants Screen NEGATIVE NEGATIVE Urine Phencyclidine Screen NEGATIVE NEGATIVE Urine Amphetamines Screen NEGATIVE NEGATIVE Urine Methamphetamines Screen NEGATIVE NEGATIVE Urine Benzodiazepines Screen POSITIVE H NEGATIVE Urine Cocaine Screen NEGATIVE NEGATIVE Urine Cannabinoids Screen NEGATIVE NEGATIVE ECG Impression ECG Initial ECG Impression Date: Mar 22, 2023 Comment As described above A/P-Cardiology Assessment/Admission Diagnosis 1. Acute systolic/diastolic congestive heart failure exacerbation. Start IV furosemide 40 mg every 6 hours into 4 doses. Patient could not tolerate bilevel positive airway pressure ventilation. May need intubation if dyspnea worsens. Chest x-ray consistent with acute pulmonary edema 2. Ischemic cardiomyopathy. Guideline directed medical treatment will be started as tolerated. 3. Acute thrombocytopenia. Hematology consultation obtained. Apparently patient needed platelet transfusion at [facility]. Acute drop in platelet count. For now we will continue single antiplatelet treatment with clopidogrel 75 mg daily. Discontinue aspirin for now. Antiplatelet treatment will have to be stopped if platelet count declines further significantly or if patient develops bleeding. Patient's daughter at the bedside. Risks of completely discontinuing antiplatelet treatment (acute stent thrombosis with potential fatal results) versus risk of bleeding with continuation of antiplatelet treatment have been discussed. We have agreed to continue clopidogrel 75 mg daily 4. Chronic renal insufficiency. History of unilateral nephrectomy. Serum creatinine will be monitored. Recommend nephrology consultation 5. Troponin of 0.3. Secondary to supply/demand mismatch ie type II NSTEMI/recent percutaneous interventions. Serial troponins will be followed. Doubt ACS 6. Metabolic acidosis. Recommend nephrology consultation Prognosis guarded. Consider transfer to hospital able to provide higher of care including in-house driver service technician SANNA SANTORO MD Mar 22, 2023 18:29
[2023-03-22] MEDS ORDERED: CLOPIDOGREL 75 MG (PLAVIX) TABLET PO NR (19:00)
[2023-03-22] MEDS ORDERED: morphine INJ 10 MG/ML 1ML (SYR OR VIAL) IVP STA (19:10)
[2023-03-22] MEDS: FUROSEMIDE 40 MG/4 ML INJ (LASIX) IVP SCH (19:28)
--- NOTE | 2023-03-22 20:14 | Tele-ICU Progress Note ---
Subjective Date Seen by a Provider: Mar 22, 2023 Subjective/Events-last exam This virtual visit was conducted using real time audio/video. Thank you for asking us to see this patient for respiratory insufficiency due to pulmonary edema. Recent events:Went AMA this AM from OSH following placement of 2 coronary stents. PE: VSS. Lild distress. O2 sat 93% on 15 LPM NRB HEENT: No obvious masses, adenopathy or JVD. Chest: clear to auscultation. CV: RRR S1 S2 No murmur or added sounds. Abd: Non-tender. Bowel sounds Y. : Unremarkable. Cotton N. FOOD AND NUTRITION TEACHER/psychiatric: Grossly intact. No obvious focal findings. Extremities: 1+ edema. Capillary refill < 3 seconds. Skin: unremarkable. Results: Elevated tROP 0.03, bnp 1745, bun 40, cREAT 1.88, bg 142. Decreased Plts 50k, Hb 9.1 Na 125. CXR: Worsening B congestion w R pleural effusion. Available chart/ vitals / labs / images reviewed. Video assessment done using teleICU camera, rest of exam as per RN. A/P: Respiratory insufficiency: Continue present management with NRB mask, PRN Duonebs Monitor for increasing oxygenation needs and/or need for intubation. Critical Care: critically ill patient. Cont. Lasix, plavix. Discussed with RN Everette. Asked RN to reach out to eICU if any questions or concerns later. Time spent with patient/coordination of care with other health professionals (mins): 24 Sepsis Event Evaluation Height, Weight, BMI Height: 5'6.00" Weight: 168lbs. 0.0oz. 76.798970xt; 27.00 BMI Method: Exam Exam Patient acknowledged, consented, and participated in this virtual visit which was conducted using real time audio/video Vital Signs Date Time Temp Pulse Resp B/P (MAP) Pulse Ox O2 Delivery O2 Flow Rate FiO2 03/22/23 19:33 92 Non Rebreather 15.00 100 03/22/23 16:13 84 26 93 80.00 03/22/23 13:00 93 Non Rebreather 15.00 03/22/23 13:00 Non Rebreather 15.00 03/22/23 13:00 35.1 81 16 111/67 (82) 92 Non Rebreather Height & Weight Height: 5'6.00" Weight: 168lbs. 0.0oz. 76.103757vg; 27.00 BMI Method: General Appearance: Anxious, Mild Distress Respiratory: Lungs Clear Cardiovascular: Regular Rate, Rhythm Peripheral Pulses: 1+ Dorsalis Pedis (R), 1+ Left Dors-Pedis (L) Gastrointestinal: normal bowel sounds, non tender, soft, no organomegaly Extremity: Pedal Edema (See free text) Results Lab Laboratory Tests 03/22/23 13:25 03/22/23 14:00 Assessment/Plan Assessment/Plan See free text. Critical Care: Critically Ill Patient SPIKE LEWIS MD Mar 22, 2023 20:14
[2023-03-22] MEDS ORDERED: VANCOMYCIN INJECTION 0.1 MG in NS (IVPB) 250 ML IV SCH (20:30)
[2023-03-22] MEDS ORDERED: CEFEPIME INJECTION 1,000 MG in NS (IVPB) 50 ML IV SCH (20:30)
[2023-03-22] MEDS ORDERED: NS IV 500 ML 500 ML IV PRN (20:30)
[2023-03-22] MEDS ORDERED: FUROSEMIDE 40 MG/4 ML INJ (LASIX) IV SCH (21:00)
[2023-03-22 21:01] LABS: ABSOLUTE RETIC # 90 10e9/uL (24-90); BASOPHILS % (AUTO) 0 % (0-10); EOSINOPHILS # (AUTO) 0.1 10^3/uL (0.0-0.3); EOSINOPHILS % (AUTO) 1 % (0-10); HEMATOCRIT 29 % (35-52); HEMOGLOBIN 9.4 g/dL (11.5-16.0); LYMPHOCYTES # (AUTO) 0.7 10^3/uL (1.0-4.0); LYMPHOCYTES % (AUTO) 8 % (12-44); MEAN CORPUSCULAR HEMOGLOBIN 28 pg (25-34); MEAN CORPUSCULAR HGB CONC 32 g/dL (32-36); MEAN CORPUSCULAR VOLUME 87 fL (80-99); MEAN PLATELET VOLUME 11.3 fL (9.0-12.2); MONOCYTES # (AUTO) 0.4 10^3/uL (0.0-1.0); MONOCYTES % (AUTO) 5 % (0-12); NEUTROPHILS # (AUTO) 8.1 10^3/uL (1.8-7.8); NEUTROPHILS % (AUTO) 84 % (42-75); PLATELET COUNT 55 10^3/uL (130-400); RETICULOCYTE % 2.67 % (0.50-2.40); WHITE BLOOD COUNT 9.6 10^3/uL (4.3-11.0)
[2023-03-22] MEDS ORDERED: NS (IVPB) 50 ML ONE (22:06)
[2023-03-22] MEDS ORDERED: CEFEPIME 1 GM/10 ML (MAXIPIME) VIAL ONE (22:06)
[2023-03-22] MEDS: ALPRAZolam 0.25 MG (XANAX) TAB PO PRN (22:15)
[2023-03-22 23:33] LABS: BAND NEUTROPHILS 4 %; LYMPHOCYTES % (MANUAL) 7 %; METAMYELOCYTES % 4 %; MONOCYTES % (MANUAL) 4 %; NEUTROPHILS % (MANUAL) 80 %
[2023-03-22 23:34] LABS: ANISOCYTOSIS SLIGHT; ATYPICAL LYMPHOCYTES 1 %; PLATELET CLUMPS NONE SEEN; PLATELET ESTIMATE DECREASED; POIKILOCYTOSIS SLIGHT; POLYCHROMASIA SLIGHT
[2023-03-23] MEDS: FUROSEMIDE 40 MG/4 ML INJ (LASIX) IVP SCH ×3 (01:20→13:46)
[2023-03-23 04:43] LABS: MEAN PLATELET VOLUME 11.2 fL (9.0-12.2); WHITE BLOOD COUNT 8.5 10^3/uL (4.3-11.0)
[2023-03-23 05:21] LABS: ALBUMIN 3.6 GM/DL (3.2-4.5); BILIRUBIN,TOTAL 0.5 MG/DL (0.1-1.0); CALCIUM 7.7 MG/DL (8.5-10.1); CREATININE SERUM 1.95 MG/DL (0.60-1.30); MAGNESIUM 1.9 MG/DL (1.6-2.4); POTASSIUM 4.5 MMOL/L (3.6-5.0)
[2023-03-23] MEDS: MAGNESIUM 1 GM/100 ML IVPB 100 ML IV SCH ×2 (05:30→06:34)
[2023-03-23] MEDS: POTASSIUM CL 10MEQ/50ML IVPB 50 ML IV SCH (05:30)
[2023-03-23] MEDS: KCL 20 MEQ TAB (K-DUR) PO SCH (05:31)
[2023-03-23] MEDS: CEFEPIME INJECTION 1,000 MG in NS (IVPB) 50 ML IV SCH ×3 (05:41→21:52)
[2023-03-23 08:11] VITALS: BP 121/68
[2023-03-23] MEDS ORDERED: CLOPIDOGREL 75 MG (PLAVIX) TABLET PO SCH (09:00)
[2023-03-23] MEDS ORDERED: ASPIRIN 81 MG CHEW (CHILDREN'S ASA) PO SCH (09:00)
[2023-03-23] MEDS: CLOPIDOGREL 75 MG (PLAVIX) TABLET PO SCH (09:33)
[2023-03-23] MEDS: guaiFENesin/DM (ROBITUSSIN DM) 10 ML UDC PO PRN ×3 (09:34→19:54)
[2023-03-23] MEDS: ALPRAZolam 0.25 MG (XANAX) TAB PO PRN ×2 (09:34→21:52)
[2023-03-23] MEDS: RT-ALBUTEROL/IPRATROPIUM 3 ML (DUONEB) VIAL INH SCH ×4 (10:12→22:24)
[2023-03-23 10:16] LABS: ABG BASE EXCESS -10.7 MMOL/L (-2.5-2.5); ABG OXYGEN SATURATION 96 % (94-100); ABG PCO2 31 MMHG (35-45); ABG PO2 66 MMHG (79-93); ABG TCO2 15.7 MMOL/L (21.0-31.0)
[2023-03-23 10:36] LABS: ABG PH 7.29 (7.37-7.43); ALLENS TEST YES-POS; INSPIRED O2 80%; PATIENT TEMP 36.1; VENTILATOR NO
--- NOTE | 2023-03-23 11:04 | Oncology Consultation ---
Visit Information Visit Information Date of Admission Mar 22, 2023 at 18:53 Attending Physician Naren Thomas DO Admitting Physician Admitting Physician: Catherine Santillan MD Attending Physician: Catherine Santillan MD Chief Complaint Thrombocytopenia in the setting of recent CHF, cardiac stents and needing anticoagulation. Interval History Ms. Babb is a 68 year old white female, was recently admitted in [facility] for acute CHF exacerbation and 3 cardiac stents 3 days ago. Her WBC was normal 03/18/2023 with WBC 8.6, Hb 11.2, Hct 36, Plt 291. She then was noticed to have Plt 3 and required Plt transfusion before discharge from the [place]. She was re-admitted here for SOB and hypoxia O2 80%. She was treated with diuretics and she is feeling better today. She started to eat her breakfast and is on nasal canal oxygen now. "I am a lot better now than I was before." H/o chronic renal failure: Cr 2.39 12/14/2021. 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 Currently under oncologist Dr Galeana and receiving Keytruda treatment. I consulted the patient on: 03/23/23 10:57 Time Seen by Provider: 10:00 Review of Systems Constitutional: see HPI Health Status Allergies Coded Allergies: Penicillins (Verified Allergy, Unknown, 10/15/21) Sulfa (Sulfonamide Antibiotics) (Verified Allergy, Unknown, 10/15/21) codeine (Verified Allergy, Unknown, 10/15/21) erythromycin base (Verified Allergy, Unknown, 10/15/21) Home Medications Amlodipine Besylate (Amlodipine Besylate) 10 Mg Tablet, 10 MG PO DAILY, (Reported) Axitinib (Inlyta) 1 Mg Tablet, 2 MG PO BID, (Reported) TAKES 2 (1MG) TABS Cephalexin (Cephalexin) 500 Mg Capsule, 500 MG PO TID, (Reported) FILLED 03-14-2023 #30/10 DAY SUPPLY Cetirizine HCl (Cetirizine HCl) 10 Mg Tablet, 10 MG PO DAILY, (Reported) Furosemide (Furosemide) 20 Mg Tablet, 20 MG PO DAILY PRN for EDEMA, (Reported) Irbesartan (Irbesartan) 150 Mg Tablet, 150 MG PO BID, (Reported) Levothyroxine Sodium (Levothyroxine Sodium) 125 Mcg Tablet, 125 MCG PO DAILY, ( Reported) Metformin HCl (Metformin HCl ER) 500 Mg Tab.er.24h, 500 MG PO BID, (Reported) Pembrolizumab (Keytruda) 100 Mg/4 Ml (25 Mg/Ml) Vial, 200 MG IV EVERY 3 WEEKS, (Reported) [id number] Hx Patient Social History Recent Hopitalizations: No Alcohol Use?: Yes Family Medical History Significant Family History: Cancer Physical Exam Vital Signs Vital Signs - First Documented 03/22/23 19:33 FiO2 100 Capillary Refill : Height, Weight, BMI Height: 5'6.00" Weight: 168lbs. 0.0oz. [id number]; 34.49 BMI Method: General Appearance: Other (somewhat short winded when talking) HEENT: PERRL/EOMI Respiratory: No Accessory Muscle Use, No Respiratory Distress Data Review Labs Laboratory Tests 03/24/23 04:45 Laboratory Tests 03/22/23 13:25: Sodium Level 125*L, Carbon Dioxide Level 13L, Blood Urea Nitrogen 40H, Creatinine 1.88H, Glucose Level 142H, Calcium Level 7.8L, Corrected Calcium 8.1L , Aspartate Amino Transf (AST/SGOT) 269H, Alanine Aminotransferase (ALT/SGPT) 158H, Troponin I 0.300*H, C-Reactive Protein High Sensitivity 4.29H 03/22/23 14:00: Red Blood Count 3.27L, Hemoglobin 9.1L, Hematocrit 29L, Red Cell Distribution Width 18.1H, Platelet Count 50L, Neutrophils (%) (Auto) 86H, Lymphocytes (%) (Auto) 6L, Neutrophils # (Auto) 7.9H, Lymphocytes # (Auto) 0.6L, Immature Granulocyte # (Auto) 0.2H, Percent Immature Platelet Fraction 8.8H, B-Type Natriuretic Peptide 1745.9H 03/22/23 14:10: Urine Protein 3+H, Urine RBC (Auto) 2+H, Urine RBC 2-5H, Urine Bacteria FEWH, Urine Benzodiazepines Screen POSITIVEH 03/22/23 17:35: Troponin I 0.307*H 03/22/23 20:33: Glucometer 121H 03/22/23 20:34: Red Blood Count 3.38L, Hemoglobin 9.4L, Hematocrit 29L, Red Cell Distribution Width 18.0H, Platelet Count 55L, Neutrophils (%) (Auto) 84H, Lymphocytes (%) (Auto) 8L, Neutrophils # (Auto) 8.1H, Lymphocytes # (Auto) 0.7L, Immature Granulocyte # (Auto) 0.3H, Percent Immature Platelet Fraction 8.9H, Percent Reticulocyte Count 2.67H 03/23/23 04:15: Red Blood Count 3.29L, Hemoglobin 9.0L, Hematocrit 29L, Red Cell Distribution Width 17.8H, Platelet Count 57L, Mean Corpuscular Hemoglobin Concent 31L, Sodium Level 126L, Carbon Dioxide Level 13L, Blood Urea Nitrogen 42H, Creatinine 1.95H, Calcium Level 7.7L, Corrected Calcium 8.0L, Aspartate Amino Transf (AST/SGOT) 142H, Alanine Aminotransferase (ALT/SGPT) 140H, Troponin I 0.333*H 03/23/23 10:09: Arterial Blood pH 7.29*L, Arterial Blood Partial Pressure CO2 31L, Arterial Blood Partial Pressure O2 66L, Arterial Blood HCO3 15*L, Arterial Blood Total CO2 15.7L, Arterial Blood Base Excess -10.7L 03/23/23 10:34: Glucometer 182H 03/23/23 15:35: Glucometer 156H 03/23/23 20:31: Glucometer 161H 03/24/23 04:45: Red Blood Count 2.82L, Hemoglobin 7.8L, Hematocrit 24L, Red Cell Distribution Width 17.9H, Platelet Count 96L, Sodium Level 126L, Carbon Dioxide Level 17L, Blood Urea Nitrogen 45H, Creatinine 2.35H, Glucose Level 106H, Calcium Level 7.5L, Corrected Calcium 8.1L, Aspartate Amino Transf (AST/SGOT) 73H, Alanine Aminotransferase (ALT/SGPT) 105H, Total Protein 6.1L 03/24/23 10:52: Glucometer 115H Impression & Plan Impression & Plan IMP: 1. CAD, recent CHF exacerbation and s/p 3 cardiac stents placement. On plavix 75mg daily. 2. Normal CBC 03/18/2023 and then had acute thrombocytopenia Plt 3 required Plt transfusion before discharge from hospital in [place]. Now Plt was 50 yesterday and 57 today. 3. Anemia due to recent blood loss, Hb 9 today. 4. 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 CRF: Cr 1.8-2.3 range. Right now stable. 6. Pneumonia 7. 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 Galeana care and getting Keytruda now. Rec: 1. Dr. Soto recommended pt to be on plavix due to recent cardiac stents. OK to stay on plavix 75mg daily. 2. Her Plt is getting better now, I would just watch her for now. 3. Please AVOID any heparin for now. 4. Please call her primary oncologist Dr Galeana for her f/u. Thank you for consultation. DELMY LINDER MD Mar 23, 2023 11:04
--- NOTE | 2023-03-23 11:19 | Tele-ICU Progress Note ---
Subjective Date Seen by a Provider: Mar 23, 2023 Time Seen by a Provider: 11:19 Subjective/Events-last exam (Tele-ICU Physician , Progress Note ) Service provided via interactive audio and video telecommunications E-CARE system to a patient admitted to ICU bed in [facility]. Patient is seen today due to persistent need of ICU care Available chart/ vitals / labs / Images reviewed Video assessment done using teleICU camera, rest of exam as per RN Discussed with RN Events overnight : Afebrile hemodynamically stable Respiratory - 2l I/O = neg 400 Drips: Pressors- no Hospital course: 03/17- 68yo F presented to ER w/ URI, went to urgent care , diagnosed w/ sinus infection and was orescribed w/ antibiotics. LA (N), on RA.Admitted for PNA, elevated Trop, CHF, CKD- -abx , diuresis-left heart cath which revealed multi- vessel coronary artery disease. She was transferred to [place] for CABG evaluation vs high risk PCI. --> 3 cardiac stents d/c hpme 03/22- re-admitted here for SOB and hypoxia O2 80% A/P Acute respiratory failure- presumed pulm edema,WITH CHF possible infiltrates -initially placed on BIPAP - but did not tolerate this. - on VT 15L 80 % now - mstil labored breathing at times - cont diuresis ( -VQ - low prob for PE 03/17/23 Acute thrombocytopenia. Hematology consultation obtained - monitor , off lovenox - ? HIT Possible PNA --IV azithromycin giben prevous admission , and Rocephin (Flu and Covid serology negative CHF, ICM - EF 45% , gr III dst dsfnc - duiuresis with lasix - card follow CKD -stable -S/p nephrectomy - monitor carefully with diuresis Renal CA -getting KEYTRUDA , s/p nephrectomy Lines : perip , (Central Line Necessity Reviewed) Cotton: void OG: Nutrition: Po Analgesia: Anxiety/ delirium VTE Prophylaxis: estee 80 Stress Ulcer Prophylaxis: ppi Plans in collaboration with bedside consultants and IM MDs. Discussed with RN to reach out if any questions or concerns Case and care daily discussed on multidisciplinary rounds ( RN, PharmD, Fish Rod Maker , Respiratory Therapy, floor worker transfer bay ) A total of 31 minutes of critical care time was devoted to this patient today, required to treat and/or prevent further deterioration of critical care condition ( as above ) . I am remotely monitoring this patient from another state. I am unable to do the bedside exam, and history/physical and pertinent information is taken from other notes in the computer and bedside staff. Sepsis Event Evaluation Height, Weight, BMI Height: 5'6.00" Weight: 168lbs. 0.0oz. 76.450214kq; 34.49 BMI Method: Exam Exam Patient acknowledged, consented, and participated in this virtual visit which was conducted using real time audio/video Vital Signs Date Time Temp Pulse Resp B/P (MAP) Pulse Ox O2 Delivery O2 Flow Rate FiO2 03/23/23 10:13 94 Vapotherm 15.00 80 03/23/23 10:00 96 112/62 (79) 95 Vapotherm 30.00 80.00 03/23/23 09:00 93 92/68 (76) 96 Vapotherm 30.00 80.00 03/23/23 08:30 94 Vapotherm 20.00 80 03/23/23 08:20 95 Vapotherm 30.00 80 03/23/23 08:11 36.2 99 95 80 03/23/23 08:08 Vapotherm 30.00 80.00 03/23/23 08:04 94 Vapotherm 40.00 100 03/23/23 08:00 94 Vapotherm 15.00 80 03/23/23 08:00 93 105/51 (69) 90 Non Rebreather 15.00 03/23/23 07:33 94 03/23/23 07:30 93 101/55 (70) 91 Non Rebreather 15.00 03/23/23 07:27 36.2 OxyMask 15.00 03/23/23 06:30 92 121/68 (85) 90 Non Rebreather 15.00 03/23/23 05:00 90 107/66 (80) 94 Non Rebreather 15.00 03/23/23 04:11 36.0 03/23/23 04:09 91 116/77 (90) 96 Non Rebreather 15.00 03/23/23 04:00 97 OxyMask 15.00 03/23/23 03:00 87 17 111/66 (81) 97 Non Rebreather 15.00 03/23/23 02:00 87 19 114/67 (83) 96 Non Rebreather 15.00 03/23/23 01:00 85 03/23/23 01:00 85 38 105/64 (78) 99 Non Rebreather 15.00 03/23/23 00:00 87 117/70 (86) 95 Non Rebreather 15.00 03/22/23 23:58 98 OxyMask 15.00 03/22/23 23:56 35.9 03/22/23 23:00 86 117/73 (88) 97 Non Rebreather 15.00 03/22/23 22:00 84 18 100/67 (78) 99 Non Rebreather 15.00 03/22/23 21:00 87 19 116/72 (86) 100 Non Rebreather 15.00 03/22/23 20:45 87 20 110/86 (100) 100 Non Rebreather 15.00 03/22/23 20:38 99 OxyMask 15.00 03/22/23 20:30 88 116/73 (94) 98 Non Rebreather 15.00 03/22/23 20:15 92 03/22/23 20:15 92 37 116/74 (95) 98 Non Rebreather 15.00 03/22/23 20:07 94 34 112/60 (77) 87 Non Rebreather 15.00 03/22/23 20:00 89 28 126/76 94 Non Rebreather 15.00 03/22/23 19:38 88 34 126/76 (93) 87 Non Rebreather 15.00 03/22/23 19:33 92 Non Rebreather 15.00 100 03/22/23 16:13 84 26 93 80.00 03/22/23 13:00 93 Non Rebreather 15.00 03/22/23 13:00 Non Rebreather 15.00 03/22/23 13:00 35.1 81 16 111/67 (82) 92 Non Rebreather I & O 03/23/23 07:00 Intake Total 400 ml Output Total 1300 ml Balance -900 ml Height & Weight Height: 5'6.00" Weight: 168lbs. 0.0oz. 76.722358kc; 34.49 BMI Method: General Appearance: Other (somewhat short winded when talking) HEENT: PERRL/EOMI Respiratory: No Accessory Muscle Use, No Respiratory Distress Cardiovascular: Regular Rate, Rhythm Peripheral Pulses: 1+ Dorsalis Pedis (R), 1+ Left Dors-Pedis (L) Gastrointestinal: normal bowel sounds, non tender, soft, no organomegaly Extremity: Pedal Edema (See free text) Results Lab Laboratory Tests 03/22/23 13:25 03/22/23 14:00 03/22/23 20:34 03/23/23 04:15 Assessment/Plan Assessment/Plan 1 GAGE LEE MD Mar 23, 2023 11:19
[2023-03-23] MEDS ORDERED: RT-ALBUTEROL/IPRATROPIUM 3 ML (DUONEB) VIAL INH PRN (12:00)
[2023-03-23] MEDS ORDERED: METOLAZONE 2.5 MG (ZAROXOLYN) TAB PO NR (14:00)
--- NOTE | 2023-03-23 14:32 | Progress Note - Hospitalist ---
Subjective HPI/CC On Admission Date Seen by Provider: Mar 23, 2023 Pt is a 68CF with a PMH who presented to the ER due to shortness of breath. Third due to pneumonia and an NSTEMI. She underwent cath and was ultimately transferred to [place] for CTS evaluation. She was wendy to undergo high risk intervention and 3 stents were placed 2 days ago. She continued being treated for her pneumonia and was found to have thrombocytopenia. Her states he platele ts were 3 last night and she was given a transfusion of platelets. Her platelets per report improved to 66 this morning at [place]. She states she was told she was ok to DC by the microbiology teacher so elected to leave [facility]. Her daughter states she asked the nurse what she should know taking her home and the nurse told them that her platelets were 66 and her oxygen was 80% on room air. When they got home she was very short of breath and weak and so her daughter called EMS to bring her back to the ER for evaluation. She was found to be in acute hypoxic respiratory failure and required NRB to maintained oxygen saturations. Her platelets here were 50 (356 last week during admission). She was found to have a transaminitis as well though and JAMAR with creatinine of 1.8. Na was 125 and this was normal last week when she was here. Subjective/Events-last exam Pt reports doing much better today. Slept well. No complaints. Thinks breathing is much better. She is actually asking about going home today. Informed her that she is on 15lpm NRB and unable to DC at that level. She expressed understanding and reiterated her desire to not transfer anywhere else. With patient's approval I called and spoke with her daughter and updated her on status and plan. Requests catheter to be removed. Objective Exam Vital Signs Vital Signs Date Time Temp Pulse Resp B/P (MAP) Pulse Ox O2 Delivery O2 Flow Rate FiO2 03/23/23 20:10 94 Vapotherm 15.00 70 03/23/23 19:56 36.2 03/23/23 18:00 98 21 100/67 (78) Capillary Refill : General Appearance: No Apparent Distress, WD/WN Respiratory: Lungs Clear, No Accessory Muscle Use, Other Cardiovascular: Regular Rate, Rhythm, No Murmur Gastrointestinal: Normal Bowel Sounds, Soft Neurologic/Psychiatric: Alert, Oriented x3 Results/Procedures Lab Laboratory Tests 03/23/23 04:15 Patient resulted labs reviewed. Assessment/Plan Assessment and Plan Assess & Plan/Chief Complaint Acute hypoxic respiratory failure CHF exacerbation- acute systolic and diastolic dysfunction CAD with recent NSTEMI and stents CKD - h/o renal cell carcinoma s/p nephrectomy Thrombocytopenia Transaminitis Hyponatremia continue lasix Cardiology consulted, appreciate recs Request records from [place]- spoke with Dr Thomas her PCP regarding this admission Discussed with Dr Soto again today who reviewed her echo, reported as EF of 40% with grade 3 diastolic dysfunction Monitor I/Os- good UOP per RN and negative so far today Continue abx to cover for recent pna hematology consulted, appreciate recs Peripheral smear ordered and HIT ab Switch to Vapotherm Critical Care Critically Ill Patient Diagnosis/Problems Diagnosis/Problems (1) Multi-vessel coronary artery stenosis Status: Acute (2) Pneumonia Status: Acute (3) Acute respiratory failure Status: Acute Qualifiers: Respiratory failure complication: hypoxia Qualified Codes: J96.01 - Acute respiratory failure with hypoxia (4) CHF (congestive heart failure) Status: Acute Qualifiers: Heart failure type: unspecified Heart failure chronicity: unspecified Qualified Codes: I50.9 - Heart failure, unspecified (5) Elevated troponin Status: Acute SULTANA QUIROGA MD Mar 23, 2023 14:32
--- NOTE | 2023-03-23 16:05 | Cardiology Progress Note ---
Subjective Time Seen by Provider: 14:00 Subjective/Events-last exam Patient admitted 03/22/2023 with severe shortness of breath secondary to pulmonary edema/combined systolic and diastolic congestive heart failure. Required intermittent bilevel positive airway pressure ventilation on 03/22/2023. She has been receiving IV furosemide 40 mg every 6 hours with improvement in respiratory status. She is still dyspneic even on a conversation, but improved from yesterday. Serum creatinine more or less stable The patient is well-known to this hospital from recent admissions. She was admitted to this hospital a few days ago with elevated troponin/NSTEMI and subsequently underwent transthoracic echocardiography on 03/17/2023. I have personally reviewed these echo films and feel that the patient's left ventricle ejection fraction is moderately to severely reduced. Moderate mitral regurgitation was also noted. Subsequently, the patient underwent coronary angiography with minimal IV contrast administration (solitary kidney, history of renal cell cancer with baseline creatinine around 2) on 03/19/2023 which showed multivessel coronary artery disease including 95% ostial LAD stenosis, severe mid to distal left circumflex disease and moderate to severe right coronary artery disease. The patient was subsequently transferred to [facility] for decision regarding coronary artery bypass grafting versus high risk multivessel percutaneous intervention. The latter was undertaken, most likely on 03/20/2023. The patient left AGAINST MEDICAL ADVICE in a.m. of 03/22/2023 from the hospital but subsequently developed dyspnea and presented to [facility] early evening. Here she was in significant respiratory distress. Chest x-ray showed bilateral pulmonary edema consistent with CHF exacerbation. Drop in platelet count to 50,000/mm3 on 03/22/2023, now improved to 57,000/mm3 03/23/2023. Apparently patient has needed platelet transfusions at [facility]. ?HIT. The patient denies chest pain. IMAGING: Chest x-ray 03/22/2023 self reviewed. Bilateral pulmonary edema EKG 03/22/2023 self reviewed. Sinus rhythm at 80 bpm. Wide QRS complex with left bundle branch block pattern. Further interpretation not attempted Cardiac cath 03/19/2023: FINDINGS: 1.Left main: Patent. 2.LAD: severe ostial disease. stenosis severity 95%. severe diffuse disease in the mid and distal LAD. 3.Left circumflex artery: first OM is occluded in the mid section. LCX had sever e disease in the mid and distal segment. Stenosis severity 80%. 4.RCA: Moderate to severe disease in the mid segment and moderate to severe disease in the distal segment. 5.Left heart catheterization: LV gram not done due to CKD. Aortic pressure 78/53 mmHg. LV pressure 80/5 mmHg. LVEDP 10 mmHg. No gradient across the aortic valve. CONCLUSIONS: Severe multivessel disease. We will transferred to [facility] for further management which includes either CABG or high risk PCI especially with nephrolog y services due to history of chronic kidney disease and single kidney. Discussed with the patient and son. TTE 03/17/2023. Images are reviewed. As per my interpretation at least moderately to severely reduced left ventricular ejection fraction. Moderate mitral regurgitation. Wall motion abnormalities consistent with coronary artery disease. Small pericardial effusion without hemodynamic effect. Lung scan 03/17/2023 indeterminate for PE Labs. Hemoglobin 9.1, platelet count 50,000 upon admission Serum sodium 125, bicarb 13 upon admission BNP 1745 upon admission BUN 40 upon admission Creatinine 1.88 03/22/2023 -> 1.95 03/23/2023 Trop 0.3 x 3 Exam Vital Signs Vital Signs Date Time Temp Pulse Resp B/P (MAP) Pulse Ox O2 Delivery O2 Flow Rate FiO2 03/23/23 15:49 36.7 Vapotherm 70.00 03/23/23 15:00 99 21 113/66 (82) 95 03/23/23 14:18 70 Physical Exam Dyspnea at rest has improved. Still short of breath on minimal activity. Saturating adequately on nasal cannula S1 and S2 regular Mild lower extremity edema Fine crackles lung bases No focal neurological deficit Labs Laboratory Tests Test 03/22/23 17:35 03/22/23 20:33 03/22/23 20:34 03/23/23 04:15 Range/Units Troponin I 0.307 *H 0.333 *H <0.028 NG/ML Glucometer 121 H 70-110 MG/DL White Blood Count 9.6 8.5 4.3-11.0 10^3/uL Red Blood Count 3.38 L 3.29 L 3.80-5.11 10^6/uL Hemoglobin 9.4 L 9.0 L 11.5-16.0 g/dL Hematocrit 29 L 29 L 35-52 % Mean Corpuscular Volume 87 87 80-99 fL Mean Corpuscular Hemoglobin 28 27 25-34 pg Mean Corpuscular Hemoglobin Concent 32 31 L 32-36 g/dL Red Cell Distribution Width 18.0 H 17.8 H 10.0-14.5 % Platelet Count 55 L 57 L 130-400 10^3/uL Mean Platelet Volume 11.3 11.2 9.0-12.2 fL Immature Granulocyte % (Auto) 3 % Neutrophils (%) (Auto) 84 H 42-75 % Lymphocytes (%) (Auto) 8 L 12-44 % Monocytes (%) (Auto) 5 0-12 % Eosinophils (%) (Auto) 1 0-10 % Basophils (%) (Auto) 0 0-10 % Neutrophils # (Auto) 8.1 H 1.8-7.8 10^3/uL Lymphocytes # (Auto) 0.7 L 1.0-4.0 10^3/uL Monocytes # (Auto) 0.4 0.0-1.0 10^3/uL Eosinophils # (Auto) 0.1 0.0-0.3 10^3/uL Basophils # (Auto) 0.0 0.0-0.1 10^3/uL Immature Granulocyte # (Auto) 0.3 H 0.0-0.1 10^3/uL Neutrophils % (Manual) 80 % Lymphocytes % (Manual) 7 % Monocytes % (Manual) 4 % Metamyelocytes % 4 % Band Neutrophils 4 % Atypical Lymphocytes 1 % Platelet Estimate DECREASED Clumped Platelets NONE SEEN Percent Immature Platelet Fraction 8.9 H 6.7 0.0-7.6 % Polychromasia SLIGHT Poikilocytosis SLIGHT Anisocytosis SLIGHT Absolute Reticulocyte Count 90 24-90 10e9/uL Percent Reticulocyte Count 2.67 H 0.50-2.40 % Sodium Level 126 L 135-145 MMOL/L Potassium Level 4.5 3.6-5.0 MMOL/L Chloride Level 100 98-107 MMOL/L Carbon Dioxide Level 13 L 21-32 MMOL/L Anion Gap 13 5-14 MMOL/L Blood Urea Nitrogen 42 H 7-18 MG/DL Creatinine 1.95 H 0.60-1.30 MG/DL Estimat Glomerular Filtration Rate 27 BUN/Creatinine Ratio 22 Glucose Level 96 70-105 MG/DL Calcium Level 7.7 L 8.5-10.1 MG/DL Corrected Calcium 8.0 L 8.5-10.1 MG/DL Magnesium Level 1.9 1.6-2.4 MG/DL Total Bilirubin 0.5 0.1-1.0 MG/DL Aspartate Amino Transf (AST/SGOT) 142 H 5-34 U/L Alanine Aminotransferase (ALT/SGPT) 140 H 0-55 U/L Alkaline Phosphatase 100 40-136 U/L Total Protein 7.0 6.4-8.2 GM/DL Albumin 3.6 3.2-4.5 GM/DL Test 03/23/23 10:09 03/23/23 10:34 03/23/23 15:35 Range/Units Blood Gas Puncture Site RIGHT RADIAL Blood Gas Patient Temperature 36.1 Arterial Blood pH 7.29 *L 7.37-7.43 Arterial Blood Partial Pressure CO2 31 L 35-45 MMHG Arterial Blood Partial Pressure O2 66 L 79-93 MMHG Arterial Blood HCO3 15 *L 23-27 MMOL/L Arterial Blood Total CO2 15.7 L 21.0-31.0 MMOL/L Arterial Blood Oxygen Saturation 96 94-100 % Arterial Blood Base Excess -10.7 L -2.5-2.5 MMOL/L Barrett Test YES-POS Blood Gas Ventilator Setting NO Blood Gas Inspired Oxygen 80% Glucometer 182 H 156 H 70-110 MG/DL A/P-Cardiology Admission Diagnosis 1. Acute systolic/diastolic congestive heart failure exacerbation. Continue IV furosemide 40 mg every 6 hours. Patient was intermittently on bilevel positive airway pressure ventilation on 03/22/2023, now off. Dyspnea has improved. Chest x-ray 03/22/2023 consistent with acute pulmonary edema. Will repeat chest x-ray. Add low-dose metolazone to furosemide. Close eye on renal function 2. Ischemic cardiomyopathy. Guideline directed medical treatment will be started as tolerated once volume overload improved 3. Acute thrombocytopenia. Hematology consultation obtained. Apparently patient needed platelet transfusion at [facility]. Acute drop in platelet count, but somewhat improved today. For now we will continue single antiplatelet treatment with clopidogrel 75 mg daily. Discontinued aspirin for now. Antiplatelet treatment will have to be stopped if platelet count declines further significantly or if patient develops bleeding. Risks of completely discontinuing antiplatelet treatment (acute stent thrombosis with potential fatal results) versus risk of bleeding with continuation of antiplatelet treatment have been discussed. We agreed to continue clopidogrel 75 mg daily 4. Chronic renal insufficiency. History of unilateral nephrectomy. Serum creatinine will be monitored. 5. Troponin of 0.3 x 3. Secondary to supply/demand mismatch ie type II NSTEMI/recent percutaneous interventions. No evidence of acute coronary syndrome 6. Metabolic acidosis. Will be monitored SANNA SANTORO MD Mar 23, 2023 16:05
--- NOTE | 2023-03-23 16:34 | Diagnostic Imaging Report ---
INDICATION: CHF. TECHNIQUE/COMPARISON: A frontal chest was obtained at 4:23 PM and compared to 03/22/2023. FINDINGS: There is cardiomegaly. There is mild improvement in the central vascular congestion with decreasing interstitial edema. There is partial improvement in the right basilar infiltrate compared to the prior study. There is a small amount of pleural fluid on the left side. The left-sided Port-A-Cath is unchanged. IMPRESSION: Improving vascular congestive changes compared to the prior study with cardiomegaly. Improving right basilar infiltrate compared to the prior study. There is some left pleural fluid noted. There is no change in the left basilar infiltrate. Dictated by: Dictated on workstation # [id number]
[2023-03-23] MEDS: SODIUM BICARBONATE 650 MG TABLET PO SCH (21:52)
[2023-03-24] MEDS: RT-ALBUTEROL/IPRATROPIUM 3 ML (DUONEB) VIAL INH SCH ×6 (03:16→22:48)
[2023-03-24 05:34] LABS: HEMOGLOBIN 7.8 g/dL (11.5-16.0)
[2023-03-24 05:36] LABS: MEAN PLATELET VOLUME 10.3 fL (9.0-12.2)
[2023-03-24 05:46] LABS: ALBUMIN 3.2 GM/DL (3.2-4.5); POTASSIUM 3.6 MMOL/L (3.6-5.0)
[2023-03-24 05:47] LABS: CALCIUM 7.5 MG/DL (8.5-10.1)
[2023-03-24 05:48] LABS: TOTAL PROTEIN 6.1 GM/DL (6.4-8.2)
[2023-03-24 05:50] LABS: BILIRUBIN,TOTAL 0.5 MG/DL (0.1-1.0)
[2023-03-24 05:52] LABS: CREATININE SERUM 2.35 MG/DL (0.60-1.30)
[2023-03-24] MEDS: MAGNESIUM 1 GM/100 ML IVPB 100 ML IV SCH (06:47)
[2023-03-24] MEDS: POTASSIUM CL 10MEQ/50ML IVPB 50 ML IV SCH (06:47)
[2023-03-24] MEDS: KCL 20 MEQ TAB (K-DUR) PO SCH (06:48)
[2023-03-24] MEDS: CEFEPIME INJECTION 1,000 MG in NS (IVPB) 50 ML IV SCH ×2 (06:56→18:50)
[2023-03-24] MEDS ORDERED: METOLAZONE 2.5 MG (ZAROXOLYN) TAB PO SCH (09:00)
[2023-03-24] MEDS: CLOPIDOGREL 75 MG (PLAVIX) TABLET PO SCH (09:05)
[2023-03-24] MEDS: SODIUM BICARBONATE 650 MG TABLET PO SCH ×3 (09:05→22:18)
--- NOTE | 2023-03-24 09:51 | Tele-ICU Progress Note ---
Subjective Date Seen by a Provider: Mar 24, 2023 Time Seen by a Provider: 09:44 Subjective/Events-last exam (Tele-ICU Physician , Progress Note ) Service provided via interactive audio and video telecommunications E-CARE system to a patient admitted to ICU bed in [facility]. Patient is seen today due to persistent need of ICU care Available chart/ vitals / labs / Images reviewed Video assessment done using teleICU camera, rest of exam as per RN Admitted on 03/22 for SOB from CHF, on cardiac cath at OSH had severe 3 vessel disease, s/p 3 stents. Admitted here with CHF and PNA, now on high flow oxygen 5 lpm with SPO2 97% LVEF 45%, CXR yesterday shows elevated diaphragms and enlarged heart, lungs on right look a little better ? of HIT-lab for HIT pending, off Lovenox, plt count today 96k s/p renal cell Ca, s/pnephrectomy, getting Keytuda Cr rising now 2.35, was 1.88-pt is making urine, [may have over diuresed Sepsis Event Evaluation Height, Weight, BMI Height: 5'6.00" Weight: 168lbs. 0.0oz. [id number]; 33.84 BMI Method: Exam Exam Patient acknowledged, consented, and participated in this virtual visit which was conducted using real time audio/video Vital Signs Date Time Temp Pulse Resp B/P (MAP) Pulse Ox O2 Delivery O2 Flow Rate FiO2 03/24/23 09:00 93 13 111/64 (80) 97 High Flow N/C 5.00 03/24/23 08:10 High Flow N/C 5.00 03/24/23 08:00 36.3 Vapotherm 70.00 03/24/23 08:00 94 119/69 (86) 93 Vapotherm 15.00 70.00 03/24/23 08:00 95 High Flow N/C 5.00 03/24/23 07:04 96 03/24/23 07:00 93 105/69 (81) 89 Vapotherm 15.00 70.00 03/24/23 06:56 95 Vapotherm 20.00 70 03/24/23 06:00 92 116/69 (85) 94 Vapotherm 15.00 70.00 03/24/23 05:00 93 18 122/73 (89) 96 Vapotherm 15.00 70.00 03/24/23 04:00 91 Vapotherm 15.00 70 03/24/23 04:00 36.1 91 18 106/76 (86) 95 Vapotherm 15.00 70.00 03/24/23 03:19 97 Vapotherm 20.00 80 03/24/23 03:00 91 15 117/72 (87) 97 Vapotherm 15.00 70.00 03/24/23 02:30 Vapotherm 15.00 70.00 03/24/23 02:00 91 23 108/70 (83) 97 Vapotherm 15.00 80.00 03/24/23 01:00 92 03/24/23 01:00 92 104/66 (79) 95 Vapotherm 15.00 80.00 03/24/23 00:00 96 Vapotherm 15.00 80 03/24/23 00:00 36.4 94 120/73 (89) 93 Vapotherm 15.00 80.00 03/23/23 23:00 95 104/67 (79) 95 Vapotherm 15.00 80.00 03/23/23 22:25 90 Vapotherm 15.00 70 03/23/23 22:25 Vapotherm 15.00 80.00 03/23/23 22:00 98 106/90 (95) 92 Vapotherm 15.00 70.00 03/23/23 21:00 98 118/70 (86) 90 Vapotherm 15.00 70.00 03/23/23 20:10 94 Vapotherm 15.00 70 03/23/23 20:00 100 19 102/58 (73) 94 Vapotherm 15.00 70.00 03/23/23 19:56 36.2 03/23/23 19:00 100 03/23/23 19:00 Vapotherm 15.00 70.00 03/23/23 19:00 98 19 115/73 (87) 94 Vapotherm 15.00 70.00 03/23/23 18:50 92 Vapotherm 15.00 70 03/23/23 18:00 98 21 100/67 (78) 94 Vapotherm 30.00 70.00 03/23/23 17:00 103 28 90 Vapotherm 30.00 70.00 03/23/23 16:00 101 21 121/75 (90) 94 Vapotherm 30.00 70.00 03/23/23 16:00 93 Vapotherm 15.00 70 03/23/23 15:49 36.7 Vapotherm 70.00 03/23/23 15:00 99 21 113/66 (82) 95 Vapotherm 30.00 80.00 03/23/23 14:18 Vapotherm 15.00 70 03/23/23 14:15 94 Vapotherm 15.00 80 03/23/23 14:00 100 28 111/66 (81) 94 Vapotherm 30.00 80.00 03/23/23 13:00 99 23 120/74 (89) 94 Vapotherm 30.00 80.00 03/23/23 12:54 101 03/23/23 12:00 93 Vapotherm 15.00 80 03/23/23 12:00 94 20 117/71 (86) 92 Vapotherm 30.00 80.00 03/23/23 11:48 36.1 Vapotherm 80.00 03/23/23 11:00 96 107/68 (81) 96 Vapotherm 30.00 80.00 03/23/23 10:13 94 Vapotherm 15.00 80 03/23/23 10:00 96 112/62 (79) 95 Vapotherm 30.00 80.00 I & O 03/24/23 07:00 Intake Total 1275 ml Output Total 2325 ml Balance -1050 ml Height & Weight Height: 5'6.00" Weight: 168lbs. 0.0oz. 76.668594qo; 33.84 BMI Method: General Appearance: No Apparent Distress, WD/WN HEENT: PERRL/EOMI Respiratory: Lungs Clear, No Accessory Muscle Use, Other Cardiovascular: Regular Rate, Rhythm, No Murmur Peripheral Pulses: 1+ Dorsalis Pedis (R), 1+ Left Dors-Pedis (L) Gastrointestinal: normal bowel sounds, soft, no organomegaly Extremity: No Calf Tenderness, Pedal Edema (now down to trace edema) Neurologic/Psychiatric: Alert, Oriented x3 Results Lab Laboratory Tests 03/22/23 13:25 03/22/23 14:00 03/22/23 20:34 03/23/23 04:15 03/24/23 04:45 Assessment/Plan Assessment/Plan CHF, will continue on metalzone, IV Lasix-held also IV cefepime for possible PNA According to RN breathing is much better Critical Care: Critically Ill Patient Time spent with patient (mins): 20 JOAQUINA KHANNA MD Mar 24, 2023 09:51
--- NOTE | 2023-03-24 11:42 | Cardiology Progress Note ---
Subjective Time Seen by Provider: 11:15 Subjective/Events-last exam Patient comfortable. Dyspnea resolved. Reduced oxygen requirements. Down to 4 L nasal cannula. Did ambulate a little in the room. No chest pain. Patient admitted 03/22/2023 with severe shortness of breath secondary to pulmonary edema/combined systolic and diastolic congestive heart failure. Required intermittent bilevel positive airway pressure ventilation on 03/22/2023. She has been receiving IV furosemide 40 mg every 6 hours with improvement in respiratory status. Dyspnea has resolved. However, serum creatinine has worsened with diuresis (solitary kidney) The patient is well-known to this hospital from recent admissions. She was admitted to this hospital a few days ago with elevated troponin/NSTEMI and subsequently underwent transthoracic echocardiography on 03/17/2023. I have personally reviewed these echo films and feel that the patient's left ventricle ejection fraction is moderately to severely reduced. Moderate mitral regurgitation was also noted. Subsequently, the patient underwent coronary ang iography with minimal IV contrast administration (solitary kidney, history of renal cell cancer with baseline creatinine around 2) on 03/19/2023 which showed multivessel coronary artery disease including 95% ostial LAD stenosis, severe mid to distal left circumflex disease and moderate to severe right coronary artery disease. The patient was subsequently transferred to [facility] for decision regarding coronary artery bypass grafting versus high risk multivessel percutaneous intervention. The latter was undertaken, most likely on 03/20/2023. The patient left [facility] in a.m. of 03/22/2023 from the hospital but subsequently developed dyspnea and presented to [facility] early evening. Here she was in significant respiratory distress. Chest x-ray showed bilateral pulmonary edema consistent with CHF exacerbation. Drop in platelet count to 50,000/mm3 on 03/22/2023, improved to 57,000/mm3 03/23/2023 and 96,000/mm3 03/24/2023. Apparently patient needed a platelet transfusions at [facility]. ?HIT. The patient denies chest pain. IMAGING: Chest x-ray 03/22/2023 self reviewed. Bilateral pulmonary edema Chest x-ray 03/23/2023 self reviewed. Pulmonary edema almost resolved as per my interpretation EKG 03/22/2023 self reviewed. Sinus rhythm at 80 bpm. Wide QRS complex with left bundle branch block pattern. Further interpretation not attempted Cardiac cath 03/19/2023: FINDINGS: 1.Left main: Patent. 2.LAD: severe ostial disease. stenosis severity 95%. severe diffuse disease in the mid and distal LAD. 3.Left circumflex artery: first OM is occluded in the mid section. LCX had severe disease in the mid and distal segment. Stenosis severity 80%. 4.RCA: Moderate to severe disease in the mid segment and moderate to severe disease in the distal segment. 5.Left heart catheterization: LV gram not done due to CKD. Aortic pressure 78/53 mmHg. LV pressure 80/5 mmHg. LVEDP 10 mmHg. No gradient across the aortic valve. CONCLUSIONS: Severe multivessel disease. We will transferred to [facility] for further management which includes either CABG or high risk PCI especially with nephrology services due to history of chronic kidney disease and single kidney. Discussed with the patient and son. TTE 03/17/2023. Images are reviewed. As per my interpretation at least moderately to severely reduced left ventricular ejection fraction. Moderate mitral regurgitation. Wall motion abnormalities consistent with coronary artery disease. Small pericardial effusion without hemodynamic effect. Lung scan 03/17/2023 indeterminate for PE Labs. Hemoglobin 9.1, platelet count 50,000 upon admission; plt 96,000/mm3 03/24/2023 Serum sodium 125, bicarb 13 upon admission BNP 1745 upon admission BUN 40 upon admission -> 45 03/24/2023 Creatinine 1.88 03/22/2023 -> 1.95 03/23/2023 -> 2.35 03/24/2023 Trop 0.3 x 3 Review of Systems As mentioned in history of present illness. Exam Vital Signs Vital Signs Date Time Temp Pulse Resp B/P (MAP) Pulse Ox O2 Delivery O2 Flow Rate FiO2 03/24/23 11:00 100 27 118/68 (85) 100 High Flow N/C 5.00 03/24/23 08:00 36.3 03/24/23 06:56 70 Labs Laboratory Tests Test 03/23/23 15:35 03/23/23 20:31 03/24/23 04:45 03/24/23 10:52 Range/Units Glucometer 156 H 161 H 115 H 70-110 MG/DL White Blood Count 8.0 4.3-11.0 10^3/uL Red Blood Count 2.82 L 3.80-5.11 10^6/uL Hemoglobin 7.8 L 11.5-16.0 g/dL Hematocrit 24 L 35-52 % Mean Corpuscular Volume 86 80-99 fL Mean Corpuscular Hemoglobin 28 25-34 pg Mean Corpuscular Hemoglobin Concent 32 32-36 g/dL Red Cell Distribution Width 17.9 H 10.0-14.5 % Platelet Count 96 L 130-400 10^3/uL Mean Platelet Volume 10.3 9.0-12.2 fL Percent Immature Platelet Fraction 4.9 0.0-7.6 % Sodium Level 126 L 135-145 MMOL/L Potassium Level 3.6 3.6-5.0 MMOL/L Chloride Level 98 98-107 MMOL/L Carbon Dioxide Level 17 L 21-32 MMOL/L Anion Gap 11 5-14 MMOL/L Blood Urea Nitrogen 45 H 7-18 MG/DL Creatinine 2.35 H 0.60-1.30 MG/DL Estimat Glomerular Filtration Rate 22 BUN/Creatinine Ratio 19 Glucose Level 106 H 70-105 MG/DL Calcium Level 7.5 L 8.5-10.1 MG/DL Corrected Calcium 8.1 L 8.5-10.1 MG/DL Magnesium Level 2.3 1.6-2.4 MG/DL Total Bilirubin 0.5 0.1-1.0 MG/DL Aspartate Amino Transf (AST/SGOT) 73 H 5-34 U/L Alanine Aminotransferase (ALT/SGPT) 105 H 0-55 U/L Alkaline Phosphatase 88 40-136 U/L Total Protein 6.1 L 6.4-8.2 GM/DL Albumin 3.2 3.2-4.5 GM/DL A/P-Cardiology Admission Diagnosis 1. Acute systolic/diastolic congestive heart failure exacerbation. Patient was intermittently on bilevel positive airway pressure ventilation on 03/22/2023, now off, with reduced oxygen requirements. Dyspnea has improved. Chest x-ray 03/23/2023 consistent with resolution of acute pulmonary edema. Bump in BUN and creatinine secondary to diuresis. Will hold further furosemide and metolazone. 500 cc normal saline bolus over 2 hours 2. Ischemic cardiomyopathy. Guideline directed medical treatment will be started as tolerated 3. Acute thrombocytopenia. Hematology consultation obtained. Apparently patient needed platelet transfusion at [facility]. Acute drop in platelet count, but now improved t0m 96,000/mm3. Resume dual antiplatelet treatment with addition of aspirin 81 mg p.o. daily. Patient did receive uninterrupted clopidogrel 75 mg daily. High risk coronary stenting undertaken a few days ago, with placement of multiple coronary stents 4. Chronic renal insufficiency. History of unilateral nephrectomy. Serum creatinine worsening. Diuretics being held. 5. Troponin of 0.3 x 3. Secondary to supply/demand mismatch ie type II NSTEMI/recent percutaneous interventions. No evidence of acute coronary syndrome SANNA SANTORO MD Mar 24, 2023 11:42
[2023-03-24] MEDS: guaiFENesin/DM (ROBITUSSIN DM) 10 ML UDC PO PRN ×2 (12:03→22:18)
[2023-03-24 13:54] LABS: POTASSIUM 3.7 MMOL/L (3.6-5.0)
[2023-03-24 13:55] LABS: CALCIUM 7.5 MG/DL (8.5-10.1)
[2023-03-24 14:00] LABS: CREATININE SERUM 2.34 MG/DL (0.60-1.30)
--- NOTE | 2023-03-24 14:40 | Progress Note - Hospitalist ---
Subjective HPI/CC On Admission Date Seen by Provider: Mar 24, 2023 Pt is a 68CF with a PMH who presented to the ER due to shortness of breath. Third due to pneumonia and an NSTEMI. She underwent cath and was ultimately transferred to [place] for CTS evaluation. She was wendy to undergo high risk intervention and 3 stents were placed 2 days ago. She continued being treated for her pneumonia and was found to have thrombocytopenia. Her states he platele ts were 3 last night and she was given a transfusion of platelets. Her platelets per report improved to 66 this morning at [place]. She states she was told she was ok to DC by the cleaner wall so elected to leave [place]. Her daughter states she asked the nurse what she should know taking her home and the nurse told them that her platelets were 66 and her oxygen was 80% on room air. When they got home she was very short of breath and weak and so her daughter called EMS to bring her back to the ER for evaluation. She was found to be in acute hypoxic respiratory failure and required NRB to maintained oxygen saturations. Her platelets here were 50 (356 last week during admission). She was found to have a transaminitis as well though and JAMAR with creatinine of 1.8. Na was 125 and this was normal last week when she was here. Subjective/Events-last exam Pt reports doing much better today. Breathing easier. On Vapotherm. Slept well. No issues. Discussed bump in her creatinine. Objective Exam Vital Signs Vital Signs Date Time Temp Pulse Resp B/P (MAP) Pulse Ox O2 Delivery O2 Flow Rate FiO2 03/24/23 14:34 98 High Flow N/C 5.00 03/24/23 14:00 103 31 03/24/23 11:56 36.2 03/24/23 06:56 70 Capillary Refill : General Appearance: No Apparent Distress Respiratory: Lungs Clear, No Respiratory Distress Cardiovascular: Regular Rate, Rhythm, No Murmur Neurologic/Psychiatric: Alert, Oriented x3 Results/Procedures Lab Laboratory Tests 03/24/23 04:45 03/24/23 13:30 Patient resulted labs reviewed. Imaging: Reviewed Imaging Report Assessment/Plan Assessment and Plan Assess & Plan/Chief Complaint Acute hypoxic respiratory failure CHF exacerbation- acute systolic and diastolic dysfunction CAD with recent NSTEMI and stents CKD - h/o renal cell carcinoma s/p nephrectomy Thrombocytopenia Transaminitis Hyponatremia Creatinine up today so hold diuretics She is net negative and not all urine was collected Cardiology consulted, appreciate recs Request records from [place]- spoke with Dr Thomas her PCP regarding this admission Not yet received Continue abx to cover for recent pna hematology consulted, appreciate recs - spoke with Dr Galeana who is her pr imary oncologist Peripheral smear ordered and HIT ab- pending plts up today Wean off Vapotherm if able Hgb down slightly, trend Critical Care Critically Ill Patient Diagnosis/Problems Diagnosis/Problems (1) Multi-vessel coronary artery stenosis Status: Acute (2) Pneumonia Status: Acute (3) Acute respiratory failure Status: Acute Qualifiers: Respiratory failure complication: hypoxia Qualified Codes: J96.01 - Acute respiratory failure with hypoxia (4) CHF (congestive heart failure) Status: Acute Qualifiers: Heart failure type: unspecified Heart failure chronicity: unspecified Qualified Codes: I50.9 - Heart failure, unspecified (5) Elevated troponin Status: Acute SULTANA QUIROGA MD Mar 24, 2023 14:40
[2023-03-24] MEDS: ALPRAZolam 0.25 MG (XANAX) TAB PO PRN (22:18)
[2023-03-25] MEDS: RT-ALBUTEROL/IPRATROPIUM 3 ML (DUONEB) VIAL INH SCH ×3 (02:15→21:17)
[2023-03-25 04:23] LABS: HEMOGLOBIN 7.7 g/dL (11.5-16.0); MEAN PLATELET VOLUME 10.3 fL (9.0-12.2); WHITE BLOOD COUNT 7.1 10^3/uL (4.3-11.0)
[2023-03-25 04:33] LABS: ALBUMIN 3.2 GM/DL (3.2-4.5); POTASSIUM 3.5 MMOL/L (3.6-5.0)
[2023-03-25 04:34] LABS: CALCIUM 7.4 MG/DL (8.5-10.1)
[2023-03-25 04:36] LABS: TOTAL PROTEIN 6.2 GM/DL (6.4-8.2)
[2023-03-25 04:38] LABS: BILIRUBIN,TOTAL 0.5 MG/DL (0.1-1.0)
[2023-03-25 04:39] LABS: CREATININE SERUM 2.35 MG/DL (0.60-1.30)
[2023-03-25] MEDS: CEFEPIME INJECTION 1,000 MG in NS (IVPB) 50 ML IV SCH ×2 (06:20→19:42)
[2023-03-25] MEDS: POTASSIUM CL 10MEQ/50ML IVPB 50 ML IV SCH (07:31)
[2023-03-25] MEDS: MAGNESIUM 1 GM/100 ML IVPB 100 ML IV SCH (07:31)
[2023-03-25] MEDS: KCL 20 MEQ TAB (K-DUR) PO SCH (07:32)
[2023-03-25] MEDS: CLOPIDOGREL 75 MG (PLAVIX) TABLET PO SCH (08:32)
[2023-03-25] MEDS: SODIUM BICARBONATE 650 MG TABLET PO SCH ×3 (08:32→21:25)
[2023-03-25] MEDS ORDERED: KCL 20 MEQ TAB (K-DUR) PO NR (09:00)
[2023-03-25] MEDS ORDERED: ASPIRIN E.C. 81 MG (ECOTRIN) TAB PO NR (11:00)
[2023-03-25 11:19] VITALS: BP 105/69
[2023-03-25] MEDS: SALINE NASAL SPRAY (OCEAN) 45 ML BTL SCH ×4 (11:56→21:25)
--- NOTE | 2023-03-25 12:45 | Physical Therapy Progress Note ---
Therapy Progress Note Patient declined skilled PT and requested a FWW for use. Patient observed to be independent with all mobility and requires a FWW due to recent pelvic fracture. No skilled PT indicated at this time. TI PEREZ PT Mar 25, 2023 12:45
--- NOTE | 2023-03-25 13:03 | Progress Note - Hospitalist ---
Subjective HPI/CC On Admission Date Seen by Provider: Mar 25, 2023 Pt is a 68CF with a PMH who presented to the ER due to shortness of breath. Third due to pneumonia and an NSTEMI. She underwent cath and was ultimately transferred to [place] for CTS evaluation. She was wendy to undergo high risk intervention and 3 stents were placed 2 days ago. She continued being treated for her pneumonia and was found to have thrombocytopenia. Her states he platele ts were 3 last night and she was given a transfusion of platelets. Her platelets per report improved to 66 this morning at [place]. She states she was told she was ok to DC by the carbon sequestration plant manager so elected to leave [place]. Her daughter states she asked the nurse what she should know taking her home and the nurse told them that her platelets were 66 and her oxygen was 80% on room air. When they got home she was very short of breath and weak and so her daughter called EMS to bring her back to the ER for evaluation. She was found to be in acute hypoxic respiratory failure and required NRB to maintained oxygen saturations. Her platelets here were 50 (356 last week during admission). She was found to have a transaminitis as well though and JAMAR with creatinine of 1.8. Na was 125 and this was normal last week when she was here. Subjective/Events-last exam Pt reports doing well. Didn't sleep well last night but doing ok. Has some nasal congestion due to the oxygen. Was off oxygen for a little bit though. Objective Exam Vital Signs Vital Signs Date Time Temp Pulse Resp B/P (MAP) Pulse Ox O2 Delivery O2 Flow Rate FiO2 03/25/23 11:47 36.0 86 19 101/70 (80) 94 03/25/23 11:19 24 03/25/23 08:31 Room Air 03/25/23 08:00 1.00 Capillary Refill : Less Than 3 Seconds General Appearance: No Apparent Distress Respiratory: Lungs Clear, No Respiratory Distress Cardiovascular: Regular Rate, Rhythm, No Murmur Gastrointestinal: Normal Bowel Sounds, Soft Neurologic/Psychiatric: Alert, Oriented x3 Results/Procedures Lab Laboratory Tests 03/24/23 13:30 03/25/23 04:00 Patient resulted labs reviewed. Imaging: Reviewed Imaging Report Assessment/Plan Assessment and Plan Assess & Plan/Chief Complaint Acute hypoxic respiratory failure CHF exacerbation- acute systolic and diastolic dysfunction CAD with recent NSTEMI and stents CKD - h/o renal cell carcinoma s/p nephrectomy Thrombocytopenia Transaminitis Hyponatremia Creatinine stable at 2.3, trend Cardiology consulted, appreciate recs Request records from [place]- spoke with Dr Thomas her PCP regarding this admission Not yet received Continue abx to cover for recent pna hematology consulted, appreciate recs - spoke with Dr Galeana who is her primary oncologist He recommends follow up week of 04/04 and to continue DAPT Peripheral smear ordered and HIT ab- negative plts up today again Hgb down but stable Home oxygen study Critical Care Critically Ill Patient Diagnosis/Problems Diagnosis/Problems (1) Multi-vessel coronary artery stenosis Status: Acute (2) Pneumonia Status: Acute (3) Acute respiratory failure Status: Acute Qualifiers: Respiratory failure complication: hypoxia Qualified Codes: J96.01 - Acute respiratory failure with hypoxia (4) CHF (congestive heart failure) Status: Acute Qualifiers: Heart failure type: unspecified Heart failure chronicity: unspecified Qualified Codes: I50.9 - Heart failure, unspecified (5) Elevated troponin Status: Acute SULTANA QUIROGA MD Mar 25, 2023 13:03
--- NOTE | 2023-03-25 13:54 | Cardiology Progress Note ---
Subjective Time Seen by Provider: 12:15 Subjective/Events-last exam Patient denies shortness of breath. At the time of my examination she was on room air saturating greater than 90%. No chest pain. Review of Systems As mentioned in history of present illness. Exam Vital Signs Vital Signs Date Time Temp Pulse Resp B/P (MAP) Pulse Ox O2 Delivery O2 Flow Rate FiO2 03/25/23 11:47 36.0 86 19 101/70 (80) 94 03/25/23 11:19 24 03/25/23 08:31 Room Air 03/25/23 08:00 1.00 Physical Exam Patient admitted 03/22/2023 with severe shortness of breath secondary to pulmonary edema/combined systolic and diastolic congestive heart failure. Required intermittent bilevel positive airway pressure ventilation on 03/22/2023. She initially received IV furosemide 40 mg every 6 hours with improvement in respiratory status. Diuretics held since 03/24/2023 due to bump in creatinine. Did receive 500 cc of normal saline yesterday after stopping diuretics. Serum creatinine has plateaued at 1.35. Solitary kidney since nephrectomy for renal cell cancer several years ago Platelet count and essentially recovered at 135,000/mm cube The patient is well-known to this hospital from recent admissions. She was admitted to this hospital a few days ago with elevated troponin/NSTEMI and subsequently underwent transthoracic echocardiography on 03/17/2023. I have personally reviewed these echo films and feel that the patient's left ventricle ejection fraction is moderately to severely reduced. Moderate mitral r egurgitation was also noted. Subsequently, the patient underwent coronary angiography with minimal IV contrast administration (solitary kidney, history of renal cell cancer with baseline creatinine around 2) on 03/19/2023 which showed multivessel coronary artery disease including 95% ostial LAD stenosis, severe mid to distal left circumflex disease and moderate to severe right coronary artery disease. The patient was subsequently transferred to [facility] for decision regarding coronary artery bypass grafting versus high risk multivessel percutaneous intervention. The latter was undertaken, most likely on 03/20/2023. The patient left AGAINST MEDICAL ADVICE in a.m. of 03/22/2023 from the hospital but subsequently developed dyspnea and presented to [facility] early evening. Here she was in significant respiratory distress. Chest x-ray showed bilateral pulmonary edema consistent with CHF exacerbation. Drop in platelet count to 50,000/mm3 on 03/22/2023, improved to 57,000/mm3 03/23/2023 and 96,000/mm3 03/24/2023 -> 135/000/mm3 03/25/2023. Apparently patient needed a platelet transfusions at [facility]. ?HIT. IMAGING: Chest x-ray 03/22/2023 self reviewed. Bilateral pulmonary edema Chest x-ray 03/23/2023 self reviewed. Pulmonary edema almost resolved as per my interpretation EKG 03/22/2023 self reviewed. Sinus rhythm at 80 bpm. Wide QRS complex with left bundle branch block pattern. Further interpretation not attempted Cardiac cath 03/19/2023: FINDINGS: 1.Left main: Patent. 2.LAD: severe ostial disease. stenosis severity 95%. severe diffuse disease in the mid and distal LAD. 3.Left circumflex artery: first OM is occluded in the mid section. LCX had severe disease in the mid and distal segment. Stenosis severity 80%. 4.RCA: Moderate to severe disease in the mid segment and moderate to severe disease in the distal segment. 5.Left heart catheterization: LV gram not done due to CKD. Aortic pressure 78/53 mmHg. LV pressure 80/5 mmHg. LVEDP 10 mmHg. No gradient across the aortic valve. CONCLUSIONS: Severe multivessel disease. We will transferred to [facility] for further management which includes either CABG or high risk PCI especially with nephrology services due to history of chronic kidney disease and single kidney. Discussed with the patient and son. TTE 03/17/2023. Images are reviewed. As per my interpretation at least moderately to severely reduced left ventricular ejection fraction. Moderate mitral regurgitation. Wall motion abnormalities consistent with coronary artery disease. Small pericardial effusion without hemodynamic effect. Lung scan 03/17/2023 indeterminate for PE Labs. Hemoglobin 9.1, platelet count 50,000 upon admission; plt 96,000/mm3 03/24/2023 Serum sodium 125, bicarb 13 upon admission BNP 1745 upon admission BUN 40 upon admission -> 45 03/24/2023 Creatinine 1.88 03/22/2023 -> 1.95 03/23/2023 -> 2.35 03/24/2023 Trop 0.3 x 3 Labs Laboratory Tests Test 03/24/23 15:43 03/24/23 20:41 03/25/23 04:00 03/25/23 10:56 Range/Units Glucometer 154 H 153 H 222 H 70-110 MG/DL White Blood Count 7.1 4.3-11.0 10^3/uL Red Blood Count 2.76 L 3.80-5.11 10^6/uL Hemoglobin 7.7 L 11.5-16.0 g/dL Hematocrit 24 L 35-52 % Mean Corpuscular Volume 86 80-99 fL Mean Corpuscular Hemoglobin 28 25-34 pg Mean Corpuscular Hemoglobin Concent 33 32-36 g/dL Red Cell Distribution Width 18.0 H 10.0-14.5 % Platelet Count 135 130-400 10^3/uL Mean Platelet Volume 10.3 9.0-12.2 fL Percent Immature Platelet Fraction 3.5 0.0-7.6 % Sodium Level 129 L 135-145 MMOL/L Potassium Level 3.5 L 3.6-5.0 MMOL/L Chloride Level 99 98-107 MMOL/L Carbon Dioxide Level 18 L 21-32 MMOL/L Anion Gap 12 5-14 MMOL/L Blood Urea Nitrogen 42 H 7-18 MG/DL Creatinine 2.35 H 0.60-1.30 MG/DL Estimat Glomerular Filtration Rate 22 BUN/Creatinine Ratio 18 Glucose Level 179 H 70-105 MG/DL Calcium Level 7.4 L 8.5-10.1 MG/DL Corrected Calcium 8.0 L 8.5-10.1 MG/DL Magnesium Level 2.4 1.6-2.4 MG/DL Total Bilirubin 0.5 0.1-1.0 MG/DL Aspartate Amino Transf (AST/SGOT) 46 H 5-34 U/L Alanine Aminotransferase (ALT/SGPT) 77 H 0-55 U/L Alkaline Phosphatase 90 40-136 U/L Total Protein 6.2 L 6.4-8.2 GM/DL Albumin 3.2 3.2-4.5 GM/DL A/P-Cardiology Admission Diagnosis 1. Acute systolic/diastolic congestive heart failure exacerbation. Patient was intermittently on bilevel positive airway pressure ventilation on 03/22/2023, now off, with reduced oxygen requirements. Dyspnea has resolved, with oxygen saturation of greater than 90% on room air. Requesting physical therapy to ambulate the patient (recent pelvic fracture therefore uses walker at home), with monitoring of oxygen saturations on ambulation. Chest x-ray 03/23/2023 consistent with resolution of acute pulmonary edema. BUN and creatinine with mild increase secondary to diuresis, but have plateaued. Ffurosemide and metolazone on hold. Continue low-dose carvedilol. Start SGLT2 inhibitor. 2. Ischemic cardiomyopathy. Guideline directed medical treatment will be started as tolerated. Continue carvedilol. Start SGLT2 inhibitor. We will hold off on AMISH-I/ARB/ARNI and mineralocorticoid antagonist due to elevated creatinine and borderline low blood pressures 3. Acute thrombocytopenia. Resolved. Hematology consultation obtained. Apparently patient needed platelet transfusion at [facility]. Acute drop in platelet count, but now improved 135,000/mm cube. I have resumed dual antiplatelet treatment with addition of aspirin 81 mg p.o. daily. Patient did receive uninterrupted clopidogrel 75 mg daily during this admission. High risk coronary stenting undertaken a few days ago, with placement of multiple coronary stents 4. Chronic renal insufficiency. History of unilateral nephrectomy. Serum creatinine has stabilized. Diuretics being held for now. 5. Troponin of 0.3 x 3. Secondary to supply/demand mismatch ie type II NSTEMI/recent percutaneous interventions. No evidence of acute coronary sy ndrome Anticipate discharge home in a.m. with long-term cardiology follow-up SANNA SANTORO MD Mar 25, 2023 13:54
[2023-03-25] MEDS: ALPRAZolam 0.25 MG (XANAX) TAB PO PRN (22:06)
[2023-03-26 05:46] LABS: HEMATOCRIT 25 % (35-52); MEAN CORPUSCULAR HEMOGLOBIN 28 pg (25-34); MEAN CORPUSCULAR HGB CONC 32 g/dL (32-36); MEAN CORPUSCULAR VOLUME 87 fL (80-99); MEAN PLATELET VOLUME 9.5 fL (9.0-12.2); PLATELET COUNT 172 10^3/uL (130-400); WHITE BLOOD COUNT 7.3 10^3/uL (4.3-11.0)
[2023-03-26] MEDS: KCL 20 MEQ TAB (K-DUR) PO SCH (06:00)
[2023-03-26] MEDS: MAGNESIUM 1 GM/100 ML IVPB 100 ML IV SCH (06:00)
[2023-03-26] MEDS: POTASSIUM CL 10MEQ/50ML IVPB 50 ML IV SCH (06:00)
[2023-03-26 06:04] LABS: ALBUMIN 3.3 GM/DL (3.2-4.5); POTASSIUM 3.6 MMOL/L (3.6-5.0)
[2023-03-26 06:07] LABS: TOTAL PROTEIN 6.2 GM/DL (6.4-8.2)
[2023-03-26 06:08] LABS: BILIRUBIN,TOTAL 0.5 MG/DL (0.1-1.0)
[2023-03-26 06:10] LABS: CREATININE SERUM 1.75 MG/DL (0.60-1.30)
[2023-03-26] MEDS ORDERED: KCL 20 MEQ TAB (K-DUR) PO ONE (06:30)
[2023-03-26] MEDS: CEFEPIME INJECTION 1,000 MG in NS (IVPB) 50 ML IV SCH ×2 (06:34→21:15)
[2023-03-26] MEDS: SALINE NASAL SPRAY (OCEAN) 45 ML BTL SCH ×4 (08:20→21:14)
[2023-03-26] MEDS: EMPAGLIFLOZIN 10 MG TABLET (JARDIANCE) PO SCH (08:21)
[2023-03-26] MEDS: CLOPIDOGREL 75 MG (PLAVIX) TABLET PO SCH (08:21)
[2023-03-26] MEDS: SODIUM BICARBONATE 650 MG TABLET PO SCH ×3 (08:21→21:14)
[2023-03-26] MEDS: ASPIRIN E.C. 81 MG (ECOTRIN) TAB PO SCH (08:21)
[2023-03-26] MEDS: RT-ALBUTEROL/IPRATROPIUM 3 ML (DUONEB) VIAL INH SCH ×2 (09:11→20:48)
--- NOTE | 2023-03-26 09:36 | Progress Note - Cardiology ---
Cardiology SOAP Progress Note Subjective: Feels much better compared to time of admission No cp or palp or syncope Shortness of breath with mild to mod activity No swelling No n/v/d Objective: I&O/Vital Signs 03/26/23 03/26/23 03/26/23 03/26/23 00:00 01:00 04:05 07:00 Temp 36.3 36.2 Pulse 88 86 86 80 Resp 22 22 B/P (MAP) 103/58 (73) 117/72 (87) Pulse Ox 91 91 O2 Delivery Nasal Cannula Nasal Cannula O2 Flow Rate 1.00 1.00 03/26/23 03/26/23 03/26/23 08:00 08:23 09:11 Temp 36.5 Pulse 87 Resp 20 B/P (MAP) 108/61 (77) Pulse Ox 94 93 92 O2 Delivery Room Air Nasal Cannula Room Air O2 Flow Rate 1.00 03/26/23 00:00 Intake Total 1750 ml Output Total 1100 ml Balance 650 ml Weight (Pounds): 168 Weight (Ounces): 0.0 Weight (Calculated Kilograms): 76.961304 Constitutional: AAO x 3, well-developed, well-nourished Respiratory: No accessory muscle use; other (good, bilat air entry) Cardiovascular: regular rate-rhythm, S1 and S2, systolic murmur (soft KYAW at card base) Gastrointestional: No tender; soft; No guarding, No rebound; audible bowel sounds Extremities: No clubbing, No cyanosis, No significant edema Neurologic/Psychiatric: oriented x 3, other (moves all limbs equally) Skin: normal color, warm/dry; No rash on exposed areas, No ulcerations on exposed areas Results/Procedures: Labs Laboratory Tests 03/25/23 10:56: Glucometer 222H 03/25/23 16:06: Glucometer 119H 03/25/23 20:41: Glucometer 153H 03/26/23 05:20: White Blood Count 7.3, Red Blood Count 2.91L, Hemoglobin 8.0L, Hematocrit 25L, Mean Corpuscular Volume 87, Mean Corpuscular Hemoglobin 28, Mean Corpuscular Hemoglobin Concent 32, Red Cell Distribution Width 18.2H, Platelet Count 172, Mean Platelet Volume 9.5, Sodium Level 128L, Potassium Level 3.6, Chloride Level 98, Carbon Dioxide Level 19L, Anion Gap 11, Blood Urea Nitrogen 34H, Creatinine 1.75H, Estimat Glomerular Filtration Rate 31, BUN/Creatinine Ratio 19, Glucose Level 120H, Calcium Level 8.0L, Corrected Calcium 8.6, Total Bilirubin 0.5, Aspartate Amino Transf (AST/SGOT) 30, Alanine Aminotransferase (ALT/SGPT) 54, Alkaline Phosphatase 82, Total Protein 6.2L, Albumin 3.3 Microbiology 03/22/23 MRSA Screen - Final, Complete MRSA not isolated 03/22/23 Urine Culture - Final, Complete Enterococcus faecalis Laboratory Tests 03/24/23 13:30 03/25/23 04:00 03/26/23 05:20 A/P: Assessment: 1. Acute systolic/diastolic congestive heart failure. Now off BiPAP, with reduced oxygen requirements. Dyspnea has resolved, with oxygen saturation of greater than 90% on room air. 2. Requesting physical therapy to ambulate the patient (recent pelvic fracture therefore uses walker at home), with monitoring of oxygen saturations on ambulation 3. Ischemic cardiomyopathy. S/p multivessel PCI at [facility] in March 2023 Guideline directed medical treatment will be started as tolerated. Continue carvedilol. Start SGLT2 inhibitor. We will hold off on AMISH-I/ARB/ARNI and mineralocorticoid antagonist due to elevated creatinine and borderline low blood pressures 4. Acute thrombocytopenia. Resolved. Hematology consultation obtained. Patient did receive uninterrupted clopidogrel 75 mg daily during this admission. DAPT resumed after normalization of platelet count 5. Chronic renal insufficiency. History of unilateral nephrectomy (h/o renal CA). Serum creatinine has stabilized 6. Troponin of 0.3 x 3. Secondary to supply/demand mismatch ie type II NSTEMI/recent percutaneous interventions. No evidence of acute coronary syndrome Plan: * Continue DAPT * Continue carvedilol and SGLT-2 inhib * Not suitable for ARB/AMISH-inhib due to ac on chronic renal failure * Repeat echo * I interviewed and examined the patient and discussed her case with Dr Soto and DEVORAH Polo MD [facility] Mar 26, 2023 09:36
--- NOTE | 2023-03-26 10:00 | Progress Note - Hospitalist ---
Subjective HPI/CC On Admission Date Seen by Provider: Mar 26, 2023 Pt is a 68CF with a PMH who presented to the ER due to shortness of breath. Third due to pneumonia and an NSTEMI. She underwent cath and was ultimately transferred to [facility] for CTS evaluation. She was wendy to undergo high risk intervention and 3 stents were placed 2 days ago. She continued being treated for her pneumonia and was found to have thrombocytopenia. Her states he platelet s were 3 last night and she was given a transfusion of platelets. Her platelets per report improved to 66 this morning at [facility]. She states she was told she was ok to DC by the shoe dresser so elected to leave [place]. Her daughter states she asked the nurse what she should know taking her home and the nurse told them that her platelets were 66 and her oxygen was 80% on room air. When they got home she was very short of breath and weak and so her daughter called EMS to bring her back to the ER for evaluation. She was found to be in acute hypoxic respiratory failure and required NRB to maintained oxygen saturations. Her platelets here were 50 (356 last week during admission). She was found to have a transaminitis as well though and JAMAR with creatinine of 1.8. Na was 125 and this was normal last week when she was here. Subjective/Events-last exam Pt reports doing much better today. Off oxygen. Doing well. Dr Gama planning another echo and DC tomorrow if still doing well. Objective Exam Vital Signs Vital Signs Date Time Temp Pulse Resp B/P (MAP) Pulse Ox O2 Delivery O2 Flow Rate FiO2 03/26/23 09:11 92 Room Air 03/26/23 08:23 36.5 87 20 108/61 (77) 1.00 03/25/23 11:19 24 Capillary Refill : Less Than 3 Seconds General Appearance: No Apparent Distress, WD/WN Respiratory: Lungs Clear, No Respiratory Distress Cardiovascular: Regular Rate, Rhythm, No Murmur Neurologic/Psychiatric: Alert, Oriented x3 Results/Procedures Lab Laboratory Tests 03/26/23 05:20 Patient resulted labs reviewed. Imaging: Reviewed Imaging Report Assessment/Plan Assessment and Plan Assess & Plan/Chief Complaint Acute hypoxic respiratory failure CHF exacerbation- acute systolic and diastolic dysfunction CAD with recent NSTEMI and stents CKD - h/o renal cell carcinoma s/p nephrectomy Thrombocytopenia Transaminitis Hyponatremia Creatinine improved back to baseline Cardiology consulted, appreciate recs Requested records from [facility]- spoke with Dr Thomas her PCP regarding this admission when she came in Continue abx to cover for recent pna hematology consulted, jay kuo - spoke with Dr Galeana who is her primary oncologist He recommends follow up week of 04/04 and to continue DAPT for now since plts improving Peripheral smear ordered and HIT ab- negative plts continue to trend up Hgb up Home oxygen study done and none needed Repeat echo- hopefully home tomorrow Critical Care Critically Ill Patient Diagnosis/Problems Diagnosis/Problems (1) Multi-vessel coronary artery stenosis Status: Acute (2) Pneumonia Status: Acute (3) Acute respiratory failure Status: Acute Qualifiers: Respiratory failure complication: hypoxia Qualified Codes: J96.01 - Acute respiratory failure with hypoxia (4) CHF (congestive heart failure) Status: Acute Qualifiers: Heart failure type: unspecified Heart failure chronicity: unspecified Qualified Codes: I50.9 - Heart failure, unspecified (5) Elevated troponin Status: Acute SULTANA QUIROGA MD Mar 26, 2023 10:00
--- NOTE | 2023-03-26 15:24 | Discharge Inst-Simple/Standard ---
Discharge Inst-Standard Discharge Medications New, Converted or Re-Newed RX: Transmitted to Pharmacy Patient Instructions/Follow Up Plan of Care/Instructions/FU: Please continue to take your medications as written. Please follow up with your primary care doctor to follow up this hospital stay. Activity as Tolerated: Yes Discharge Diet: Low Sodium Diet Return to The Hospital For: Chest pain, shortness of breath, fever, weakness, if you feel you are getting worse. SULTANA QUIROGA MD Mar 26, 2023 15:24
[2023-03-26] MEDS: guaiFENesin/DM (ROBITUSSIN DM) 10 ML UDC PO PRN (21:57)
[2023-03-27 06:10] LABS: HEMATOCRIT 26 % (35-52); HEMOGLOBIN 8.4 g/dL (11.5-16.0); MEAN CORPUSCULAR HEMOGLOBIN 28 pg (25-34); MEAN CORPUSCULAR HGB CONC 33 g/dL (32-36); MEAN CORPUSCULAR VOLUME 87 fL (80-99); MEAN PLATELET VOLUME 9.5 fL (9.0-12.2); PLATELET COUNT 206 10^3/uL (130-400); WHITE BLOOD COUNT 7.9 10^3/uL (4.3-11.0)
[2023-03-27 06:19] LABS: ALBUMIN 3.5 GM/DL (3.2-4.5)
[2023-03-27 06:20] LABS: CALCIUM 8.3 MG/DL (8.5-10.1)
[2023-03-27 06:21] LABS: TOTAL PROTEIN 6.6 GM/DL (6.4-8.2)
[2023-03-27 06:23] LABS: BILIRUBIN,TOTAL 0.6 MG/DL (0.1-1.0)
[2023-03-27 06:25] LABS: CREATININE SERUM 1.71 MG/DL (0.60-1.30)
[2023-03-27] MEDS: KCL 20 MEQ TAB (K-DUR) PO SCH (06:37)
[2023-03-27] MEDS: POTASSIUM CL 10MEQ/50ML IVPB 50 ML IV SCH (06:37)
[2023-03-27 07:44] VITALS: BP 122/77
[2023-03-27] MEDS: MAGNESIUM 1 GM/100 ML IVPB 100 ML IV SCH (07:50)
[2023-03-27] MEDS: RT-ALBUTEROL/IPRATROPIUM 3 ML (DUONEB) VIAL INH SCH (07:53)
[2023-03-27] MEDS ORDERED: CARV3.122 PO (09:23)
[2023-03-27] MEDS ORDERED: EMPA10TA PO (09:23)
[2023-03-27] MEDS ORDERED: ASPI-1238 PO (09:23)
[2023-03-27] MEDS ORDERED: CLOP75TA28 PO (09:23)
[2023-03-27] MEDS: ASPIRIN E.C. 81 MG (ECOTRIN) TAB PO SCH (09:29)
[2023-03-27] MEDS: SODIUM BICARBONATE 650 MG TABLET PO SCH (09:29)
[2023-03-27] MEDS: EMPAGLIFLOZIN 10 MG TABLET (JARDIANCE) PO SCH (09:29)
[2023-03-27] MEDS: CLOPIDOGREL 75 MG (PLAVIX) TABLET PO SCH (09:29)
[2023-03-27] MEDS: SALINE NASAL SPRAY (OCEAN) 45 ML BTL SCH (09:30)
[2023-03-27] MEDS ORDERED: NS IV 1000 ML 1,000 ML IV SCH (09:30)
--- NOTE | 2023-03-27 10:05 | Discharge Summary ---
Diagnosis/Chief Complaint Date of Admission Mar 22, 2023 at 18:53 Date of Discharge Discharge Date: Mar 27, 2023 Admission Diagnosis Acute hypoxic respiratory failure Primary Care Naren Thomas DO Discharge Diagnosis (1) Multi-vessel coronary artery stenosis Status: Acute (2) Pneumonia Status: Acute (3) Acute respiratory failure Status: Acute (4) CHF (congestive heart failure) Status: Acute (5) Elevated troponin Status: Acute Discharge Summary Discharge Physical Exam Allergies: Coded Allergies: heparin (Verified Allergy, Severe, likely HIT- (dropped platelets to 3), 03/25/23) Penicillins (Verified Allergy, Unknown, 10/15/21) Sulfa (Sulfonamide Antibiotics) (Verified Allergy, Unknown, 10/15/21) codeine (Verified Allergy, Unknown, 10/15/21) erythromycin base (Verified Allergy, Unknown, 10/15/21) Vitals & I&Os Vital Signs Date Time Temp Pulse Resp B/P (MAP) Pulse Ox O2 Delivery O2 Flow Rate FiO2 03/27/23 11:25 36.4 87 20 116/66 (83) 97 Room Air 03/27/23 07:44 1.00 1.00 03/25/23 11:19 24 General Appearance: No Apparent Distress, WD/WN Respiratory: Lungs Clear, No Respiratory Distress Cardiovascular: Regular Rate, Rhythm, No Murmur Gastrointestinal: Normal Bowel Sounds, Soft Neurologic/Psychiatric: Alert, Oriented x3 Hospital Course Patient was admitted to the hospital secondary to acute hypoxic respiratory failure due to acutely decompensated systolic heart failure. She had a complicated course where she was admitted here for pneumonia and an NSTEMI. She underwent cardiac cath which revealed multivessel disease and she was sent to [place] for high risk intervention versus bypass. She ended up having 3 stents placed at [place] but was found to have an EF of 40% here. She was hypoxic requiring oxygen there and also became thrombocytopenic with platelets reportedly down to 3. She was transfused at [place] and then the next morning elected to leave AGAINST MEDICAL ADVICE from there. After arriving home she was still quite short of breath and weak and so EMS was summoned to bring her back here where she was admitted. Cardiology and hematology were consulted to help with management of her thrombocytopenia and recent stent placement. She was initially treated with just Plavix until her platelets improved and for the past couple of days she has been on aspirin and Plavix and tolerated this well and her platelet count has returned to normal. She is to follow-up with her oncologist Dr. Plasencia for further monitoring of this. Her HIT antibody was neg ative but after discussion with Dr. Plasencia heparin was added to her allergy list in hopes to avoid recurrence. She was also so diuresed and was able to be titrated off of her nonrebreather to room air. She elected to follow-up with Dr. Senior and a referral was placed for this. I did call and speak with her primary care physician, Dr. Thomas regarding this admission. He was d ischarged home in stable and improved condition to follow-up with the previously mentioned physicians. Labs (last 24 hrs) Laboratory Tests 03/26/23 16:46: Glucometer 138H 03/26/23 21:13: Glucometer 125H 03/27/23 06:05: White Blood Count 7.9, Red Blood Count 2.96L, Hemoglobin 8.4L, Hematocrit 26L, Mean Corpuscular Volume 87, Mean Corpuscular Hemoglobin 28, Mean Corpuscular Hemoglobin Concent 33, Red Cell Distribution Width 18.6H, Platelet Count 206, Mean Platelet Volume 9.5, Sodium Level 130L, Potassium Level 4.0, Chloride Level 99, Carbon Dioxide Level 19L, Anion Gap 12, Blood Urea Nitrogen 31H, Creatinine 1.71H, Estimat Glomerular Filtration Rate 32, BUN/Creatinine Ratio 18, Glucose Level 125H, Calcium Level 8.3L, Corrected Calcium 8.7, Total Bilirubin 0.6, Aspartate Amino Transf (AST/SGOT) 22, Alanine Aminotransferase (ALT/SGPT) 41, Alkaline Phosphatase 82, Total Protein 6.6, Albumin 3.5 Microbiology 03/22/23 MRSA Screen - Final, Complete MRSA not isolated 03/22/23 Urine Culture - Final, Complete Enterococcus faecalis Patient resulted labs reviewed. Pending Labs Laboratory Tests 03/27/23 06:05: White Blood Count 7.9, Red Blood Count 2.96, Hemoglobin 8.4, Hematocrit 26, Mean Corpuscular Volume 87, Mean Corpuscular Hemoglobin 28, Mean Corpuscular Hemoglobin Concent 33, Red Cell Distribution Width 18.6, Platelet Count 206, M ellen Platelet Volume 9.5, Sodium Level 130, Potassium Level 4.0, Chloride Level 99, Carbon Dioxide Level 19, Anion Gap 12, Blood Urea Nitrogen 31, Creatinine 1.71, Estimat Glomerular Filtration Rate 32, BUN/Creatinine Ratio 18, Glucose Level 125, Calcium Level 8.3, Corrected Calcium 8.7, Total Bilirubin 0.6, Aspartate Amino Transf (AST/SGOT) 22, Alanine Aminotransferase (ALT/SGPT) 41, Alkaline Phosphatase 82, Total Protein 6.6, Albumin 3.5 Imaging: Reviewed Imaging Report Discussion & Recommendations Discharge Planning: >30 minutes discharge planning Discharge Home Medications: Active Scripts Active Aspirin EC (Aspirin) 81 Mg Tablet.dr 81 Mg PO DAILY Jardiance (Empagliflozin) 10 Mg Tablet 10 Mg PO DAILY Carvedilol 3.125 Mg Tablet 3.125 Mg PO BID Clopidogrel (Clopidogrel Bisulfate) 75 Mg Tablet 75 Mg PO DAILY Reported Cetirizine HCl 10 Mg Tablet 10 Mg PO DAILY Inlyta (Axitinib) 1 Mg Tablet 2 Mg PO BID TAKES 2 (1MG) TABS Levothyroxine Sodium 125 Mcg Tablet 125 Mcg PO DAILY Furosemide 20 Mg Tablet 20 Mg PO DAILY PRN Keytruda (Pembrolizumab) 100 Mg/4 Ml (25 Mg/Ml) Vial 200 Mg IV EVERY 3 WEEKS Irbesartan 150 Mg Tablet 150 Mg PO BID Instructions to patient/family Please see electronic discharge instructions given to patient. Problem Qualifiers (1) Acute respiratory failure: Respiratory failure complication: hypoxia Qualified Codes: J96.01 - Acute respiratory failure with hypoxia (2) CHF (congestive heart failure): Heart failure type: unspecified Heart failure chronicity: unspecified Qualified Codes: I50.9 - Heart failure, unspecified SULTANA QUIROGA MD Mar 27, 2023 10:05
[2023-03-27 11:25] VITALS: BP 116/66
--- NOTE | 2023-03-27 13:51 | Progress Note - Cardiology ---
Cardiology SOAP Progress Note Subjective: Improvement of malaise and weakness. Wishes to go home No cp or palp or syncope No focal weakness No swelling No n/v/d Objective: I&O/Vital Signs 03/27/23 03/27/23 03/27/23 03/27/23 05:32 07:00 07:44 07:54 Temp 36.2 Pulse 85 82 78 Resp 20 20 B/P (MAP) 100/62 (75) 122/77 (92) Pulse Ox 91 95 96 O2 Delivery Room Air Room Air Room Air O2 Flow Rate 1.00 1.00 03/27/23 03/27/23 08:00 11:25 Temp 36.4 Pulse 87 Resp 20 B/P (MAP) 116/66 (83) Pulse Ox 97 O2 Delivery Room Air Room Air 03/27/23 00:00 Intake Total 890 ml Output Total 900 ml Balance -10 ml Weight (Pounds): 168 Weight (Ounces): 0.0 Weight (Calculated Kilograms): 76.115708 Constitutional: AAO x 3, well-developed, well-nourished Respiratory: No accessory muscle use; other (good, bilat air entry) Cardiovascular: regular rate-rhythm, S1 and S2, systolic murmur (soft KYAW at card base) Gastrointestional: No tender; soft; No guarding, No rebound; audible bowel sounds Extremities: No clubbing, No cyanosis, No significant edema Neurologic/Psychiatric: oriented x 3, other (moves all limbs equally) Skin: normal color, warm/dry; No rash on exposed areas, No ulcerations on exposed areas Results/Procedures: Labs Laboratory Tests 03/26/23 16:46: Glucometer 138H 03/26/23 21:13: Glucometer 125H 03/27/23 06:05: White Blood Count 7.9, Red Blood Count 2.96L, Hemoglobin 8.4L, Hematocrit 26L, Mean Corpuscular Volume 87, Mean Corpuscular Hemoglobin 28, Mean Corpuscular Hemoglobin Concent 33, Red Cell Distribution Width 18.6H, Platelet Count 206, Mean Platelet Volume 9.5, Sodium Level 130L, Potassium Level 4.0, Chloride Level 99, Carbon Dioxide Level 19L, Anion Gap 12, Blood Urea Nitrogen 31H, Creatinine 1.71H, Estimat Glomerular Filtration Rate 32, BUN/Creatinine Ratio 18, Glucose Level 125H, Calcium Level 8.3L, Corrected Calcium 8.7, Total Bilirubin 0.6, Aspartate Amino Transf (AST/SGOT) 22, Alanine Aminotransferase (ALT/SGPT) 41, Alkaline Phosphatase 82, Total Protein 6.6, Albumin 3.5 Microbiology 03/22/23 MRSA Screen - Final, Complete MRSA not isolated 03/22/23 Urine Culture - Final, Complete Enterococcus faecalis Laboratory Tests 03/26/23 05:20 03/27/23 06:05 A/P: Assessment: Acute systolic/diastolic congestive heart failure - Echo on 03-27-23: LVEF 40-45%, apical hypokinesis, mod to severe MR, small amount of pericardial fluid w/o any evidence of hemodynamic compromise, L pleural eff, PASP 50-55 mmHg Ischemic cardiomyopathy. S/p multivessel PCI at [facility] in March 2023 - see echo above Acute thrombocytopenia. Resolved - DAPT resumed after normalization of platelet count Chronic renal insufficiency. History of unilateral nephrectomy (h/o renal CA). Serum creatinine has improved Mild troponin elevation - type 2 PR due to CHF Plan: * Continue DAPT * Continue carvedilol and SGLT-2 inhib * Renal function appears to have returned to usual baseline. Has chronically been on ARB, resumed * Heart failure management reviewed. Outpt f/u advised * Advised to return to ER for recurrent symptoms or new symptoms DEVORAH ABDULLAHI MD FACP [facility] CCDS Mar 27, 2023 13:51
[2023-03-27 14:22] VITALS: BP 116/66
== END 2023-03-27 14:24 | disposition home or self-care (01) | DRG 280 ==
LOC: EDUNIT# 12:54 → ER 12:56 → ICU 18:53 → CSD 03-24 19:57
PROVIDERS: ADMIT Family Medicine; ATTEND Family Medicine
PROC: 5A0935A Assistance with Respiratory Ventilation, Less than 24 Consecutive Hours, High Flow/Velocity Cannula (ICD-10-PCS; principal; 2023-03-24)
DX: I13.0 Hypertensive heart and chronic kidney disease with heart failure and stage 1 through stage 4 chronic kidney disease, or unspecified chronic kidney disease (principal); I50.43 Acute on chronic combined systolic (congestive) and diastolic (congestive) heart failure; I21.A1 Myocardial infarction type 2; J18.9 Pneumonia, unspecified organism; J96.01 Acute respiratory failure with hypoxia; E87.1 Hypo-osmolality and hyponatremia; I25.10 Atherosclerotic heart disease of native coronary artery without angina pectoris; Z90.5 Acquired absence of kidney; E03.9 Hypothyroidism, unspecified; Z91.199 Patient's noncompliance with other medical treatment and regimen due to unspecified reason; Z95.5 Presence of coronary angioplasty implant and graft; Z85.528 Personal history of other malignant neoplasm of kidney; Z85.118 Personal history of other malignant neoplasm of bronchus and lung; Z85.830 Personal history of malignant neoplasm of bone; Z92.21 Personal history of antineoplastic chemotherapy; N18.9 Chronic kidney disease, unspecified; D69.6 Thrombocytopenia, unspecified; D50.0 Iron deficiency anemia secondary to blood loss (chronic); I25.5 Ischemic cardiomyopathy
CPT/HCPCS: 36415; 36556; 36600; 71045; 80048; 80053; 80306; 80320; 81000; 82805; 82947; 83735; 83880; 84484; 85007; 85027; 85045; 85055; 86022; 86141; 87077; 87081; 87088; 87186; 93005; 93041; 93306; 94640; 94760; 94761

== ENCOUNTER 2023-04-03 07:42 | Inpatient (IN) | payer MEDICARE, OTHER ==
[~2023-04-03] VITALS: Ht 167 cm; Wt 87.4 kg
[~2023-04-03 07:42] MED LIST changes: +ASPI-1238 PO; +CARV3.122 PO; +CLOP75TA28 PO; +EMPA10TA PO
[2023-04-03 07:58] LABS: BASOPHILS # (AUTO) 0.1 10^3/uL (0.0-0.1); BASOPHILS % (AUTO) 1 % (0-10); EOSINOPHILS # (AUTO) 0.2 10^3/uL (0.0-0.3); EOSINOPHILS % (AUTO) 2 % (0-10); HEMATOCRIT 33 % (35-52); HEMOGLOBIN 10.1 g/dL (11.5-16.0); LYMPHOCYTES # (AUTO) 0.6 10^3/uL (1.0-4.0); LYMPHOCYTES % (AUTO) 8 % (12-44); MEAN CORPUSCULAR HEMOGLOBIN 28 pg (25-34); MEAN CORPUSCULAR HGB CONC 30 g/dL (32-36); MEAN CORPUSCULAR VOLUME 93 fL (80-99); MEAN PLATELET VOLUME 8.7 fL (9.0-12.2); MONOCYTES # (AUTO) 0.4 10^3/uL (0.0-1.0); MONOCYTES % (AUTO) 6 % (0-12); NEUTROPHILS # (AUTO) 6.1 10^3/uL (1.8-7.8); NEUTROPHILS % (AUTO) 83 % (42-75); PLATELET COUNT 346 10^3/uL (130-400); WHITE BLOOD COUNT 7.5 10^3/uL (4.3-11.0)
[2023-04-03] MEDS ORDERED: ASPIRIN 81 MG CHEW (CHILDREN'S ASA) PO ONE (08:00)
[2023-04-03 08:12] LABS: ALBUMIN 4.2 GM/DL (3.2-4.5); CHLORIDE 107 MMOL/L (98-107); SODIUM 139 MMOL/L (135-145)
--- NOTE | 2023-04-03 08:12 | ED General ---
General Chief Complaint: General Problems/Pain Stated Complaint: NAUSEA Nursing Triage Note: PT PRESENTS TO ED VIA EMS FROM HOME WITH COMPLAINTS OF SOB THAT WOKE HER FROM HER SLEEP AND NAUSEA AND DIARRHEA. PT REPORTS SHE WAS DISCHARGED LAST TUESDAY FROM [facility]IA [facility] AFTER HAVING 3 STENTS PLACED. Source of Information: Patient, EMS Exam Limitations: No Limitations History of Present Illness Date Seen by Provider: Apr 03, 2023 Time Seen by Provider: 07:45 Initial Comments Here by EMS with report of waking up at about 1 AM with shortness of breath. She states that she woke up with the start and noted that she was short of breath. Does have recent stent placement 10 days ago x3 at [place] with follow- up stay here for congestive heart failure. She was doing better until this morning. Reports taking her meds as directed. She did note that she has had some increased swelling of her legs over the last 24 hours. She did take a water pill. EMS reports that she had normal vital signs in the field and she was able to move from her chair to the cot without difficulty. Patient reported shortness of breath on arrival here and also reports nausea and diarrhea. Denies chest pain specifically. Timing/Duration: 4-6 Hours Severity: Mild Associated Systoms: No Chest Pain, No Cough, No Fever/Chills; Nausea/Vomiting, Shortness of Air, Weakness Allergies and Home Medications Allergies Coded Allergies: heparin (Verified Allergy, Severe, likely HIT- (dropped platelets to 3), 03/25/23) Penicillins (Verified Allergy, Unknown, 10/15/21) Sulfa (Sulfonamide Antibiotics) (Verified Allergy, Unknown, 10/15/21) codeine (Verified Allergy, Unknown, 10/15/21) erythromycin base (Verified Allergy, Unknown, 10/15/21) Patient Home Medication List Home Medication List Reviewed: Yes Aspirin (Aspirin EC) 81 Mg Tablet.dr, 81 MG PO DAILY Prescribed by: SULTANA QUIROGA on 03/27/23922 Axitinib (Inlyta) 1 Mg Tablet, 2 MG PO BID, (Reported) Entered as Reported by: JOSH LEGGETT on 03/18/23 113 Carvedilol (Carvedilol) 3.125 Mg Tablet, 3.125 MG PO BID Prescribed by: SULTANA QUIROGA on 03/27/23922 Cetirizine HCl (Cetirizine HCl) 10 Mg Tablet, 10 MG PO DAILY, (Reported) Entered as Reported by: JOSH LEGGETT on 03/18/231130 Clopidogrel Bisulfate (Clopidogrel) 75 Mg Tablet, 75 MG PO DAILY Prescribed by: SULTANA QUIROGA on 03/27/23922 Empagliflozin (Jardiance) 10 Mg Tablet, 10 MG PO DAILY Prescribed by: SULTANA QUIROGA on 03/27/23922 Furosemide (Furosemide) 20 Mg Tablet, 20 MG PO DAILY PRN for EDEMA, (Reported) Entered as Reported by: JOSH LEGGETT on 03/18/23 113 Irbesartan (Irbesartan) 150 Mg Tablet, 150 MG PO BID, (Reported) Entered as Reported by: KAVON POSADAS on 10/14/21 101 Levothyroxine Sodium (Levothyroxine Sodium) 125 Mcg Tablet, 125 MCG PO DAILY, (Reported) Entered as Reported by: JOSH LEGGETT on 03/18/231130 Pembrolizumab (Keytruda) 100 Mg/4 Ml (25 Mg/Ml) Vial, 200 MG IV EVERY 3 WEEKS, (Reported) Entered as Reported by: JOSH LEGGETT on 03/18/23 113 Discontinued Medications Amlodipine Besylate (Amlodipine Besylate) 10 Mg Tablet, 10 MG PO DAILY, (Reported) Entered as Reported by: KAVON POSADAS on 10/14/21 101 Cephalexin (Cephalexin) 500 Mg Capsule, 500 MG PO TID, (Reported) Entered as Reported by: JOSH LEGGETT on 03/18/23 113 Metformin HCl (Metformin HCl ER) 500 Mg Tab.er.24h, 500 MG PO BID, (Reported) Entered as Reported by: JOSH LEGGETT on 03/18/23 113 Review of Systems Review of Systems Constitutional: see HPI; No chills, No fever EENTM: No nose congestion Respiratory: No cough; short of breath Cardiovascular: No chest pain; edema Gastrointestinal: diarrhea, nausea Genitourinary: no symptoms reported Musculoskeletal: no symptoms reported Skin: no symptoms reported Psychiatric/Neurological: Anxiety Past Sikocky-Ebsugj-Uxelxp Hx Patient Social History Tobacco Use?: No Substance use?: No Alcohol Use?: Yes Alcohol Frequency: Once in a while Pt feels they are or have been: No Immunizations Up To Date First/Initial COVID19 Vaccinat: yes Second COVID19 Vaccination Chandan: yes Third COVID19 Vaccination Date: yes Seasonal Allergies Seasonal Allergies: Yes Past Medical History Surgery/Hospitalization HX: SX: C-SEC, TONSILS, R KIDNEY REMOVED, L KIDNEY ABLATION, LT SIDE PORT, 3-STENTS PLACED PMH: KIDNEY CA, HTN pathological fracture to right hip Surgeries: Yes (kidney ablation, breast bx, port placed and removed) Section, Coronary Stent, Nephrectomy, Tonsillectomy Respiratory: No Pneumonia Currently Using CPAP: No Currently Using BIPAP: No Cardiac: Yes Hypertension Neurological: No Reproductive Disorders: No Sexually Transmitted Disease: No HIV/AIDS: No Genitourinary: Yes (kidney ca) Gastrointestinal: No Musculoskeletal: No Endocrine: Yes Hypothyroidsim, Diabetes, Non-Insulin dep HEENT: Yes Loss of Vision: Bilateral Hearing Impairment: Denies Cancer: Yes Bone, Lung, Kidney What Type of Treatment Did You: Chemotherapy, Surgical Intervention Psychosocial: No Integumentary: Yes (MILD ON SCALP) Psoriasis Blood Disorders: No Adverse Reaction/Blood Tranf: No (N/A) Family Medical History Reviewed Nursing Family Hx Cancer Physical Exam Vital Signs Vital Signs - First Documented 04/03/23 07:45 Temp 36.3 Pulse 82 Resp 16 B/P (MAP) 153/94 (113) Pulse Ox 94 Capillary Refill : Less Than 3 Seconds Height, Weight, BMI Height: 5'6.00" Weight: 168lbs. 0.0oz. [id number]; 28.00 BMI Method: General Appearance: WD/WN, Anxious HEENT: PERRL/EOMI, Pharynx Normal Neck: Non Tender, Supple Respiratory: No Accessory Muscle Use, Crackles ( few bibasilar crackles) Cardiovascular: Regular Rate, Rhythm, No Murmur Gastrointestinal: Non Tender, Soft Extremity: Normal Range of Motion, Non Tender, No Calf Tenderness, Pedal Edema (2+ to mid tibia bilateral) Neurologic/Psychiatric: Alert, Oriented x3 Skin: Normal Color, Warm/Dry Progress/Results/Core Measures Suspected Sepsis SIRS Temperature: Pulse: 82 Respiratory Rate: 16 Laboratory Tests 04/03/23 07:50: White Blood Count 7.5 Blood Pressure 153 /94 Mean: 113 Laboratory Tests 04/03/23 07:50: Creatinine 2.02H, INR Comment 1.1, Platelet Count 346, Total Bilirubin 0.7 Results/Orders Lab Results Laboratory Tests Test 04/03/23 07:50 Range/Units White Blood Count 7.5 4.3-11.0 10^3/uL Red Blood Count 3.61 L 3.80-5.11 10^6/uL Hemoglobin 10.1 L 11.5-16.0 g/dL Hematocrit 33 L 35-52 % Mean Corpuscular Volume 93 80-99 fL Mean Corpuscular Hemoglobin 28 25-34 pg Mean Corpuscular Hemoglobin Concent 30 L 32-36 g/dL Red Cell Distribution Width 19.9 H 10.0-14.5 % Platelet Count 346 130-400 10^3/uL Mean Platelet Volume 8.7 L 9.0-12.2 fL Immature Granulocyte % (Auto) 0 % Neutrophils (%) (Auto) 83 H 42-75 % Lymphocytes (%) (Auto) 8 L 12-44 % Monocytes (%) (Auto) 6 0-12 % Eosinophils (%) (Auto) 2 0-10 % Basophils (%) (Auto) 1 0-10 % Neutrophils # (Auto) 6.1 1.8-7.8 10^3/uL Lymphocytes # (Auto) 0.6 L 1.0-4.0 10^3/uL Monocytes # (Auto) 0.4 0.0-1.0 10^3/uL Eosinophils # (Auto) 0.2 0.0-0.3 10^3/uL Basophils # (Auto) 0.1 0.0-0.1 10^3/uL Immature Granulocyte # (Auto) 0.0 0.0-0.1 10^3/uL Prothrombin Time 14.3 12.2-14.7 SEC INR Comment 1.1 0.8-1.4 Activated Partial Thromboplast Time 32 24-35 SEC Sodium Level 139 135-145 MMOL/L Potassium Level 4.0 3.6-5.0 MMOL/L Chloride Level 107 98-107 MMOL/L Carbon Dioxide Level 18 L 21-32 MMOL/L Anion Gap 14 5-14 MMOL/L Blood Urea Nitrogen 33 H 7-18 MG/DL Creatinine 2.02 H 0.60-1.30 MG/DL Estimat Glomerular Filtration Rate 26 BUN/Creatinine Ratio 16 Glucose Level 148 H 70-105 MG/DL Calcium Level 9.8 8.5-10.1 MG/DL Corrected Calcium 9.6 8.5-10.1 MG/DL Magnesium Level 2.0 1.6-2.4 MG/DL Total Bilirubin 0.7 0.1-1.0 MG/DL Aspartate Amino Transf (AST/SGOT) 41 H 5-34 U/L Alanine Aminotransferase (ALT/SGPT) 29 0-55 U/L Alkaline Phosphatase 94 40-136 U/L Myoglobin 67.0 10.0-92.0 NG/ML Troponin I < 0.028 <0.028 NG/ML B-Type Natriuretic Peptide 2521.3 H <100.0 PG/ML Total Protein 8.0 6.4-8.2 GM/DL Albumin 4.2 3.2-4.5 GM/DL My Orders Orders - AMANDO SMART MD Cbc With Automated Diff (04/03/23 07:52) Magnesium (04/03/23 07:52) Chest 1 View, Ap/Pa Only (04/03/23 07:52) Ekg Tracing (04/03/23 07:52) Comprehensive Metabolic Panel (04/03/23 07:52) Myoglobin Serum (04/03/23 07:52) Protime With Inr (04/03/23 07:52) Partial Thromboplastin Time (04/03/23 07:52) O2 (04/03/23 07:52) Monitor-Rhythm Ecg Trace Only (04/03/23 07:52) Lipid Panel (04/04/23 06:00) Ed Iv/Invasive Line Start (04/03/23 07:52) Bnp Maria De Jesus (04/03/23 07:52) Troponin I Hunt (04/03/23 07:52) Aspirin Chewable Tablet (Baby Aspirin Ch (04/03/23 08:00) Ondansetron Injection (Zofran Injectio (04/03/23 08:30) Furosemide Injection (Lasix Injection) (04/03/23 08:45) Potassium Chloride (Tablet) (K Dur Table (04/03/23 09:00) Medications Given in ED Current Medications Medications Dose Ordered Sig/Terry Route Start Time Stop Time Status Last Admin Dose Admin Aspirin 324 mg ONCE ONCE PO 04/03/23 08:00 04/03/23 08:01 DC 04/03/23 07:59 324 MG Furosemide 40 mg ONCE ONCE IVP 04/03/23 08:45 04/03/23 08:46 DC 04/03/23 08:41 40 MG Ondansetron HCl 4 mg ONCE ONCE IVP 04/03/23 08:30 04/03/23 08:31 DC 04/03/23 08:30 4 MG Vital Signs/I&O 04/03/23 07:45 Temp 36.3 Pulse 82 Resp 16 B/P (MAP) 153/94 (113) Pulse Ox 94 Capillary Refill : Less Than 3 Seconds Blood Pressure Mean: 113 Progress Note : Progress Note Seen and evaluated. IV, labs, EKG and chest x-ray ordered. ASA 324 mg p.o. Labs include CBC, CMP, coags, troponin and BNP. Monitor patient. Ondansetron 4 mg IV ordered. Differential diagnosis includes cardiac event, congestive heart failure, electrolyte abnormality, viral etiology. Plan: I did discuss the case with Dr Gama, bicycle messenger on-call to review the EKG which did have some abnormal findings although I think it is more bundle branch block as discussed below. Monitor patient. 0850: Chest x-ray reviewed by me and does show pulmonary edema and findings consistent with congestive heart failure on my interpretation. See radiology report which agrees. CBC reviewed and then there is no significant white count and hemoglobin is slightly better than previous hospitalization. CMP reviewed and shows essentially normal electrolytes with elevated serum creatinine consistent to previous findings noted on previous hospitalization inpatient stay with creatinine today of 2 and historical creatinine 1.7-1.98. BNP is grossly elevated at greater than 2500 consistent with heart failure. I did discuss the case with Dr Gama. Lasix 40 mg IV ordered. We will go ahead and give potassium 20 mg p.o. I did initiate O2 at 2 L per O2 saturation of 89% on room air and she is doing better with that . I did discuss admission with the patient and she agrees. I will call the hospitalist now. 0854: I did discuss the case with Dr. Grimes and he accepts patient for admission, inpatient status. I will write bridge orders and he will follow-up on home medicines. We will continue carvedilol and clopidogrel. Patient agrees to plan. ECG Initial ECG Impression Date: Apr 03, 2023 Initial ECG Impression Time: 08:05 Initial ECG Rate: 84 Initial ECG Rhythm: Normal Sinus Comment Sinus rhythm. With right axis deviation-and right bundle branch block no evidence of ST elevation VT. I did discuss this with Dr Gama due to some widening of the QRS complex in lead III and aVF which may be ST elevation versus QRS widening. He has reviewed the EKG and we both agree that this is likely widening and we we will check enzymes. Interpreted by me and discussed with cardiology. Diagnostic Imaging Diagonstic Imaging: Xray Plain Films/CT/US/NM/MRI: chest Comments [facility] [place] [place] NAME: ALVIN TAYLOR [facility] REC#: [id number] PT STATUS: REG ER : 1955 PHYSICIAN: AMANDO SMART MD ADMIT DATE: 04/03/23/ER Signed Date of Exam:04/03/23 CHEST 1 VIEW, AP/PA ONLY EXAMINATION: Chest 1 view HISTORY: Chest pain. Nausea. COMPARISON: 03/23/2023. FINDINGS: Stable cardiomegaly with increased central pulmonary vascular congestion and scattered interstitial markings throughout the lungs. No large pleural effusion or pneumothorax. Stable left port. IMPRESSION: 1. Increasing central pulmonary vascular congestion with findings suggestive of pulmonary edema. 2. Stable cardiomegaly. Dictated by: Dictated on workstation # [id number] Dict: 04/03/23826 Trans: 04/03/23832 [facility] [id number] Interpreted by: KARIE MCKENZIE DO Electronically signed by: KARIE MCKENZIE DO 04/03/2333 Departure Communication (Admissions) Time/Spoke to Admitting Phy: 08:54 Time/Spoke to Consulting Phy: 08:50 Impression Primary Impression: Acute on chronic congestive heart failure Qualified Codes: I50.9 - Heart failure, unspecified Additional Impressions: Chronic renal insufficiency Qualified Codes: N18.9 - Chronic kidney disease, unspecified Hypoxemia Hypoxia Disposition: ADMITTED INPATIENT Condition: Stable Admissions Decision to Admit Reason: Admit from ER (General) Decision to Admit/Date: Apr 03, 2023 Time/Decision to Admit Time: 08:50 Departure-Patient Inst. Referrals: JOYA PHELPS DO (PCP/Family) Primary Care Physician AMANDO SMART MD Apr 03, 2023 08:12
[2023-04-03 08:13] LABS: CALCIUM 9.8 MG/DL (8.5-10.1)
[2023-04-03 08:14] LABS: GLUCOSE 148 MG/DL (70-105)
[2023-04-03 08:15] LABS: CARBON DIOXIDE 18 MMOL/L (21-32)
[2023-04-03 08:16] LABS: BILIRUBIN,TOTAL 0.7 MG/DL (0.1-1.0)
[2023-04-03 08:18] LABS: ALKALINE PHOSPHATASE 94 U/L (40-136); CREATININE SERUM 2.02 MG/DL (0.60-1.30); GFR ESTIMATED 26
[2023-04-03 08:19] LABS: BUN/CREATININE RATIO 16
[2023-04-03 08:21] LABS: ALANINE AMINOTRANSFERASE 29 U/L (0-55)
[2023-04-03 08:23] LABS: INR 1.1 (0.8-1.4); PROTHROMBIN TIME PATIENT 14.3 SEC (12.2-14.7)
[2023-04-03] MEDS ORDERED: ONDANSETRON 4 MG/2 ML (SDV) Z0FRAN IVP ONE (08:30)
--- NOTE | 2023-04-03 08:32 | Diagnostic Imaging Report ---
EXAMINATION: Chest 1 view HISTORY: Chest pain. Nausea. COMPARISON: 03/23/2023. FINDINGS: Stable cardiomegaly with increased central pulmonary vascular congestion and scattered interstitial markings throughout the lungs. No large pleural effusion or pneumothorax. Stable left port. IMPRESSION: 1. Increasing central pulmonary vascular congestion with findings suggestive of pulmonary edema. 2. Stable cardiomegaly. Dictated by: Dictated on workstation # [id number]
[2023-04-03] MEDS ORDERED: FUROSEMIDE 40 MG/4 ML INJ (LASIX) IVP ONE (08:45)
[2023-04-03] MEDS ORDERED: KCL 20 MEQ TAB (K-DUR) PO ONE (09:00)
[2023-04-03 11:00] VITALS: BP 132/81
--- NOTE | 2023-04-03 15:39 | History & Physical-Hospitalist ---
History of Present Illness HPI/Chief Complaint hGazal Babb is a 68 year old female with PMH CAD s/p three recent stents, ischemic cardiomyopathy, HFrEF, CKD, metastatic renal cell carcinoma, who presented with shortness of breath. She says it started last night at 2 am after going to bed. She reports a dry cough. She also has leg swelling. She denies chest pain and palpitations. She denies fevers and chills. She denies abdominal pain. She had nausea, but no vomiting. Source: patient Exam Limitations: no limitations Date Seen 04/03/23 Time Seen by a Provider: 11:20 Attending Physician Naren Thomas DO PCP Admitting Physician: Rhina Grimes MD Attending Physician: Rhina Grimes MD Referring Physician Date of Admission Apr 03, 2023 at 10:29 Home Medications & Allergies Home Medications Reviewed patient Home Medication Reconciliation performed by pharmacy medication reconciliations health technician and/or nursing. Patients Allergies have been reviewed. Allergies Allergies Coded Allergies heparin (Verified Allergy, Severe, likely HIT- (dropped platelets to 3), 03/25/23) Penicillins (Verified Allergy, Unknown, 10/15/21) Sulfa (Sulfonamide Antibiotics) (Verified Allergy, Unknown, 10/15/21) codeine (Verified Allergy, Unknown, 10/15/21) erythromycin base (Verified Allergy, Unknown, 10/15/21) Past Knzeycy-Brqlzs-Emfmoc Hx Patient Social History Tobacco Use?: No Substance use?: No Alcohol Use?: No Alcohol Frequency: Once in a while Pt feels they are or have been: No Immunizations Up To Date First/Initial COVID19 Vaccinat: yes Second COVID19 Vaccination Chandan: yes Tetanus Booster (TDap): Less Than 5 Years Seasonal Allergies Seasonal Allergies: Yes Current Status Advance Directives: No Communicates: Verbally Primary Language: Hungarian Preferred Spoken Language: Hungarian Is interpretation needed?: No Sensory deficits: Vision impairment Implanted or Applied Medical D: Port-a-cath, Stents Past Medical History Surgeries: Section, Coronary Stent, Nephrectomy, Tonsillectomy Pneumonia Currently Using CPAP: No Currently Using BIPAP: No Cardiomyopathy, Heart Attack, Hypertension Sexually Transmitted Disease: No HIV/AIDS: No Hypothyroidsim, Diabetes, Non-Insulin dep Loss of Vision: Bilateral Hearing Impairment: Denies Bone, Lung, Kidney What Type of Treatment Did You: Chemotherapy, Surgical Intervention Psoriasis Blood Disorders: No Adverse Reaction/Blood Tranf: No (N/A) Family Medical History Reviewed Nursing Family Hx Cancer Review of Systems Constitutional: malaise Respiratory: cough, orthopnea, short of breath Cardiovascular: no symptoms reported Gastrointestinal: nausea Physical Exam Physical Exam Vital Signs Vital Signs - First Documented 04/03/23 04/03/23 07:45 08:30 Temp 36.3 Pulse 82 Resp 16 B/P (MAP) 153/94 (113) Pulse Ox 94 O2 Delivery Nasal Cannula O2 Flow Rate 2.00 Capillary Refill : Less Than 3 Seconds Height, Weight, BMI Height: 5'6.00" Weight: 168lbs. 0.0oz. [id number]; 31.33 BMI Method: General Appearance: Obese HEENT: PERRL/EOMI, Pharynx Normal Neck: Normal Inspection, Supple Respiratory: No Respiratory Distress, Decreased Breath Sounds Cardiovascular: Regular Rate, Rhythm, No Murmur Gastrointestinal: Normal Bowel Sounds, Non Tender, Soft Extremity: Non Tender; No Inflammation; Pedal Edema Neurologic/Psychiatric: Alert, Oriented x3, No Motor/Sensory Deficits, Normal Mood/Affect Skin: Normal Color, Warm/Dry Results Results/Procedures Labs Laboratory Tests 04/03/23 07:50 Patient resulted labs reviewed. Imaging: Reviewed Imaging Report Assessment/Plan Admission Diagnosis Acute on chronic HFrEF Admission Status: Inpatient Order (span 2 midnights) Reason for Inpatient Admission: Diuresis Assessment and Plan Acute on chronic HFrEF Pulmonary edema Acute respiratory failure with hypoxia Ischemic cardiomyopathy Multivessel coronary artery disease Chest xray with pulmonary edema Most recent EF 40% Cardiology consulted Lasix Continue ASA, Plavix, Coreg, Jardiance Supplemental oxygen as needed, 2 L currently CKD 4 Metastatic renal cell carcinoma History of nephrectomy Creatinine near baseline Monitor with diuresis History of HIT Heparin and analogues contraindicated due to HIT Fondaparinux contraindicated due to renal failure Consider alternative options, will discuss with pharmacy tomorrow DVT prophylaxis: SCDs Diagnosis/Problems Diagnosis/Problems (1) Acute on chronic HFrEF (heart failure with reduced ejection fraction) Status: Acute (2) Ischemic cardiomyopathy Status: Acute (3) Acute on chronic congestive heart failure Status: Acute Qualifiers: Heart failure type: systolic Qualified Codes: I50.23 - Acute on chronic systolic (congestive) heart failure (4) Multi-vessel coronary artery stenosis Status: Acute (5) Chronic renal insufficiency Status: Acute Qualifiers: Chronic kidney disease stage: unspecified stage Qualified Codes: N18.9 - Chronic kidney disease, unspecified (6) Hypoxia Status: Acute (7) 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
[2023-04-03 15:50] VITALS: BP 125/77
[2023-04-03] MEDS: FUROSEMIDE 40 MG/4 ML INJ (LASIX) IV SCH (17:34)
[2023-04-03 19:46] VITALS: BP 130/81
[2023-04-03 23:38] VITALS: BP 110/72
[2023-04-04 03:12] VITALS: BP 104/57
[2023-04-04 05:06] LABS: BASOPHILS # (AUTO) 0.1 10^3/uL (0.0-0.1); BASOPHILS % (AUTO) 1 % (0-10); EOSINOPHILS # (AUTO) 0.2 10^3/uL (0.0-0.3); EOSINOPHILS % (AUTO) 5 % (0-10); HEMATOCRIT 27 % (35-52); HEMOGLOBIN 8.1 g/dL (11.5-16.0); LYMPHOCYTES # (AUTO) 0.7 10^3/uL (1.0-4.0); LYMPHOCYTES % (AUTO) 15 % (12-44); MEAN CORPUSCULAR HEMOGLOBIN 28 pg (25-34); MEAN CORPUSCULAR HGB CONC 30 g/dL (32-36); MEAN CORPUSCULAR VOLUME 91 fL (80-99); MEAN PLATELET VOLUME 9.6 fL (9.0-12.2); MONOCYTES # (AUTO) 0.5 10^3/uL (0.0-1.0); MONOCYTES % (AUTO) 10 % (0-12); NEUTROPHILS # (AUTO) 3.5 10^3/uL (1.8-7.8); NEUTROPHILS % (AUTO) 70 % (42-75); PLATELET COUNT 312 10^3/uL (130-400); WHITE BLOOD COUNT 5.1 10^3/uL (4.3-11.0)
[2023-04-04 05:34] LABS: CALCIUM 8.9 MG/DL (8.5-10.1); CREATININE SERUM 2.13 MG/DL (0.60-1.30); POTASSIUM 3.8 MMOL/L (3.6-5.0)
[2023-04-04] MEDS: FUROSEMIDE 40 MG/4 ML INJ (LASIX) IV SCH (06:06)
[2023-04-04 07:59] VITALS: BP 121/62
--- NOTE | 2023-04-04 08:00 | Consultation-Cardiology ---
HPI-Cardiology Cardiology Consultation: Date of Consultation 04/04/23 Time Seen by a Provider: 08:35 Date of Admission 04-03-23 Attending Physician Naren Thomas DO Admitting Physician Admitting Physician: Erica Grimes MD Attending Physician: Erica Grimes MD Consulting Physician Norbert Gama MD Primary temple meat cutter: Dr. Senior HPI: Chief Complaint: Progressive dyspnea Ms. Taylor is a 68 yr old female admitted to [facility] from the ED with increasing SOB and LE swelling over the course of the last week. She denies any c/o CP, palpitations, syncope. near syncope. No c/o n/v/d. No c/o fever or chills. She states she feels better than she has in over a week and wishes to go home. Review of Systems-Cardiology Review of Systems Constitutional: No chills, No fever, No malaise Eyes: No vision change Ears/Nose/Throat: No epistaxis, No recent hearing loss Respiratory: As described under HPI Cardiovascular: As described under HPI Gastrointestinal: As described under HPI Genitourinary: No dysuria, No hematuria Musculoskeletal: no symptoms reported Skin: No rash on exposed areas, No ulcerations on exposed areas Psychiatric/Neurological: No anxiety, No depression, No seizure, No focal weakness, No syncope Hematologic: No bleeding abnormalities QCS-Uktrpi-Alglfi Hx Patient Social History Alcohol Use?: No Pt feels they are or have been: No Past Medical History PMH As described under Assessment. Family Medical History Family Medical History: No reported family h/o CAD Allergies and Home Medications Allergies Coded Allergies: heparin (Verified Allergy, Severe, likely HIT- (dropped platelets to 3), 03/25/23) Penicillins (Verified Allergy, Unknown, 10/15/21) Sulfa (Sulfonamide Antibiotics) (Verified Allergy, Unknown, 10/15/21) codeine (Verified Allergy, Unknown, 10/15/21) erythromycin base (Verified Allergy, Unknown, 10/15/21) Patient Home Medication List Aspirin (Aspirin EC) 81 Mg Tablet., 81 MG PO DAILY Prescribed by: SULTANA QUIROGA on 03/27/23 0923 Axitinib (Inlyta) 1 Mg Tablet, 2 MG PO BID, (Reported) Entered as Reported by: JOSH LEGGETT on 03/18/23 1131 Carvedilol (Carvedilol) 3.125 Mg Tablet, 3.125 MG PO BID Prescribed by: SULTANA QUIROGA on 03/27/23922 Cetirizine HCl (Cetirizine HCl) 10 Mg Tablet, 10 MG PO DAILY, (Reported) Entered as Reported by: JOSH LEGGETT on 03/18/23 113 Clopidogrel Bisulfate (Clopidogrel) 75 Mg Tablet, 75 MG PO DAILY Prescribed by: SULTANA QUIROGA on 03/27/23922 Empagliflozin (Jardiance) 10 Mg Tablet, 10 MG PO DAILY Prescribed by: SULTANA QUIROGA on 03/27/23922 Furosemide (Furosemide) 20 Mg Tablet, 20 MG PO DAILY PRN for EDEMA, (Reported) Entered as Reported by: JOSH LEGGETT on 03/18/23 113 Irbesartan (Irbesartan) 150 Mg Tablet, 150 MG PO BID, (Reported) Entered as Reported by: KAVON POSADAS on 10/14/21 101 Levothyroxine Sodium (Levothyroxine Sodium) 125 Mcg Tablet, 125 MCG PO DAILY, (Reported) Entered as Reported by: JOSH LEGGETT on 03/18/23 113 Pembrolizumab (Keytruda) 100 Mg/4 Ml (25 Mg/Ml) Vial, 200 MG IV EVERY 3 WEEKS, (Reported) Entered as Reported by: JOSH LEGGETT on 03/18/23 113 Physical Exam-Cardiology Physical Exam Vital Signs/I&O 04/03/23 04/04/23 04/04/23 23:38 03:12 07:59 Temp 35.6 36.8 36.0 Pulse 81 82 81 Resp 18 16 18 B/P (MAP) 110/72 (85) 104/57 (73) 121/62 (81) Pulse Ox 92 94 94 O2 Delivery Nasal Cannula Nasal Cannula Nasal Cannula O2 Flow Rate 2.00 2.00 2.00 2.00 2.00 04/03/23 23:59 Intake Total 1420 ml Balance 1420 ml Capillary Refill : Less Than 3 Seconds Constitutional: AAO x 3, well-developed, well-nourished HEENT: PERRL, hearing is well preserved, oral hygience is good Neck: No carotid bruit; carotid pulses are 2 + bilaterally Respiratory: No accessory muscle use, No respiratory distress; chest expansion is symmetric, chest is bilaterally symmetric, lungs clear to auscultation Cardiovascular: regular rate-rhythm; No JVD; S1 and S2 Gastrointestinal: No tender; soft, round, audible bowel sounds Extremities: no lower extremity edema bilateral Neurologic/Psychiatric: other (moves all extremities) Skin: No rash on exposed areas, No ulcerations on exposed areas Data Review Labs Laboratory Tests 04/04/23 04:50: White Blood Count 5.1, Red Blood Count 2.95L, Hemoglobin 8.1L, Hematocrit 27L, Mean Corpuscular Volume 91, Mean Corpuscular Hemoglobin 28, Mean Corpuscular Hemoglobin Concent 30L, Red Cell Distribution Width 19.5H, Platelet Count 312, Mean Platelet Volume 9.6, Immature Granulocyte % (Auto) 0, Neutrophils (%) (Auto) 70, Lymphocytes (%) (Auto) 15, Monocytes (%) (Auto) 10, Eosinophils (%) (Auto) 5, Basophils (%) (Auto) 1, Neutrophils # (Auto) 3.5, Lymphocytes # (Auto) 0.7L, Monocytes # (Auto) 0.5, Eosinophils # (Auto) 0.2, Basophils # (Auto) 0.1, Immature Granulocyte # (Auto) 0.0, Sodium Level 139, Potassium Level 3.8, Chloride Level 107, Carbon Dioxide Level 20L, Anion Gap 12, Blood Urea Nitrogen 36H, Creatinine 2.13H, Estimat Glomerular Filtration Rate 24, BUN/Creatinine Ratio 17, Glucose Level 101, Calcium Level 8.9, Triglycerides Level 188H, Cholesterol Level 195, LDL Cholesterol Direct 136H, VLDL Cholesterol 38, HDL Cholesterol 26L Radiology NAME: ALVIN TAYLOR [facility]lin [facility] REC#: [id number] PT STATUS: REG ER : 1955 PHYSICIAN: AMANDO SMART MD ADMIT DATE: 04/03/23/ER Signed Date of Exam:04/03/23 CHEST 1 VIEW, AP/PA ONLY EXAMINATION: Chest 1 view HISTORY: Chest pain. Nausea. COMPARISON: 03/23/2023. FINDINGS: Stable cardiomegaly with increased central pulmonary vascular congestion and scattered interstitial markings throughout the lungs. No large pleural effusion or pneumothorax. Stable left port. IMPRESSION: 1. Increasing central pulmonary vascular congestion with findings suggestive of pulmonary edema. 2. Stable cardiomegaly. Dictated by: Dictated on workstation # [id number] Dict: 04/03/23826 Trans: 04/03/23832 [facility] [id number] Interpreted by: KARIE MCKENZIE DO Electronically signed by: KARIE MCKENZIE DO 04/03/23832 ECG Impression ECG Initial ECG Rhythm: Normal Sinus A/P-Cardiology Assessment/Admission Diagnosis Acute systolic/diastolic congestive heart failure - Echo on 03-27-23: LVEF 40-45%, apical hypokinesis, mod to severe MR, small amount of pericardial fluid w/o any evidence of hemodynamic compromise, L pleural eff, PASP 50-55 mmHg CAD - Cardiac cath of 03-19-[address] Spencer: Left main: Patent. LAD: severe ostial disease. stenosis severity 95%. severe diffuse disease in the mid and distal LAD. Left circumflex artery: first OM is occluded in the mid section. LCX had severe disease in the mid and distal segment. Stenosis severity 80%. RCA: Moderate to severe disease in the mid segment and moderate to severe disease in the distal segment. Left heart catheterization: LV gram not done due to CKD. Aortic pressure 78/53 mmHg. LV pressure 80/5 mmHg. LVEDP 10 mmHg. No gradient across the aortic valve. Transferred to [place] for intervention at that time. Ischemic cardiomyopathy. S/p multivessel PCI at [facility] in March 2023 (details unkown) - see echo above H/O acute thrombocytopenia at time of last admission (early March 2023) Resolved - DAPT resumed after normalization of platelet count CKD 3 History of unilateral nephrectomy (h/o renal CA) - followed by Dr. Galeana Anemia - management per medical services Discussion and Recomendations Acute on chronic systolic/diastolic CHF - treated with diuretics - monitor lab closely d/t baseline CKD and nephrectomy d/t renal carcinoma Recent PCI at [facility] - request records - continue DAPT d/t recent PCI CKD 3 - monitor lab closely - not suitable candidate for AMISH or ARB d/t baseline CKD Continue Coreg Anemia - management per medical services Further recs will be based on her hospital course We would like to thank medical services for this consult Clinical Quality Measures AMI/AHF: ASA po Prior to arrival: LEO Morales Apr 04, 2023 08:00
[2023-04-04] MEDS ORDERED: EMPAGLIFLOZIN 10 MG TABLET (JARDIANCE) PO SCH (09:00)
[2023-04-04] MEDS ORDERED: CLOPIDOGREL 75 MG (PLAVIX) TABLET PO SCH (09:00)
[2023-04-04] MEDS ORDERED: ASPIRIN 81 MG CHEW (CHILDREN'S ASA) PO SCH (09:00)
[2023-04-04] MEDS ORDERED: FURO20TA4 PO (09:54)
--- NOTE | 2023-04-04 09:56 | Discharge Inst-Simple/Standard ---
Discharge Inst-Standard Discharge Medications New, Converted or Re-Newed RX: Transmitted to Pharmacy Patient Instructions/Follow Up Plan of Care/Instructions/FU: Please continue to take your medications as written. Please follow up with your primary care doctor to follow up this hospital stay. Activity as Tolerated: Yes Discharge Diet: Low Sodium Diet, Cardiac Diet Return to The Hospital For: Chest pain, shortness of breath, fever, weakness, if you feel you are getting worse. SULTANA QUIROGA MD Apr 04, 2023 09:56
--- NOTE | 2023-04-04 09:59 | Discharge Summary ---
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 (8) Renal cell cancer Status: Acute Discharge Summary Discharge Physical Exam Allergies: Coded Allergies: heparin (Verified Allergy, Severe, likely HIT- (dropped platelets to 3), 03/25/23) Penicillins (Verified Allergy, Unknown, 10/15/21) Sulfa (Sulfonamide Antibiotics) (Verified Allergy, Unknown, 10/15/21) codeine (Verified Allergy, Unknown, 10/15/21) erythromycin base (Verified Allergy, Unknown, 10/15/21) Vitals & I&Os Vital Signs Date Time Temp Pulse Resp B/P (MAP) Pulse Ox O2 Delivery O2 Flow Rate FiO2 04/04/23 07:59 36.0 81 18 121/62 (81) 94 Nasal Cannula 2.00 Hospital Course Labs (last 24 hrs) Laboratory Tests 04/04/23 04:50: White Blood Count 5.1, Red Blood Count 2.95L, Hemoglobin 8.1L, Hematocrit 27L, Mean Corpuscular Volume 91, Mean Corpuscular Hemoglobin 28, Mean Corpuscular Hemoglobin Concent 30L, Red Cell Distribution Width 19.5H, Platelet Count 312, Mean Platelet Volume 9.6, Immature Granulocyte % (Auto) 0, Neutrophils (%) (Auto) 70, Lymphocytes (%) (Auto) 15, Monocytes (%) (Auto) 10, Eosinophils (%) (Auto) 5, Basophils (%) (Auto) 1, Neutrophils # (Auto) 3.5, Lymphocytes # (Auto) 0.7L, Monocytes # (Auto) 0.5, Eosinophils # (Auto) 0.2, Basophils # (Auto) 0.1, Immature Granulocyte # (Auto) 0.0, Sodium Level 139, Potassium Level 3.8, Chloride Level 107, Carbon Dioxide Level 20L, Anion Gap 12, Blood Urea Nitrogen 36H, Creatinine 2.13H, Estimat Glomerular Filtration Rate 24, BUN/Creatinine Ratio 17, Glucose Level 101, Calcium Level 8.9, Triglycerides Level 188H, Cholesterol Level 195, LDL Cholesterol Direct 136H, VLDL Cholesterol 38, HDL Cholesterol 26L Patient resulted labs reviewed. Pending Labs Laboratory Tests 04/04/23 04:50: White Blood Count 5.1, Red Blood Count 2.95, Hemoglobin 8.1, Hematocrit 27, Mean Corpuscular Volume 91, Mean Corpuscular Hemoglobin 28, Mean Corpuscular Hemoglobin Concent 30, Red Cell Distribution Width 19.5, Platelet Count 312, Mean Platelet Volume 9.6, Immature Granulocyte % (Auto) 0, Neutrophils (%) (Auto) 70, Lymphocytes (%) (Auto) 15, Monocytes (%) (Auto) 10, Eosinophils (%) (Auto) 5, Basophils (%) (Auto) 1, Neutrophils # (Auto) 3.5, Lymphocytes # (Auto) 0.7, Monocytes # (Auto) 0.5, Eosinophils # (Auto) 0.2, Basophils # (Auto) 0.1, Immature Granulocyte # (Auto) 0.0, Sodium Level 139, Potassium Level 3.8, Chloride Level 107, Carbon Dioxide Level 20, Anion Gap 12, Blood Urea Nitrogen 36, Creatinine 2.13, Estimat Glomerular Filtration Rate 24, BUN/Creatinine Ratio 17, Glucose Level 101, Calcium Level 8.9, Triglycerides Level 188, Cholesterol Level 195, LDL Cholesterol Direct 136, VLDL Cholesterol 38, HDL Cholesterol 26 Imaging: Reviewed Imaging Report Discharge Home Medications: Active Scripts Active Furosemide 20 Mg Tablet 20 Mg PO DAILY Aspirin EC (Aspirin) 81 Mg Tablet.dr 81 Mg PO DAILY Jardiance (Empagliflozin) 10 Mg Tablet 10 Mg PO DAILY Carvedilol 3.125 Mg Tablet 3.125 Mg PO BID Clopidogrel (Clopidogrel Bisulfate) 75 Mg Tablet 75 Mg PO DAILY Reported Cetirizine HCl 10 Mg Tablet 10 Mg PO DAILY Inlyta (Axitinib) 1 Mg Tablet 2 Mg PO BID TAKES 2 (1MG) TABS Levothyroxine Sodium 125 Mcg Tablet 125 Mcg PO DAILY Keytruda (Pembrolizumab) 100 Mg/4 Ml (25 Mg/Ml) Vial 200 Mg IV EVERY 3 WEEKS Irbesartan 150 Mg Tablet 150 Mg PO BID Instructions to patient/family Please see electronic discharge instructions given to patient. Clinical Quality Measures AMI/AHF: ASA po Prior to arrival: No Problem Qualifiers (1) Acute on chronic congestive heart failure: Heart failure type: systolic Qualified Codes: I50.23 - Acute on chronic systolic (congestive) heart failure (2) Chronic renal insufficiency: Chronic kidney disease stage: unspecified stage Qualified Codes: N18.9 - Chronic kidney disease, unspecified SULTANA QUIROGA MD Apr 04, 2023 09:59
--- NOTE | 2023-04-04 13:37 | Consultation-Cardiology ---
HPI-Cardiology Cardiology Consultation: Date of Consultation 04/04/23 Time Seen by a Provider: 10:10 Date of Admission Attending Physician Naren Thomas DO Admitting Physician Admitting Physician: Erica Grimes MD Attending Physician: Erica Grimes MD Consulting Physician DEVORAH ABDULLAHI MD, MA, FACP, FACC, FSCAI, CCDS HPI: Chief Complaint: Shortness of breath Ms. Babb is a 68 yr old female admitted to [facility] from the ED with increasing SOB and LE swelling over the course of the last week. She denies any c/o CP, palpitations, syncope. near syncope. No c/o n/v/d. No c/o fever or chills. She states she feels better than she has in over a week and wishes to go home. Review of Systems-Cardiology Review of Systems Constitutional: No chills, No fever, No malaise Eyes: No vision change Ears/Nose/Throat: No epistaxis, No recent hearing loss Respiratory: As described under HPI Cardiovascular: As described under HPI Gastrointestinal: As described under HPI Genitourinary: No dysuria, No hematuria Musculoskeletal: no symptoms reported Skin: No rash on exposed areas, No ulcerations on exposed areas Psychiatric/Neurological: No anxiety, No depression, No seizure, No focal weakness, No syncope Hematologic: No bleeding abnormalities [id number]-[id number] Hx Patient Social History Alcohol Use?: No Pt feels they are or have been: No Past Medical History PMH As described under Assessment. Family Medical History Family Medical History: No reported family h/o CAD Allergies and Home Medications Allergies Coded Allergies: heparin (Verified Allergy, Severe, likely HIT- (dropped platelets to 3), 03/25/23) Penicillins (Verified Allergy, Unknown, 10/15/21) Sulfa (Sulfonamide Antibiotics) (Verified Allergy, Unknown, 10/15/21) codeine (Verified Allergy, Unknown, 10/15/21) erythromycin base (Verified Allergy, Unknown, 10/15/21) Patient Home Medication List Home Medication List Reviewed: Yes Aspirin (Aspirin EC) 81 Mg Tablet., 81 MG PO DAILY Prescribed by: SULTANA QUIROGA on 03/27/23 0923 Axitinib (Inlyta) 1 Mg Tablet, 2 MG PO BID, (Reported) Entered as Reported by: JOSH LEGGETT on 03/18/23 1131 Carvedilol (Carvedilol) 3.125 Mg Tablet, 3.125 MG PO BID Prescribed by: SULTANA QUIROGA on 03/27/23922 Cetirizine HCl (Cetirizine HCl) 10 Mg Tablet, 10 MG PO DAILY, (Reported) Entered as Reported by: JOSH LEGGETT on 03/18/23 113 Clopidogrel Bisulfate (Clopidogrel) 75 Mg Tablet, 75 MG PO DAILY Prescribed by: SULTANA QUIROGA on 03/27/23922 Empagliflozin (Jardiance) 10 Mg Tablet, 10 MG PO DAILY Prescribed by: SULTANA QUIROGA on 03/27/23922 Furosemide (Furosemide) 20 Mg Tablet, 20 MG PO DAILY Prescribed by: SULTANA QUIROGA on 04/04/23953 Irbesartan (Irbesartan) 150 Mg Tablet, 150 MG PO BID, (Reported) Entered as Reported by: KAVON POSADAS on 10/14/21 1011 Levothyroxine Sodium (Levothyroxine Sodium) 125 Mcg Tablet, 125 MCG PO DAILY, (Reported) Entered as Reported by: JOSH LEGGETT on 03/18/23 113 Pembrolizumab (Keytruda) 100 Mg/4 Ml (25 Mg/Ml) Vial, 200 MG IV EVERY 3 WEEKS, (Reported) Entered as Reported by: JOSH LEGGETT on 03/18/23 113 Physical Exam-Cardiology Physical Exam Vital Signs/I&O 04/04/23 04/04/23 04/04/23 03:12 07:59 11:54 Temp 36.8 36.0 Pulse 82 81 Resp 16 18 B/P (MAP) 104/57 (73) 121/62 (81) Pulse Ox 94 94 O2 Delivery Nasal Cannula Nasal Cannula O2 Flow Rate 2.00 2.00 2.00 04/04/23 00:00 Intake Total 1420 ml Balance 1420 ml Capillary Refill : Less Than 3 Seconds Constitutional: AAO x 3, well-developed, well-nourished HEENT: PERRL, hearing is well preserved, oral hygience is good Neck: No carotid bruit; carotid pulses are 2 + bilaterally Respiratory: No accessory muscle use, No respiratory distress; chest expansion is symmetric, chest is bilaterally symmetric, lungs clear to auscultation Cardiovascular: regular rate-rhythm; No JVD; S1 and S2 Gastrointestinal: No tender; soft, round, audible bowel sounds Extremities: no lower extremity edema bilateral Neurologic/Psychiatric: other (moves all extremities) Skin: No rash on exposed areas, No ulcerations on exposed areas Data Review Labs Laboratory Tests 04/04/23 04:50: White Blood Count 5.1, Red Blood Count 2.95L, Hemoglobin 8.1L, Hematocrit 27L, Mean Corpuscular Volume 91, Mean Corpuscular Hemoglobin 28, Mean Corpuscular Hemoglobin Concent 30L, Red Cell Distribution Width 19.5H, Platelet Count 312, Mean Platelet Volume 9.6, Immature Granulocyte % (Auto) 0, Neutrophils (%) (Auto) 70, Lymphocytes (%) (Auto) 15, Monocytes (%) (Auto) 10, Eosinophils (%) (Auto) 5, Basophils (%) (Auto) 1, Neutrophils # (Auto) 3.5, Lymphocytes # (Auto) 0.7L, Monocytes # (Auto) 0.5, Eosinophils # (Auto) 0.2, Basophils # (Auto) 0.1, Immature Granulocyte # (Auto) 0.0, Sodium Level 139, Potassium Level 3.8, Chloride Level 107, Carbon Dioxide Level 20L, Anion Gap 12, Blood Urea Nitrogen 36H, Creatinine 2.13H, Estimat Glomerular Filtration Rate 24, BUN/Creatinine Ratio 17, Glucose Level 101, Calcium Level 8.9, Triglycerides Level 188H, Cholesterol Level 195, LDL Cholesterol Direct 136H, VLDL Cholesterol 38, HDL Cholesterol 26L A/P-Cardiology Assessment/Admission Diagnosis Acute systolic/diastolic congestive heart failure - Echo on 03-27-23: LVEF 40-45%, apical hypokinesis, mod to severe MR, small amount of pericardial fluid w/o any evidence of hemodynamic compromise, L pleural eff, PASP 50-55 mmHg CAD - Cardiac cath of 03-19-[address] Spencer: Left main: Patent. LAD: severe ostial disease. stenosis severity 95%. severe diffuse disease in the mid and distal LAD. Left circumflex artery: first OM is occluded in the mid section. LCX had severe disease in the mid and distal segment. Stenosis severity 80%. RCA: Moderate to severe disease in the mid segment and moderate to severe disease in the distal segment. Left heart catheterization: LV gram not done due to CKD. Aortic pressure 78/53 mmHg. LV pressure 80/5 mmHg. LVEDP 10 mmHg. No gradient across the aortic valve. Transferred to [place] for intervention at that time. Ischemic cardiomyopathy. S/p multivessel PCI at [facility] in March 2023 (details unkown) - see echo above H/O acute thrombocytopenia at time of last admission (early March 2023) Resolved - DAPT resumed after normalization of platelet count CKD 3 History of unilateral nephrectomy (h/o renal CA) - followed by Dr. Galeana Anemia - management per medical services Discussion and Recomendations Acute on chronic systolic/diastolic CHF - treated with diuretics - monitor lab closely d/t baseline CKD and nephrectomy d/t renal carcinoma Recent PCI at [facility] - request records - continue DAPT d/t recent PCI CKD 3 - monitor lab closely - not suitable candidate for AMISH or ARB d/t baseline CKD Continue Coreg Anemia - management per medical services Further recs will be based on her hospital course We would like to thank medical services for this consult Clinical Quality Measures AMI/AHF: ASA po Prior to arrival: DEVORAH Dalal MD FACP FACC CCDS Apr 04, 2023 13:37
== END 2023-04-04 11:50 | disposition home or self-care (01) | DRG 291 ==
LOC: EDUNIT# 07:42 → ER 07:43 → 4TH 10:29
PROVIDERS: ADMIT Internal Medicine; ATTEND Internal Medicine
DX: I13.0 Hypertensive heart and chronic kidney disease with heart failure and stage 1 through stage 4 chronic kidney disease, or unspecified chronic kidney disease (principal); I50.43 Acute on chronic combined systolic (congestive) and diastolic (congestive) heart failure; J96.01 Acute respiratory failure with hypoxia; I25.5 Ischemic cardiomyopathy; I25.10 Atherosclerotic heart disease of native coronary artery without angina pectoris; D75.829 Heparin-induced thrombocytopenia, unspecified; Z79.82 Long term (current) use of aspirin; Z79.899 Other long term (current) drug therapy; Z90.5 Acquired absence of kidney; Z95.5 Presence of coronary angioplasty implant and graft; E03.9 Hypothyroidism, unspecified; Z85.830 Personal history of malignant neoplasm of bone; Z85.118 Personal history of other malignant neoplasm of bronchus and lung; Z85.528 Personal history of other malignant neoplasm of kidney; Z92.21 Personal history of antineoplastic chemotherapy; I25.2 Old myocardial infarction; N18.30 Chronic kidney disease, stage 3 unspecified; D63.1 Anemia in chronic kidney disease
CPT/HCPCS: 36415; 71045; 80048; 80053; 80061; 83735; 83874; 83880; 84484; 85025; 85610; 85730; 93005; 93041; 94760; 94761

== ENCOUNTER → 2023-04-08 | Outpatient (CLI) | payer MEDICARE, OTHER ==
--- NOTE | 2023-04-08 15:56 | Diagnostic Imaging Report ---
EXAM: Nuclear Medicine whole-body bone scan. DATE: April 08, 2023. INDICATION: 68-year-old female, history of right renal malignancy. Evaluation for bone metastasis. COMPARISON: Nuclear Medicine whole-body bone scan October 26, 2022. CT chest, abdomen, and pelvis April 20, 2021. FINDINGS: The right kidney is absent. Renal cell carcinoma bone metastasis may not necessarily be radiotracer avid. There is radiotracer activity in the left side of the pelvis which is unchanged since the comparison Nuclear Medicine whole-body bone scan. There is no additional identified radiotracer avid or photopenic lesion. IMPRESSION: 1. Redemonstrated radiotracer avid lesion of the left side of the pelvis, consistent with a site of known metastasis correlating with prior CT on April 20, 2021. 2. No newly identified radiotracer avid lesion or photopenic lesion. Dictated by: Dictated on workstation # [id number]
== END ==
LOC: CARD 11:59
PROVIDERS: ATTEND Internal Medicine Hematology & Oncology
DX: Z51.12 Encounter for antineoplastic immunotherapy (principal); C64.1 Malignant neoplasm of right kidney, except renal pelvis; C79.51 Secondary malignant neoplasm of bone; C79.70 Secondary malignant neoplasm of unspecified adrenal gland; E03.8 Other specified hypothyroidism; N18.30 Chronic kidney disease, stage 3 unspecified
CPT/HCPCS: 78306; A9503

== ENCOUNTER → 2023-07-22 | Outpatient (CLI) | payer MEDICARE ==
[~2023-07-22] MED LIST changes: +CATHETER FLUSH 10 ML SYR IVP PRN
--- NOTE | 2023-07-26 07:46 | Diagnostic Imaging Report ---
INDICATION: Right renal malignancy. Patient was administered 26.7 mCi technetium 99M MDP intravenously and whole-body imaging was performed after a three-hour delay. Comparison is made with prior bone scan from 04/08/2023. Solitary left kidney is noted. There is physiologic activity within the axial and appendicular skeleton. There continues to be a uptake involving the left hemipelvis, similar to prior exam. No new foci of tracer accumulation is identified. IMPRESSION: Overall stable whole-body bone scan with areas of abnormal uptake in the left hemipelvis, similar to prior study. No new abnormality is detected. Dictated by: Dictated on workstation # [id number]
== END ==
LOC: CARD 08:41
PROVIDERS: ATTEND Nurse Practitioner Adult Health
DX: Z51.12 Encounter for antineoplastic immunotherapy (principal); C64.1 Malignant neoplasm of right kidney, except renal pelvis; C79.51 Secondary malignant neoplasm of bone; C79.70 Secondary malignant neoplasm of unspecified adrenal gland
CPT/HCPCS: 78306; A9503